=== PATIENT | female | born 1945 | race African-American/Black ===

== ENCOUNTER → 2016-11-18 | Outpatient (CLI) | payer MEDICARE, OTHER ==
[2016-11-18 12:37] LABS: ANION GAP 12 (5-19); BLOOD UREA NITROGEN 19 mg/dL (7-20); CALCIUM 8.7 mg/dL (8.4-10.2); CARBON DIOXIDE 30 mmol/L (22-30); CHLORIDE 101 mmol/L (98-107); GLUCOSE 96 mg/dL (75-110); POTASSIUM 4.1 mmol/L (3.6-5.0); SODIUM 142.6 mmol/L (137-145)
== END ==
LOC: OD 11:13
PROVIDERS: ATTEND Internal Medicine Nephrology
DX: N17.9 Acute kidney failure, unspecified (principal)
CPT/HCPCS: 36415; 80048

== ENCOUNTER → 2017-01-15 | Outpatient (CLI) | payer MEDICARE, OTHER ==
[2017-01-15 10:51] LABS: APPEARANCE,URINE SLIGHTLY-CLOUDY; BILIRUBIN,URINE NEGATIVE (NEGATIVE); GLUCOSE, URINE NEGATIVE (NEGATIVE); KETONES,URINE NEGATIVE (NEGATIVE); LEUKOCYTE ESTERASE,URINE LARGE (NEGATIVE); NITRITE,URINE POSITIVE (NEGATIVE); PROTEIN,URINE NEGATIVE (NEGATIVE); URINE SPECIFIC GRAVITY 1.014; UROBILINOGEN,URINE NEGATIVE mg/dL (<2.0)
[2017-01-15 10:52] LABS: HEMATOCRIT 35.3 % (36.0-47.0); HEMOGLOBIN 10.8 g/dL (12.0-15.5); HGB HCT DIFFERENCE -2.9; MEAN CORPUSCULAR HEMOGLOBIN 22.6 pg (27.0-33.4); MEAN CORPUSCULAR HGB CONC 30.6 g/dL (32.0-36.0); MEAN CORPUSCULAR VOLUME 74 fl (80-97); RED BLOOD COUNT 4.79 10^6/uL (3.72-5.28); RED CELL DISTRIBUTION WIDTH 15.7 % (11.5-14.0)
[2017-01-15 11:02] VITALS: BP 166/78
[2017-01-15 11:15] LABS: ANION GAP 9 (5-19); BLOOD UREA NITROGEN 22 mg/dL (7-20); CALCIUM 8.9 mg/dL (8.4-10.2); CARBON DIOXIDE 29 mmol/L (22-30); CHLORIDE 101 mmol/L (98-107); CREATININE RESULT 1.31 mg/dL (0.52-1.25); GLUCOSE 93 mg/dL (75-110); POTASSIUM 4.4 mmol/L (3.6-5.0)
--- NOTE | 2017-01-15 12:48 | EKG REPORT ---
SEVERITY:- NORMAL ECG - SINUS RHYTHM : Confirmed by: Moises Akers MD 15-Jan-2017 12:47:58
== END ==
LOC: ASU 10:15
PROVIDERS: ATTEND Orthopaedic Surgery
DX: Z01.810 Encounter for preprocedural cardiovascular examination (principal); Z01.811 Encounter for preprocedural respiratory examination; Z01.818 Encounter for other preprocedural examination; Z79.899 Other long term (current) drug therapy; M17.11 Unilateral primary osteoarthritis, right knee
CPT/HCPCS: 36415; 71020; 80048; 81001; 85027; 93005; 93010

== ENCOUNTER → 2017-02-12 | Outpatient (CLI) | payer MEDICARE, OTHER ==
[2017-02-12 13:40] LABS: ABSOLUTE EOSINOPHILS # (AUTO) 0.3 10^3/uL (0.0-0.6); ABSOLUTE LYMPHOCYTES (AUTO) 1.2 10^3/uL (0.5-4.7); ABSOLUTE MONOCYTES (AUTO) 0.6 10^3/uL (0.1-1.4); ABSOLUTE NEUT (AUTO) 3.7 10^3/uL (1.7-8.2); BASOPHILS % (AUTO) 0.5 % (0-2); EOSINOPHILS % (AUTO) 5.9 % (0-6); HEMATOCRIT 37.9 % (36.0-47.0); HEMOGLOBIN 11.6 g/dL (12.0-15.5); HGB HCT DIFFERENCE -3.1; LYMPHOCYTES % (AUTO) 19.9 % (13-45); MEAN CORPUSCULAR HEMOGLOBIN 22.7 pg (27.0-33.4); MEAN CORPUSCULAR HGB CONC 30.7 g/dL (32.0-36.0); MEAN CORPUSCULAR VOLUME 74 fl (80-97); MONOCYTES % (AUTO) 10.4 % (3-13); RED BLOOD COUNT 5.13 10^6/uL (3.72-5.28); RED CELL DISTRIBUTION WIDTH 15.3 % (11.5-14.0); SEGMENTED NEUTROPHILS % (AUTO) 63.3 % (42-78); WHITE BLOOD COUNT 5.8 10^3/uL (4.0-10.5)
[2017-02-12 14:01] LABS: ALBUMIN 4.2 g/dL (3.5-5.0); ANION GAP 16 (5-19); BLOOD UREA NITROGEN 28 mg/dL (7-20); CALCIUM 9.6 mg/dL (8.4-10.2); CARBON DIOXIDE 24 mmol/L (22-30); CHLORIDE 104 mmol/L (98-107); CREATININE RESULT 2.76 mg/dL (0.52-1.25); GLUCOSE 102 mg/dL (75-110); PHOSPHORUS 6.3 mg/dL (2.5-4.5); POTASSIUM 4.3 mmol/L (3.6-5.0); SODIUM 143.6 mmol/L (137-145)
[2017-02-12 15:05] LABS: APPEARANCE,URINE CLOUDY; BILIRUBIN,URINE MODERATE (NEGATIVE); GLUCOSE, URINE NEGATIVE (NEGATIVE); KETONES,URINE NEGATIVE (NEGATIVE); LEUKOCYTE ESTERASE,URINE MODERATE (NEGATIVE); NITRITE,URINE NEGATIVE (NEGATIVE); PROTEIN,URINE 30 mg/dL (NEGATIVE); UROBILINOGEN,URINE NEGATIVE mg/dL (<2.0)
[2017-02-13 11:09] LABS: VITAMIN D 25-HYDROXY 19.2 ng/mL (30.0-100.0)
[2017-02-14 07:38] LABS: CREATININE URINE 367.8 mg/dL (Not Estab.); MICROALBUMIN URINE 85.9 ug/mL (Not Estab.)
== END ==
LOC: OD 13:06
PROVIDERS: ATTEND Internal Medicine Nephrology
DX: N18.2 Chronic kidney disease, stage 2 (mild) (principal); R31.0 Gross hematuria; D64.9 Anemia, unspecified; N17.9 Acute kidney failure, unspecified
CPT/HCPCS: 36415; 80048; 81001; 82040; 82043; 82306; 82570; 83970; 84100; 85025

== ENCOUNTER → 2017-03-02 | Outpatient (CLI) | payer MEDICARE, OTHER ==
[2017-03-02 14:16] LABS: ANION GAP 10 (5-19); BLOOD UREA NITROGEN 16 mg/dL (7-20); CALCIUM 9.3 mg/dL (8.4-10.2); CARBON DIOXIDE 27 mmol/L (22-30); CHLORIDE 107 mmol/L (98-107); CREATININE RESULT 1.06 mg/dL (0.52-1.25); GLUCOSE 88 mg/dL (75-110); PHOSPHORUS 3.7 mg/dL (2.5-4.5); POTASSIUM 4.7 mmol/L (3.6-5.0); SODIUM 144.3 mmol/L (137-145)
== END ==
LOC: OD 12:10
PROVIDERS: ATTEND Internal Medicine Nephrology
DX: N17.9 Acute kidney failure, unspecified (principal); E83.39 Other disorders of phosphorus metabolism
CPT/HCPCS: 36415; 80048; 84100

== ENCOUNTER 2017-03-13 17:46 | Observation (INO) | payer MEDICARE, OTHER ==
--- NOTE | 2017-03-13 19:15 | ER Document Report ---
ED General - General Chief Complaint: Chest Pain Stated Complaint: CHEST PAIN/PHYSICIAN REFERRED Mode of Arrival: Ambulatory Information source: Patient Notes: 71-year-old female history of A. fib presents with complaints of sudden chest pressure sensation around the left breast. Patient denies any fevers or chills nausea vomiting or diarrhea Patient had recent stress test by Dr. Sethi TRAVEL OUTSIDE OF THE [place] IN LAST 30 DAYS: No - HPI Onset: Just prior to arrival - Related Data Allergies/Adverse Reactions: aspirin [Aspirin] Allergy (Unknown, Verified 03/13/17 18:41) Coconut * [Coconut] Allergy (Unknown, Verified 03/13/17 18:41) codeine [Codeine] Allergy (Unknown, Verified 03/13/17 18:41) ketorolac tromethamine [From Toradol] Allergy (Unknown, Verified 03/13/17 18:41) latex [Latex] Allergy (Unknown, Verified 03/13/17 18:41) Penicillins Allergy (Unknown, Verified 03/13/17 18:41) pineapple [Pineapple] Allergy (Unknown, Verified 03/13/17 18:41) BLOOD PRESSURE CUFF Allergy (Mild, Uncoded 03/13/17 18:41) ham Allergy (Unknown, Uncoded 03/13/17 18:41) Past Medical History - Social History Family History: Reviewed & Not Pertinent Patient has suicidal ideation: No Patient has homicidal ideation: No - Past Medical History Cardiac Medical History: Reports: Hx Atrial Fibrillation, Hx Coronary Artery Disease, Hx DVT, Hx Hypertension, Hx Pulmonary Embolism Denies: Hx Heart Attack Pulmonary Medical History: Reports: Hx Asthma, Hx Bronchitis, Hx Pneumonia Denies: Hx COPD, Hx Tuberculosis Neurological Medical History: Reports: Hx Migraine. Denies: Hx Cerebrovascular Accident, Hx Seizures Renal/ Medical History: Denies: Hx Peritoneal Dialysis Musculoskeltal Medical History: Reports Hx Arthritis Past Surgical History: Reports: Hx Appendectomy, Hx Bowel Surgery, Hx Cholecystectomy, Hx Hysterectomy. Denies: Hx Pacemaker - Immunizations Hx Diphtheria, Pertussis, Tetanus Vaccination: Yes Hx Pneumococcal Vaccination: 08/15/12 Physical Exam - Vital signs Vitals: Temp Pulse Resp BP Pulse Ox 98.3 F 65 22 H 144/67 H 96 03/13/17 18:04 03/13/17 18:04 03/13/17 18:04 03/13/17 18:04 03/13/17 18:04 Course - Re-evaluation Re-evalutation: 03/13/17 19:16 Minerva paged for stress test results 03/13/17 19:[address] Perdomo , they do not have access to the stress test - Vital Signs Vital signs: Temp Pulse Resp BP Pulse Ox 98.3 F 65 22 H 144/67 H 96 03/13/17 18:04 03/13/17 18:04 03/13/17 18:04 03/13/17 18:04 03/13/17 18:04
--- NOTE | 2017-03-13 20:28 | ER Document Report ---
ED Medical Screen (RME) - General Chief Complaint: Chest Pain Stated Complaint: CHEST PAIN/PHYSICIAN REFERRED Mode of Arrival: Ambulatory Notes: 71-year-old female history of A. fib presents with complaints of sudden chest pressure sensation around the left breast. Patient denies any fevers or chills nausea vomiting or diarrhea Patient had recent stress test by Dr. Sethi, georgianadant was called unable to access I have greeted and performed a rapid initial assessment of this patient. A comprehensive ED assessment and evaluation of the patient, analysis of test results and completion of the medical decision making process will be conducted by additional ED providers. PHYSICAL EXAMINATION: GENERAL: Well-appearing, well-nourished and in no acute distress. HEAD: Atraumatic, normocephalic. EYES: Pupils equal round extraocular movements intact, conjunctiva are normal. ENT: Nares patent NECK: Normal range of motion LUNGS: No respiratory distress Musculoskeletal: Normal range of motion NEUROLOGICAL: Normal speech, normal gait. PSYCH: Normal mood, normal affect. SKIN: Warm, Dry, normal turgor, no rashes or lesions noted. TRAVEL OUTSIDE OF THE [place] IN LAST 30 DAYS: No - Related Data Allergies/Adverse Reactions: aspirin [Aspirin] Allergy (Unknown, Verified 03/13/17 18:41) Coconut * [Coconut] Allergy (Unknown, Verified 03/13/17 18:41) codeine [Codeine] Allergy (Unknown, Verified 03/13/17 18:41) ketorolac tromethamine [From Toradol] Allergy (Unknown, Verified 03/13/17 18:41) latex [Latex] Allergy (Unknown, Verified 03/13/17 18:41) Penicillins Allergy (Unknown, Verified 03/13/17 18:41) pineapple [Pineapple] Allergy (Unknown, Verified 03/13/17 18:41) BLOOD PRESSURE CUFF Allergy (Mild, Uncoded 03/13/17 18:41) ham Allergy (Unknown, Uncoded 03/13/17 18:41) Past Medical History - Past Medical History Cardiac Medical History: Reports: Hx Atrial Fibrillation, Hx Coronary Artery Disease, Hx DVT, Hx Hypertension, Hx Pulmonary Embolism Denies: Hx Heart Attack Pulmonary Medical History: Reports: Hx Asthma, Hx Bronchitis, Hx Pneumonia Denies: Hx COPD, Hx Tuberculosis Neurological Medical History: Reports: Hx Migraine. Denies: Hx Cerebrovascular Accident, Hx Seizures Renal/ Medical History: Denies: Hx Peritoneal Dialysis Musculoskeltal Medical History: Reports Hx Arthritis Past Surgical History: Reports: Hx Appendectomy, Hx Bowel Surgery, Hx Cholecystectomy, Hx Hysterectomy. Denies: Hx Pacemaker - Immunizations Hx Diphtheria, Pertussis, Tetanus Vaccination: Yes Physical Exam - Vital signs Vitals: Temp Pulse Resp BP Pulse Ox 98.3 F 65 22 H 144/67 H 96 03/13/17 18:04 03/13/17 18:04 03/13/17 18:04 03/13/17 18:04 03/13/17 18:04 Course - Vital Signs Vital signs: Temp Pulse Resp BP Pulse Ox 98.3 F 65 22 H 144/67 H 96 03/13/17 18:04 03/13/17 18:04 03/13/17 18:04 03/13/17 18:04 03/13/17 18:04
[2017-03-13 20:56] LABS: ABSOLUTE EOSINOPHILS # (AUTO) 0.2 10^3/uL (0.0-0.6); ABSOLUTE LYMPHOCYTES (AUTO) 1.3 10^3/uL (0.5-4.7); ABSOLUTE MONOCYTES (AUTO) 0.6 10^3/uL (0.1-1.4); ABSOLUTE NEUT (AUTO) 4.9 10^3/uL (1.7-8.2); BASOPHILS % (AUTO) 0.5 % (0-2); EOSINOPHILS % (AUTO) 3.1 % (0-6); HEMATOCRIT 37.8 % (36.0-47.0); HEMOGLOBIN 11.7 g/dL (12.0-15.5); HGB HCT DIFFERENCE -2.7; LYMPHOCYTES % (AUTO) 18.3 % (13-45); MEAN CORPUSCULAR HEMOGLOBIN 22.4 pg (27.0-33.4); MEAN CORPUSCULAR HGB CONC 30.8 g/dL (32.0-36.0); MEAN CORPUSCULAR VOLUME 73 fl (80-97); MONOCYTES % (AUTO) 8.8 % (3-13); RED BLOOD COUNT 5.22 10^6/uL (3.72-5.28); RED CELL DISTRIBUTION WIDTH 15.1 % (11.5-14.0); SEGMENTED NEUTROPHILS % (AUTO) 69.3 % (42-78); WHITE BLOOD COUNT 7.1 10^3/uL (4.0-10.5)
[2017-03-13 20:57] LABS: PROTHROMBIN TIME 24.3 SEC (11.4-15.4)
[2017-03-13 20:58] LABS: PARTIAL THROMBOPLASTIN TIME 39.1 SEC (23.5-35.8)
[2017-03-13 21:15] LABS: ALANINE AMINOTRANSFERASE 21 U/L (9-52); ALKALINE PHOSPHATASE 77 U/L (38-126); ANION GAP 15 (5-19); ASPARTATE AMINO TRANSFERASE 21 U/L (14-36); BILIRUBIN,DIRECT 0.4 mg/dL (0.0-0.4); BILIRUBIN,TOTAL 0.8 mg/dL (0.2-1.3); BLOOD UREA NITROGEN 20 mg/dL (7-20); CALCIUM 9.5 mg/dL (8.4-10.2); CARBON DIOXIDE 25 mmol/L (22-30); CHLORIDE 102 mmol/L (98-107); CREATINE KINASE 81 U/L (30-135); CREATININE RESULT 1.74 mg/dL (0.52-1.25); GLUCOSE 108 mg/dL (75-110); POTASSIUM 3.9 mmol/L (3.6-5.0); SODIUM 142.3 mmol/L (137-145); TOTAL PROTEIN 7.6 g/dL (6.3-8.2)
--- NOTE | 2017-03-13 21:20 | ER Document Report ---
ED Cardiac - General Chief Complaint: Chest Pain Stated Complaint: CHEST PAIN/PHYSICIAN REFERRED Time seen by provider: 21:18 Mode of Arrival: Ambulatory Information source: Patient TRAVEL OUTSIDE OF THE [place] IN LAST 30 DAYS: No - HPI Patient complains to provider of: Chest pain Was the onset of pain: Sudden Is the pain a: New problem Chest pain location: Substernal, Under breast Quality of pain: Pressure Chest pain radiation location: Left arm Severity now: None Severity at worst: Moderate Chest pain precipitating factors: At Rest Cardiac risk factors: Hypertension, Dyslipidemia Positive cardiac history: No Associated symptoms: Nausea/vomiting, Shortness of breath Exacerbated by: Denies Relieved by: Nothing Similar symptoms previously: No Notes: Patient is a 71-year-old female with past medical history significant for hypertension, high cholesterol, COPD, pulmonary embolus, migraine headaches and CVA, who presents to the emergency room complaining of chest pain that started earlier today while at rest, it is pressure-like in nature, radiates from the midsternum to the left breast and down the left arm, she reports associated shortness of breath with the pain, as well as nausea, she denies a history of similar symptoms in the past, reports that symptoms are resolved at time of my initial evaluation - Related Data Allergies/Adverse Reactions: aspirin [Aspirin] Allergy (Unknown, Verified 03/13/17 18:41) Coconut * [Coconut] Allergy (Unknown, Verified 03/13/17 18:41) codeine [Codeine] Allergy (Unknown, Verified 03/13/17 18:41) ketorolac tromethamine [From Toradol] Allergy (Unknown, Verified 03/13/17 18:41) latex [Latex] Allergy (Unknown, Verified 03/13/17 18:41) Penicillins Allergy (Unknown, Verified 03/13/17 18:41) pineapple [Pineapple] Allergy (Unknown, Verified 03/13/17 18:41) BLOOD PRESSURE CUFF Allergy (Mild, Uncoded 03/13/17 18:41) ham Allergy (Unknown, Uncoded 03/13/17 18:41) Past Medical History - General Information source: Patient - Social History Smoking Status: Never Smoker Frequency of alcohol use: None Drug Abuse: None Family History: Reviewed & Not Pertinent Patient has suicidal ideation: No Patient has homicidal ideation: No - Past Medical History Cardiac Medical History: Reports: Hx Atrial Fibrillation, Hx Coronary Artery Disease, Hx DVT, Hx Hypertension, Hx Pulmonary Embolism Denies: Hx Heart Attack Pulmonary Medical History: Reports: Hx Asthma, Hx Bronchitis, Hx Pneumonia Denies: Hx COPD, Hx Tuberculosis Neurological Medical History: Reports: Hx Migraine. Denies: Hx Cerebrovascular Accident, Hx Seizures Renal/ Medical History: Denies: Hx Peritoneal Dialysis Musculoskeltal Medical History: Reports Hx Arthritis Past Surgical History: Reports: Hx Appendectomy, Hx Bowel Surgery, Hx Cholecystectomy, Hx Hysterectomy. Denies: Hx Pacemaker - Immunizations Hx Diphtheria, Pertussis, Tetanus Vaccination: Yes Hx Pneumococcal Vaccination: 08/15/12 Review of Systems - Review of Systems Constitutional: No symptoms reported EENT: No symptoms reported Cardiovascular: See HPI Respiratory: See HPI Gastrointestinal: Nausea Genitourinary: No symptoms reported Female Genitourinary: No symptoms reported Musculoskeletal: No symptoms reported Skin: No symptoms reported Hematologic/Lymphatic: No symptoms reported Neurological/Psychological: No symptoms reported -: Yes All other systems reviewed and negative Physical Exam - Vital signs Vitals: Temp Pulse Resp BP Pulse Ox 98.3 F 65 22 H 144/67 H 96 03/13/17 18:04 03/13/17 18:04 03/13/17 18:04 03/13/17 18:04 03/13/17 18:04 Interpretation: Normal - General General appearance: Appears well, Alert - HEENT Head: Normocephalic, Atraumatic Eyes: Normal Pupils: PERRL - Respiratory Respiratory status: No respiratory distress Chest status: Nontender Breath sounds: Normal Chest palpation: Normal - Cardiovascular Rhythm: Regular Heart sounds: Normal auscultation Murmur: No - Abdominal Inspection: Obese Distension: No distension Bowel sounds: Normal Tenderness: Nontender Organomegaly: No organomegaly - Back Back: Normal, Nontender - Extremities General upper extremity: Normal inspection, Nontender, Normal color, Normal ROM , Normal temperature General lower extremity: Normal inspection, Nontender, Normal color, Normal ROM , Normal temperature, Normal weight bearing. No: Jimi's sign - Neurological Neuro grossly intact: Yes Cognition: Normal Orientation: AAOx4 Hennessey Coma Scale Eye Opening: Spontaneous [place] Coma Scale Verbal: Oriented Jory Coma Scale Motor: Obeys Commands Hennessey Coma Scale Total: 15 Speech: Normal Motor strength normal: LUE, RUE, LLE, RLE Sensory: Normal - Psychological Associated symptoms: Normal affect, Normal mood - Skin Skin Temperature: Warm Skin Moisture: Dry Skin Color: Normal Course - Re-evaluation Re-evalutation: 03/13/17 21:34 Flight Kitchen Manager requested to page physician covering for Dr. Negro 03/13/17 21:42 Patient resting comfortably, remains chest pain-free, discussed with Dr. Bland who agrees to admit as telemetry observation for Dr. Negro for chest pain - Vital Signs Vital signs: Temp Pulse Resp BP Pulse Ox 98.3 F 65 18 151/99 H 96 03/13/17 18:04 03/13/17 18:04 03/13/17 21:01 03/13/17 21:01 03/13/17 21:01 - Laboratory Result Diagrams: 03/13/17 20:20 03/13/17 20:20 Laboratory results interpreted by me: 03/13/17 03/13/17 03/13/17 20:20 20:20 20:20 Hgb 11.7 L MCV 73 L MCH 22.4 L MCHC 30.8 L RDW 15.1 H Plt Count 134 L PT 24.3 H APTT 39.1 H Creatinine 1.74 H Est GFR ( Amer) 35 L Est GFR (Non-Af Amer) 29 L - Diagnostic Test Radiology reviewed: Image reviewed, Reports reviewed - EKG Interpretation by Me EKG shows normal: Sinus rhythm Rate: Normal Rhythm: NSR, APC's - Transfer of Care Care transferred to following provider: Dr. Bland for Dr. Negro Discharge - Discharge Clinical Impression: Chest pain Qualifiers: Chest pain type: unspecified Qualified Code(s): R07.9 - Chest pain, unspecified Condition: Stable Disposition: ADMITTED OBSERVATION Admitting Provider: Guillermo Unit Admitted: Telemetry Referrals: LANCE NEGRO MD [Primary Care Provider] - Follow up as needed
[2017-03-13 21:25] LABS: CREATINE KINASE MB 1.31 ng/mL (<4.55); TROPONIN I 0.013 ng/mL
[2017-03-14] MEDS ORDERED: ONDANSETRON HCL INJ/PF 4 MG/2 ML SDV IV ONE (00:06)
[2017-03-14] MEDS ORDERED: DIPHENHYDRAMINE HCL 25 MG CAPSULE PO PRN (03:36)
[2017-03-14 05:17] LABS: CREATINE KINASE MB 1.06 ng/mL (<4.55); TROPONIN I 0.014 ng/mL
[2017-03-14] MEDS: MORPHINE SULFATE SR 30 MG TABLET PO SCH ×3 (05:36→21:36)
[2017-03-14] MEDS ORDERED: ONDANSETRON HCL INJ/PF 4 MG/2 ML SDV ONE (08:54)
[2017-03-14] MEDS ORDERED: ONDANSETRON HCL INJ/PF 4 MG/2 ML SDV IV PRN (08:58)
--- NOTE | 2017-03-14 10:06 | EKG REPORT ---
SEVERITY:- OTHERWISE NORMAL ECG - SINUS RHYTHM ATRIAL PREMATURE COMPLEX : Confirmed by: Darien Baca 14-Mar-2017 10:06:09
[2017-03-14 12:31] LABS: TROPONIN I < 0.012 ng/mL
[2017-03-14] MEDS ORDERED: METHOCARBAMOL 750 MG TABLET PO PRN (14:06)
[2017-03-14] MEDS ORDERED: QUETIAPINE FUMARATE 100 MG TABLET PO PRN (14:06)
[2017-03-14] MEDS ORDERED: (PENDING PHARMACY ID) (Citalopram Hydrobromide [Celexa 40 Mg Tablet] 1 TAB) PO SCH (14:15)
[2017-03-14] MEDS ORDERED: MORPHINE SULFATE 60 MG PO SCH (14:15)
[2017-03-14] MEDS ORDERED: GABAPENTIN 300 MG CAPSULE PO ONE (14:45)
[2017-03-14] MEDS ORDERED: HYDRALAZINE HCL 50 MG TABLET PO ONE (14:45)
[2017-03-14] MEDS ORDERED: LANSOPRAZOLE 30 MG TAB.RAP.DR PO ONE (15:00)
[2017-03-14] MEDS ORDERED: ALBUTEROL SULFATE 0.083% NEB 2.5 MG/3 ML AMPUL NEB ONE (15:00)
[2017-03-14] MEDS ORDERED: METOPROLOL SUCCINATE 50 MG TAB.SR.24H PO ONE (15:00)
[2017-03-14] MEDS ORDERED: DILTIAZEM HCL 120 MG CAP.SR.24H PO ONE (15:00)
[2017-03-14] MEDS ORDERED: CITALOPRAM HYDROBROMIDE 20 MG TABLET PO ONE (15:00)
[2017-03-14] MEDS ORDERED: RIVAROXABAN 10 MG TABLET PO ONE (15:00)
[2017-03-14] MEDS ORDERED: LIDOCAINE 5% (700 MG) TRANSDERMAL ADH..PATCH TP ONE (15:30)
[2017-03-14 16:21] LABS: CREATINE KINASE MB 1.19 ng/mL (<4.55)
[2017-03-14 16:24] LABS: TROPONIN I < 0.012 ng/mL
--- NOTE | 2017-03-14 16:55 | PDOC H&P ---
History of Present Illness Admission Date/PCP: 03/14/17 03:04 LANCE NEGRO MD History of Present Illness: GLENDA PENA is a 71 year old female, she called me and indicated that she was having chest pain I advised her to go to the emergency room which she did. She was seen and evaluated in the ER EKG was done that was normal sinus rhythm there was no acute ST T-wave changes the ER physician is requesting that patient be admitted to the hospital for management. When I spoke to she stated that the chest pain is left-sided and it radiated to the left upper extremities , the carotid of the chest pain is not clear she also stated that she recently had a nuclear stress test done in [place] by the breakfast hostess she does not know the results of the stress test she also told me that her physician Dr. Negro was making efforts to get the results of the test but so far there they were not successful. The 3 sets of cardiac enzymes are so far negative for acute UT ,she had episode of vomiting, the vomitus contained recently eating food. Past Medical History Cardiac Medical History: Reports: Atrial Fibrillation, Coronary Artery Disease, DVT, Hypertension, Pulmonary Embolism Pulmonary Medical History: Reports: Asthma, Bronchitis, Pneumonia Neurological Medical History: Reports: Migraine Musculoskeltal Medical History: Reports: Arthritis Past Surgical History Past Surgical History: Reports: Appendectomy, Cholecystectomy, Hysterectomy Social History Smoking Status: Never Smoker Frequency of Alcohol Use: None Hx Recreational Drug Use: No Drugs: None Hx Prescription Drug Abuse: No - Advance Directive Resuscitation Status: Full Code Family History Family History: Reviewed & Not Pertinent Parental Family History Reviewed: Yes Children Family History Reviewed: Yes Sibling(s) Family History Reviewed.: Yes Medication/Allergy Home Medications: Albuterol Sulfate [Albuterol Sulfate 2.5mg/3 mL] 2.5 ml IH Q6 03/14/17 Citalopram Hydrobromide [Celexa 40 mg Tablet] 1 tab PO DAILY 03/14/17 Clonidine 0.3 patch TD MAYEN@1000 03/14/17 Diltiazem HCl [Diltiazem 24Hr Cd] 120 mg PO DAILY 03/14/17 Ergocalciferol (Vitamin D2) [Vitamin D2] 50,000 unit PO SUTH@1000 03/14/17 Fluticasone/Salmeterol [Advair 500-50 Diskus 28 Dose] 1 puff IH Q12 03/14/17 Gabapentin [Neurontin 300 mg Capsule] 300 mg PO Q12 03/14/17 Hydralazine HCl [Apresoline 50 mg Tablet] 50 mg PO Q12 03/14/17 Lidocaine [Lidoderm 5% (700 mg) Transdermal Patch] 1 patch TD DAILY 03/14/17 Methocarbamol [Robaxin 750 mg Tablet] 750 mg PO DAILY PRN 03/14/17 Metoprolol Succinate [Toprol XL 100 mg Tablet] 100 mg PO DAILY 03/14/17 Montelukast Sodium [Singulair 10 mg Tablet] 10 mg PO QHS 03/14/17 Morphine Sulfate [Morphine Sulfate ER] 60 mg PO Q12 03/14/17 Omeprazole 40 mg PO DAILY 03/14/17 Quetiapine Fumarate [Seroquel 100 mg Tablet] 100 mg PO DAILY PRN 03/14/17 Rivaroxaban [Xarelto] 20 mg PO DAILY 03/14/17 Sumatriptan Succinate 6 mg SQ DAILY PRN 03/14/17 Allergies/Adverse Reactions: aspirin [Aspirin] Allergy (Unknown, Verified 03/13/17 18:41) Coconut * [Coconut] Allergy (Unknown, Verified 03/13/17 18:41) codeine [Codeine] Allergy (Unknown, Verified 03/13/17 18:41) ketorolac tromethamine [From Toradol] Allergy (Unknown, Verified 03/13/17 18:41) latex [Latex] Allergy (Unknown, Verified 03/13/17 18:41) Penicillins Allergy (Unknown, Verified 03/13/17 18:41) pineapple [Pineapple] Allergy (Unknown, Verified 03/13/17 18:41) BLOOD PRESSURE CUFF Allergy (Mild, Uncoded 03/13/17 18:41) ham Allergy (Unknown, Uncoded 03/13/17 18:41) Review of Systems Constitutional: PRESENT: fatigue Eyes: ABSENT: visual disturbances Ears: ABSENT: hearing changes Cardiovascular: PRESENT: chest pain Respiratory: ABSENT: cough, hemoptysis Gastrointestinal: PRESENT: nausea, vomiting Genitourinary: ABSENT: dysuria, hematuria Musculoskeletal: ABSENT: joint swelling Integumentary: ABSENT: rash, wounds Neurological: ABSENT: abnormal gait, abnormal speech, confusion, dizziness, focal weakness, syncope Psychiatric: ABSENT: anxiety, depression, homidical ideation, suicidal ideation Endocrine: ABSENT: cold intolerance, heat intolerance, menstrual abnormalities, polydipsia, polyuria Hematologic/Lymphatic: ABSENT: easy bleeding, easy bruising, lymphadenopathy Physical Exam Vital Signs: Temp Pulse Resp BP Pulse Ox 98.3 F 65 16 125/74 100 03/14/17 16:00 03/14/17 16:00 03/14/17 16:00 03/14/17 16:00 03/14/17 16:00 Intake & Output 03/13/17 03/14/17 03/15/17 06:59 06:59 06:59 Intake Total 100 Balance 100 General appearance: PRESENT: no acute distress, well-developed, well-nourished Head exam: PRESENT: atraumatic, normocephalic Eye exam: PRESENT: conjunctiva pink, EOMI, PERRLA Ear exam: PRESENT: normal external ear exam Mouth exam: PRESENT: moist, tongue midline Neck exam: PRESENT: full ROM Respiratory exam: PRESENT: clear to auscultation lashanda Cardiovascular exam: PRESENT: RRR, +S1, +S2 Pulses: PRESENT: normal dorsalis pedis pul, +2 pedal pulses bilateral Vascular exam: PRESENT: normal capillary refill GI/Abdominal exam: PRESENT: normal bowel sounds, soft Rectal exam: PRESENT: deferred Neurological exam: PRESENT: alert, awake, oriented to person, oriented to place , oriented to time, oriented to situation, CN II-XII grossly intact Psychiatric exam: PRESENT: appropriate affect, normal mood Skin exam: PRESENT: dry, intact, warm Results Laboratory Results: 03/14/17 03/14/17 03/14/17 03:35 03:35 11:45 Creatine Kinase 78 64 CK-MB (CK-2) 1.06 Troponin I 0.014 03/14/17 03/14/17 03/14/17 11:45 15:30 15:30 Creatine Kinase 74 CK-MB (CK-2) 1.30 1.19 Troponin I < 0.012 < 0.012 Impressions: Chest X-Ray 03/13/17 19:02 IMPRESSION: NO ACUTE RADIOGRAPHIC FINDING IN THE CHEST. Assessment & Plan - Diagnosis (1) Chest pain Qualifiers: Chest pain type: unspecified Qualified Code(s): R07.9 - Chest pain, unspecified Is this a current diagnosis for this admission?: YesPlan: She has left sided chest pain that radiated to the left upper extremity, so far cardiac enzymes are negative, she has risk factors for vascular disease, she is also on anticoagulant because of history of pulmonary embolism, since she recently had a nuclear stress test I would not reorder another nuclear stress test but we will make efforts to retrieve the results of the stress test that she had done in the last few weeks
[2017-03-14] MEDS: FLUTICASONE/SALMETEROL DISKUS 500-50 MCG/DOSE IH SCH (17:17)
[2017-03-14] MEDS ORDERED: CLONIDINE 0.3 MG/24 HR PATCH.TDWK TD SCH (18:00)
[2017-03-14] MEDS ORDERED: ERGOCALCIFEROL (VITAMIN D2) 50000 UNIT (1.25 MG) CAPSULE PO SCH (18:00)
[2017-03-14] MEDS: ALBUTEROL SULFATE 0.083% NEB 2.5 MG/3 ML AMPUL NEB SCH (19:49)
[2017-03-14] MEDS: MONTELUKAST SODIUM 10 MG TABLET PO SCH (21:36)
[2017-03-14] MEDS: HYDRALAZINE HCL 50 MG TABLET PO SCH (21:36)
[2017-03-14] MEDS: GABAPENTIN 300 MG CAPSULE PO SCH (21:36)
[2017-03-14] MEDS ORDERED: MORPHINE SULFATE SR 30 MG TABLET PO SCH (22:00)
[2017-03-14 23:08] LABS: CREATINE KINASE MB 0.99 ng/mL (<4.55)
[2017-03-14 23:12] LABS: TROPONIN I < 0.012 ng/mL
[2017-03-15] MEDS: ALBUTEROL SULFATE 0.083% NEB 2.5 MG/3 ML AMPUL NEB SCH ×4 (01:47→19:51)
[2017-03-15] MEDS: MORPHINE SULFATE SR 30 MG TABLET PO SCH ×2 (05:15→14:17)
[2017-03-15] MEDS: FLUTICASONE/SALMETEROL DISKUS 500-50 MCG/DOSE IH SCH ×2 (05:15→18:33)
[2017-03-15 09:47] LABS: CREATINE KINASE MB 7.44 ng/mL (<4.55); TROPONIN I 0.02 ng/mL
[2017-03-15] MEDS: CITALOPRAM HYDROBROMIDE 20 MG TABLET PO SCH (09:51)
[2017-03-15] MEDS: METOPROLOL SUCCINATE 50 MG TAB.SR.24H PO SCH (09:51)
[2017-03-15] MEDS: GABAPENTIN 300 MG CAPSULE PO SCH ×2 (09:51→21:46)
[2017-03-15] MEDS: DILTIAZEM HCL 120 MG CAP.SR.24H PO SCH (09:52)
[2017-03-15] MEDS: RIVAROXABAN 10 MG TABLET PO SCH (09:52)
[2017-03-15] MEDS: HYDRALAZINE HCL 50 MG TABLET PO SCH ×2 (09:52→21:46)
[2017-03-15] MEDS: LANSOPRAZOLE 30 MG TAB.RAP.DR PO SCH (09:52)
[2017-03-15] MEDS: LIDOCAINE 5% (700 MG) TRANSDERMAL ADH..PATCH TP SCH (09:53)
--- NOTE | 2017-03-15 12:42 | PDOC PROGRESS REPORT ---
Subjective Progress Note for:: 03/15/17 Subjective:: Patient was admitted for the chest pain and patient initial all cardiac enzymes was negative. Patient's denied any chest point anymore denied any shortness of the breath patients also see a cardiology at the [place] and a recent stress test was done was also negative to Physical Exam Vital Signs: Temp Pulse Resp BP Pulse Ox 99.3 F 62 16 120/72 94 03/15/17 08:00 03/15/17 08:11 03/15/17 08:11 03/15/17 08:00 03/15/17 08:00 Intake & Output 03/14/17 03/15/17 03/16/17 06:59 06:59 06:59 Intake Total 100 1340 Output Total 750 Balance 100 590 General appearance: PRESENT: no acute distress, well-developed, well-nourished Head exam: PRESENT: atraumatic, normocephalic Eye exam: PRESENT: conjunctiva pink, EOMI, PERRLA. ABSENT: scleral icterus Ear exam: PRESENT: normal external ear exam Mouth exam: PRESENT: moist, tongue midline Neck exam: PRESENT: full ROM. ABSENT: carotid bruit, JVD, lymphadenopathy, thyromegaly Respiratory exam: PRESENT: clear to auscultation lashanda Cardiovascular exam: PRESENT: RRR. ABSENT: diastolic murmur, rubs, systolic murmur Pulses: PRESENT: normal dorsalis pedis pul, +2 pedal pulses bilateral Vascular exam: PRESENT: normal capillary refill GI/Abdominal exam: PRESENT: normal bowel sounds, soft. ABSENT: distended, guarding, mass, organolmegaly, rebound, tenderness Rectal exam: PRESENT: deferred Neurological exam: PRESENT: alert, awake, oriented to person, oriented to place , oriented to time, oriented to situation, CN II-XII grossly intact. ABSENT: motor sensory deficit Psychiatric exam: PRESENT: appropriate affect, normal mood. ABSENT: homicidal ideation, suicidal ideation Skin exam: PRESENT: dry, intact, warm. ABSENT: cyanosis, rash Results Laboratory Results: 03/14/17 03/14/17 03/14/17 03:35 03:35 11:45 Creatine Kinase 78 64 CK-MB (CK-2) 1.06 Troponin I 0.014 03/14/17 03/14/17 03/14/17 11:45 15:30 15:30 Creatine Kinase 74 CK-MB (CK-2) 1.30 1.19 Troponin I < 0.012 < 0.012 03/14/17 03/14/17 03/15/17 21:40 21:40 08:50 Creatine Kinase 86 1051 H CK-MB (CK-2) 0.99 Troponin I < 0.012 03/15/17 08:50 Creatine Kinase CK-MB (CK-2) 7.44 H Troponin I 0.020 Impressions: Chest X-Ray 03/13/17 19:02 IMPRESSION: NO ACUTE RADIOGRAPHIC FINDING IN THE CHEST. Assessment & Plan - Diagnosis (1) Chest pain Qualifiers: Chest pain type: unspecified Qualified Code(s): R07.9 - Chest pain, unspecified Is this a current diagnosis for this admission?: YesPlan: Patient all cardiac enzyme is negative most likely a chest wall pain with the mildly elevated CPK level. Will get the stress test report from the coal mill operator office today and ambulate during the patient's and the patient is not complaining any chest pain anymore if the stress test was negative and cardiac enzyme is all stable we will discharge the patient in follow as outpatients (2) Chronic pain syndrome Is this a current diagnosis for this admission?: YesPlan: Patient is currently on a pain management (3) Chronic kidney disease Qualifiers: Chronic kidney disease stage: stage 3 (moderate) Qualified Code(s): N18.3 - Chronic kidney disease, stage 3 (moderate) Is this a current diagnosis for this admission?: YesPlan: Currently stable (4) Migraine headache Qualifiers: Migraine type: unspecified Is this a current diagnosis for this admission?: YesPlan: Patient also see her [place] [facility] (5) Hypertension Qualifiers: Hypertension type: essential hypertension Qualified Code(s): I10 - Essential (primary) hypertension Is this a current diagnosis for this admission?: YesPlan: Continues to current medications (6) Pulmonary embolism Qualifiers: Chronicity: unspecified Is this a current diagnosis for this admission?: YesPlan: Patient is currently see the bone crusher and currently on Coumadin with INR is 2 (7) Chronic back pain Qualifiers: Back pain location: low back pain Is this a current diagnosis for this admission?: YesPlan: Patient's currently see the neurosurgery at [place] (8) Asthma Qualifiers: Asthma complication type: uncomplicated Is this a current diagnosis for this admission?: YesPlan: Currently stable - Time Time Spent with patient: 15-24 minutes Medications reviewed and adjusted accordingly: Yes Anticipated discharge: Home Within: Other - Inpatient Certification Medical Necessity: Need Close Monitoring Due to Risk of Patient Decompensation Post Hospital Care: D/C Email Marketing Assistant Documentation - Plan Summary Plan Summary: We will get the stress test report and continues to monitor the patient's
--- NOTE | 2017-03-15 13:30 | EKG REPORT ---
SEVERITY:- BORDERLINE ECG - SINUS RHYTHM PROBABLE LEFT ATRIAL ABNORMALITY : Confirmed by: Moises Akers MD 15-Mar-2017 13:29:33
[2017-03-15] MEDS ORDERED: ONDANSETRON HCL INJ/PF 4 MG/2 ML SDV IV PRN (15:15)
[2017-03-15 16:00] LABS: CREATINE KINASE MB 12.7 ng/mL (<4.55); TROPONIN I 0.026 ng/mL
[2017-03-15] MEDS: NORMAL SALINE 1000 ML 1,000 ML IV PRN (17:21)
[2017-03-15 19:48] LABS: CREATINE KINASE MB 11.3 ng/mL (<4.55); TROPONIN I 0.029 ng/mL
--- NOTE | 2017-03-15 20:18 | PDOC CONSULTATION ---
Consultation Consult Date: 03/15/17 Attending physician:: LANCE LI Consult reason:: Chest pain History of Present Illness Admission Date/PCP: 03/14/17 03:04 LANCE LI MD Patient complains of: Chest pain History of Present Illness: GLENDA PENA is a 71 year old female, admitted through the emergency department with chest pain. She was seen and evaluated in the ER EKG was done that was normal sinus rhythm there was no acute ST T-wave changes. Patient was subsequently admitted to the hospital for management. Patient claims that the chest pain is left-sided and it radiated to the left upper extremities. The chest pain is sharp and is increased by taking a deep breath and by twisting and turning and certain movements. She also stated that she recently had a nuclear stress test done in [place] by the paramedic supervisor she does not know the results of the stress test she also told me that her physician Dr. Li was making efforts to get the results of the test but so far there they were not successful. The 3 sets of cardiac enzymes are so far negative for acute [place]. Patient however has elevation of total CK and CK-MB. Patient has a history of pulmonary embolism and is on Xarelto. This was related to me by patient's primary care M.D. Patient denied any recent fever or chills or cough. Patient claims to have spasms of pain on the left side of chest.. Past Medical History Cardiac Medical History: Reports: Atrial Fibrillation, Coronary Artery Disease, DVT, Hypertension, Pulmonary Embolism Denies: Myocardial Infarction Pulmonary Medical History: Reports: Asthma, Bronchitis, Pneumonia Denies: Chronic Obstructive Pulmonary Disease (COPD), Tuberculosis Neurological Medical History: Reports: Migraine Denies: Seizures Musculoskeltal Medical History: Reports: Arthritis Psychiatric Medical History: Denies: Depression Hematology: Denies: Anemia Past Surgical History Past Surgical History: Reports: Appendectomy, Cholecystectomy, Hysterectomy Denies: Pacemaker Social History Information Source: Patient Smoking Status: Never Smoker Frequency of Alcohol Use: None Hx Recreational Drug Use: No Drugs: None Hx Prescription Drug Abuse: No - Advance Directive Resuscitation Status: Full Code Surrogate healthcare decision maker:: Patient's is the surrogate decision maker Family History Family History: Reviewed & Not Pertinent - Negative for premature coronary artery disease or sudden cardiac in the family amongst first degree relatives. Parental Family History Reviewed: Yes Children Family History Reviewed: Yes Sibling(s) Family History Reviewed.: Yes Medication/Allergy Home Medications: Albuterol Sulfate [Albuterol Sulfate 2.5mg/3 mL] 2.5 ml IH Q6 03/14/17 Citalopram Hydrobromide [Celexa 40 mg Tablet] 1 tab PO DAILY 03/14/17 Clonidine 0.3 patch TD MAYEN@1000 03/14/17 Diltiazem HCl [Diltiazem 24Hr Cd] 120 mg PO DAILY 03/14/17 Ergocalciferol (Vitamin D2) [Vitamin D2] 50,000 unit PO SUTH@1000 03/14/17 Fluticasone/Salmeterol [Advair 500-50 Diskus 28 Dose] 1 puff IH Q12 03/14/17 Gabapentin [Neurontin 300 mg Capsule] 300 mg PO Q12 03/14/17 Hydralazine HCl [Apresoline 50 mg Tablet] 50 mg PO Q12 03/14/17 Lidocaine [Lidoderm 5% (700 mg) Transdermal Patch] 1 patch TD DAILY 03/14/17 Methocarbamol [Robaxin 750 mg Tablet] 750 mg PO DAILY PRN 03/14/17 Metoprolol Succinate [Toprol XL 100 mg Tablet] 100 mg PO DAILY 03/14/17 Montelukast Sodium [Singulair 10 mg Tablet] 10 mg PO QHS 03/14/17 Morphine Sulfate [Morphine Sulfate ER] 60 mg PO Q12 03/14/17 Omeprazole 40 mg PO DAILY 03/14/17 Quetiapine Fumarate [Seroquel 100 mg Tablet] 100 mg PO DAILY PRN 03/14/17 Rivaroxaban [Xarelto] 20 mg PO DAILY 03/14/17 Sumatriptan Succinate 6 mg SQ DAILY PRN 03/14/17 Allergies/Adverse Reactions: aspirin [Aspirin] Allergy (Unknown, Verified 03/13/17 18:41) Coconut * [Coconut] Allergy (Unknown, Verified 03/13/17 18:41) codeine [Codeine] Allergy (Unknown, Verified 03/13/17 18:41) ketorolac tromethamine [From Toradol] Allergy (Unknown, Verified 03/13/17 18:41) latex [Latex] Allergy (Unknown, Verified 03/13/17 18:41) Penicillins Allergy (Unknown, Verified 03/13/17 18:41) pineapple [Pineapple] Allergy (Unknown, Verified 03/13/17 18:41) BLOOD PRESSURE CUFF Allergy (Mild, Uncoded 03/13/17 18:41) ham Allergy (Unknown, Uncoded 03/13/17 18:41) Review of Systems Review of Systems: Please see history of present illness and past medical history as wall. Constitutional: No fever or chills reported. Head : No recent chronic headaches, recent head injury. Eyes: No recent eye pain, diplopia, redness, discharge, acute visual changes. Ears: No recent chronic ear pain, acute hearing loss, ear discharge. Oral cavity: No recent ulcerations, bleeding, oral cavity discomfort. Neck: No recent acute neck pain reported. Hematologic: No recent easy bruising or bleeding or hematologic malignancy reported. Lymphatic: No recent lymphatic malignancy, chronic lymphadenopathy reported yet Cardiovascular system review: See history of present illness. Respiratory system review: No recent chronic cough, hemoptysis, blood clots in the lungs reported. Mild Shortness of breath on exertion Gastrointestinal system review: Negative for any recent acute or chronic abdominal pain, hematemesis, melena, recent change in bowel habits. Genitourinary system review: No recent acute or chronic hematuria, flank pain, UTI etc. reported. Skin system review: Negative for any recent abnormal bruising, no rash, no pruritus reported. Neurologic: No prior history of strokes, mini strokes, seizure disorder. Psychologic: No history of major psychosis or major depression reported. Musculoskeletal: Minor aches and pains reported. No acute joint swelling reported. Endocrine: No recent polyuria, polydipsia, recent heat or cold intolerance. Physical Exam Vital Signs: Temp Pulse Resp BP Pulse Ox 98.2 F 69 15 121/75 96 03/15/17 12:00 03/15/17 19:00 03/15/17 14:08 03/15/17 12:00 03/15/17 12:00 Intake & Output 03/14/17 03/15/17 03/16/17 06:59 06:59 06:59 Intake Total 100 1340 700 Output Total 750 800 Balance 100 590 -100 Exam: GENERAL: well-nourished and in no acute distress. Alert and oriented x3 HEAD: Atraumatic, normocephalic. EYES: Pupils equal round and reactive to light, extraocular movements intact, sclera anicteric, conjunctiva are normal. ENT: TMs normal, nares patent, oropharynx clear without exudates. Moist mucous membranes. No oral ulcerations or bleeding gums noted NECK: supple without lymphadenopathy. Trachea is central. No cervical or axillary lymphadenopathy noted. Carotids are 2+, JVD WNL LUNGS: Respiration seems nonlabored, no significant accessory muscle action noted. Breath sounds clear to auscultation bilaterally and equal noted. No wheezes rales or rhonchi noted. No significant dullness noted on percussion. CHEST: Palpation of the chest wall shows positive for significant chest wall tenderness. No other significant abnormalities noted. Patient has a Port-A- Cath on the right side. 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 ABDOMEN: Soft, no significant tenderness appreciated, normoactive bowel sounds. No guarding, no rebound. No rigidity noted . No masses appreciated. EXTREMITIES: Pedal pulses are 1-2+, no calf tenderness noted. No clubbing or cyanosis.trace to 1+ pedal edema noted NEUROLOGICAL: Focused neurological exam showed no significant neurologic deficit. Normal speech, no focal weakness appreciated. PSYCH: Normal mood, normal affect. Judgment and insight within normal limits. SKIN: No significant ecchymosis, rash, ulcerations or signs of pruritus noted. MUSCULOSKELETAL EXAM: No significant joint swelling noted. Results Laboratory Results: 03/14/17 03/14/17 03/14/17 03:35 03:35 11:45 Creatine Kinase 78 64 CK-MB (CK-2) 1.06 Troponin I 0.014 03/14/17 03/14/17 03/14/17 11:45 15:30 15:30 Creatine Kinase 74 CK-MB (CK-2) 1.30 1.19 Troponin I < 0.012 < 0.012 03/14/17 03/14/17 03/15/17 21:40 21:40 08:50 Creatine Kinase 86 1051 H CK-MB (CK-2) 0.99 Troponin I < 0.012 03/15/17 03/15/17 03/15/17 08:50 14:25 14:25 Creatine Kinase 2357 H CK-MB (CK-2) 7.44 H 12.70 H Troponin I 0.020 0.026 03/15/17 03/15/17 18:50 18:50 Creatine Kinase 3024 H CK-MB (CK-2) 11.30 H Troponin I 0.029 EKG Comments: Sinus rhythm, no acute ST-T wave changes are noted. Impressions: Chest X-Ray 03/13/17 19:02 IMPRESSION: NO ACUTE RADIOGRAPHIC FINDING IN THE CHEST. Assessment & Plan - Diagnosis (1) Chest pain Qualifiers: Chest pain type: unspecified Qualified Code(s): R07.9 - Chest pain, unspecified Is this a current diagnosis for this admission?: Yes (2) Hypertension Qualifiers: Hypertension type: essential hypertension Qualified Code(s): I10 - Essential (primary) hypertension Is this a current diagnosis for this admission?: Yes (3) Pulmonary embolism Qualifiers: Pulmonary embolism type: other Chronicity: chronic Is this a current diagnosis for this admission?: Yes (4) Paroxysmal atrial fibrillation Is this a current diagnosis for this admission?: Yes (6) Chronic kidney disease Qualifiers: Chronic kidney disease stage: stage 2 (mild) Qualified Code(s): N18.2 - Chronic kidney disease, stage 2 (mild) Is this a current diagnosis for this admission?: Yes - Notes Notes: Chest pain: Chest pain is felt to be musculoskeletal by exam. Patient also has elevated total CK and CK-MB but relatively normal troponin I. Patient also has significant chest wall tenderness. Patient did have a recent nuclear stress test and echocardiogram. These results will be reviewed. Hypertension: Currently well controlled. Chronic kidney disease: Recommend hydration. Further evaluation may be performed as an outpatient. 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 This is the most likely explanation of elevated total CK and CK-MB and normal troponin I. History of pulmonary embolism: Patient on Xarelto. History of paroxysmal atrial fibrillation: Currently patient is in sinus rhythm. Patient will benefit from weight loss and also a sleep study as an outpatient. Case discussed with Dr. Li. Have recommended a CT chest just to make sure there is no other underlying cause of chest pain such as myositis. - Time Time Spent with patient: Chest pain: This is clearly atypical and seems related to myositis, musculoskeletal cause. Discussed with Dr. Li. Recommend a CT chest. Hypertension: Currently well controlled. Pulmonary embolism: Continue Xarelto therapy. Time Spent: 30 to 50 Minutes - CODE STATUS was discussed, patient remains full code. Surrogate decision-maker patient's . Multiple medical problems were addressed.More than 50% of the time spent coordinating care, discussing management plans with involved caregivers. Management plans discussed with involved personnels. Medical decision making was of moderate to high complexity. Medications reviewed and adjusted accordingly: Yes
[2017-03-15] MEDS: MONTELUKAST SODIUM 10 MG TABLET PO SCH (21:46)
[2017-03-15 22:29] LABS: CREATINE KINASE MB 9.31 ng/mL (<4.55); TROPONIN I 0.033 ng/mL
[2017-03-16] MEDS: MORPHINE SULFATE SR 30 MG TABLET PO SCH ×3 (01:39→15:11)
[2017-03-16] MEDS: ALBUTEROL SULFATE 0.083% NEB 2.5 MG/3 ML AMPUL NEB SCH ×3 (02:14→14:13)
[2017-03-16 05:03] LABS: ABSOLUTE EOSINOPHILS # (AUTO) 0.4 10^3/uL (0.0-0.6); ABSOLUTE LYMPHOCYTES (AUTO) 1.4 10^3/uL (0.5-4.7); ABSOLUTE MONOCYTES (AUTO) 0.8 10^3/uL (0.1-1.4); ABSOLUTE NEUT (AUTO) 4.4 10^3/uL (1.7-8.2); BASOPHILS % (AUTO) 0.3 % (0-2); EOSINOPHILS % (AUTO) 5.6 % (0-6); HEMATOCRIT 33.1 % (36.0-47.0); HEMOGLOBIN 10.3 g/dL (12.0-15.5); HGB HCT DIFFERENCE -2.2; LYMPHOCYTES % (AUTO) 19.7 % (13-45); MEAN CORPUSCULAR HEMOGLOBIN 22.7 pg (27.0-33.4); MEAN CORPUSCULAR VOLUME 73 fl (80-97); MONOCYTES % (AUTO) 10.9 % (3-13); RED BLOOD COUNT 4.52 10^6/uL (3.72-5.28); RED CELL DISTRIBUTION WIDTH 14.9 % (11.5-14.0); SEGMENTED NEUTROPHILS % (AUTO) 63.5 % (42-78); WHITE BLOOD COUNT 6.9 10^3/uL (4.0-10.5)
[2017-03-16 05:16] LABS: ANION GAP 9 (5-19); BLOOD UREA NITROGEN 27 mg/dL (7-20); CALCIUM 8.6 mg/dL (8.4-10.2); CARBON DIOXIDE 28 mmol/L (22-30); CHLORIDE 103 mmol/L (98-107); CREATININE RESULT 1.85 mg/dL (0.52-1.25); GLUCOSE 109 mg/dL (75-110); POTASSIUM 4.2 mmol/L (3.6-5.0); SODIUM 139.9 mmol/L (137-145)
[2017-03-16 05:24] LABS: CREATINE KINASE 2338 U/L (30-135)
[2017-03-16 05:28] LABS: CREATINE KINASE MB 5.46 ng/mL (<4.55); TROPONIN I 0.03 ng/mL
[2017-03-16] MEDS: FLUTICASONE/SALMETEROL DISKUS 500-50 MCG/DOSE IH SCH (06:21)
[2017-03-16] MEDS: RIVAROXABAN 10 MG TABLET PO SCH (10:30)
[2017-03-16] MEDS: HYDRALAZINE HCL 50 MG TABLET PO SCH (10:30)
[2017-03-16] MEDS: DILTIAZEM HCL 120 MG CAP.SR.24H PO SCH (10:30)
[2017-03-16] MEDS: NORMAL SALINE 1000 ML 1,000 ML IV PRN (10:32)
[2017-03-16] MEDS: CITALOPRAM HYDROBROMIDE 20 MG TABLET PO SCH (10:33)
[2017-03-16] MEDS: GABAPENTIN 300 MG CAPSULE PO SCH (10:33)
[2017-03-16] MEDS: METOPROLOL SUCCINATE 50 MG TAB.SR.24H PO SCH (10:33)
[2017-03-16] MEDS: LANSOPRAZOLE 30 MG TAB.RAP.DR PO SCH (10:33)
[2017-03-16] MEDS: LIDOCAINE 5% (700 MG) TRANSDERMAL ADH..PATCH TP SCH (10:35)
--- NOTE | 2017-03-16 11:23 | PDOC PROGRESS REPORT ---
Subjective Progress Note for:: 03/16/17 Subjective:: Patient seems to be about the same. Patient still having spasms of severe chest pain radiating to left arm. Nuclear stress test results were available and reviewed with the patient. 2-D echocardiogram results were available and reviewed with the patient. Patient denying any PND, orthopnea. Patient denied any sustained palpitations, dizziness, syncope, near syncope. Patient denying any fever chills. Patient denying any other significant discomfort. Patient is maintaining sinus rhythm. Review of systems: Rest review of systems negative. Medications: Medications have been reviewed. Physical Exam Vital Signs: Temp Pulse Resp BP Pulse Ox 98.0 F 62 18 110/58 L 89 L 03/16/17 07:18 03/16/17 07:18 03/16/17 07:18 03/16/17 07:18 03/16/17 07:18 Intake & Output 03/15/17 03/16/17 03/17/17 06:59 06:59 06:59 Intake Total 1340 2320 Output Total 750 1700 Balance 590 620 Exam: GENERAL: well-nourished and in no acute distress. Alert and oriented x3 HEAD: Atraumatic, normocephalic. EYES: Pupils equal round and reactive to light, extraocular movements intact, sclera anicteric, conjunctiva are normal. ENT: TMs normal, nares patent, oropharynx clear without exudates. Moist mucous membranes. No oral ulcerations or bleeding gums noted NECK: supple without lymphadenopathy. Trachea is central. No cervical or axillary lymphadenopathy noted. Carotids are 2+, JVD WNL LUNGS: Respiration seems nonlabored, no significant accessory muscle action noted. Breath sounds clear to auscultation bilaterally and equal noted. No wheezes rales or rhonchi noted. No significant dullness noted on percussion. CHEST: Palpation of the chest wall shows significant chest wall tenderness. No other significant abnormalities noted. 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 ABDOMEN: Soft, no significant tenderness appreciated, normoactive bowel sounds. No guarding, no rebound. No rigidity noted . No masses appreciated. EXTREMITIES: Pedal pulses are 1-2+, no calf tenderness noted. No clubbing or cyanosis.trace to 1+ pedal edema noted NEUROLOGICAL: Focused neurological exam showed no significant neurologic deficit. Normal speech, no focal weakness appreciated. PSYCH: Normal mood, normal affect. Judgment and insight within normal limits. SKIN: No significant ecchymosis, rash, ulcerations or signs of pruritus noted. MUSCULOSKELETAL EXAM: No significant joint swelling noted. Results Laboratory Results: 03/16/17 04:05 03/16/17 04:05 03/16/17 03/16/17 04:05 04:05 WBC 6.9 RBC 4.52 Hgb 10.3 L Hct 33.1 L MCV 73 L MCH 22.7 L MCHC 31.0 L RDW 14.9 H Plt Count 124 L Seg Neutrophils % 63.5 Lymphocytes % 19.7 Monocytes % 10.9 Eosinophils % 5.6 Basophils % 0.3 Absolute Neutrophils 4.4 Absolute Lymphocytes 1.4 Absolute Monocytes 0.8 Absolute Eosinophils 0.4 Absolute Basophils 0.0 Sodium 139.9 Potassium 4.2 Chloride 103 Carbon Dioxide 28 Anion Gap 9 BUN 27 H Creatinine 1.85 H Est GFR ( Amer) 33 L Est GFR (Non-Af Amer) 27 L Glucose 109 Calcium 8.6 03/14/17 03/14/17 03/14/17 03:35 03:35 11:45 Creatine Kinase 78 64 CK-MB (CK-2) 1.06 Troponin I 0.014 03/14/17 03/14/17 03/14/17 11:45 15:30 15:30 Creatine Kinase 74 CK-MB (CK-2) 1.30 1.19 Troponin I < 0.012 < 0.012 03/14/17 03/14/17 03/15/17 21:40 21:40 08:50 Creatine Kinase 86 1051 H CK-MB (CK-2) 0.99 Troponin I < 0.012 03/15/17 03/15/17 03/15/17 08:50 14:25 14:25 Creatine Kinase 2357 H CK-MB (CK-2) 7.44 H 12.70 H Troponin I 0.020 0.026 03/15/17 03/15/17 03/15/17 18:50 18:50 21:30 Creatine Kinase 3024 H 2996 H CK-MB (CK-2) 11.30 H Troponin I 0.029 03/15/17 03/16/1717 21:30 04:05 04:05 Creatine Kinase 2338 H CK-MB (CK-2) 9.31 H 5.46 H Troponin I 0.033 0.030 Impressions: Chest X-Ray 03/13/17 19:02 IMPRESSION: NO ACUTE RADIOGRAPHIC FINDING IN THE CHEST. Assessment & Plan - Diagnosis (1) Chest pain Qualifiers: Chest pain type: unspecified Qualified Code(s): R07.9 - Chest pain, unspecified Is this a current diagnosis for this admission?: Yes (2) Hypertension Qualifiers: Hypertension type: essential hypertension Qualified Code(s): I10 - Essential (primary) hypertension Is this a current diagnosis for this admission?: Yes (3) Pulmonary embolism Qualifiers: Pulmonary embolism type: other Chronicity: chronic Is this a current diagnosis for this admission?: Yes (4) Paroxysmal atrial fibrillation Is this a current diagnosis for this admission?: Yes (5) Myositis Qualifiers: Myositis type: unspecified type Laterality: left Is this a current diagnosis for this admission?: YesPlan: Left side chest wall myositis suspected. (6) Chronic kidney disease Qualifiers: Chronic kidney disease stage: stage 2 (mild) Qualified Code(s): N18.2 - Chronic kidney disease, stage 2 (mild) Is this a current diagnosis for this admission?: Yes - Notes Notes: Chest pain: Clinically this is musculoskeletal but however patient was noted to have a significant positive stress test with anterolateral wall ischemia and underlying fixed defect. Occasionally, cardiac ischemic pain may manifest as atypical chest pain and also may aggravate pain from other condition. Therefore , it is felt that patient will benefit from cardiac catheterization. This is predominantly to define coronary anatomy and abnormal stress test. These were discussed with the patient. Have recommended transfer to tertiary care under services of Dr. Sethi for heart catheterization. This was discussed with the patient and primary care attending. I signed the transfer forms. Dr. Li going to do the discharge summary. 2-D echocardiogram results were discussed with the patient. Patient has mild valvular abnormalities but overall normal LVEF. Patient will benefit from regular cardiology follow-up. As regards pulmonary embolism and paroxysmal atrial fibrillation: These are chronic condition. Approximately 40 minutes spent with the patient in discussing results of stress test, discussing heart catheterization etc. the patient. Discussed with primary care attending and also nursing staff. Also case discussed with Dr. Pedro Sethi the accepting chief minister. Discussed chronic kidney disease in this patient. Patient will need additional hydration and also need Xarelto to be stopped and then restarted after cardiac catheter. - Time Time with patient: 15-25 minutes - CODE STATUS was discussed, patient remains full code. Surrogate decision-maker unchanged. Multiple medical problems were addressed.More than 50% of the time spent coordinating care, discussing management plans with involved caregivers. Management plans discussed with involved personnels. Medical decision making was of moderate to high complexity , patient's has ongoing severe intermittent chest pain.
[2017-03-16 12:19] VITALS: BP 136/65
[2017-03-16 12:28] LABS: CHOLESTEROL 163.88 mg/dL (0-200); Direct HDL 47 mg/dL (>40); TRIGLYCERIDES 125 mg/dL (<150)
--- NOTE | 2017-03-16 12:37 | PDOC TRANSFER SUMMARY ---
General Admission Date/PCP: 03/14/17 03:04 LANCE NEGRO MD Accepting Facility: [facility] Resuscitation Status: Full Code - Transfer Diagnosis (1) Chronic back pain Is this a current diagnosis for this admission?: Yes (2) Chest pain Is this a current diagnosis for this admission?: YesDiagnosis Summary: Patients to have a positive stress test and a cardiology at [facility] and discussed with the cardiology Dr. Davalos and also discussed with the Dr. Baca here and angry about the patient's to transfer the [facility] for possible cardiac cath (3) Chronic pain syndrome Is this a current diagnosis for this admission?: YesDiagnosis Summary: Continues to current medications patients follow the pain management (4) Chronic kidney disease Is this a current diagnosis for this admission?: YesDiagnosis Summary: Currently stable but patient's creatinine is slightly elevated will check the urine culture (5) Migraine headache Is this a current diagnosis for this admission?: Yes (6) Hypertension Is this a current diagnosis for this admission?: Yes (7) Pulmonary embolism Is this a current diagnosis for this admission?: Yes (8) Asthma Is this a current diagnosis for this admission?: Yes - Transfer Medications Home Medications: Albuterol Sulfate [Albuterol Sulfate 2.5mg/3 mL] 2.5 ml IH Q6 03/14/17 Citalopram Hydrobromide [Celexa 40 mg Tablet] 1 tab PO DAILY 03/14/17 Clonidine 0.3 patch TD MAYEN@1000 03/14/17 Diltiazem HCl [Diltiazem 24Hr Cd] 120 mg PO DAILY 03/14/17 Ergocalciferol (Vitamin D2) [Vitamin D2] 50,000 unit PO SUTH@1000 03/14/17 Fluticasone/Salmeterol [Advair 500-50 Diskus 28 Dose] 1 puff IH Q12 03/14/17 Gabapentin [Neurontin 300 mg Capsule] 300 mg PO Q12 03/14/17 Hydralazine HCl [Apresoline 50 mg Tablet] 50 mg PO Q12 03/14/17 Lidocaine [Lidoderm 5% (700 mg) Transdermal Patch] 1 patch TD DAILY 03/14/17 Methocarbamol [Robaxin 750 mg Tablet] 750 mg PO DAILY PRN 03/14/17 Metoprolol Succinate [Toprol XL 100 mg Tablet] 100 mg PO DAILY 03/14/17 Montelukast Sodium [Singulair 10 mg Tablet] 10 mg PO QHS 03/14/17 Morphine Sulfate [Morphine Sulfate ER] 60 mg PO Q12 03/14/17 Omeprazole 40 mg PO DAILY 03/14/17 Quetiapine Fumarate [Seroquel 100 mg Tablet] 100 mg PO DAILY PRN 03/14/17 Rivaroxaban [Xarelto] 20 mg PO DAILY 03/14/17 Sumatriptan Succinate 6 mg SQ DAILY PRN 03/14/17 Transfer Medications: Current Medications Albuterol (Ventolin 0.083% Neb 2.5 Mg/3 Ml Ampul) 2.5 mg NEB RTQ6 [facility] Stop: 04/13/17 19:59 Last Admin: 03/16/17 08:33 Dose: 2.5 mg Citalopram Hydrobromide (Celexa 20 Mg Tablet) 40 mg PO DAILY [facility] Stop: 04/14/17 09:59 Last Admin: 03/16/17 10:33 Dose: 40 mg Clonidine HCl (Catapres-Tts 3 (0.3 Mg/24 Hr) Transderm Patch) 1 each TD Mayen@ 1800 [facility] Stop: 04/13/17 17:59 Last Admin: 03/14/17 17:16 Dose: 1 each Diltiazem HCl (Cardizem Cd 120 Mg Capsule) 120 mg PO DAILY [facility] Stop: 04/14/17 09:59 Last Admin: 03/16/17 10:30 Dose: 120 mg Diphenhydramine HCl (Benadryl 25 Mg Capsule) 25 mg PO Q6HP PRN PRN Reason: ITCHING Stop: 04/13/17 03:35 Last Admin: 03/14/17 03:45 Dose: 25 mg Ergocalciferol (Drisdol 50,000 Unit (1.25mg) Capsule) 50,000 unit PO SuTh@1800 [facility] Stop: 04/13/17 17:59 Last Admin: 03/14/17 17:16 Dose: 50,000 unit Gabapentin (Neurontin 300 Mg Capsule) 300 mg PO Q12 [facility] Stop: 04/13/17 21:59 Last Admin: 03/16/17 10:33 Dose: 300 mg Hydralazine HCl (Apresoline 50 Mg Tablet) 50 mg PO Q12 [facility] Stop: 04/13/17 21:59 Last Admin: 03/16/17 10:30 Dose: 50 mg Sodium Chloride (Nacl 0.9% 1000 Ml Iv Soln) 1,000 mls @ 70 mls/hr IV CONTINUOUS PRN PRN Reason: THIS MED IS NOT "PRN" Stop: 04/14/17 16:51 Last Admin: 03/16/17 10:32 Dose: 1,000 ml Lansoprazole (Prevacid 30 Mg Odt Tablet) 30 mg PO DAILY [facility] Stop: 04/14/17 09:59 Last Admin: 03/16/17 10:33 Dose: 30 mg Lidocaine (Lidoderm 5% (700 Mg) Transdermal Patch) 1 patch TP DAILY [facility] Stop: 04/14/17 09:59 Last Admin: 03/16/17 10:35 Dose: 1 patch Methocarbamol (Robaxin 750 Mg Tablet) 750 mg PO DAILYP PRN PRN Reason: MUSCLE SPASM Stop: 04/13/17 14:05 Last Admin: 03/14/17 15:10 Dose: 750 mg Metoprolol Succinate (Toprol Xl 50 Mg Tab.Sr) 100 mg PO DAILY [facility] Stop: 04/14/17 09:59 Last Admin: 03/16/17 10:33 Dose: 100 mg Montelukast Sodium (Singulair 10 Mg Tablet) 10 mg PO QHS [facility] Stop: 04/13/17 21:59 Last Admin: 03/15/17 21:46 Dose: 10 mg Morphine Sulfate (Ms-Contin Sr 30 Mg Tablet) 60 mg PO Q8 [facility] Stop: 03/21/17 05:59 Last Admin: 03/16/17 07:49 Dose: Not Given Ondansetron HCl (Zofran Inj/Pf 4 Mg/2 Ml Sdv) 8 mg IV Q4HP PRN Stop: 04/13/17 08:57 Last Admin: 03/16/17 10:32 Dose: 8 mg Quetiapine Fumarate (Seroquel 100 Mg Tablet) 100 mg PO DAILYP PRN PRN Reason: FOR HEADACHE OR PAIN Stop: 04/13/17 14:05 Rivaroxaban (Xarelto 10 Mg Tablet) 20 mg PO DAILY [facility] Stop: 04/14/17 09:59 Last Admin: 03/16/17 10:30 Dose: 20 mg Fluticasone/Salmeterol (Advair 500-50 Diskus 14 Dose/Diskus) 1 inh IH Q12A [facility] Stop: 04/13/17 17:59 Last Admin: 03/16/17 06:21 Dose: 1 inh - Allergies Allergies/Adverse Reactions: aspirin [Aspirin] Allergy (Unknown, Verified 03/13/17 18:41) Coconut * [Coconut] Allergy (Unknown, Verified 03/13/17 18:41) codeine [Codeine] Allergy (Unknown, Verified 03/13/17 18:41) ketorolac tromethamine [From Toradol] Allergy (Unknown, Verified 03/13/17 18:41) latex [Latex] Allergy (Unknown, Verified 03/13/17 18:41) Penicillins Allergy (Unknown, Verified 03/13/17 18:41) pineapple [Pineapple] Allergy (Unknown, Verified 03/13/17 18:41) BLOOD PRESSURE CUFF Allergy (Mild, Uncoded 03/13/17 18:41) ham Allergy (Unknown, Uncoded 03/13/17 18:41) Hospital Course Hospital Course: This is a 71-year-old female with a significant history of the chronic pain issue currently follow the pain management and a history of the pulmonary embolism currently on a Xarelto and also history of the chronic migraine headache and also see her [place] [facility] and a history of the chronic back pain in the hypertensions and hyperlipidemia came to the emergency department with a complaint of chest pain and patient initial cardiac enzyme and EKG was all stable but patient still complaining of some pain on and off and that cardiology was consulted.And the patient's CPK level was slightly elevated and then go to up to the 2000 range. Patient's at this point very hard to tell with the positive stress test and ongoing complain patients probably need a further evaluations for the heart yip and discussed with the patient's cardiology at the [facility] and the local cardiology and agreed to take the patient's to the [facility] for further evaluations Physical Exam Vital Signs: Temp Pulse Resp BP Pulse Ox 98.6 F 71 18 136/65 H 94 03/16/17 11:15 03/16/17 11:15 03/16/17 11:15 03/16/17 11:15 03/16/17 11:15 Intake & Output 03/15/17 03/16/17 03/17/17 06:59 06:59 06:59 Intake Total 1340 2320 240 Output Total 750 1700 700 Balance 590 620 -460 General appearance: PRESENT: no acute distress, well-developed, well-nourished Head exam: PRESENT: atraumatic, normocephalic Eye exam: PRESENT: conjunctiva pink, EOMI, PERRLA. ABSENT: scleral icterus Ear exam: PRESENT: normal external ear exam Mouth exam: PRESENT: moist, tongue midline Neck exam: ABSENT: carotid bruit, JVD, lymphadenopathy, thyromegaly Respiratory exam: PRESENT: clear to auscultation lashanda. ABSENT: rales, rhonchi, wheezes Cardiovascular exam: PRESENT: RRR. ABSENT: diastolic murmur, rubs, systolic murmur Pulses: PRESENT: normal dorsalis pedis pul Vascular exam: PRESENT: normal capillary refill GI/Abdominal exam: PRESENT: normal bowel sounds, soft. ABSENT: distended, guarding, mass, organolmegaly, rebound, tenderness Rectal exam: PRESENT: deferred Extremities exam: PRESENT: full ROM. ABSENT: calf tenderness, clubbing, pedal edema Neurological exam: PRESENT: alert, awake, oriented to person, oriented to place , oriented to time, oriented to situation, CN II-XII grossly intact. ABSENT: motor sensory deficit Psychiatric exam: PRESENT: appropriate affect, normal mood. ABSENT: homicidal ideation, suicidal ideation Skin exam: PRESENT: dry, intact, warm. ABSENT: cyanosis, rash Results Laboratory Results: 03/16/17 04:05 03/16/17 04:05 03/16/17 03/16/17 04:05 04:05 WBC 6.9 RBC 4.52 Hgb 10.3 L Hct 33.1 L MCV 73 L MCH 22.7 L MCHC 31.0 L RDW 14.9 H Plt Count 124 L Seg Neutrophils % 63.5 Lymphocytes % 19.7 Monocytes % 10.9 Eosinophils % 5.6 Basophils % 0.3 Absolute Neutrophils 4.4 Absolute Lymphocytes 1.4 Absolute Monocytes 0.8 Absolute Eosinophils 0.4 Absolute Basophils 0.0 Sodium 139.9 Potassium 4.2 Chloride 103 Carbon Dioxide 28 Anion Gap 9 BUN 27 H Creatinine 1.85 H Est GFR ( Amer) 33 L Est GFR (Non-Af Amer) 27 L Glucose 109 Calcium 8.6 03/14/17 03/14/17 03/14/17 03:35 03:35 11:45 Creatine Kinase 78 64 CK-MB (CK-2) 1.06 Troponin I 0.014 03/14/17 03/14/17 03/14/17 11:45 15:30 15:30 Creatine Kinase 74 CK-MB (CK-2) 1.30 1.19 Troponin I < 0.012 < 0.012 03/14/17 03/14/17 03/15/17 21:40 21:40 08:50 Creatine Kinase 86 1051 H CK-MB (CK-2) 0.99 Troponin I < 0.012 03/15/17 03/15/17 03/15/17 08:50 14:25 14:25 Creatine Kinase 2357 H CK-MB (CK-2) 7.44 H 12.70 H Troponin I 0.020 0.026 03/15/17 03/15/17 03/15/17 18:50 18:50 21:30 Creatine Kinase 3024 H 2996 H CK-MB (CK-2) 11.30 H Troponin I 0.029 03/15/17 03/16/17 03/16/17 21:30 04:05 04:05 Creatine Kinase 2338 H CK-MB (CK-2) 9.31 H 5.46 H Troponin I 0.033 0.030 Impressions: Chest X-Ray 03/13/17 19:02 IMPRESSION: NO ACUTE RADIOGRAPHIC FINDING IN THE CHEST. Plan Time Spent: Greater than 30 Minutes - Status post the patient's of the [facility]
[2017-03-16 12:39] LABS: DIRECT LDL 56 mg/dL (<100)
== END 2017-03-16 16:28 | disposition short-term general hospital (02) ==
LOC: ER 17:46 → UNDOADMOB 22:22 → EH 22:22 → 4N 03-14 02:10 → EH 03-14 02:10 → 4N 03-14 03:04 → EH 03-14 03:04
PROVIDERS: ADMIT Family Medicine; ATTEND Family Medicine
DX: R07.9 Chest pain, unspecified (principal); G89.29 Other chronic pain; M54.5 Low back pain; G89.4 Chronic pain syndrome; I12.9 Hypertensive chronic kidney disease with stage 1 through stage 4 chronic kidney disease, or unspecified chronic kidney disease; N18.2 Chronic kidney disease, stage 2 (mild); G43.909 Migraine, unspecified, not intractable, without status migrainosus; I27.82 Chronic pulmonary embolism; I48.0 Paroxysmal atrial fibrillation; J45.909 Unspecified asthma, uncomplicated; E78.5 Hyperlipidemia, unspecified; R53.83 Other fatigue; R11.2 Nausea with vomiting, unspecified; I25.10 Atherosclerotic heart disease of native coronary artery without angina pectoris; M19.90 Unspecified osteoarthritis, unspecified site; Z86.718 Personal history of other venous thrombosis and embolism; Z90.49 Acquired absence of other specified parts of digestive tract
CPT/HCPCS: 93005 ×2; 36591; 99285; 96374; 36415 ×2; 87086; 82553 ×4; 82550 ×4; 85025 ×2; 85610; 85730; 80048; 80053; 84484 ×4; 80061; 71010; 93010 ×2; 94640 ×4; G0378 ×4; A9270 ×28; J3490 ×3; J2405 ×2; J7030 ×2

== ENCOUNTER → 2017-04-16 | Outpatient (CLI) | payer MEDICARE, OTHER ==
[2017-04-16 11:36] LABS: ABSOLUTE EOSINOPHILS # (AUTO) 0.2 10^3/uL (0.0-0.6); ABSOLUTE MONOCYTES (AUTO) 0.6 10^3/uL (0.1-1.4); ABSOLUTE NEUT (AUTO) 3.4 10^3/uL (1.7-8.2); BASOPHILS % (AUTO) 0.3 % (0-2); EOSINOPHILS % (AUTO) 4.5 % (0-6); HEMATOCRIT 33.5 % (36.0-47.0); HEMOGLOBIN 10.3 g/dL (12.0-15.5); HGB HCT DIFFERENCE -2.6; LYMPHOCYTES % (AUTO) 18.9 % (13-45); MEAN CORPUSCULAR HEMOGLOBIN 22.4 pg (27.0-33.4); MEAN CORPUSCULAR HGB CONC 30.6 g/dL (32.0-36.0); MEAN CORPUSCULAR VOLUME 73 fl (80-97); MONOCYTES % (AUTO) 11.1 % (3-13); RED BLOOD COUNT 4.58 10^6/uL (3.72-5.28); RED CELL DISTRIBUTION WIDTH 15.5 % (11.5-14.0); SEGMENTED NEUTROPHILS % (AUTO) 65.2 % (42-78); WHITE BLOOD COUNT 5.2 10^3/uL (4.0-10.5)
[2017-04-16 11:57] LABS: ALANINE AMINOTRANSFERASE 29 U/L (9-52); ALBUMIN 3.5 g/dL (3.5-5.0); ALKALINE PHOSPHATASE 75 U/L (38-126); ANION GAP 11 (5-19); ASPARTATE AMINO TRANSFERASE 83 U/L (14-36); BILIRUBIN,DIRECT 0.4 mg/dL (0.0-0.4); BILIRUBIN,TOTAL 0.6 mg/dL (0.2-1.3); BLOOD UREA NITROGEN 20 mg/dL (7-20); CALCIUM 9.6 mg/dL (8.4-10.2); CARBON DIOXIDE 27 mmol/L (22-30); CHLORIDE 104 mmol/L (98-107); CREATININE RESULT 1.32 mg/dL (0.52-1.25); GLUCOSE 100 mg/dL (75-110); POTASSIUM 3.7 mmol/L (3.6-5.0); SODIUM 142.4 mmol/L (137-145)
[2017-04-16 12:38] LABS: ANION GAP 11 (5-19); BLOOD UREA NITROGEN 20 mg/dL (7-20); CALCIUM 9.6 mg/dL (8.4-10.2); CARBON DIOXIDE 27 mmol/L (22-30); CHLORIDE 104 mmol/L (98-107); CREATININE RESULT 1.32 mg/dL (0.52-1.25); GLUCOSE 100 mg/dL (75-110); POTASSIUM 3.7 mmol/L (3.6-5.0); SODIUM 142.4 mmol/L (137-145)
[2017-04-16 12:39] LABS: THYROID STIMULATING HORMONE 1.21 uIU/mL (0.47-4.68)
== END ==
LOC: OD 10:24
PROVIDERS: ATTEND Urology
DX: R82.71 Bacteriuria (principal); E07.9 Disorder of thyroid, unspecified; I10 Essential (primary) hypertension; N31.9 Neuromuscular dysfunction of bladder, unspecified
CPT/HCPCS: 36415; 80048; 80053; 84439; 84443; 85025; 87086; 87088; 87186

== ENCOUNTER → 2017-04-29 | Outpatient (CLI) | payer MEDICARE, OTHER ==
[2017-04-29 13:17] LABS: ANION GAP 11 (5-19); BLOOD UREA NITROGEN 28 mg/dL (7-20); CALCIUM 8.7 mg/dL (8.4-10.2); CARBON DIOXIDE 33 mmol/L (22-30); CHLORIDE 98 mmol/L (98-107); CREATININE RESULT 1.54 mg/dL (0.52-1.25); GLUCOSE 97 mg/dL (75-110); PHOSPHORUS 3.8 mg/dL (2.5-4.5); POTASSIUM 3.7 mmol/L (3.6-5.0)
== END ==
LOC: OD 11:38
PROVIDERS: ATTEND Internal Medicine Nephrology
DX: N17.9 Acute kidney failure, unspecified (principal); E55.9 Vitamin D deficiency, unspecified; I12.9 Hypertensive chronic kidney disease with stage 1 through stage 4 chronic kidney disease, or unspecified chronic kidney disease; N18.3 Chronic kidney disease, stage 3 (moderate)
CPT/HCPCS: 36415; 80048; 84100

== ENCOUNTER → 2017-07-01 | Outpatient (CLI) | payer MEDICARE, OTHER ==
--- NOTE | 2017-07-03 13:47 | RADIOLOGY REPORT (SQ) ---
EXAM DESCRIPTION: CT ABD/PELVIS ORAL ONLY COMPLETED DATE/TIME: 07/01/2017 12:58 pm REASON FOR STUDY: ABD PAIN (R10.9) R10.9 UNSPECIFIED ABDOMINAL PAIN COMPARISON: CT abdomen pelvis 06/29/2012, 02/10/2014 TECHNIQUE: CT scan of the abdomen and pelvis performed without intravenous contrast. Patient drank oral contrast Images reviewed with lung, soft tissue, and bone windows. Reconstructed coronal and sagittal MPR imag es reviewed. All images stored on PACS. All CT scanners at this facility use dose modulation, iterative reconstruction, and/or weight based d osing when appropriate to reduce radiation dose to as low as reasonably achievable (ALARA). [facility]: Dose Right [facility]: CareDose [facility]: Dose Right [facility]: Teradose 4D [facility]: Offermobi RADIATION DOSE: 23.2mGy. LIMITATIONS: None. FINDINGS: LOWER CHEST: No significant findings. No nodules or infiltrates. NON-CONTRASTED LIVER, SPLEEN, ADRENALS: Evaluation limited by lack of IV contrast. No identified sign ificant masses. PANCREAS: No masses. No peripancreatic inflammatory changes. GALLBLADDER: Post cholecystectomy RIGHT KIDNEY AND URETER: A 2 cm cyst with possible septations is present in the anterior right mid-po le kidney. Ultrasound is recommended for further characterization of cyst. No significant calcific ations. No hydronephrosis or hydroureter. LEFT KIDNEY AND URETER: No suspicious masses. Assessment limited by lack of IV contrast. No signifi cant calcifications. No hydronephrosis or hydroureter. AORTA AND RETROPERITONEUM: No aneurysm. No retroperitoneal masses or adenopathy. BOWEL AND PERITONEAL CAVITY: No obvious masses or inflammatory changes. No free fluid. Few descendin g and sigmoid colon diverticuli without CT signs acute diverticulitis. Oral contrast throughout the gastrointestinal tract without evidence of bowel obstruction. Lap band prosthesis at the GE junction . APPENDIX: Not visualized. No right lower quadrant inflammatory change. PELVIS, BLADDER, AND ABDOMINAL WALL:No abnormal masses. No free fluid. Bladder normal. Post hysterec radha. Intact periumbilical ventral hernia repair. BONES: Advanced degenerative change throughout the lumbar spine OTHER: No other significant finding. IMPRESSION: No CT findings to explain history of abdominal pain. TECHNICAL DOCUMENTATION: JOB ID: [id number] Quality ID # [id number]: Final reports with documentation of one or more dose reduction techniques (e.g., Au tomated exposure control, adjustment of the mA and/or kV according to patient size, use of iterative reconstruction technique) 2010 [employer]- All Rights Reserved
== END ==
LOC: RAD 12:26
PROVIDERS: ATTEND Family Medicine
DX: R10.9 Unspecified abdominal pain (principal)
CPT/HCPCS: 74176

== ENCOUNTER → 2017-07-29 | Outpatient (CLI) | payer MEDICARE, OTHER ==
[2017-07-29 16:40] LABS: ALBUMIN 3.7 g/dL (3.5-5.0); ANION GAP 11 (5-19); BLOOD UREA NITROGEN 23 mg/dL (7-20); CALCIUM 9.7 mg/dL (8.4-10.2); CARBON DIOXIDE 25 mmol/L (22-30); CHLORIDE 107 mmol/L (98-107); CREATININE RESULT 1.39 mg/dL (0.52-1.25); GLUCOSE 99 mg/dL (75-110); PHOSPHORUS 3.7 mg/dL (2.5-4.5); POTASSIUM 3.9 mmol/L (3.6-5.0)
[2017-07-30 11:44] LABS: ABSOLUTE EOSINOPHILS # (AUTO) 0.3 10^3/uL (0.0-0.6); ABSOLUTE LYMPHOCYTES (AUTO) 1.5 10^3/uL (0.5-4.7); ABSOLUTE MONOCYTES (AUTO) 0.4 10^3/uL (0.1-1.4); ABSOLUTE NEUT (AUTO) 2.2 10^3/uL (1.7-8.2); BASOPHILS % (AUTO) 0.6 % (0-2); EOSINOPHILS % (AUTO) 6.3 % (0-6); HEMATOCRIT 38.3 % (36.0-47.0); HEMOGLOBIN 12.2 g/dL (12.0-15.5); HGB HCT DIFFERENCE -1.7; LYMPHOCYTES % (AUTO) 33.5 % (13-45); MEAN CORPUSCULAR HEMOGLOBIN 22.9 pg (27.0-33.4); MEAN CORPUSCULAR VOLUME 72 fl (80-97); MONOCYTES % (AUTO) 9.6 % (3-13); RED BLOOD COUNT 5.34 10^6/uL (3.72-5.28); RED CELL DISTRIBUTION WIDTH 15.4 % (11.5-14.0); WHITE BLOOD COUNT 4.5 10^3/uL (4.0-10.5)
[2017-07-30 12:52] LABS: APPEARANCE,URINE CLEAR; BILIRUBIN,URINE NEGATIVE (NEGATIVE); GLUCOSE, URINE NEGATIVE (NEGATIVE); KETONES,URINE NEGATIVE (NEGATIVE); LEUKOCYTE ESTERASE,URINE SMALL (NEGATIVE); NITRITE,URINE NEGATIVE (NEGATIVE); PROTEIN,URINE NEGATIVE (NEGATIVE); URINE SPECIFIC GRAVITY 1.016; UROBILINOGEN,URINE NEGATIVE mg/dL (<2.0)
[2017-07-31 15:37] LABS: CREATININE URINE 122.1 mg/dL (Not Estab.); MICROALBUMIN URINE 31.4 ug/mL (Not Estab.)
[2017-08-01 08:23] LABS: VITAMIN D 25-HYDROXY 18.8 ng/mL (30.0-100.0)
== END ==
LOC: OD 14:58
PROVIDERS: ATTEND Internal Medicine Nephrology
DX: N18.3 Chronic kidney disease, stage 3 (moderate) (principal); D64.9 Anemia, unspecified; N25.81 Secondary hyperparathyroidism of renal origin; E55.9 Vitamin D deficiency, unspecified
CPT/HCPCS: 36415; 80048; 81001; 82040; 82043; 82306; 82570; 83970; 84100; 85025

== ENCOUNTER → 2017-12-28 | Outpatient (CLI) | payer MEDICARE, OTHER ==
[2017-12-28 12:55] LABS: ANION GAP 9 (5-19); BLOOD UREA NITROGEN 17 mg/dL (7-20); CARBON DIOXIDE 30 mmol/L (22-30); CHLORIDE 104 mmol/L (98-107); GLUCOSE 84 mg/dL (75-110); SODIUM 142.9 mmol/L (137-145)
== END ==
LOC: OD 11:44
PROVIDERS: ATTEND Internal Medicine Nephrology
DX: N18.3 Chronic kidney disease, stage 3 (moderate) (principal); N25.81 Secondary hyperparathyroidism of renal origin; E55.9 Vitamin D deficiency, unspecified
CPT/HCPCS: 36415; 80048; 82306; 83970

== ENCOUNTER → 2018-03-24 | Outpatient (CLI) | payer MEDICARE, OTHER ==
[2018-03-24 11:14] LABS: ABSOLUTE EOSINOPHILS # (AUTO) 0.4 10^3/uL (0.0-0.6); ABSOLUTE MONOCYTES (AUTO) 0.4 10^3/uL (0.1-1.4); ABSOLUTE NEUT (AUTO) 2.3 10^3/uL (1.7-8.2); BASOPHILS % (AUTO) 0.4 % (0-2); EOSINOPHILS % (AUTO) 9.7 % (0-6); HEMATOCRIT 37.2 % (36.0-47.0); HEMOGLOBIN 11.5 g/dL (12.0-15.5); LYMPHOCYTES % (AUTO) 24.6 % (13-45); MEAN CORPUSCULAR HEMOGLOBIN 22.5 pg (27.0-33.4); MEAN CORPUSCULAR HGB CONC 30.9 g/dL (32.0-36.0); MEAN CORPUSCULAR VOLUME 73 fl (80-97); MONOCYTES % (AUTO) 9.8 % (3-13); PLATELET COUNT 150 10^3/uL (150-450); RED BLOOD COUNT 5.12 10^6/uL (3.72-5.28); RED CELL DISTRIBUTION WIDTH 14.4 % (11.5-14.0); SEGMENTED NEUTROPHILS % (AUTO) 55.5 % (42-78); TOTAL CELLS COUNTED % (AUTO) 100 %; WHITE BLOOD COUNT 4.1 10^3/uL (4.0-10.5)
[2018-03-24 11:43] LABS: APPEARANCE,URINE SLIGHTLY-CLOUDY; BILIRUBIN,URINE NEGATIVE (NEGATIVE); COLOR,URINE YELLOW; GLUCOSE, URINE NEGATIVE (NEGATIVE); KETONES,URINE NEGATIVE (NEGATIVE); LEUKOCYTE ESTERASE,URINE NEGATIVE (NEGATIVE); NITRITE,URINE NEGATIVE (NEGATIVE); PROTEIN,URINE 100 mg/dL (NEGATIVE); URINE SPECIFIC GRAVITY 1.023
[2018-03-24 12:05] LABS: ALBUMIN 3.8 g/dL (3.5-5.0); ANION GAP 12 (5-19); BLOOD UREA NITROGEN 20 mg/dL (7-20); CALCIUM 9.4 mg/dL (8.4-10.2); CARBON DIOXIDE 32 mmol/L (22-30); CHLORIDE 102 mmol/L (98-107); GLUCOSE 99 mg/dL (75-110); PHOSPHORUS 4.4 mg/dL (2.5-4.5); POTASSIUM 4.1 mmol/L (3.6-5.0); SODIUM 145.6 mmol/L (137-145)
[2018-03-24 12:10] LABS: FREE T4 (FREE THYROXINE) 1.19 ng/dL (0.78-2.19)
[2018-03-24 12:24] LABS: THYROID STIMULATING HORMONE 1.7 uIU/mL (0.47-4.68)
[2018-03-25 12:38] LABS: CREATININE URINE 215.4 mg/dL (Not Estab.); MICROALBUMIN URINE 217.9 ug/mL (Not Estab.)
[2018-03-27 11:37] LABS: NORMETANEPHRINE 113 pg/mL (0-145)
[2018-03-27 11:44] LABS: METANEPHRINE 25 pg/mL (0-62)
[2018-03-29 07:05] LABS: ALDOSTERONE 8.5 ng/dL (0.0-30.0)
[2018-03-31 11:13] LABS: RENIN ACTIVITY <0.167 ng/mL/hr (0.167-5.380)
== END ==
LOC: OD 09:57
PROVIDERS: ATTEND Internal Medicine Nephrology
DX: I12.9 Hypertensive chronic kidney disease with stage 1 through stage 4 chronic kidney disease, or unspecified chronic kidney disease (principal); N18.3 Chronic kidney disease, stage 3 (moderate); D64.9 Anemia, unspecified; N25.81 Secondary hyperparathyroidism of renal origin; E55.9 Vitamin D deficiency, unspecified; E66.01 Morbid (severe) obesity due to excess calories
CPT/HCPCS: 36415; 80048; 81001; 82040; 82043; 82088; 82306; 82533; 82570; 83835; 83970; 84100; 84244; 84439; 84443; 85025

== ENCOUNTER → 2018-05-20 | Outpatient (CLI) | payer MEDICARE, OTHER ==
--- NOTE | 2018-05-20 12:28 | WOMENS IMAGING REPORT ---
EXAM DESCRIPTION: BONE DENSITY HIP/SPINE COMPLETED DATE/TIME: 05/20/2018 11:36 am REASON FOR STUDY: SCREENING AND OSTEPORSIS/Z12.31, M81.0 Z12.31 ENCNTR SCREEN MAMMOGRAM FOR MALIGNA NT NEOPLASM OF WENDY M81.0 AGE-RELATED OSTEOPOROSIS W/O CURRENT PATHOLOGICAL FRAC COMPARISON: None. TECHNIQUE: Dual-Energy X-ray Absorptiometry (DEXA) of the AP Spine and Hip. LIMITATIONS: Lumbar spine image nondiagnostic. FINDINGS: LUMBAR SPINE: Nondiagnostic HIP: The bone mineral density (BMD) measured in the left hip correlates with a T-score of -1.2 in the femo ral neck, which is osteopenia as defined by the World Health Organization. IMPRESSION: 1. LUMBAR SPINE: Nondiagnostic image 2. HIP: OSTEOPENIA. COMMENT: The World Health Organization defines low BMD as follows: T-score: Normal: Greater than -1.0 Osteopenia: Between -1.0 and -2.5 Osteoporosis: Less than -2.5 without fractures Established osteoporosis: Less than -2.5 with fractures In general, you may wish to consider: Diagnosis Treatment Follow-up DEXA Normal BMD Prevention 2-3 years Osteopenia Prevention/Therapy 1-2 years Osteoporosis Therapy Yearly TECHNICAL DOCUMENTATION: JOB ID: [id number] [employer]- All Rights Reserved Reading location - IP/workstation name: [email or web address]
--- NOTE | 2018-05-23 09:52 | WOMENS IMAGING REPORT ---
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 LIMITATIONS: None. FINDINGS: No masses, calcifications or architectural distortion. No areas of suspicion. Read with the assistance of CAD. .[facility] - R2 [employer] Version 1.3 .[facility] Imaging - R2 Cenova Version 1.3 .[facility] Imaging - R2 Cenova Version 2.4 .[facility] - R2 Cenova Version 2.4 .[facility] - R2 [employer] Version 9.2 IMPRESSION: NORMAL MAMMOGRAM. BIRADS 1. BREAST DENSITY: b. There are scattered areas of fibroglandular density. BIRAD: 1 NEGATIVE RECOMMENDATION: ROUTINE SCREENING Please continue yearly bilateral screening mammography/tomosynthesis in May 2019 COMMENT: The patient has been notified of the results by letter per MQSA requirements. Additional no tification policies are in place for contacting patient with suspicious or incomplete findings. Quality ID #[id number]: The [employer] recommends an annual screening mammogram for women aged 40 years or over. This facility utilizes a reminder system to ensure that all patients receive reminder letters, and/or direct phone calls for appointments. This includes reminders for routine scr eening mammograms, diagnostic mammograms, or other Breast Imaging Interventions when appropriate. Th is patient will be placed in the appropriate reminder system. The [employer] (ACR) has developed recommendations for screening MRI of the breast s in certain patient populations, to be used in conjunction with mammography. Breast MRI surveillanc e may be appropriate for women with more than 20% lifetime risk of developing breast cancer as deter mined by genetic testing, significant family history of the disease, or history of mantle radiation f or Hodgkins Disease. ACR Practice Guidelines 2008. DBT Technology DBT is a type of tomographic mammography. With conventional mammography, overlapping breast tissue ma y make lesions difficult to detect, even with good compression. DBT uses an x-ray tube that rotates a round the breast, taking images at different angles. These images are then combined to create thin sl ices of the breast that the radiologist can view as a 3D reconstruction. The Hologic unit can perform full-field digital mammograms (2D imaging); or DBT (3D imaging); or both, in a combination mode that quickly performs both the mammogram and the tomosynthesis scan while the breast is still compressed. PQRS 6045F: Fluoroscopic imaging is not utilized for breast tomosynthesis. TECHNICAL DOCUMENTATION: FINDING NUMBER: (1) ASSESSMENT: (1) JOB ID: [id number] [employer]- All Rights Reserved Reading location - IP/workstation name: [email or web address]
== END ==
LOC: WI 10:51
PROVIDERS: ATTEND Physician Assistant
DX: Z12.31 Encounter for screening mammogram for malignant neoplasm of breast (principal); M81.0 Age-related osteoporosis without current pathological fracture
CPT/HCPCS: 77063; 77067; 77080

== ENCOUNTER → 2018-07-14 | Outpatient (CLI) | payer MEDICARE, OTHER ==
[2018-07-14 12:48] LABS: ABSOLUTE EOSINOPHILS # (AUTO) 0.1 10^3/uL (0.0-0.6); ABSOLUTE MONOCYTES (AUTO) 0.4 10^3/uL (0.1-1.4); ABSOLUTE NEUT (AUTO) 3.1 10^3/uL (1.7-8.2); BASOPHILS % (AUTO) 0.3 % (0-2); EOSINOPHILS % (AUTO) 2.1 % (0-6); HEMATOCRIT 37.3 % (36.0-47.0); HEMOGLOBIN 11.7 g/dL (12.0-15.5); LYMPHOCYTES % (AUTO) 21.6 % (13-45); MEAN CORPUSCULAR HEMOGLOBIN 23.1 pg (27.0-33.4); MEAN CORPUSCULAR HGB CONC 31.2 g/dL (32.0-36.0); MEAN CORPUSCULAR VOLUME 74 fl (80-97); MONOCYTES % (AUTO) 8.8 % (3-13); PLATELET COUNT 156 10^3/uL (150-450); RED BLOOD COUNT 5.04 10^6/uL (3.72-5.28); SEGMENTED NEUTROPHILS % (AUTO) 67.2 % (42-78); TOTAL CELLS COUNTED % (AUTO) 100 %; WHITE BLOOD COUNT 4.6 10^3/uL (4.0-10.5)
[2018-07-14 13:30] LABS: ANION GAP 12 (5-19); BLOOD UREA NITROGEN 15 mg/dL (7-20); CALCIUM 9.4 mg/dL (8.4-10.2); CARBON DIOXIDE 26 mmol/L (22-30); CHLORIDE 106 mmol/L (98-107); GLUCOSE 93 mg/dL (75-110); POTASSIUM 4.4 mmol/L (3.6-5.0); SODIUM 143.9 mmol/L (137-145)
[2018-07-15 13:39] LABS: CREATININE URINE 118.3 mg/dL (Not Estab.); MICROALBUMIN URINE 313.9 ug/mL (Not Estab.)
== END ==
LOC: OD 11:17
PROVIDERS: ATTEND Internal Medicine Nephrology
DX: N18.3 Chronic kidney disease, stage 3 (moderate) (principal); D64.9 Anemia, unspecified; N25.81 Secondary hyperparathyroidism of renal origin; E55.9 Vitamin D deficiency, unspecified
CPT/HCPCS: 36415; 80048; 82043; 82306; 82570; 83970; 85025

== ENCOUNTER 2018-11-02 09:07 | Day surgery (SDC) | payer MEDICARE, OTHER ==
[2018-11-02] MEDS: TROPICAMIDE 1% OPH SOLN 3 ML OS PRN ×3 (09:50→10:11)
[2018-11-02] MEDS: CYCLOPENTOLATE 0.2%/PHENYLEPHRINE 1% OPH SOLN 2 ML OS PRN ×3 (09:50→10:11)
[2018-11-02] MEDS: BESIFLOXACIN HCL 0.6% OPH SUSP 5 ML BOTTLE OS PRN ×5 (09:51→10:42)
[2018-11-02] MEDS: TETRACAINE HCL 0.5% OPH SOLN 0.6 ML DROPERETTE OS PRN ×4 (09:51→10:31)
[2018-11-02] MEDS ORDERED: MIDAZOLAM 2 MG/2 ML INJ ONE ×2 (10:02→10:10)
[2018-11-02] MEDS ORDERED: FENTANYL CITRATE INJ/PF 100 MCG/2 ML AMPUL ONE ×2 (10:03→10:36)
[2018-11-02] MEDS: LIDOCAINE 1% INJ-PF (10 MG/ML) 30 ML SDV ONE ×2 (10:20→10:32)
[2018-11-02] MEDS: TOBRAMYCIN SULFATE/DEXAMETH OPH OINTMENT 3.5 GM ONE ×3 (10:27→10:42)
[2018-11-02] MEDS: EPINEPHRINE INJ/PF 1 MG/1 ML AMPULE ONE ×2 (10:29→10:32)
[2018-11-02] MEDS: CHONDR SU A NA/HYALUR INTRAOC KIT (SURGICARE) ONE ×2 (10:29→10:32)
[2018-11-02] MEDS ORDERED: NORMAL SALINE INJ/PF 0.9% 10 ML SDV ONE (11:14)
== END 2018-11-02 11:40 | disposition home or self-care (01) ==
LOC: SC 09:07
PROVIDERS: ATTEND Ophthalmology
DX: H25.12 Age-related nuclear cataract, left eye (principal); M19.90 Unspecified osteoarthritis, unspecified site; J45.909 Unspecified asthma, uncomplicated; I10 Essential (primary) hypertension; I48.91 Unspecified atrial fibrillation; K21.9 Gastro-esophageal reflux disease without esophagitis; K44.9 Diaphragmatic hernia without obstruction or gangrene; E66.9 Obesity, unspecified; Z68.41 Body mass index [BMI] 40.0-44.9, adult; Z79.899 Other long term (current) drug therapy; Z79.01 Long term (current) use of anticoagulants; Z88.0 Allergy status to penicillin; Z88.6 Allergy status to analgesic agent; Z91.040 Latex allergy status; Z88.5 Allergy status to narcotic agent; Z91.041 Radiographic dye allergy status
CPT/HCPCS: 66984; V2630; J2250; J3490 ×5; J0171; J3010; 142

== ENCOUNTER 2018-11-16 07:58 | Day surgery (SDC) | payer MEDICARE, OTHER ==
[~2018-11-16 07:58] MED LIST: KETOROLAC TROMETHAMINE 0.45% 4 DROP/0.4 ML DROPERETTE OD PRN; MIDAZOLAM 2 MG/2 ML INJ ONE
[2018-11-16] MEDS: TROPICAMIDE 1% OPH SOLN 3 ML OD PRN ×3 (08:10→08:30)
[2018-11-16] MEDS: TETRACAINE HCL 0.5% OPH SOLN 0.6 ML DROPERETTE OD PRN ×4 (08:10→08:42)
[2018-11-16] MEDS: BESIFLOXACIN HCL 0.6% OPH SUSP 5 ML BOTTLE OD PRN ×4 (08:10→09:06)
[2018-11-16] MEDS: CYCLOPENTOLATE 0.2%/PHENYLEPHRINE 1% OPH SOLN 2 ML OD PRN ×3 (08:10→08:30)
[2018-11-16] MEDS ORDERED: MIDAZOLAM 2 MG/2 ML INJ ONE ×2 (08:12→08:51)
[2018-11-16] MEDS ORDERED: FENTANYL CITRATE INJ/PF 100 MCG/2 ML AMPUL ONE (08:52)
[2018-11-16] MEDS: LIDOCAINE 1% INJ-PF (10 MG/ML) 30 ML SDV ONE ×2 (08:55)
[2018-11-16] MEDS: CHONDR SU A NA/HYALUR INTRAOC KIT (SURGICARE) ONE ×2 (08:55)
[2018-11-16] MEDS: EPINEPHRINE INJ/PF 1 MG/1 ML AMPULE ONE ×2 (08:55)
[2018-11-16] MEDS: TOBRAMYCIN SULFATE/DEXAMETH OPH OINTMENT 3.5 GM ONE ×2 (09:06)
[2018-11-16] MEDS ORDERED: NORMAL SALINE INJ/PF 0.9% 10 ML SDV ONE (09:21)
== END 2018-11-16 09:55 | disposition home or self-care (01) ==
LOC: SC 07:58
PROVIDERS: ATTEND Ophthalmology
DX: H25.11 Age-related nuclear cataract, right eye (principal); Z98.42 Cataract extraction status, left eye; I10 Essential (primary) hypertension; M19.90 Unspecified osteoarthritis, unspecified site; Z88.0 Allergy status to penicillin; Z88.5 Allergy status to narcotic agent; I48.91 Unspecified atrial fibrillation; K21.9 Gastro-esophageal reflux disease without esophagitis; G47.30 Sleep apnea, unspecified; Z91.040 Latex allergy status; Z91.041 Radiographic dye allergy status; Z79.01 Long term (current) use of anticoagulants
CPT/HCPCS: 66984; V2630; J2250; J3490 ×3; A9270; J0171; J3010; 142

== ENCOUNTER → 2019-01-27 | Outpatient (CLI) | payer MEDICARE, OTHER ==
[2019-01-27 11:42] LABS: ABSOLUTE EOSINOPHILS # (AUTO) 0.1 10^3/uL (0.0-0.6); ABSOLUTE LYMPHOCYTES (AUTO) 0.8 10^3/uL (0.5-4.7); ABSOLUTE MONOCYTES (AUTO) 0.3 10^3/uL (0.1-1.4); ABSOLUTE NEUT (AUTO) 4.1 10^3/uL (1.7-8.2); BASOPHILS % (AUTO) 0.6 % (0-2); EOSINOPHILS % (AUTO) 2.1 % (0-6); HEMATOCRIT 37.8 % (36.0-47.0); HEMOGLOBIN 11.8 g/dL (12.0-15.5); LYMPHOCYTES % (AUTO) 15.2 % (13-45); MEAN CORPUSCULAR HEMOGLOBIN 23.4 pg (27.0-33.4); MEAN CORPUSCULAR HGB CONC 31.3 g/dL (32.0-36.0); MEAN CORPUSCULAR VOLUME 75 fl (80-97); MONOCYTES % (AUTO) 6.4 % (3-13); PLATELET COUNT 159 10^3/uL (150-450); RED BLOOD COUNT 5.05 10^6/uL (3.72-5.28); RED CELL DISTRIBUTION WIDTH 15.5 % (11.5-14.0); SEGMENTED NEUTROPHILS % (AUTO) 75.7 % (42-78); TOTAL CELLS COUNTED % (AUTO) 100 %; WHITE BLOOD COUNT 5.4 10^3/uL (4.0-10.5)
[2019-01-27 12:03] LABS: ANION GAP 8 (5-19); BLOOD UREA NITROGEN 16 mg/dL (7-20); CALCIUM 9.3 mg/dL (8.4-10.2); CARBON DIOXIDE 31 mmol/L (22-30); CHLORIDE 105 mmol/L (98-107); GLUCOSE 94 mg/dL (75-110); POTASSIUM 4.1 mmol/L (3.6-5.0); SODIUM 144.1 mmol/L (137-145)
[2019-01-28 11:38] LABS: CREATININE URINE 116.4 mg/dL (Not Estab.); MICROALBUMIN URINE 123.5 ug/mL (Not Estab.)
== END ==
LOC: OD 11:00
PROVIDERS: ATTEND Internal Medicine Nephrology
DX: N18.2 Chronic kidney disease, stage 2 (mild) (principal); D64.9 Anemia, unspecified; N25.81 Secondary hyperparathyroidism of renal origin; E55.9 Vitamin D deficiency, unspecified
CPT/HCPCS: 36415; 80048; 82043; 82306; 82570; 83970; 85025

== ENCOUNTER → 2019-02-23 | Outpatient (CLI) | payer MEDICARE, OTHER ==
[2019-02-23 16:50] LABS: ANION GAP 6 (5-19); BLOOD UREA NITROGEN 13 mg/dL (7-20); CALCIUM 9.4 mg/dL (8.4-10.2); CARBON DIOXIDE 30 mmol/L (22-30); CHLORIDE 105 mmol/L (98-107); GLUCOSE 84 mg/dL (75-110); POTASSIUM 3.9 mmol/L (3.6-5.0)
== END ==
LOC: OD 15:52
PROVIDERS: ATTEND Internal Medicine Nephrology
DX: I12.9 Hypertensive chronic kidney disease with stage 1 through stage 4 chronic kidney disease, or unspecified chronic kidney disease (principal); N18.2 Chronic kidney disease, stage 2 (mild); D63.1 Anemia in chronic kidney disease
CPT/HCPCS: 36415; 80048

== ENCOUNTER 2019-03-21 15:15 | Inpatient (IN) | payer MEDICARE, OTHER ==
--- NOTE | 2019-03-21 16:29 | ER Document Report ---
Entered by TONIA VO SCRIBE 03/21/19 [id number] Acting as scribe for:VIVIENNE SORTO MD ED General - General Chief Complaint: Shortness Of Breath Stated Complaint: BREATHING DIFFICULTY Time Seen by Provider: 03/21/19 15:50 Mode of Arrival: Ambulatory Information source: Patient Notes: Patient is a 73 year old female with HTN, HLD, COPD, migraines and a history of PE presents to the emergency department complaining of shortness of breath and BLE extremity swelling. Patient states she developed shortness of breath 6 weeks ago that has slowly worsened. She states the patient states her symptoms feel "like fluid". She also complains of a headache. She denies any decreased urination. Patient's PCP is Dr. Li. TRAVEL OUTSIDE OF THE [place] IN LAST 30 DAYS: No - Related Data Allergies/Adverse Reactions: aspirin [Aspirin] Allergy (Severe, Verified 11/09/18 13:54) SOB, RASH Coconut * [Coconut] Allergy (Severe, Verified 11/09/18 13:54) RASH, SOB latex [Latex] Allergy (Severe, Verified 11/09/18 13:54) RASH, SOB Penicillins Allergy (Severe, Verified 11/09/18 13:54) Anaphylaxis pineapple [Pineapple] Allergy (Severe, Verified 11/09/18 13:54) RASH, SOB codeine [Codeine] Adverse Reaction (Severe, Verified 11/09/18 13:54) VOMITING ketorolac tromethamine [From Toradol] Adverse Reaction (Severe, Verified 11/09/18 13:54) VOMITING ham Allergy (Severe, Uncoded 11/09/18 13:54) RASH, VOMITING IVP DYE Allergy (Severe, Uncoded 11/09/18 14:14) KIDNEY FAILURE PAPER TAPE Allergy (Intermediate, Uncoded 11/09/18 13:54) Blisters BLOOD PRESSURE CUFF Allergy (Mild, Uncoded 11/09/18 13:54) REDNESS WITH BLISTERS Past Medical History - General Information source: Patient - Social History Smoking Status: Never Smoker Cigarette use (# per day): No Chew tobacco use (# tins/day): No Smoking Education Provided: No Frequency of alcohol use: None Family History: Reviewed & Not Pertinent - Negative for premature coronary artery disease or sudden cardiac in the family amongst first degree relatives. - Past Medical History Cardiac Medical History: Reports: Hx Atrial Fibrillation, Hx Coronary Artery Disease, Hx DVT, Hx Hypertension, Hx Pulmonary Embolism Pulmonary Medical History: Reports: Hx Asthma, Hx Bronchitis, Hx Pneumonia Neurological Medical History: Reports: Hx Migraine GI Medical History: Reports: Hx Hiatal Hernia Musculoskeletal Medical History: Reports Hx Arthritis Past Surgical History: Reports: Hx Appendectomy, Hx Bowel Surgery, Hx Cholecystectomy, Hx Hysterectomy - Immunizations Hx Diphtheria, Pertussis, Tetanus Vaccination: Yes Hx Pneumococcal Vaccination: 08/15/12 Review of Systems - Review of Systems Constitutional: No symptoms reported EENT: No symptoms reported Cardiovascular: No symptoms reported Respiratory: See HPI, Short of breath Genitourinary: No symptoms reported Female Genitourinary: No symptoms reported Musculoskeletal: See HPI, Leg swelling Skin: No symptoms reported Hematologic/Lymphatic: No symptoms reported Neurological/Psychological: See HPI, Headaches -: Yes All other systems reviewed and negative Physical Exam - Vital signs Vitals: Pulse Resp BP Pulse Ox 90 40 H 223/131 H 91 L 03/21/19 15:37 03/21/19 15:37 03/21/19 15:37 03/21/19 15:37 - Notes Notes: GENERAL: Alert, interacts well. No acute distress. HEAD: Normocephalic, atraumatic. EYES: Has on sunglasses. ENT: Oral mucosa moist, tongue midline. NECK: Full range of motion. Supple. Trachea midline. LUNGS: Rales. Audible wheeze on expiration. HEART: Regular rate and rhythm. No murmurs, gallops, or rubs. ABDOMEN: Soft, obese, non-tender. Non-distended. Bowel sounds present in all 4 quadrants. No guarding, rigidity, or rebound. EXTREMITIES: Moves all 4 extremities spontaneously. 2+ pitting edema to the BLE. NEUROLOGICAL: Alert and oriented x3. Normal speech. PSYCH: Normal affect, normal mood. SKIN: Warm, dry, normal turgor. No rashes or lesions noted. Course - Re-evaluation Re-evalutation: 03/21/19 21:17 The patient's chest x-ray suggests infiltrate, mass or asymmetric pulmonary mariza ma in the right lateral lower lobe. She refused CT scan despite getting IV Ativan for her nerves. - Vital Signs Vital signs: Temp Pulse Resp BP Pulse Ox 90 27 H 194/88 H 98 03/21/19 15:37 03/21/19 19:01 03/21/19 19:01 03/21/19 19:01 - Laboratory Result Diagrams: 03/21/19 18:07 03/21/19 18:07 Laboratory results interpreted by me: 03/21/19 03/21/19 03/21/19 18:07 18:07 18:07 Hgb 10.6 L Hct 33.7 L MCV 75 L MCH 23.3 L MCHC 31.3 L RDW 15.0 H Lymphocytes % 11.1 L Chloride 108 H Est GFR ( Amer) 56 L Est GFR (Non-Af Amer) 47 L NT-Pro-B Natriuret Pep 5040 H Albumin 3.4 L - Diagnostic Test Radiology reviewed: Image reviewed, Reports reviewed - Chest x-ray compared to 2017 shows new small left pleural effusion, and larger right pleural effusion with possible right lower lobe infiltrate. - EKG Interpretation by Me EKG shows normal: Sinus rhythm, [place], Intervals, QRS Complexes. abnormal: ST-T Waves - Lateral T wave abnormalities Rate: Normal - 85 Rhythm: NSR, APC's When compared to previous EKG there are: Changes noted - Consults Dr. Li Time consulted: 21:21 Consulted provider: will see as inpatient - Dr. Li requests admit the patient to the [facility] and have the nursing staff give her her regular medications. I am not sure what those medications are and reviewing computer records I cannot find anything besides Spironolactone and minoxidil that might your blood pressure medicine. I will asked the nursing staff to contact him for more specific orders. Discharge - Discharge Clinical Impression: Bilateral pleural effusion, Asymmetric pulmonary edema, Poorly-controlled hypertension Dyspnea Qualifiers: Dyspnea type: unspecified Qualified Code(s): R06.00 - Dyspnea, unspecified Migraine headache Qualifiers: Migraine type: chronic without aura Status migrainosus presence: with status migrainosus Intractability: not intractable Qualified Code(s): G43.701 - Chronic migraine without aura, not intractable, with status migrainosus Condition: Stable Disposition: ADMITTED INPATIENT Admitting Provider: Guillermo Unit Admitted: [facility] Scribe Attestation: 03/21/19 21:26 I personally performed the services described in the documentation, reviewed and edited the documentation which was dictated to the scribe in my presence, and it accurately records my words and actions. I personally performed the services described in the documentation, reviewed and edited the documentation which was dictated to the scribe in my presence, and it accurately records my words and actions.
--- NOTE | 2019-03-21 17:40 | RADIOLOGY REPORT (SQ) ---
EXAM DESCRIPTION: CHEST SINGLE VIEW; CHEST 2 VIEWS COMPLETED DATE/TIME: 03/21/2019 5:22 pm REASON FOR STUDY: Dyspnea, peripheral edema; TY,abnormal density seen in the R lat port CXR COMPARISON: None. EXAM PARAMETERS: AP portable view of the chest at 1639 hours. PA and lateral views of the chest at 1720 hours. FINDINGS: LUNGS AND PLEURA: Small left pleural effusion and moderate right pleural effusion MEDIASTINUM AND HILAR STRUCTURES: Stable. HEART AND VASCULAR STRUCTURES: Stable cardiomegaly. BONES: No acute findings. HARDWARE: None in the chest. OTHER: Stable position of right-sided port. IMPRESSION: Pneumonia or asymmetric pulmonary edema. Clinical correlation is needed. TECHNICAL DOCUMENTATION: JOB ID: [id number] [employer]- All Rights Reserved Reading location - IP/workstation name: [email or web address]
--- NOTE | 2019-03-21 17:40 | RADIOLOGY REPORT (SQ) ---
EXAM DESCRIPTION: CHEST SINGLE VIEW; CHEST 2 VIEWS COMPLETED DATE/TIME: 03/21/2019 5:22 pm REASON FOR STUDY: Dyspnea, peripheral edema; TY,abnormal density seen in the R lat port CXR COMPARISON: None. EXAM PARAMETERS: AP portable view of the chest at 1639 hours. PA and lateral views of the chest at 1720 hours. FINDINGS: LUNGS AND PLEURA: Small left pleural effusion and moderate right pleural effusion MEDIASTINUM AND HILAR STRUCTURES: Stable. HEART AND VASCULAR STRUCTURES: Stable cardiomegaly. BONES: No acute findings. HARDWARE: None in the chest. OTHER: Stable position of right-sided port. IMPRESSION: Pneumonia or asymmetric pulmonary edema. Clinical correlation is needed. TECHNICAL DOCUMENTATION: JOB ID: [id number] [employer]- All Rights Reserved Reading location - IP/workstation name: [email or web address]
[2019-03-21 18:26] LABS: ABSOLUTE BASOPHILS # (AUTO) 0.1 10^3/uL (0.0-0.2); ABSOLUTE EOSINOPHILS # (AUTO) 0.1 10^3/uL (0.0-0.6); ABSOLUTE LYMPHOCYTES (AUTO) 0.7 10^3/uL (0.5-4.7); ABSOLUTE MONOCYTES (AUTO) 0.5 10^3/uL (0.1-1.4); ABSOLUTE NEUT (AUTO) 4.8 10^3/uL (1.7-8.2); EOSINOPHILS % (AUTO) 2.3 % (0-6); HEMATOCRIT 33.7 % (36.0-47.0); HEMOGLOBIN 10.6 g/dL (12.0-15.5); LYMPHOCYTES % (AUTO) 11.1 % (13-45); MEAN CORPUSCULAR HEMOGLOBIN 23.3 pg (27.0-33.4); MEAN CORPUSCULAR HGB CONC 31.3 g/dL (32.0-36.0); MEAN CORPUSCULAR VOLUME 75 fl (80-97); MONOCYTES % (AUTO) 8.4 % (3-13); PLATELET COUNT 201 10^3/uL (150-450); RED BLOOD COUNT 4.53 10^6/uL (3.72-5.28); SEGMENTED NEUTROPHILS % (AUTO) 77.2 % (42-78); TOTAL CELLS COUNTED % (AUTO) 100 %; WHITE BLOOD COUNT 6.2 10^3/uL (4.0-10.5)
[2019-03-21 18:49] LABS: ALANINE AMINOTRANSFERASE 27 U/L (9-52); ALBUMIN 3.4 g/dL (3.5-5.0); ALKALINE PHOSPHATASE 89 U/L (38-126); ANION GAP 10 (5-19); ASPARTATE AMINO TRANSFERASE 26 U/L (14-36); BILIRUBIN,DIRECT 0.3 mg/dL (0.0-0.4); BILIRUBIN,TOTAL 0.7 mg/dL (0.2-1.3); BLOOD UREA NITROGEN 18 mg/dL (7-20); CARBON DIOXIDE 27 mmol/L (22-30); CHLORIDE 108 mmol/L (98-107); CREATINE KINASE 94 U/L (30-135); GLUCOSE 96 mg/dL (75-110); POTASSIUM 3.8 mmol/L (3.6-5.0); SODIUM 144.5 mmol/L (137-145); TOTAL PROTEIN 6.9 g/dL (6.3-8.2)
[2019-03-21] MEDS ORDERED: HYDRALAZINE HCL INJ/PF 20 MG/1 ML SDV IV ONE (18:51)
[2019-03-21 19:00] LABS: CREATINE KINASE MB 1.35 ng/mL (<4.55); TROPONIN I 0.029 ng/mL
[2019-03-21] MEDS ORDERED: LORAZEPAM INJ 2 MG/1 ML VIAL IV ONE (19:22)
[2019-03-21] MEDS ORDERED: ONDANSETRON HCL INJ/PF 4 MG/2 ML SDV IV PRN (21:27)
[2019-03-21] MEDS ORDERED: HYDRALAZINE HCL INJ/PF 20 MG/1 ML SDV IV PRN (21:36)
--- NOTE | 2019-03-21 22:29 | EKG REPORT ---
SEVERITY:- OTHERWISE NORMAL ECG - SINUS RHYTHM ATRIAL PREMATURE COMPLEX : Confirmed by: Shasha Garces MD 21-Mar-2019 22:29:04
[2019-03-21] MEDS ORDERED: METHYLPREDNISOLONE INJ 40 MG/1 ML SDV IV ONE (22:30)
[2019-03-21] MEDS ORDERED: FUROSEMIDE INJ/PF 20 MG/2 ML SDV IV ONE (22:30)
[2019-03-21] MEDS: OXYCODONE-ACETAMINOPHEN 5-325 MG TABLET PO PRN (23:19)
[2019-03-21] MEDS: LEVALBUTEROL HCL NEB 1.25 MG/3 ML AMPUL NEB SCH (23:20)
[2019-03-21] MEDS: METOPROLOL SUCCINATE 50 MG TAB.SR.24H PO SCH (23:20)
[2019-03-21] MEDS: LEVOFLOXACIN 500 MG/D5W RTU 500 MG/100 ML RTUPB IV SCH (23:29)
[2019-03-22 01:13] LABS: CREATINE KINASE MB 1.7 ng/mL (<4.55)
[2019-03-22 01:18] LABS: TROPONIN I 0.036 ng/mL
[2019-03-22 01:32] LABS: APPEARANCE,URINE CLOUDY; BILIRUBIN,URINE NEGATIVE (NEGATIVE); COLOR,URINE YELLOW; GLUCOSE, URINE NEGATIVE (NEGATIVE); KETONES,URINE NEGATIVE (NEGATIVE); LEUKOCYTE ESTERASE,URINE SMALL (NEGATIVE); NITRITE,URINE NEGATIVE (NEGATIVE); PROTEIN,URINE 100 mg/dL (NEGATIVE); URINE SPECIFIC GRAVITY 1.024; UROBILINOGEN,URINE NEGATIVE mg/dL (<2.0)
[2019-03-22] MEDS: ACETAMINOPHEN 325 MG TABLET PO PRN (02:44)
[2019-03-22] MEDS: LEVALBUTEROL HCL NEB 1.25 MG/3 ML AMPUL NEB SCH ×5 (05:05→20:21)
[2019-03-22] MEDS: FUROSEMIDE INJ/PF 20 MG/2 ML SDV IV SCH ×3 (05:49→21:29)
[2019-03-22] MEDS: PANTOPRAZOLE SODIUM 40 MG TABLET.DR PO SCH ×2 (05:49→18:02)
[2019-03-22] MEDS: OXYCODONE-ACETAMINOPHEN 5-325 MG TABLET PO PRN ×3 (05:51→20:14)
[2019-03-22] MEDS ORDERED: METHYLPREDNISOLONE INJ 40 MG/1 ML SDV IV SCH (06:00)
[2019-03-22 06:06] LABS: HEMATOCRIT 34.3 % (36.0-47.0); HEMOGLOBIN 10.7 g/dL (12.0-15.5); MEAN CORPUSCULAR HEMOGLOBIN 23.2 pg (27.0-33.4); MEAN CORPUSCULAR HGB CONC 31.3 g/dL (32.0-36.0); MEAN CORPUSCULAR VOLUME 74 fl (80-97); RED BLOOD COUNT 4.63 10^6/uL (3.72-5.28); RED CELL DISTRIBUTION WIDTH 14.8 % (11.5-14.0); WHITE BLOOD COUNT 5.2 10^3/uL (4.0-10.5)
[2019-03-22 06:17] LABS: ALANINE AMINOTRANSFERASE 18 U/L (9-52); ALBUMIN 3.6 g/dL (3.5-5.0); ALKALINE PHOSPHATASE 89 U/L (38-126); ANION GAP 9 (5-19); ASPARTATE AMINO TRANSFERASE 25 U/L (14-36); BILIRUBIN,DIRECT 0.3 mg/dL (0.0-0.4); BILIRUBIN,TOTAL 0.8 mg/dL (0.2-1.3); BLOOD UREA NITROGEN 17 mg/dL (7-20); CARBON DIOXIDE 29 mmol/L (22-30); CHLORIDE 105 mmol/L (98-107); CREATINE KINASE 103 U/L (30-135); GLUCOSE 136 mg/dL (75-110); POTASSIUM 4.2 mmol/L (3.6-5.0); SODIUM 143.3 mmol/L (137-145); TOTAL PROTEIN 7.6 g/dL (6.3-8.2)
[2019-03-22 06:26] LABS: ABSOLUTE LYMPHOCYTES# (MANUAL) 0.2 10^3/uL (0.5-4.7); BASOPHILS % (MANUAL) 0 % (0-2); EOSINOPHILS % (MANUAL) 0 % (0-6); LYMPHOCYTES % (MANUAL) 4 % (13-45); MONOCYTES % (MANUAL) 0 % (3-13); SEGMENTED NEUTROPHILS % (MAN) 96 % (42-78); TOTAL CELLS COUNTED 100
[2019-03-22 06:28] LABS: PLATELET CLUMPS PRESENT; PLATELET COMMENT ADEQUATE; PLATELET COUNT 216 10^3/uL (150-450); TARGET CELLS 2+
[2019-03-22 06:43] LABS: CREATINE KINASE MB 2.31 ng/mL (<4.55); TROPONIN I 0.038 ng/mL
--- NOTE | 2019-03-22 08:31 | PDOC CONSULTATION ---
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 Recently over the last few weeks she has been having recurrent nosebleeds, and patient notes that the blood leaks down and she ends up coughing up clots. She saw us yesterday, but she appeared very short of breath, over the last 6 weeks her let us know that she is having very difficult time with her breathing, to the point of not being able to move at all and requiring total care from her . This is a big change from 6 to 8 weeks ago. Therefore I called Dr. Negro and ultimately she was admitted for work-up. Since being in she had a chest x-ray which indicated right lung opacity that may be pneumonia related but also some bilateral pleural effusions, so it did support both possibly a pneumonia as well as CHF exacerbation. BNP was also elevated. Patient has been placed on high- dose Lasix as well as antibiotics for the pneumonia. Dr. Negro was considering CT noncontrast of the chest. We support this decision. Past Medical History Cardiac Medical History: Reports: Atrial Fibrillation, Coronary Artery Disease, DVT, Hypertension, Pulmonary Embolism Denies: Myocardial Infarction Pulmonary Medical History: Reports: Asthma, Bronchitis, Pneumonia Denies: Chronic Obstructive Pulmonary Disease (COPD), Tuberculosis Neurological Medical History: Reports: Migraine Denies: Seizures GI Medical History: Reports: Hiatal Hernia Denies: Hepatitis Musculoskeltal Medical History: Reports: Arthritis Psychiatric Medical History: Denies: Depression Hematology: Reports: Anemia - IRON PROBLEMS Denies: Sickle Cell Disease Past Surgical History Past Surgical History: Reports: Appendectomy, Cholecystectomy, Hysterectomy Denies: Amputation, Mastectomy, Pacemaker Social History Information Source: Patient Smoking Status: Never Smoker Frequency of Alcohol Use: None Hx Recreational Drug Use: No Drugs: None Hx Prescription Drug Abuse: No - Advance Directive Resuscitation Status: Full Code Family History Family History: Reviewed & Not Pertinent - Negative for premature coronary artery disease or sudden cardiac in the family amongst first degree relatives. Parental Family History Reviewed: Yes Children Family History Reviewed: Yes Sibling(s) Family History Reviewed.: Yes Medication/Allergy Home Medications: Albuterol Sulfate [Albuterol Sulfate 2.5mg/3 mL] 1 vial NEB RTQ6HP PRN 03/14/17 Fluticasone/Salmeterol [Advair 500-50 Diskus 28 Dose] 1 puff IH Q12 03/14/17 Lidocaine [Lidoderm 5% (700 mg) Transdermal Patch] 1 patch TD DAILY 03/14/17 Montelukast Sodium [Singulair 10 mg Tablet] 10 mg PO QHS 03/14/17 Omeprazole 40 mg PO DAILY 03/14/17 Albuterol Sulfate [Proair Hfa Inhalation Aerosol 8.5 gm Mdi] 2 puff IH Q4HP PRN 03/22/19 Atorvastatin Calcium [Lipitor 20 mg Tablet] 20 mg PO QHS 03/22/19 Calcitriol [Rocaltrol 0.25 mcg Capsule] 0.5 mcg PO DAILY 03/22/19 Difluprednate [Durezol] 1 drop QID 03/22/19 Dihydroergotamine 1mg/Ml Amp 1 ml IM .HEADACHE PRN 03/22/19 Fluticasone Propionate [Flonase Nasal [place] 50 Mcg/[place] 16 gm] 1 spray NASL Q12 03/22/19 Furosemide [Lasix 20 mg Tablet] 20 mg PO BID 03/22/19 Minoxidil [Loniten 2.5 mg Tablet] 2.5 mg PO Q12 03/22/19 Morphine Sulfate/Naltrexone [[place]eda ER 50-2 mg Capsule] 1 cap PO Q12 03/22/19 Ondansetron [Zofran Odt 4 mg Tablet] 4 mg PO Q8HP PRN 03/22/19 Oxycodone HCl/Acetaminophen [Percocet 5-325 mg Tablet] 1 tab PO Q6HP PRN 03/22/19 Quetiapine Fumarate [Seroquel] 50 mg PO Q8HP PRN MDD 6 TABS 03/22/19 Silver Sulfadiazine [Ssd] 1 applic TOP 03/22/19 Spironolactone [Aldactone 25 mg Tablet] 25 mg PO DAILY 03/22/19 Zolpidem Tartrate [Ambien 5 mg Tablet] 10 mg PO QHS 05/08/19 Allergies/Adverse Reactions: aspirin [Aspirin] Allergy (Severe, Verified 11/09/18 13:54) SOB, RASH Coconut * [Coconut] Allergy (Severe, Verified 11/09/18 13:54) RASH, SOB latex [Latex] Allergy (Severe, Verified 11/09/18 13:54) RASH, SOB Penicillins Allergy (Severe, Verified 11/09/18 13:54) Anaphylaxis pineapple [Pineapple] Allergy (Severe, Verified 11/09/18 13:54) RASH, SOB codeine [Codeine] Adverse Reaction (Severe, Verified 11/09/18 13:54) VOMITING ketorolac tromethamine [From Toradol] Adverse Reaction (Severe, Verified 11/09/18 13:54) VOMITING ham Allergy (Severe, Uncoded 11/09/18 13:54) RASH, VOMITING IVP DYE Allergy (Severe, Uncoded 11/09/18 14:14) KIDNEY FAILURE PAPER TAPE Allergy (Intermediate, Uncoded 11/09/18 13:54) Blisters BLOOD PRESSURE CUFF Allergy (Mild, Uncoded 11/09/18 13:54) REDNESS WITH BLISTERS Review of Systems Constitutional: ABSENT: chills, fever(s), headache(s), weight gain, weight loss Eyes: ABSENT: visual disturbances Ears: ABSENT: hearing changes Cardiovascular: ABSENT: chest pain, dyspnea on exertion, edema, orthropnea, palpitations Respiratory: ABSENT: cough, hemoptysis Gastrointestinal: ABSENT: abdominal pain, constipation, diarrhea, hematemesis, hematochezia, nausea, vomiting Genitourinary: ABSENT: dysuria, hematuria Musculoskeletal: ABSENT: joint swelling Integumentary: ABSENT: rash, wounds Neurological: ABSENT: abnormal gait, abnormal speech, confusion, dizziness, f ocal weakness, syncope Psychiatric: ABSENT: anxiety, depression, homidical ideation, suicidal ideation Endocrine: ABSENT: cold intolerance, heat intolerance, polydipsia, polyuria Hematologic/Lymphatic: ABSENT: easy bleeding, easy bruising Physical Exam Vital Signs: Temp Pulse Resp BP Pulse Ox 98.3 F 80 24 H 175/90 H 97 03/22/19 03:09 03/22/19 03:09 03/22/19 03:09 03/22/19 03:09 03/22/19 03:09 Intake & Output 03/21/19 03/22/19 03/23/19 06:59 06:59 06:59 Intake Total 100 Output Total 200 Balance -100 Weight 131.6 kg General appearance: PRESENT: no acute distress, well-developed, well-nourished Head exam: PRESENT: atraumatic, normocephalic Eye exam: PRESENT: conjunctiva pink, EOMI, PERRLA. ABSENT: scleral icterus Ear exam: PRESENT: normal external ear exam Mouth exam: PRESENT: moist, tongue midline Neck exam: ABSENT: carotid bruit, JVD, lymphadenopathy, thyromegaly Respiratory exam: PRESENT: clear to auscultation lashanda. ABSENT: rales, rhonchi, wheezes Cardiovascular exam: PRESENT: RRR. ABSENT: diastolic murmur, rubs, systolic murmur Pulses: PRESENT: normal dorsalis pedis pul Vascular exam: PRESENT: normal capillary refill GI/Abdominal exam: PRESENT: normal bowel sounds, soft. ABSENT: distended, guarding, mass, organolmegaly, rebound, tenderness Rectal exam: PRESENT: deferred Extremities exam: PRESENT: full ROM. ABSENT: calf tenderness, clubbing, pedal edema Neurological exam: PRESENT: alert, awake, oriented to person, oriented to place, oriented to time, oriented to situation, CN II-XII grossly intact. ABSENT: motor sensory deficit Psychiatric exam: PRESENT: appropriate affect, normal mood. ABSENT: homicidal ideation, suicidal ideation Skin exam: PRESENT: dry, intact, warm. ABSENT: cyanosis, rash Results Laboratory Results: 03/22/19 05:40 03/22/19 05:40 03/21/19 03/21/19 03/21/19 18:07 18:07 20:59 WBC 6.2 RBC 4.53 Hgb 10.6 L Hct 33.7 L MCV 75 L MCH 23.3 L MCHC 31.3 L RDW 15.0 H Plt Count 201 Seg Neutrophils % 77.2 Lymphocytes % 11.1 L Monocytes % 8.4 Eosinophils % 2.3 Basophils % 1.0 Absolute Neutrophils 4.8 Absolute Lymphocytes 0.7 Absolute Monocytes 0.5 Absolute Eosinophils 0.1 Absolute Basophils 0.1 Sodium 144.5 Potassium 3.8 Chloride 108 H Carbon Dioxide 27 Anion Gap 10 BUN 18 Creatinine 1.15 Est GFR ( Amer) 56 L Est GFR (Non-Af Amer) 47 L Glucose 96 Calcium 9.0 Magnesium Total Bilirubin 0.7 AST 26 ALT 27 Alkaline Phosphatase 89 Total Protein 6.9 Albumin 3.4 L Urine Color YELLOW Urine Appearance CLOUDY Urine pH 7.0 Ur Specific [place] 1.024 Urine Protein 100 H Urine Glucose (UA) NEGATIVE Urine Ketones NEGATIVE Urine Blood SMALL H Urine Nitrite NEGATIVE Ur Leukocyte Esterase SMALL H Urine WBC (Auto) 20 Urine RBC (Auto) 5 03/22/19 03/22/19 05:40 05:40 WBC 5.2 RBC 4.63 Hgb 10.7 L Hct 34.3 L MCV 74 L MCH 23.2 L MCHC 31.3 L RDW 14.8 H Plt Count 216 Seg Neutrophils % Not Reportable Lymphocytes % Not Reportable Monocytes % Not Reportable Eosinophils % Not Reportable Basophils % Not Reportable Absolute Neutrophils Not Reportable Absolute Lymphocytes Not Reportable Absolute Monocytes Not Reportable Absolute Eosinophils Not Reportable Absolute Basophils Not Reportable Sodium 143.3 Potassium 4.2 Chloride 105 Carbon Dioxide 29 Anion Gap 9 BUN 17 Creatinine 1.18 Est GFR ( Amer) 55 L Est GFR (Non-Af Amer) 45 L Glucose 136 H Calcium 9.0 Magnesium 1.8 Total Bilirubin 0.8 AST 25 ALT 18 Alkaline Phosphatase 89 Total Protein 7.6 Albumin 3.6 Urine Color Urine Appearance Urine pH Ur Specific [place] Urine Protein Urine Glucose (UA) Urine Ketones Urine Blood Urine Nitrite Ur Leukocyte Esterase Urine WBC (Auto) Urine RBC (Auto) 03/21/19 03/21/19 03/21/19 18:07 18:07 23:20 Creatine Kinase 94 96 CK-MB (CK-2) 1.35 Troponin I 0.029 NT-Pro-B Natriuret Pep 5040 H 03/21/19 03/22/19 03/22/19 23:20 05:40 05:40 Creatine Kinase 103 CK-MB (CK-2) 1.70 2.31 Troponin I 0.036 0.038 NT-Pro-B Natriuret Pep 4430 H Impressions: Chest X-Ray 03/21/19 16:53 IMPRESSION: Pneumonia or asymmetric pulmonary edema. Clinical correlation is needed. Assessment & Plan - Diagnosis (1) Bilateral pleural effusion Is this a current diagnosis for this admission?: Yes Plan: Likely secondary to heart failure, agree with aggressive Lasix therapy through Dr. Negro. (2) Pulmonary embolism Qualifiers: Chronicity: chronic Acute cor pulmonale presence: without acute cor pulmonale Is this a current diagnosis for this admission?: Yes Plan: History of chronic PE, plan for lifelong anticoagulation. But I would like to hold endocoagulation for a few days to make sure that the nosebleed has fully resolved and she is not bringing up any more clots. Thereafter I would initiate her on Xarelto 10 mg daily down from the 20 mg daily dose. (3) Dyspnea Qualifiers: Dyspnea type: dyspnea on exertion Qualified Code(s): R06.09 - Other forms of dyspnea Is this a current diagnosis for this admission?: Yes Plan: She does have dyspnea probably related to a combination of both pneumonia as well as CHF exacerbation, but agree with CT of the chest without contrast I reassured patient that she will be able to tolerate this even though she is claustrophobic, we will give her a small dose of Ativan prior to this test as well - Time Time Spent: Greater than 70 Minutes - Inpatient Certification Based on my medical assessment, after consideration of the patient's comorbidities, presenting symptoms, or acuity I expect that the services needed warrant INPATIENT care.: Yes I certify that my determination is in accordance with my understanding of Medicare's requirements for reasonable and necessary INPATIENT services [42 CFR 412.3e].: Yes Medical Necessity: Need For Continuous Telemetry Monitoring, Risk of Complication if Not Cared For in Hospital
[2019-03-22] MEDS ORDERED: DIHYDROERGOTAMINE 1 MG/ML IM PRN (08:40)
[2019-03-22] MEDS ORDERED: OXYCODONE-ACETAMINOPHEN 5-325 MG TABLET PO PRN (08:40)
[2019-03-22] MEDS ORDERED: (PENDING PHARMACY ID) (Quetiapine Fumarate [Seroquel] 50 MG) PO PRN (08:40)
[2019-03-22] MEDS ORDERED: ONDANSETRON 4 MG TAB.RAPDIS PO PRN (08:40)
--- NOTE | 2019-03-22 09:14 | PDOC H&P ---
History of Present Illness Admission Date/PCP: 03/21/19 21:29 MICHEL COHEN MD Patient complains of: Difficulty in breathing History of Present Illness: GLENDA PENA is a 73 year old female This is a 73-year-old female with a history of chronic thrombolic embolism and his Xarelto also history of the diastolic congestive heart failure history of the paroxysmal atrial fibrillation's history of the chronic back pain and a chronic migraine headache and also history of the COPD sleep apnea and the multiple medical problems and currently went to the see franco [facility] office and patient was complaining more difficulty in breathing and complaining some nose bleed with some clot coming from that and sent to the emergency department In the emergency department initial work-up with a chest x-ray showed a right- sided pneumonia versus edema Patient's currently see the pulmonary Dr. Hernandez outpatient The patient's unable to get the CT of the chest yesterday because unable to lay down flat Patient also see a pain management and also see the neurosurgery for ongoing back problems Patient also see a cardiology Patient also see [facility] Patient is on chronic pain medications and chronic psych medications for the anxiety and depression and currently see a psych and a pain management When I saw the patient in the emergency department patient was given nebulizer treatment and feeling better Patient denied any chest pain Patient still feels tight in the chest Patient NT BNP is elevated Patient have a chronic kidney disease and currently see but patient creatinine is all stable At this point decided to admit in the hospital for the COPD asthma acute exacerbations and acute congestive heart failure Past Medical History Cardiac Medical History: Reports: Atrial Fibrillation, Congestive Heart Failure, Coronary Artery Disease, DVT, Hypertension, Pulmonary Embolism Denies: Myocardial Infarction Pulmonary Medical History: Reports: Asthma, Bronchitis, Pneumonia Denies: Chronic Obstructive Pulmonary Disease (COPD), Tuberculosis Neurological Medical History: Reports: Migraine Denies: Seizures Renal/ Medical History: Reports: Chronic Kidney Disease GI Medical History: Reports: Hiatal Hernia Denies: Hepatitis Musculoskeltal Medical History: Reports: Arthritis Psychiatric Medical History: Reports: Depression, General Anxiety Disorder Hematology: Reports: Anemia - IRON PROBLEMS Denies: Sickle Cell Disease Past Surgical History Past Surgical History: Reports: Appendectomy, Cholecystectomy, Hysterectomy Denies: Amputation, Mastectomy, Pacemaker Social History Information Source: Patient Smoking Status: Never Smoker Frequency of Alcohol Use: None Hx Recreational Drug Use: No Drugs: None Hx Prescription Drug Abuse: No - Advance Directive Resuscitation Status: Full Code Family History Family History: Reviewed & Not Pertinent - Negative for premature coronary artery disease or sudden cardiac in the family amongst first degree relatives. Parental Family History Reviewed: Yes Children Family History Reviewed: Yes Sibling(s) Family History Reviewed.: Yes Medication/Allergy Home Medications: Albuterol Sulfate [Albuterol Sulfate 2.5mg/3 mL] 1 vial NEB RTQ6HP PRN 03/14/17 Fluticasone/Salmeterol [Advair 500-50 Diskus 28 Dose] 1 puff IH Q12 03/14/17 Lidocaine [Lidoderm 5% (700 mg) Transdermal Patch] 1 patch TD DAILY 03/14/17 Montelukast Sodium [Singulair 10 mg Tablet] 10 mg PO QHS 03/14/17 Omeprazole 40 mg PO DAILY 03/14/17 Albuterol Sulfate [Proair Hfa Inhalation Aerosol 8.5 gm Mdi] 2 puff IH Q4HP PRN 03/22/19 Atorvastatin Calcium [Lipitor 20 mg Tablet] 20 mg PO QHS 03/22/19 Calcitriol [Rocaltrol 0.25 mcg Capsule] 0.5 mcg PO DAILY 03/22/19 Difluprednate [Durezol] 1 drop QID 03/22/19 Dihydroergotamine 1mg/Ml Amp 1 ml IM .HEADACHE PRN 03/22/19 Fluticasone Propionate [Flonase Nasal [place] 50 Mcg/[place] 16 gm] 1 spray NASL Q12 03/22/19 Furosemide [Lasix 20 mg Tablet] 20 mg PO BID 03/22/19 Minoxidil [Loniten 2.5 mg Tablet] 2.5 mg PO Q12 03/22/19 Morphine Sulfate/Naltrexone [Embeda ER 50-2 mg Capsule] 1 cap PO Q12 03/22/19 Ondansetron [Zofran Odt 4 mg Tablet] 4 mg PO Q8HP PRN 03/22/19 Oxycodone HCl/Acetaminophen [Percocet 5-325 mg Tablet] 1 tab PO Q6HP PRN 03/22/19 Quetiapine Fumarate [Seroquel] 50 mg PO Q8HP PRN MDD 6 TABS 03/22/19 Silver Sulfadiazine [Ssd] 1 applic TOP 03/22/19 Spironolactone [Aldactone 25 mg Tablet] 25 mg PO DAILY 03/22/19 Zolpidem Tartrate [Ambien 5 mg Tablet] 10 mg PO QHS 03/22/19 Allergies/Adverse Reactions: aspirin [Aspirin] Allergy (Severe, Verified 11/09/18 13:54) SOB, RASH Coconut * [Coconut] Allergy (Severe, Verified 11/09/18 13:54) RASH, SOB latex [Latex] Allergy (Severe, Verified 11/09/18 13:54) RASH, SOB Penicillins Allergy (Severe, Verified 11/09/18 13:54) Anaphylaxis pineapple [Pineapple] Allergy (Severe, Verified 11/09/18 13:54) RASH, SOB codeine [Codeine] Adverse Reaction (Severe, Verified 11/09/18 13:54) VOMITING ketorolac tromethamine [From Toradol] Adverse Reaction (Severe, Verified 11/09/18 13:54) VOMITING ham Allergy (Severe, Uncoded 11/09/18 13:54) RASH, VOMITING IVP DYE Allergy (Severe, Uncoded 11/09/18 14:14) KIDNEY FAILURE PAPER TAPE Allergy (Intermediate, Uncoded 11/09/18 13:54) Blisters BLOOD PRESSURE CUFF Allergy (Mild, Uncoded 11/09/18 13:54) REDNESS WITH BLISTERS Review of Systems Constitutional: PRESENT: weakness. ABSENT: chills, fever(s), headache(s), weight gain, weight loss Eyes: ABSENT: visual disturbances Ears: ABSENT: hearing changes Cardiovascular: PRESENT: dyspnea on exertion. ABSENT: chest pain, edema, orthropnea, palpitations Respiratory: PRESENT: cough, dyspnea, hemoptysis Gastrointestinal: ABSENT: abdominal pain, constipation, diarrhea, hematemesis, hematochezia, nausea, vomiting Genitourinary: ABSENT: dysuria, hematuria Musculoskeletal: ABSENT: joint swelling Integumentary: ABSENT: rash, wounds Neurological: ABSENT: abnormal gait, abnormal speech, confusion, dizziness, focal weakness, syncope Psychiatric: ABSENT: anxiety, depression, homidical ideation, suicidal ideation Endocrine: ABSENT: cold intolerance, heat intolerance, menstrual abnormalities, polydipsia, polyuria Hematologic/Lymphatic: ABSENT: easy bleeding, easy bruising, lymphadenopathy Physical Exam Vital Signs: Temp Pulse Resp BP Pulse Ox 98.3 F 82 16 175/90 H 92 05/08/19 03:09 03/22/19 08:23 03/22/19 08:23 03/22/19 03:09 03/22/19 08:23 Intake & Output 03/21/19 03/22/19 03/23/19 06:59 06:59 06:59 Intake Total 100 Output Total 200 Balance -100 Weight 131.6 kg General appearance: PRESENT: no acute distress, well-developed, well-nourished Head exam: PRESENT: atraumatic, normocephalic Eye exam: PRESENT: conjunctiva pink, EOMI, PERRLA. ABSENT: scleral icterus Ear exam: PRESENT: normal external ear exam Mouth exam: PRESENT: moist, tongue midline Neck exam: PRESENT: full ROM. ABSENT: carotid bruit, JVD, lymphadenopathy, thyromegaly Respiratory exam: PRESENT: decreased breath sounds Cardiovascular exam: PRESENT: RRR. ABSENT: diastolic murmur, rubs, systolic murmur Vascular exam: PRESENT: normal capillary refill GI/Abdominal exam: PRESENT: normal bowel sounds, soft. ABSENT: distended, guarding, mass, organolmegaly, rebound, tenderness Rectal exam: PRESENT: deferred Extremities exam: PRESENT: pedal edema Musculoskeletal exam: PRESENT: ambulatory Neurological exam: PRESENT: alert, awake, oriented to person, oriented to place, oriented to time, oriented to situation, CN II-XII grossly intact. ABSENT: motor sensory deficit Psychiatric exam: PRESENT: appropriate affect, normal mood. ABSENT: homicidal ideation, suicidal ideation Skin exam: PRESENT: dry, intact, warm. ABSENT: cyanosis, rash Results Laboratory Results: 03/22/19 05:40 03/22/19 05:40 03/21/19 03/21/19 03/21/19 18:07 18:07 20:59 WBC 6.2 RBC 4.53 Hgb 10.6 L Hct 33.7 L MCV 75 L MCH 23.3 L MCHC 31.3 L RDW 15.0 H Plt Count 201 Seg Neutrophils % 77.2 Lymphocytes % 11.1 L Monocytes % 8.4 Eosinophils % 2.3 Basophils % 1.0 Absolute Neutrophils 4.8 Absolute Lymphocytes 0.7 Absolute Monocytes 0.5 Absolute Eosinophils 0.1 Absolute Basophils 0.1 Sodium 144.5 Potassium 3.8 Chloride 108 H Carbon Dioxide 27 Anion Gap 10 BUN 18 Creatinine 1.15 Est GFR ( Amer) 56 L Est GFR (Non-Af Amer) 47 L Glucose 96 Calcium 9.0 Magnesium Total Bilirubin 0.7 AST 26 ALT 27 Alkaline Phosphatase 89 Total Protein 6.9 Albumin 3.4 L Urine Color YELLOW Urine Appearance CLOUDY Urine pH 7.0 Ur Specific [place] 1.024 Urine Protein 100 H Urine Glucose (UA) NEGATIVE Urine Ketones NEGATIVE Urine Blood SMALL H Urine Nitrite NEGATIVE Ur Leukocyte Esterase SMALL H Urine WBC (Auto) 20 Urine RBC (Auto) 5 03/22/19 03/22/19 05:40 05:40 WBC 5.2 RBC 4.63 Hgb 10.7 L Hct 34.3 L MCV 74 L MCH 23.2 L MCHC 31.3 L RDW 14.8 H Plt Count 216 Seg Neutrophils % Not Reportable Lymphocytes % Not Reportable Monocytes % Not Reportable Eosinophils % Not Reportable Basophils % Not Reportable Absolute Neutrophils Not Reportable Absolute Lymphocytes Not Reportable Absolute Monocytes Not Reportable Absolute Eosinophils Not Reportable Absolute Basophils Not Reportable Sodium 143.3 Potassium 4.2 Chloride 105 Carbon Dioxide 29 Anion Gap 9 BUN 17 Creatinine 1.18 Est GFR ( Amer) 55 L Est GFR (Non-Af Amer) 45 L Glucose 136 H Calcium 9.0 Magnesium 1.8 Total Bilirubin 0.8 AST 25 ALT 18 Alkaline Phosphatase 89 Total Protein 7.6 Albumin 3.6 Urine Color Urine Appearance Urine pH Ur Specific [place] Urine Protein Urine Glucose (UA) Urine Ketones Urine Blood Urine Nitrite Ur Leukocyte Esterase Urine WBC (Auto) Urine RBC (Auto) 03/21/19 03/21/19 03/21/19 18:07 18:07 23:20 Creatine Kinase 94 96 CK-MB (CK-2) 1.35 Troponin I 0.029 NT-Pro-B Natriuret Pep 5040 H 03/21/19 03/22/19 03/22/19 23:20 05:40 05:40 Creatine Kinase 103 CK-MB (CK-2) 1.70 2.31 Troponin I 0.036 0.038 NT-Pro-B Natriuret Pep 4430 H Impressions: Chest X-Ray 03/21/19 16:53 IMPRESSION: Pneumonia or asymmetric pulmonary edema. Clinical correlation is needed. Assessment & Plan - Diagnosis (1) Congestive heart failure Qualifiers: Heart failure type: diastolic Is this a current diagnosis for this admission?: Yes Plan: With patient's last echocardiogram per patient's cardiology with a EF of 60%'s We will consult the cardiology Continues to IV Lasix Patient's poorly controlled hypertension's may also contribute this diastolic heart failure (2) Bilateral pleural effusion Is this a current diagnosis for this admission?: Yes Plan: We will continue to IV Lasix and cover with IV antibiotic (3) Dyspnea Qualifiers: Dyspnea type: dyspnea on exertion Qualified Code(s): R06.09 - Other forms of dyspnea Is this a current diagnosis for this admission?: Yes Plan: Multifactorial including the CHF asthma pleural effusions and pneumonia (4) Migraine headache Qualifiers: Migraine type: chronic without aura Status migrainosus presence: with sta tus migrainosus Intractability: not intractable Qualified Code(s): G43.701 - Chronic migraine without aura, not intractable, with status migrainosus Is this a current diagnosis for this admission?: Yes (5) Poorly-controlled hypertension Is this a current diagnosis for this admission?: Yes Plan: Just the blood pressure medications (6) Asthma Qualifiers: Asthma severity: moderate Asthma complication type: uncomplicated Is this a current diagnosis for this admission?: Yes Plan: Start the patient on IV Solu-Medrol and nebulizer treatments (7) Chronic back pain Qualifiers: Back pain location: low back pain Is this a current diagnosis for this admission?: Yes (8) Chronic kidney disease Qualifiers: Chronic kidney disease stage: stage 2 (mild) Qualified Code(s): N18.2 - Chronic kidney disease, stage 2 (mild) Is this a current diagnosis for this admission?: Yes (9) Chronic pain syndrome Is this a current diagnosis for this admission?: Yes (10) Paroxysmal atrial fibrillation Is this a current diagnosis for this admission?: Yes Plan: Currently on Xarelto and a beta-julio c (11) Pulmonary embolism Qualifiers: Chronicity: chronic Acute cor pulmonale presence: without acute cor pulmonale Is this a current diagnosis for this admission?: Yes Plan: Due to the recent clot and a nosebleed according to the hematology she reduce the dose to 10 mg (12) Sleep apnea Qualifiers: Sleep apnea type: unspecified type Qualified Code(s): G47.30 - Sleep apnea, unspecified Is this a current diagnosis for this admission?: Yes (13) Pneumonia Qualifiers: Laterality: right Lung location: unspecified part of lung Is this a current diagnosis for this admission?: Yes Plan: Continues to IV Levaquin - Time Time Spent: 50 to 70 Minutes Medications reviewed and adjusted accordingly: Yes Anticipated discharge: Home Within: Other - Inpatient Certification I certify that my determination is in accordance with my understanding of Medicare's requirements for reasonable and necessary INPATIENT services [42 CFR 412.3e].: Yes Medical Necessity: Failure to Improve With Outpatient Therapy, Significant Comorbidiites Make Outpatient Treatment Too Risky, Need for IV Antibiotics - Plan Summary Plan Summary: We will start the patient on IV antibiotic IV Lasix Will order the CT of the chest to further evaluate
[2019-03-22] MEDS ORDERED: (PENDING PHARMACY ID) (Morphine Sulfate/Naltrexone [Embeda Er 50-2 Mg Capsule] 1 CAP) PO SCH ×2 (10:00)
[2019-03-22] MEDS ORDERED: SPIRONOLACTONE 25 MG TABLET PO SCH (10:00)
[2019-03-22] MEDS ORDERED: SALMETEROL IH SCH (10:00)
[2019-03-22] MEDS ORDERED: FLUTICASONE IH SCH (10:00)
[2019-03-22] MEDS: METOPROLOL SUCCINATE 50 MG TAB.SR.24H PO SCH ×2 (10:18→21:29)
[2019-03-22] MEDS: LIDOCAINE 5% (700 MG) TRANSDERMAL ADH..PATCH EXT SCH (10:18)
[2019-03-22] MEDS: FLUTICASONE NASAL SPRAY 50 MCG/SPRY 120 SPRAY/16 GM NASL SCH ×2 (10:18→21:24)
[2019-03-22] MEDS: CITALOPRAM HYDROBROMIDE 20 MG TABLET PO SCH (10:19)
[2019-03-22] MEDS: DOCUSATE SODIUM 100 MG CAPSULE PO SCH ×2 (10:19→18:02)
[2019-03-22] MEDS: CALCITRIOL 0.25 MCG CAPSULE PO SCH (10:19)
[2019-03-22] MEDS: MINOXIDIL 2.5 MG TABLET PO SCH ×2 (10:20→21:28)
[2019-03-22] MEDS ORDERED: LORAZEPAM INJ 2 MG/1 ML VIAL IV ONE (10:30)
[2019-03-22] MEDS: FLUTICASONE/VILANTEROL 200-25 MCG/DOSE IH SCH (10:31)
--- NOTE | 2019-03-22 11:22 | RADIOLOGY REPORT (SQ) ---
EXAM DESCRIPTION: CT CHEST WITHOUT COMPLETED DATE/TIME: 03/22/2019 11:01 am REASON FOR STUDY: pnemonia COMPARISON: 12/31/2014, 03/21/2019 TECHNIQUE: CT scan performed of the chest without intravenous contrast. Images reviewed with lung, soft tissue and bone windows. Reconstructed coronal and sagittal MPR images reviewed. All images st ored on PACS. All CT scanners at this facility use dose modulation, iterative reconstruction, and/or weight based d osing when appropriate to reduce radiation dose to as low as reasonably achievable (ALARA). [facility]: Dose Right [facility]: CareDose [facility]: Dose Right [facility]: Teradose 4D [facility]: [employer] RADIATION DOSE: CT Rad equipment meets quality standard of care and radiation dose reduction techniq ues were employed. CTDIvol: 19.4 mGy. DLP: 716 mGy-cm. mGy. LIMITATIONS: No technical limitations. FINDINGS: LUNGS AND PLEURA: Mild bilateral pleural effusions, right greater than left. Associated b ilateral lower lobe consolidation, likely atelectasis. Minimal additional and ground-glass opacities within the right upper and lower lobes. No pneumothorax. HILAR AND MEDIASTINAL STRUCTURES: No identified masses or abnormal nodes. No obvious aneurysm. HEART AND VASCULAR STRUCTURES: Cardiomegaly. Coronary atherosclerosis. No significant pericardial e ffusion. UPPER ABDOMEN: Partially visualized gastric band. Prior cholecystectomy. THYROID AND OTHER SOFT TISSUES: Stable partially evaluated hypodense right thyroid nodule measuring a pproximately 1.0 cm. BONES: No acute bony abnormality. No suspicious osseous lesions. HARDWARE: Right-sided chest port with catheter tip at SVC. OTHER: No other significant findings. IMPRESSION: 1. Mild bilateral pleural effusions, right greater than left. Associated consolidation and minimal ground-glass opacities, likely atelectasis although infection is not entirely excluded. 2. Grossly stable 1.0 cm right thyroid lobe nodule. Consider ultrasound evaluation if it would alte r patient management. TECHNICAL DOCUMENTATION: JOB ID: [id number] Quality ID # [id number]: Final reports with documentation of one or more dose reduction techniques (e.g., Au tomated exposure control, adjustment of the mA and/or kV according to patient size, use of iterative reconstruction technique) 2010 [employer]- All Rights Reserved Reading location - IP/workstation name: [facility]
[2019-03-22] MEDS: METHYLPREDNISOLONE INJ 40 MG/1 ML SDV IV SCH ×2 (13:15→21:29)
[2019-03-22] MEDS: DIHYDROERGOTAMINE MESYLATE IM PRN (13:28)
[2019-03-22] MEDS: SILVER SULFADIAZINE 1% CREAM 50 GM TOP SCH ×3 (13:28→21:34)
[2019-03-22 14:10] LABS: CREATINE KINASE MB 2.34 ng/mL (<4.55); TROPONIN I 0.024 ng/mL
[2019-03-22] MEDS: ZOLPIDEM TARTRATE 5 MG TABLET PO SCH (21:28)
[2019-03-22] MEDS: ATORVASTATIN CALCIUM 20 MG TABLET PO SCH (21:28)
[2019-03-22] MEDS: MONTELUKAST SODIUM 10 MG TABLET PO SCH (21:29)
[2019-03-22] MEDS: LEVOFLOXACIN 500 MG/D5W RTU 500 MG/100 ML RTUPB IV SCH (21:29)
--- NOTE | 2019-03-22 22:30 | PDOC CONSULTATION ---
Consultation-Blank Consultation: CARDIOLOGY CONSULTATION by Dr. Shasha Garces on 03/22/2019. Patient seen at 3:30 PM on 03/22/2019. REASON FOR CONSULTATION: Shortness of breath and leg edema. Assessment congestive heart failure. CONSULT REQUESTING PHYSICIAN: Dr. Sharmila Li HISTORY of PRESENT ILLNESS: Patient is a 73-year-old Afro-[place] female with history of multiple medical problems such as history of pulmonary embolism, hypertension, chronic kidney disease. History of sleep apnea, chronic back pain, morbid obesity, migraines who states that she went to her occ therapist office and complained of shortness of breath and was sent to the emergency room. She also has was having nosebleeds on Xarelto. This is now stopped. The patient denies any chest pain or discomfort. The patient complains of cough with sputum production which is yellowish-green in color. There is no fever chills or rigors. There is no chest pain anginal or pleuritic. She has chronic orthopnea. She also has chronic leg edema, which she states recently is increased. She has a history of diastolic heart failure, and also systolic heart failure secondary to volume overload due to chronic kidney disease. There is no history of diabetes mellitus. She has a history of asthma and COPD. She also has a history of sleep apnea and uses BiPAP. It is not known whether the patient has pulmonary hypertension or not. She states she had a cardiac catheterization a year or so ago in [place], and was told that there was no blockages. She has a past history of atrial fibrillation paroxysmal, with no recurrence of atrial fibrillation fibrillation. The patient also has no recurrence of pulmonary embolism on Xarelto. There is no TIA CVA symptoms. There is no history of diabetes mellitus or thyroid disease. Also the patient states stents since the past few weeks she has been having increasing leg edema and also increasing orthopnea requiring more pillows, and also has episodes of PND and increased shortness of breath at rest shortness of breath. She also has a history of asthma and has had intermittent wheezing. She has no history of TIA or CVA. She has a history of anxiety and also has a history of depression. She is also morbidly obese. This is in spite of her bariatric surgery done many years ago. PAST MEDICAL HISTORY: Cardiac Medical History: Reports: Atrial Fibrillation, Congestive Heart Failure, Coronary Artery Disease, DVT, Hypertension, Pulmonary Embolism Denies: Myocardial Infarction Pulmonary Medical History: Reports: Asthma, Bronchitis, Pneumonia Denies: Chronic Obstructive Pulmonary Disease (COPD), Tuberculosis Neurological Medical History: Reports: Migraine Denies: Seizures. There is no history of TIA or CVA. Renal/ Medical History: Reports: Chronic Kidney Disease GI Medical History: Reports: Hiatal Hernia Denies: Hepatitis. There is no history of GI bleed Musculoskeltal Medical History: Reports: Arthritis Psychiatric Medical History: Reports: Depression, General Anxiety Disorder Hematology: Reports: Anemia - IRON PROBLEMS Denies: Sickle Cell Disease Past Surgical History Past Surgical History: Reports: Appendectomy, Cholecystectomy, Hysterectomy Denies: Amputation, Mastectomy, Pacemaker Social History Information Source: Patient Smoking Status: Never Smoker Frequency of Alcohol Use: None Hx Recreational Drug Use: No Drugs: None Hx Prescription Drug Abuse: No - Advance Directive Resuscitation Status: Full Code. The the patient's , and daughter are her surrogate healthcare decision makers. Family History Family History: Reviewed & Not Pertinent - Negative for premature coronary artery disease or sudden cardiac in the family amongst first degree relatives. Parental Family History Reviewed: Yes Children Family History Reviewed: Yes Sibling(s) Family History Reviewed.: Yes Medication/Allergy Home Medications: Albuterol Sulfate [Albuterol Sulfate 2.5mg/3 mL] 1 vial NEB [id number] PRN 03/14/17 Fluticasone/Salmeterol [Advair 500-50 Diskus 28 Dose] 1 puff IH Q12 03/14/17 Lidocaine [Lidoderm 5% (700 mg) Transdermal Patch] 1 patch TD DAILY 03/14/17 Montelukast Sodium [Singulair 10 mg Tablet] 10 mg PO QHS 03/14/17 Omeprazole 40 mg PO DAILY 03/14/17 Albuterol Sulfate [Proair Hfa Inhalation Aerosol 8.5 gm Mdi] 2 puff IH Q4HP PRN 03/22/19 Atorvastatin Calcium [Lipitor 20 mg Tablet] 20 mg PO QHS 03/22/19 Calcitriol [Rocaltrol 0.25 mcg Capsule] 0.5 mcg PO DAILY 03/22/19 Difluprednate [Durezol] 1 drop QID 03/22/19 Dihydroergotamine 1mg/Ml Amp 1 ml IM .HEADACHE PRN 03/22/19 Fluticasone Propionate [Flonase Nasal Hiram 50 Mcg/Hiram 16 gm] 1 spray NASL Q12 03/22/19 Furosemide [Lasix 20 mg Tablet] 20 mg PO BID 03/22/19 Minoxidil [Loniten 2.5 mg Tablet] 2.5 mg PO Q12 03/22/19 Morphine Sulfate/Naltrexone [Embeda ER 50-2 mg Capsule] 1 cap PO Q12 03/22/19 Ondansetron [Zofran Odt 4 mg Tablet] 4 mg PO Q8HP PRN 03/22/19 Oxycodone HCl/Acetaminophen [Percocet 5-325 mg Tablet] 1 tab PO Q6HP PRN 03/22/19 Quetiapine Fumarate [Seroquel] 50 mg PO Q8HP PRN MDD 6 TABS 03/22/19 Silver Sulfadiazine [Ssd] 1 applic TOP 03/22/19 Spironolactone [Aldactone 25 mg Tablet] 25 mg PO DAILY 03/22/19 Zolpidem Tartrate [Ambien 5 mg Tablet] 10 mg PO QHS 03/22/19 Allergies/Adverse Reactions: aspirin [Aspirin] Allergy (Severe, Verified 11/09/18 13:54) SOB, RASH Coconut * [Coconut] Allergy (Severe, Verified 11/09/18 13:54) RASH, SOB latex [Latex] Allergy (Severe, Verified 11/09/18 13:54) RASH, SOB Penicillins Allergy (Severe, Verified 11/09/18 13:54) Anaphylaxis pineapple [Pineapple] Allergy (Severe, Verified 11/09/18 13:54) RASH, SOB codeine [Codeine] Adverse Reaction (Severe, Verified 11/09/18 13:54) VOMITING ketorolac tromethamine [From Toradol] Adverse Reaction (Severe, Verified 11/09/18 13:54) VOMITING ham Allergy (Severe, Uncoded 11/09/18 13:54) RASH, VOMITING IVP DYE Allergy (Severe, Uncoded 11/09/18 14:14) KIDNEY FAILURE PAPER TAPE Allergy (Intermediate, Uncoded 11/09/18 13:54) Blisters BLOOD PRESSURE CUFF Allergy (Mild, Uncoded 11/09/18 13:54) REDNESS WITH BLISTERS Review of Systems Constitutional: PRESENT: weakness. ABSENT: chills, fever(s), headache(s), weight gain, weight loss Eyes: ABSENT: visual disturbances Ears: ABSENT: hearing changes Cardiovascular: PRESENT: dyspnea on exertion. ABSENT: chest pain, edema, orthropnea, palpitations Respiratory: PRESENT: cough, dyspnea, hemoptysis Gastrointestinal: ABSENT: abdominal pain, constipation, diarrhea, hematemesis, hematochezia, nausea, vomiting Genitourinary: ABSENT: dysuria, hematuria Musculoskeletal: ABSENT: joint swelling Integumentary: ABSENT: rash, wounds Neurological: ABSENT: abnormal gait, abnormal speech, confusion, dizziness, focal weakness, syncope Psychiatric: ABSENT: anxiety, depression, homidical ideation, suicidal ideation Endocrine: ABSENT: cold intolerance, heat intolerance, menstrual abnormalities, polydipsia, polyuria Hematologic/Lymphatic: ABSENT: easy bleeding, easy bruising, lymphadenopathy PHYSICAL EXAMINATION: The patient is morbidly obese. She appears to be mildly short of breath, but in no major distress. She is well-groomed. Selected Entries 03/22/19 03/22/19 15:57 16:47 Temperature 97.6 F Temperature Oral Source Pulse Rate 79 77 Respiratory 18 16 Rate Blood Pressure 144/70 H Blood Pressure 94 Mean BP Location Right Arm BP Position Supine O2 Sat by Pulse 95 98 Oximetry Oxygen Delivery Nasal Cannula Method ( includes room air) Oxygen Flow 3.00 Rate HEAD: Is atraumatic normocephalic. EYES: Pupils equal round regular reactive to light accommodation. Extraocular movements are normal. There is no conjunctival pallor there is no scleral icterus. ENT is negative. Neck is supple there is no JVD. Carotids are equal there is no bruit. There is no lymphadenopathy. There is no accessory muscle respiration use. Trachea central. LUNGS: Shows a few dry crackles in the left lower lobe. The rest of the lungs are clear without any rhonchi wheezing. HEART: S1-S2 is heard S1 is of normal intensity. There is no S3 gallop. There is no S4 gallop. There is systolic murmur left sternal border and the apex there is no rub. ABDOMEN: Is obese. Nontender. There is no hepatospleno megaly. Bowel sounds well heard. There is no tender areas masses. EXTREMITIES femorals are deep. Femorals are diminished. There is no femoral bruits. Leg pulses are diminished. There is mild pedal edema with chronic venous stasis dermatitis changes. There is no DVT or cellulitis. There is no calf tenderness. There is no cyanosis or clubbing. DRAIN TILER: The patient is conscious awake alert oriented x3 with no focal deficit. PSYCHIATRIC the patient judgment insight are intact her affect is normal. Labs- Entire Visit 03/21/19 03/21/19 03/21/19 18:07 18:07 18:07 WBC 6.2 RBC 4.53 Hgb 10.6 L Hct 33.7 L MCV 75 L MCH 23.3 L MCHC 31.3 L RDW 15.0 H Plt Count 201 Total Counted Seg Neutrophils % 77.2 Seg Neuts % (Manual) Lymphocytes % 11.1 L Lymphocytes % (Manual) Monocytes % 8.4 Monocytes % (Manual) Eosinophils % 2.3 Eosinophils % (Manual) Basophils % 1.0 Basophils % (Manual) Absolute Neutrophils 4.8 Abs Neuts (Manual) Absolute Lymphocytes 0.7 Abs Lymphs (Manual) Absolute Monocytes 0.5 Abs Monocytes (Manual) Absolute Eosinophils 0.1 Absolute Eos (Manual) Absolute Basophils 0.1 Abs Basophils (Manual) Clumped Platelets Platelet Comment Hypochromasia Anisocytosis Microcytosis Target Cells Stomatocytes Sodium 144.5 Potassium 3.8 Chloride 108 H Carbon Dioxide 27 Anion Gap 10 BUN 18 Creatinine 1.15 Est GFR ( Amer) 56 L Est GFR (Non-Af Amer) 47 L Glucose 96 POC Glucose Calcium 9.0 Magnesium Total Bilirubin 0.7 Direct Bilirubin 0.3 Neonat Total Bilirubin Not Reportable Neonat Direct Bilirubin Not Reportable Neonat Indirect Bili Not Reportable AST 26 ALT 27 Alkaline Phosphatase 89 Creatine Kinase 94 CK-MB (CK-2) 1.35 Troponin I 0.029 NT-Pro-B Natriuret Pep 5040 H Total Protein 6.9 Albumin 3.4 L Urine Color Urine Appearance Urine pH Ur Specific Jasper Urine Protein Urine Glucose (UA) Urine Ketones Urine Blood Urine Nitrite Urine Bilirubin Urine Urobilinogen Ur Leukocyte Esterase Urine WBC (Auto) Urine RBC (Auto) U Hyaline Cast (Auto) Urine Bacteria (Auto) Squamous Epi Cells Auto Urine Mucus (Auto) Urine Ascorbic Acid 03/21/19 03/21/19 03/21/19 20:59 23:20 23:20 WBC RBC Hgb Hct MCV MCH MCHC RDW Plt Count Total Counted Seg Neutrophils % Seg Neuts % (Manual) Lymphocytes % Lymphocytes % (Manual) Monocytes % Monocytes % (Manual) Eosinophils % Eosinophils % (Manual) Basophils % Basophils % (Manual) Absolute Neutrophils Abs Neuts (Manual) Absolute Lymphocytes Abs Lymphs (Manual) Absolute Monocytes Abs Monocytes (Manual) Absolute Eosinophils Absolute Eos (Manual) Absolute Basophils Abs Basophils (Manual) Clumped Platelets Platelet Comment Hypochromasia Anisocytosis Microcytosis Target Cells Stomatocytes Sodium Potassium Chloride Carbon Dioxide Anion Gap BUN Creatinine Est GFR ( Amer) Est GFR (Non-Af Amer) Glucose POC Glucose Calcium Magnesium Total Bilirubin Direct Bilirubin Neonat Total Bilirubin Neonat Direct Bilirubin Neonat Indirect Bili AST ALT Alkaline Phosphatase Creatine Kinase 96 CK-MB (CK-2) 1.70 Troponin I 0.036 NT-Pro-B Natriuret Pep Total Protein Albumin Urine Color YELLOW Urine Appearance CLOUDY Urine pH 7.0 Ur Specific Jasper 1.024 Urine Protein 100 H Urine Glucose (UA) NEGATIVE Urine Ketones NEGATIVE Urine Blood SMALL H Urine Nitrite NEGATIVE Urine Bilirubin NEGATIVE Urine Urobilinogen NEGATIVE Ur Leukocyte Esterase SMALL H Urine WBC (Auto) 20 Urine RBC (Auto) 5 U Hyaline Cast (Auto) 2 Urine Bacteria (Auto) TRACE Squamous Epi Cells Auto 8 Urine Mucus (Auto) FEW Urine Ascorbic Acid NEGATIVE 03/22/19 03/22/19 03/22/19 05:40 05:40 05:40 WBC 5.2 RBC 4.63 Hgb 10.7 L Hct 34.3 L MCV 74 L MCH 23.2 L MCHC 31.3 L RDW 14.8 H Plt Count 216 Total Counted 100 Seg Neutrophils % Not Reportable Seg Neuts % (Manual) 96 H Lymphocytes % Not Reportable Lymphocytes % (Manual) 4 L Monocytes % Not Reportable Monocytes % (Manual) 0 L Eosinophils % Not Reportable Eosinophils % (Manual) 0 Basophils % Not Reportable Basophils % (Manual) 0 Absolute Neutrophils Not Reportable Abs Neuts (Manual) 5.0 Absolute Lymphocytes Not Reportable Abs Lymphs (Manual) 0.2 L Absolute Monocytes Not Reportable Abs Monocytes (Manual) 0.0 L Absolute Eosinophils Not Reportable Absolute Eos (Manual) 0.0 Absolute Basophils Not Reportable Abs Basophils (Manual) 0.0 Clumped Platelets PRESENT Platelet Comment ADEQUATE Hypochromasia Anisocytosis Microcytosis Target Cells 2+ Stomatocytes Sodium 143.3 Potassium 4.2 Chloride 105 Carbon Dioxide 29 Anion Gap 9 BUN 17 Creatinine 1.18 Est GFR ( Amer) 55 L Est GFR (Non-Af Amer) 45 L Glucose 136 H POC Glucose Calcium 9.0 Magnesium 1.8 Total Bilirubin 0.8 Direct Bilirubin 0.3 Neonat Total Bilirubin Not Reportable Neonat Direct Bilirubin Not Reportable Neonat Indirect Bili Not Reportable AST 25 ALT 18 Alkaline Phosphatase 89 Creatine Kinase 103 CK-MB (CK-2) 2.31 Troponin I 0.038 NT-Pro-B Natriuret Pep 4430 H Total Protein 7.6 Albumin 3.6 Urine Color Urine Appearance Urine pH Ur Specific Jasper Urine Protein Urine Glucose (UA) Urine Ketones Urine Blood Urine Nitrite Urine Bilirubin Urine Urobilinogen Ur Leukocyte Esterase Urine WBC (Auto) Urine RBC (Auto) U Hyaline Cast (Auto) Urine Bacteria (Auto) Squamous Epi Cells Auto Urine Mucus (Auto) Urine Ascorbic Acid Chest X-Ray 03/21/19 16:33 IMPRESSION: Pneumonia or asymmetric pulmonary edema. Clinical correlation is needed. Chest X-Ray 03/21/19 16:53 IMPRESSION: Pneumonia or asymmetric pulmonary edema. Clinical correlation is needed. My interpretation that the patient has right upper lobe pneumonia Chest CT 03/22/19 00:00 IMPRESSION: 1. Mild bilateral pleural effusions, right greater than left. Associated consolidation and minimal ground-glass opacities, likely atelectasis although infection is not entirely excluded. 2. Grossly stable 1.0 cm right thyroid lobe nodule. Consider ultrasound evaluation if it would alter patient management. EKG: Shows sinus rhythm with APC. Within normal limits otherwise. 1. Shortness of breath and orthopnea. Most likely this is a combination of left ventricular diastolic heart failure, volume overload failure due to acute on chronic kidney disease, and pulmonary hypertension causing right heart failure. Continue metoprolol. Will watch her to see if the wheezing is caused by metoprolol, or exacerbated by it 2. Acute on chronic diastolic heart failure. 3. Right heart failure: Most likely secondary to pulmonary hypertension. We will see the patient had a recent echo, otherwise we will get an echocardiogram this admission. 4. Left lower lobe pneumonia: Improving continue antibiotics. 5. Acute on chronic kidney disease. : Nephrology on the case 6.. Hypertension: Blood pressure not well controlled. Continue metoprolol. Consider starting hydralazine.. 7. History of paroxysmal atrial fibrillation: No recurrence 8. History of pulmonary embolism: No recurrence patient on Xarelto. Her ventilation/perfusion scan does not show evidence of any chronic pulmonary embolism. 9. Obstructive sleep apnea: Continue BiPAP. 10. History of asthma/COPD: 11. Morbid obesity: Later was patient discharged in stable with her morbidities back to baseline then would recommend that the patient have a weight reducing program including exercise. Note that the patient did have lap band surgery for weight loss in the past. With the patient's permission we will try to get into her medical records environment to see if she had a cardiac catheterization, which she states she had in the past. Was also check if the patient had an echocardiogram. Medications reviewed. Management plan discussed with attending physician Dr. Li, and the coat joiner lockstitch on the case. Medical decision making is of high complexity. 60 minutes spent on this patient with more than 50% of time spent in direct patient care. Will follow
[2019-03-23] MEDS: LEVALBUTEROL HCL NEB 1.25 MG/3 ML AMPUL NEB SCH ×6 (00:25→20:46)
[2019-03-23] MEDS: OXYCODONE-ACETAMINOPHEN 5-325 MG TABLET PO PRN ×2 (02:54→10:03)
[2019-03-23] MEDS: DIHYDROERGOTAMINE MESYLATE IM PRN (04:16)
[2019-03-23 04:37] LABS: HEMATOCRIT 34.5 % (36.0-47.0); HEMOGLOBIN 10.8 g/dL (12.0-15.5); MEAN CORPUSCULAR HEMOGLOBIN 23.4 pg (27.0-33.4); MEAN CORPUSCULAR HGB CONC 31.4 g/dL (32.0-36.0); MEAN CORPUSCULAR VOLUME 75 fl (80-97); PLATELET COUNT 243 10^3/uL (150-450); RED BLOOD COUNT 4.62 10^6/uL (3.72-5.28); WHITE BLOOD COUNT 9.4 10^3/uL (4.0-10.5)
[2019-03-23 04:46] LABS: ANION GAP 14 (5-19); BLOOD UREA NITROGEN 35 mg/dL (7-20); CALCIUM 9.5 mg/dL (8.4-10.2); CARBON DIOXIDE 26 mmol/L (22-30); CHLORIDE 104 mmol/L (98-107); GLUCOSE 162 mg/dL (75-110); POTASSIUM 4.4 mmol/L (3.6-5.0); SODIUM 143.5 mmol/L (137-145)
[2019-03-23 05:04] LABS: ABSOLUTE LYMPHOCYTES# (MANUAL) 0.6 10^3/uL (0.5-4.7); ABSOLUTE MONOCYTES # (MANUAL) 0.2 10^3/uL (0.1-1.4); ABSOLUTE NEUTROPHILS# (MANUAL) 8.6 10^3/uL (1.7-8.2); BASOPHILS % (MANUAL) 0 % (0-2); EOSINOPHILS % (MANUAL) 0 % (0-6); LYMPHOCYTES % (MANUAL) 6 % (13-45); MONOCYTES % (MANUAL) 2 % (3-13); SEGMENTED NEUTROPHILS % (MAN) 92 % (42-78); TOTAL CELLS COUNTED 100
[2019-03-23 05:05] LABS: HYPOCHROMASIA 2+
[2019-03-23 05:06] LABS: PLATELET COMMENT ADEQUATE; STOMATOCYTES SLIGHT; TARGET CELLS 1+
[2019-03-23] MEDS: PANTOPRAZOLE SODIUM 40 MG TABLET.DR PO SCH ×2 (05:32→18:32)
[2019-03-23] MEDS: FUROSEMIDE INJ/PF 20 MG/2 ML SDV IV SCH (05:33)
[2019-03-23] MEDS: METHYLPREDNISOLONE INJ 40 MG/1 ML SDV IV SCH ×3 (05:33→21:28)
--- NOTE | 2019-03-23 08:15 | PDOC PROGRESS REPORT ---
Subjective Progress Note for:: 03/23/19 Subjective:: Patient still having shortness of breath but still feels a little bit better Reason For Visit: SOB Physical Exam Vital Signs: Temp Pulse Resp BP Pulse Ox 98.1 F 74 20 163/79 H 94 03/23/19 08:00 03/23/19 08:00 03/23/19 08:00 03/23/19 08:00 03/23/19 08:00 Intake & Output 03/22/19 03/23/19 03/24/19 06:59 06:59 06:59 Intake Total 100 400 Output Total 200 400 Balance -100 0 Weight 131.6 kg 131.8 kg General appearance: PRESENT: no acute distress, well-developed, well-nourished Head exam: PRESENT: atraumatic, normocephalic Eye exam: PRESENT: conjunctiva pink, EOMI, PERRLA. ABSENT: scleral icterus Ear exam: PRESENT: normal external ear exam Mouth exam: PRESENT: moist, tongue midline Neck exam: ABSENT: carotid bruit, JVD, lymphadenopathy, thyromegaly Respiratory exam: PRESENT: clear to auscultation lashanda. ABSENT: rales, rhonchi, wheezes Cardiovascular exam: PRESENT: RRR. ABSENT: diastolic murmur, rubs, systolic murmur Pulses: PRESENT: normal dorsalis pedis pul Vascular exam: PRESENT: normal capillary refill GI/Abdominal exam: PRESENT: normal bowel sounds, soft. ABSENT: distended, guarding, mass, organolmegaly, rebound, tenderness Rectal exam: PRESENT: deferred Extremities exam: PRESENT: full ROM. ABSENT: calf tenderness, clubbing, pedal edema Neurological exam: PRESENT: alert, awake, oriented to person, oriented to place, oriented to time, oriented to situation, CN II-XII grossly intact. ABSENT: motor sensory deficit Psychiatric exam: PRESENT: appropriate affect, normal mood. ABSENT: homicidal ideation, suicidal ideation Skin exam: PRESENT: dry, intact, warm. ABSENT: cyanosis, rash Results Laboratory Results: 03/23/19 04:10 03/23/19 04:10 03/23/19 03/23/19 04:10 04:10 WBC 9.4 RBC 4.62 Hgb 10.8 L Hct 34.5 L MCV 75 L MCH 23.4 L MCHC 31.4 L RDW 15.0 H Plt Count 243 Seg Neutrophils % Not Reportable Lymphocytes % Not Reportable Monocytes % Not Reportable Eosinophils % Not Reportable Basophils % Not Reportable Absolute Neutrophils Not Reportable Absolute Lymphocytes Not Reportable Absolute Monocytes Not Reportable Absolute Eosinophils Not Reportable Absolute Basophils Not Reportable Sodium 143.5 Potassium 4.4 Chloride 104 Carbon Dioxide 26 Anion Gap 14 BUN 35 H Creatinine 2.21 H Est GFR ( Amer) 26 L Est GFR (Non-Af Amer) 22 L Glucose 162 H Calcium 9.5 Magnesium 1.9 03/21/19 03/21/19 03/21/19 18:07 18:07 23:20 Creatine Kinase 94 96 CK-MB (CK-2) 1.35 Troponin I 0.029 NT-Pro-B Natriuret Pep 5040 H 03/21/19 03/22/19 03/22/19 23:20 05:40 05:40 Creatine Kinase 103 CK-MB (CK-2) 1.70 2.31 Troponin I 0.036 0.038 NT-Pro-B Natriuret Pep 4430 H 03/22/19 03/22/19 13:08 13:08 Creatine Kinase 125 CK-MB (CK-2) 2.34 Troponin I 0.024 NT-Pro-B Natriuret Pep Impressions: Chest X-Ray 03/21/19 16:53 IMPRESSION: Pneumonia or asymmetric pulmonary edema. Clinical correlation is needed. Chest CT 03/22/19 00:00 IMPRESSION: 1. Mild bilateral pleural effusions, right greater than left. Associated consolidation and minimal ground-glass opacities, likely atelectasis although infection is not entirely excluded. 2. Grossly stable 1.0 cm right thyroid lobe nodule. Consider ultrasound evaluation if it would alter patient management. Assessment & Plan - Diagnosis (1) Bilateral pleural effusion Is this a current diagnosis for this admission?: Yes Plan: CT completed, reviewed imaging with radiology who feels that the right pleural effusion is too small to tap. Probably not the cause of her shortness of breath but probably a result of diastolic heart failure plus chronic kidney disease (2) Pulmonary embolism Qualifiers: Chronicity: chronic Acute cor pulmonale presence: without acute cor pulmonale Is this a current diagnosis for this admission?: Yes Plan: No further bleeding at all, restart Xarelto 10 mg daily (3) Dyspnea Qualifiers: Dyspnea type: dyspnea on exertion Qualified Code(s): R06.09 - Other forms of dyspnea Is this a current diagnosis for this admission?: Yes Plan: Believe it is a combination of fluid overload from diastolic heart failure along with chronic kidney disease. Creatinine has increased with Lasix a Dr. Li will stop that.
--- NOTE | 2019-03-23 09:30 | PDOC PROGRESS REPORT ---
Subjective Progress Note for:: 03/23/19 Subjective:: Patient is currently doing same Patient's BUN and creatinine is worsening Patient CT of the chest said that questionable airspace disease Patient's denied any fever Still has some expiratory wheezing Denied any chest pain Reason For Visit: SOB Physical Exam Vital Signs: Temp Pulse Resp BP Pulse Ox 98.1 F 74 14 163/79 H 95 03/23/19 08:00 03/23/19 08:20 03/23/19 08:20 03/23/19 08:00 03/23/19 08:20 Intake & Output 03/22/19 03/23/19 03/24/19 06:59 06:59 06:59 Intake Total 100 400 Output Total 200 400 Balance -100 0 Weight 131.6 kg 131.8 kg General appearance: PRESENT: no acute distress, well-developed, well-nourished Head exam: PRESENT: atraumatic, normocephalic Eye exam: PRESENT: conjunctiva pink, EOMI, PERRLA. ABSENT: scleral icterus Ear exam: PRESENT: normal external ear exam Mouth exam: PRESENT: moist, tongue midline Neck exam: PRESENT: full ROM. ABSENT: carotid bruit, JVD, lymphadenopathy, thyromegaly Respiratory exam: PRESENT: decreased breath sounds, wheezes Cardiovascular exam: PRESENT: RRR. ABSENT: diastolic murmur, rubs, systolic murmur Vascular exam: PRESENT: normal capillary refill GI/Abdominal exam: PRESENT: normal bowel sounds, soft. ABSENT: distended, guarding, mass, organolmegaly, rebound, tenderness Rectal exam: PRESENT: deferred Extremities exam: PRESENT: pedal edema Neurological exam: PRESENT: alert, awake, oriented to person, oriented to place, oriented to time, oriented to situation, CN II-XII grossly intact. ABSENT: motor sensory deficit Psychiatric exam: PRESENT: appropriate affect, normal mood. ABSENT: homicidal ideation, suicidal ideation Skin exam: PRESENT: dry, intact, warm. ABSENT: cyanosis, rash Results Laboratory Results: 03/23/19 04:10 03/23/19 04:10 03/23/19 03/23/19 04:10 04:10 WBC 9.4 RBC 4.62 Hgb 10.8 L Hct 34.5 L MCV 75 L MCH 23.4 L MCHC 31.4 L RDW 15.0 H Plt Count 243 Seg Neutrophils % Not Reportable Lymphocytes % Not Reportable Monocytes % Not Reportable Eosinophils % Not Reportable Basophils % Not Reportable Absolute Neutrophils Not Reportable Absolute Lymphocytes Not Reportable Absolute Monocytes Not Reportable Absolute Eosinophils Not Reportable Absolute Basophils Not Reportable Sodium 143.5 Potassium 4.4 Chloride 104 Carbon Dioxide 26 Anion Gap 14 BUN 35 H Creatinine 2.21 H Est GFR ( Amer) 26 L Est GFR (Non-Af Amer) 22 L Glucose 162 H Calcium 9.5 Magnesium 1.9 03/21/19 03/21/19 03/21/19 18:07 18:07 23:20 Creatine Kinase 94 96 CK-MB (CK-2) 1.35 Troponin I 0.029 NT-Pro-B Natriuret Pep 5040 H 03/21/19 03/22/19 03/22/19 23:20 05:40 05:40 Creatine Kinase 103 CK-MB (CK-2) 1.70 2.31 Troponin I 0.036 0.038 NT-Pro-B Natriuret Pep 4430 H 03/22/19 03/22/19 13:08 13:08 Creatine Kinase 125 CK-MB (CK-2) 2.34 Troponin I 0.024 NT-Pro-B Natriuret Pep Impressions: Chest X-Ray 03/21/19 16:53 IMPRESSION: Pneumonia or asymmetric pulmonary edema. Clinical correlation is needed. Chest CT 03/22/19 00:00 IMPRESSION: 1. Mild bilateral pleural effusions, right greater than left. Associated consolidation and minimal ground-glass opacities, likely atelectasis although infection is not entirely excluded. 2. Grossly stable 1.0 cm right thyroid lobe nodule. Consider ultrasound evaluation if it would alter patient management. Assessment & Plan - Diagnosis (1) Congestive heart failure Qualifiers: Heart failure type: diastolic Is this a current diagnosis for this admission?: Yes Plan: We hold the Spironolactone and reduce the Lasix (2) Bilateral pleural effusion Is this a current diagnosis for this admission?: Yes Plan: We will repeat the chest x-ray (3) Dyspnea Qualifiers: Dyspnea type: dyspnea on exertion Qualified Code(s): R06.09 - Other forms of dyspnea Is this a current diagnosis for this admission?: Yes Plan: Is is a multifactorial due to the congestive heart failure and asthma and pneumonia (4) Migraine headache Qualifiers: Migraine type: chronic without aura Status migrainosus presence: with status migrainosus Intractability: not intractable Qualified Code(s): G43.701 - Chronic migraine without aura, not intractable, with status migrainosus Is this a current diagnosis for this admission?: Yes (5) Poorly-controlled hypertension Is this a current diagnosis for this admission?: Yes Plan: We will reduce the beta-julio c due to the asthma and also add the hydralazine 25 mg p.o. every 8 as per discussed with the cardiology (6) Asthma Qualifiers: Asthma severity: moderate Asthma complication type: uncomplicated Is this a current diagnosis for this admission?: Yes Plan: Start the patient on IV Solu-Medrol and nebulizer treatments (7) Chronic back pain Qualifiers: Back pain location: low back pain Is this a current diagnosis for this admission?: Yes (8) Chronic kidney disease Qualifiers: Chronic kidney disease stage: stage 2 (mild) Qualified Code(s): N18.2 - Chronic kidney disease, stage 2 (mild) Is this a current diagnosis for this admission?: Yes Plan: ~Patient's nephrology for while worsening the kidney functions (9) Chronic pain syndrome Is this a current diagnosis for this admission?: Yes (10) Paroxysmal atrial fibrillation Is this a current diagnosis for this admission?: Yes Plan: Currently on Xarelto and a beta-julio c (11) Pulmonary embolism Qualifiers: Chronicity: chronic Acute cor pulmonale presence: without acute cor pulmonale Is this a current diagnosis for this admission?: Yes Plan: Due to the recent clot and a nosebleed according to the hematology she reduce the dose to 10 mg (12) Sleep apnea Qualifiers: Sleep apnea type: unspecified type Qualified Code(s): G47.30 - Sleep apnea, unspecified Is this a current diagnosis for this admission?: Yes (13) Pneumonia Qualifiers: Laterality: right Lung location: unspecified part of lung Is this a current diagnosis for this admission?: Yes Plan: Continues to IV Levaquin - Time Time Spent with patient: 25-34 minutes Medications reviewed and adjusted accordingly: Yes Anticipated discharge: Home Within: Other - Plan Summary Plan Summary: See MD orders
[2019-03-23] MEDS ORDERED: LORAZEPAM 1 MG TABLET PO ONE (09:33)
[2019-03-23] MEDS ORDERED: LORAZEPAM 1 MG TABLET ONE (09:55)
[2019-03-23] MEDS: CALCITRIOL 0.25 MCG CAPSULE PO SCH (09:56)
[2019-03-23] MEDS: CITALOPRAM HYDROBROMIDE 20 MG TABLET PO SCH (09:56)
[2019-03-23] MEDS: DOCUSATE SODIUM 100 MG CAPSULE PO SCH ×2 (09:56→18:32)
[2019-03-23] MEDS: FUROSEMIDE 20 MG TABLET PO SCH (09:56)
[2019-03-23] MEDS: FLUTICASONE NASAL SPRAY 50 MCG/SPRY 120 SPRAY/16 GM NASL SCH ×2 (09:57→21:30)
[2019-03-23] MEDS: FLUTICASONE/VILANTEROL 200-25 MCG/DOSE IH SCH (09:57)
[2019-03-23] MEDS: LIDOCAINE 5% (700 MG) TRANSDERMAL ADH..PATCH EXT SCH (09:59)
[2019-03-23] MEDS: SILVER SULFADIAZINE 1% CREAM 50 GM TOP SCH ×4 (09:59→21:31)
[2019-03-23] MEDS: MINOXIDIL 2.5 MG TABLET PO SCH ×2 (09:59→21:30)
--- NOTE | 2019-03-23 12:41 | RADIOLOGY REPORT (SQ) ---
EXAM DESCRIPTION: CHEST 2 VIEWS COMPLETED DATE/TIME: 03/23/2019 11:39 am REASON FOR STUDY: ASSESS SOB, CHRONIC PE COMPARISON: 03/21/2019 EXAM PARAMETERS: NUMBER OF VIEWS: two views TECHNIQUE: Digital Frontal and Lateral radiographic views of the chest acquired. RADIATION DOSE: NA LIMITATIONS: none FINDINGS: LUNGS AND PLEURA: Minimal pleural effusion. Significant improvement on the right. Left h emidiaphragm is indistinct. Cannot exclude mild retrocardiac opacification on the left. MEDIASTINUM AND HILAR STRUCTURES: No masses or contour abnormalities. HEART AND VASCULAR STRUCTURES: Cardiomegaly. No javon pulmonary edema. BONES: No acute findings. HARDWARE: Injection port on the right. OTHER: No other significant finding. IMPRESSION: Cardiomegaly. No pulmonary edema. Cannot exclude a limited airspace disease in left lo wer lobe. Minimal pleural effusions with significant improvement on the right. TECHNICAL DOCUMENTATION: JOB ID: [id number] [employer]- All Rights Reserved Reading location - IP/workstation name: [email or web address]
--- NOTE | 2019-03-23 12:44 | RADIOLOGY REPORT (SQ) ---
EXAM DESCRIPTION: U/S RETROPERITON LTD COMPLETED DATE/TIME: 03/23/2019 12:15 pm REASON FOR STUDY: OUMAR/History of urinary retention. COMPARISON: 02/09/2014 TECHNIQUE: Dynamic and static grayscale images acquired of the kidneys and bladder and recorded on P ACS. Additional selected color Doppler and spectral images recorded. LIMITATIONS: None. FINDINGS: RIGHT KIDNEY: Normal size, 9.3 cm. Normal echogenicity. No solid masses. Simple cyst in the mid kidney. No hydronephrosis. No calcifications. LEFT KIDNEY: Poorly seen. 6.5 cm. No masses. No hydronephrosis. BLADDER: Poorly distended. No obvious bladder mass. OTHER FINDINGS: No other significant finding. IMPRESSION: The left kidney and bladder are poorly evaluated. Findings as described. TECHNICAL DOCUMENTATION: JOB ID: [id number] [employer]- All Rights Reserved Reading location - IP/workstation name: [email or web address]
--- NOTE | 2019-03-23 12:49 | RADIOLOGY REPORT (SQ) ---
EXAM DESCRIPTION: NM LUNG VENT/PERF SCAN COMPLETED DATE/TIME: 03/23/2019 11:35 am REASON FOR STUDY: Assess SOB : ? Chronic PE COMPARISON: CT chest 03/22/2019 Two-view chest 03/21/2019, 03/23/2019 RADIONUCLIDE AND DOSE: 5.4 millicuries TC-99m MAA Intravenous 32.1 millicuries TC-99m DTPA Inhaled aerosol TECHNIQUE: AP view of the lungs acquired post ventilation of DTPA aerosol. 3 views of the lungs acq uired following injection of MAA. LIMITATIONS: Patient would not comply with standard radiographic positioning FINDINGS: VENTILATION: Grossly normal ventilation scan PERFUSION: Grossly normal perfusion scan. No defects worrisome for pulmonary emboli. OTHER: No other significant finding. IMPRESSION: Limited negative study TECHNICAL DOCUMENTATION: JOB ID: [id number] [employer]- All Rights Reserved Reading location - IP/workstation name: [email or web address]
[2019-03-23] MEDS: METOPROLOL SUCCINATE 50 MG TAB.SR.24H PO SCH ×2 (13:31→21:27)
[2019-03-23] MEDS: HYDRALAZINE HCL 25 MG TABLET PO SCH ×2 (13:31→21:27)
[2019-03-23] MEDS: RIVAROXABAN 10 MG TABLET PO SCH (13:31)
[2019-03-23] MEDS: QUETIAPINE FUMARATE 25 MG TABLET PO PRN (13:40)
--- NOTE | 2019-03-23 16:19 | PDOC CONSULTATION ---
Consultation Consult Date: 03/23/19 Consult reason:: OUMAR History of Present Illness Admission Date/PCP: 03/21/19 21:29 MICHEL COHEN MD History of Present Illness: GLENDA PENA is a 73 year old female with a history of chronic thrombolic embolism, currently on Xarelto, diastolic congestive heart failure, paroxysmal atrial fibrillation, COPD, sleep apnea, CKD 2/[address] Cohen and urinary retention. Was being seen at Dr Chou's office. She was complaining of increased difficulty in breathing and persistant nose bleeds when she is using her oxygen at home. From his office she was sent to the ER. In the emergency department a chest x-ray was done. No CT of the chest could be done because of her SOB. Initial work-up with a chest x-ray showed a right-sided pneumonia versus chao. Labs that were drawn were stable. Creatinine was stable and at baseline. She given a nebulizer treatment, started on empiric antibiotics, and IV furosemide. Patients creatinine today jumped from 1.1 to 2.2. She claims that her urine output is doing well. I&O have not been strictly kept. She denies chest pain, n/v/d/c, fever or chills. Her SOB has improved since being admitted. When talking with Dr. Cohen this morning she stated that the patient has frequent AKIs due to urinary retention. Past Medical History Cardiac Medical History: Reports: Atrial Fibrillation, Coronary Artery Disease, DVT, Pulmonary Embolism Denies: Myocardial Infarction Pulmonary Medical History: Reports: Asthma, Bronchitis, Pneumonia Denies: Chronic Obstructive Pulmonary Disease (COPD), Tuberculosis Neurological Medical History: Reports: Migraine Denies: Seizures GI Medical History: Reports: Hiatal Hernia Denies: Hepatitis Musculoskeltal Medical History: Reports: Arthritis Psychiatric Medical History: Reports: Depression, General Anxiety Disorder Past Surgical History Past Surgical History: Reports: Appendectomy, Cholecystectomy, Hysterectomy Denies: Mastectomy, Pacemaker Social History Smoking Status: Never Smoker Frequency of Alcohol Use: None Hx Recreational Drug Use: No Drugs: None Hx Prescription Drug Abuse: No - Advance Directive Resuscitation Status: Full Code Family History Parental Family History Reviewed: Yes Children Family History Reviewed: Unknown Sibling(s) Family History Reviewed.: Unknown Medication/Allergy Home Medications: Albuterol Sulfate [Albuterol Sulfate 2.5mg/3 mL] 1 vial NEB RTQ6HP PRN 03/14/17 Fluticasone/Salmeterol [Advair 500-50 Diskus 28 Dose] 1 puff IH Q12 03/14/17 Lidocaine [Lidoderm 5% (700 mg) Transdermal Patch] 1 patch TD DAILY MDD BACK 03/14/17 Montelukast Sodium [Singulair 10 mg Tablet] 10 mg PO QHS 03/14/17 Omeprazole 40 mg PO DAILY 03/14/17 Albuterol Sulfate [Proair Hfa Inhalation Aerosol 8.5 gm Mdi] 2 puff IH Q4HP PRN 03/22/19 Atorvastatin Calcium [Lipitor 20 mg Tablet] 20 mg PO QHS 03/22/19 Calcitriol [Rocaltrol 0.25 mcg Capsule] 0.5 mcg PO DAILY 03/22/19 Dihydroergotamine 1mg/Ml Amp 1 ml IM .HEADACHE PRN 03/22/19 Fluticasone Propionate [Flonase Nasal Mcbrides 50 Mcg/Mcbrides 16 gm] 1 spray NAREB Q12 03/22/19 Furosemide [Lasix 20 mg Tablet] 20 mg PO BID 03/22/19 Minoxidil [Loniten 2.5 mg Tablet] 2.5 mg PO Q12 03/22/19 Morphine Sulfate/Naltrexone [Embeda ER 50-2 mg Capsule] 1 cap PO Q12 03/22/19 Ondansetron [Zofran Odt 4 mg Tablet] 4 mg PO Q8HP PRN 03/22/19 Oxycodone HCl/Acetaminophen [Percocet 5-325 mg Tablet] 1 tab PO Q6HP PRN 03/22/19 Quetiapine Fumarate [Seroquel] 50 mg PO Q8HP PRN MDD 6 TABS 03/22/19 Silver Sulfadiazine [Ssd] 1 applic TOP QID MDD CREASES 03/22/19 Spironolactone [Aldactone 25 mg Tablet] 25 mg PO DAILY 03/22/19 Zolpidem Tartrate [Ambien 5 mg Tablet] 10 mg PO QHS 03/22/19 Allergies/Adverse Reactions: aspirin [Aspirin] Allergy (Severe, Verified 11/09/18 13:54) SOB, RASH Coconut * [Coconut] Allergy (Severe, Verified 11/09/18 13:54) RASH, SOB latex [Latex] Allergy (Severe, Verified 11/09/18 13:54) RASH, SOB Penicillins Allergy (Severe, Verified 11/09/18 13:54) Anaphylaxis pineapple [Pineapple] Allergy (Severe, Verified 11/09/18 13:54) RASH, SOB codeine [Codeine] Adverse Reaction (Severe, Verified 11/09/18 13:54) VOMITING ketorolac tromethamine [From Toradol] Adverse Reaction (Severe, Verified 11/09/18 13:54) VOMITING ham Allergy (Severe, Uncoded 11/09/18 13:54) RASH, VOMITING IVP DYE Allergy (Severe, Uncoded 11/09/18 14:14) KIDNEY FAILURE PAPER TAPE Allergy (Intermediate, Uncoded 11/09/18 13:54) Blisters BLOOD PRESSURE CUFF Allergy (Mild, Uncoded 11/09/18 13:54) REDNESS WITH BLISTERS Review of Systems Constitutional: ABSENT: anorexia, chills, fatigue, fever(s), weakness, weight gain, weight loss Eyes: ABSENT: visual disturbances Nose, Mouth, and Throat: ABSENT: headache(s) Cardiovascular: PRESENT: dyspnea on exertion, edema, orthropnea. ABSENT: chest pain, palpitations Respiratory: PRESENT: dyspnea. ABSENT: cough, sputum Gastrointestinal: ABSENT: constipation, diarrhea, nausea, vomiting Genitourinary: ABSENT: difficulty urinating, dysuria, nocturia Musculoskeletal: ABSENT: muscle weakness Neurological: ABSENT: confusion, dizziness, numbness, weakness Physical Exam Vital Signs: Temp Pulse Resp BP Pulse Ox 98.0 F 85 22 H 149/77 H 100 03/23/19 13:30 03/23/19 13:30 03/23/19 13:30 03/23/19 13:30 03/23/19 13:30 Intake & Output 03/22/19 03/23/19 03/24/19 06:59 06:59 06:59 Intake Total 100 400 Output Total 200 400 Balance -100 0 Weight 131.6 kg 131.8 kg General appearance: PRESENT: no acute distress, morbidly obese, well-developed, well-nourished Mouth exam: PRESENT: moist, neck supple. ABSENT: dry mucosa Neck exam: ABSENT: JVD, tracheal deviation Respiratory exam: PRESENT: crackles, rales. ABSENT: accessory muscle use, clear to auscultation lashanda, wheezes Cardiovascular exam: PRESENT: RRR, +S1, +S2 GI/Abdominal exam: PRESENT: soft. ABSENT: tenderness Extremities exam: PRESENT: +1 edema. ABSENT: pedal edema, tenderness, +2 edema Musculoskeletal exam: PRESENT: normal inspection. ABSENT: tenderness Neurological exam: PRESENT: alert, awake, oriented to person, oriented to place, oriented to time, oriented to situation Skin exam: PRESENT: dry, intact, warm Results Laboratory Results: 03/23/19 04:10 03/23/19 04:10 03/23/19 03/23/19 04:10 04:10 WBC 9.4 RBC 4.62 Hgb 10.8 L Hct 34.5 L MCV 75 L MCH 23.4 L MCHC 31.4 L RDW 15.0 H Plt Count 243 Seg Neutrophils % Not Reportable Lymphocytes % Not Reportable Monocytes % Not Reportable Eosinophils % Not Reportable Basophils % Not Reportable Absolute Neutrophils Not Reportable Absolute Lymphocytes Not Reportable Absolute Monocytes Not Reportable Absolute Eosinophils Not Reportable Absolute Basophils Not Reportable Sodium 143.5 Potassium 4.4 Chloride 104 Carbon Dioxide 26 Anion Gap 14 BUN 35 H Creatinine 2.21 H Est GFR ( Amer) 26 L Est GFR (Non-Af Amer) 22 L Glucose 162 H Calcium 9.5 Magnesium 1.9 03/21/19 20:59 Clean Catch Midstream Urine Culture - Final Mixed Skin. Possible Pathogen 03/21/19 03/21/19 03/21/19 18:07 18:07 23:20 Creatine Kinase 94 96 CK-MB (CK-2) 1.35 Troponin I 0.029 NT-Pro-B Natriuret Pep 5040 H 03/21/19 03/22/19 03/22/19 23:20 05:40 05:40 Creatine Kinase 103 CK-MB (CK-2) 1.70 2.31 Troponin I 0.036 0.038 NT-Pro-B Natriuret Pep 4430 H 03/22/19 03/22/19 13:08 13:08 Creatine Kinase 125 CK-MB (CK-2) 2.34 Troponin I 0.024 NT-Pro-B Natriuret Pep Impressions: Chest CT 03/22/19 00:00 IMPRESSION: 1. Mild bilateral pleural effusions, right greater than left. Associated consolidation and minimal ground-glass opacities, likely atelectasis although infection is not entirely excluded. 2. Grossly stable 1.0 cm right thyroid lobe nodule. Consider ultrasound evaluation if it would alter patient management. Chest X-Ray 03/23/19 00:00 IMPRESSION: Cardiomegaly. No pulmonary edema. Cannot exclude a limited airspace disease in left lower lobe. Minimal pleural effusions with significant improvement on the right. Renal Ultrasound 03/23/19 00:00 IMPRESSION: The left kidney and bladder are poorly evaluated. Findings as hung cribed. Lung Scan-VQ NM 03/23/19 06:00 IMPRESSION: Limited negative study Assessment & Plan - Diagnosis (1) OUMAR (acute kidney injury) Plan: nonoliguric, looks to be due to urinary retention, other insults include possible overdiuresis. Agree with decreasing furosemide dose. Will look to get a renal ultrasound and place a garza catheter. Reassess tomorrow. (2) Bilateral pleural effusion Is this a current diagnosis for this admission?: Yes Plan: per primary (3) Congestive heart failure Qualifiers: Heart failure type: diastolic Is this a current diagnosis for this admission?: Yes Plan: improving (4) Dyspnea Qualifiers: Dyspnea type: dyspnea on exertion Qualified Code(s): R06.09 - Other forms of dyspnea Is this a current diagnosis for this admission?: Yes Plan: improving (5) Pneumonia Qualifiers: Laterality: right Lung location: unspecified part of lung Is this a current diagnosis for this admission?: Yes Plan: on levofloxacin (6) Poorly-controlled hypertension Is this a current diagnosis for this admission?: Yes Plan: improving with the removal of fluid (7) Sleep apnea Qualifiers: Sleep apnea type: unspecified type Qualified Code(s): G47.30 - Sleep apnea, unspecified Is this a current diagnosis for this admission?: Yes Plan: on cpap (8) Asthma Qualifiers: Asthma severity: moderate Asthma complication type: uncomplicated Is this a current diagnosis for this admission?: Yes Plan: per primary (9) Chronic kidney disease Qualifiers: Chronic kidney disease stage: stage 2 (mild) Qualified Code(s): N18.2 - Chronic kidney disease, stage 2 (mild) Is this a current diagnosis for this admission?: Yes Plan: baseline is around 1 to 1.1
[2019-03-23] MEDS: ZOLPIDEM TARTRATE 5 MG TABLET PO SCH (21:27)
[2019-03-23] MEDS: MONTELUKAST SODIUM 10 MG TABLET PO SCH (21:27)
[2019-03-23] MEDS: ATORVASTATIN CALCIUM 20 MG TABLET PO SCH (21:27)
[2019-03-23] MEDS: LEVOFLOXACIN 500 MG/D5W RTU 500 MG/100 ML RTUPB IV SCH (21:28)
[2019-03-23] MEDS: PHARMACY COMMUNICATION ORDER MC SCH (21:28)
--- NOTE | 2019-03-23 22:24 | Progress Note ---
Provider Note Provider Note: CARDIOLOGY PROGRESS NOTE by Dr. Shasha Garces on 03/23/2019. SUBJECTIVE: The patient continues to be short of breath. She does have orthopnea. Orthopnea is chronic. She has no chest pain or discomfort. There is mild pedal edema. Her renal function is worsening. Her blood pressure is now better controlled on minoxidil and hydralazine. The patient does complain of wheezing intermittently. This may be due to the effect of metoprolol. Hence we will discontinue the patient's metoprolol start the patient Cardizem CD after discussions with attending physician and drum stenciler on the case. There is no recurrence of atrial fibrillation. There is no ventricular arrhythmia seen on the monitor. PHYSICAL EXAMINATION: The patient morbidly obese. In spite of shortness of breath she is in no acute distress. She is well-groomed. Selected Entries 03/23/19 15:25 Temperature 98.2 F Temperature Oral Source Pulse Rate 76 Respiratory 19 Rate Blood Pressure 130/62 H Blood Pressure 84 Mean BP Location Right Arm BP Position Supine O2 Sat by Pulse 100 Oximetry Oxygen Flow 2.00 Rate Oxygen Delivery Nasal Cannula Method HEAD: Is atraumatic normocephalic. EYES: Pupils equal round regular reactive to light accommodation. Extraocular movements are normal. There is no conjunctival pallor there is no scleral icterus. ENT is negative. Neck is supple there is no JVD. Carotids are equal there is no bruit. There is no lymphadenopathy. There is no accessory muscle respiration use. Trachea central. LUNGS: Shows a few dry crackles in the left lower lobe. The rest of the lungs are clear without any rhonchi wheezing. HEART: S1-S2 is heard S1 is of normal intensity. There is no S3 gallop. There is no S4 gallop. There is systolic murmur left sternal border and the apex there is no rub. ABDOMEN: Is obese. Nontender. There is no hepatospleno megaly. Bowel sounds well heard. There is no tender areas masses. EXTREMITIES femorals are deep. Femorals are diminished. There is no femoral bruits. Leg pulses are diminished. There is mild pedal edema with chronic venous stasis dermatitis changes. There is no DVT or cellulitis. There is no calf tenderness. There is no cyanosis or clubbing. HOT DIE PICKER: The patient is conscious awake alert oriented x3 with no focal deficit. PSYCHIATRIC the patient judgment insight are intact her affect is normal. Labs- All tests 24 hr Chest X-Ray 03/21/19 16:33 IMPRESSION: Pneumonia or asymmetric pulmonary edema. Clinical correlation is needed. Chest X-Ray 03/21/19 16:53 IMPRESSION: Pneumonia or asymmetric pulmonary edema. Clinical correlation is needed. Chest CT 03/22/19 00:00 IMPRESSION: 1. Mild bilateral pleural effusions, right greater than left. Associated consolidation and minimal ground-glass opacities, likely atelectasis although infection is not entirely excluded. 2. Grossly stable 1.0 cm right thyroid lobe nodule. Consider ultrasound evaluation if it would alter patient management. Chest X-Ray 03/23/19 00:00 IMPRESSION: Cardiomegaly. No pulmonary edema. Cannot exclude a limited airspace disease in left lower lobe. Minimal pleural effusions with significant improvement on the right. Renal Ultrasound 03/23/19 00:00 IMPRESSION: The left kidney and bladder are poorly evaluated. Findings as described. Lung Scan-VQ NM 03/23/19 06:00 IMPRESSION: Limited negative study 03/22/19 03/23/19 05:40 04:10 WBC 5.2 Hgb 10.7 L Hct 34.3 L MCV 74 L MCH 23.2 L MCHC 31.3 L RDW 14.8 H Plt Count 216 Sodium 143.5 Potassium 4.4 Chloride 104 Carbon Dioxide 26 Anion Gap 14 BUN 35 H Creatinine 2.21 H Est GFR ( Amer) 26 L Glucose 162 H Calcium 9.5 Magnesium 1.9 Impression/RECOMMENDATION: 1. Shortness of breath and orthopnea. Most likely this is a combination of left ventricular diastolic heart failure, volume overload failure due to acute on chronic kidney disease, and pulmonary hypertension causing right heart failure. Also the patient does complain of intermittent wheezing with metoprolol. Hence will discontinue the patient R metoprolol and start the patient on Cardizem. 2. Acute on chronic diastolic heart failure. 3. Right heart failure: Most likely secondary to pulmonary hypertension. 4. Left lower lobe pneumonia: Improving continue antibiotics. 5. Acute on chronic kidney disease. At present the patient's renal disease is stage IV: Nephrology on the case 6.. Hypertension: Blood pressure not well controlled. Patient started on minoxidil. Earlier she was started on hydralazine. Continue this. We will stop the patient's metoprolol and start the patient Cardizem. 7. History of paroxysmal atrial fibrillation: No recurrence 8. History of pulmonary embolism: No recurrence patient on Xarelto. Her ventilation/perfusion scan does not show evidence of any chronic pulmonary embolism. 9. Obstructive sleep apnea: Continue BiPAP. 10. History of asthma/COPD: 11. Morbid obesity: Later was patient discharged in stable with her morbidities back to baseline then would recommend that the patient have a weight reducing program including exercise. Note that the patient did have lap band surgery for weight loss in the past. 12. Normal coronaries by cardiac catheterization by Dr. Sethi and [facility] in 2017. We will try to see if her records show any recent echocardiogram for assessment of LV ejection fraction and degree of pulmonary hypertension if at all present. medications reviewed. Medications adjusted. Discussed management plan with attending physician on the case. Medical decision making is of high complexity. 40 minutes spent on this patient with more than 50% of time spent in direct patient care. The patient is given me permission to get into her medical records electronically and [facility]. Hence this was done, I do not find any evidence of an echocardiogram. We will try to contact Dr. Sethi.
[2019-03-24] MEDS: LEVALBUTEROL HCL NEB 1.25 MG/3 ML AMPUL NEB SCH ×6 (00:10→20:34)
[2019-03-24 04:28] LABS: HEMATOCRIT 33.8 % (36.0-47.0); HEMOGLOBIN 10.4 g/dL (12.0-15.5); MEAN CORPUSCULAR HEMOGLOBIN 23.4 pg (27.0-33.4); MEAN CORPUSCULAR HGB CONC 30.9 g/dL (32.0-36.0); MEAN CORPUSCULAR VOLUME 76 fl (80-97); PLATELET COUNT 230 10^3/uL (150-450); RED BLOOD COUNT 4.46 10^6/uL (3.72-5.28); RED CELL DISTRIBUTION WIDTH 15.5 % (11.5-14.0); WHITE BLOOD COUNT 9.9 10^3/uL (4.0-10.5)
[2019-03-24 04:39] LABS: ANION GAP 11 (5-19); BLOOD UREA NITROGEN 53 mg/dL (7-20); CARBON DIOXIDE 27 mmol/L (22-30); CHLORIDE 105 mmol/L (98-107); GLUCOSE 169 mg/dL (75-110); POTASSIUM 4.5 mmol/L (3.6-5.0); SODIUM 143.2 mmol/L (137-145)
[2019-03-24 04:52] LABS: ABSOLUTE LYMPHOCYTES# (MANUAL) 0.1 10^3/uL (0.5-4.7); ABSOLUTE MONOCYTES # (MANUAL) 0.4 10^3/uL (0.1-1.4); ABSOLUTE NEUTROPHILS# (MANUAL) 9.4 10^3/uL (1.7-8.2); BASOPHILS % (MANUAL) 0 % (0-2); EOSINOPHILS % (MANUAL) 0 % (0-6); LYMPHOCYTES % (MANUAL) 1 % (13-45); MONOCYTES % (MANUAL) 4 % (3-13); SEGMENTED NEUTROPHILS % (MAN) 95 % (42-78); TOTAL CELLS COUNTED 100
[2019-03-24 04:53] LABS: PLATELET COMMENT ADEQUATE
[2019-03-24] MEDS: OXYCODONE-ACETAMINOPHEN 5-325 MG TABLET PO PRN ×3 (04:53→23:56)
[2019-03-24 04:54] LABS: ANISOCYTOSIS SLIGHT; HYPOCHROMASIA 1+; TARGET CELLS 1+
[2019-03-24] MEDS: HYDRALAZINE HCL 25 MG TABLET PO SCH ×3 (05:00→21:28)
[2019-03-24] MEDS: METHYLPREDNISOLONE INJ 40 MG/1 ML SDV IV SCH ×3 (05:00→21:27)
[2019-03-24] MEDS: PANTOPRAZOLE SODIUM 40 MG TABLET.DR PO SCH ×2 (05:00→19:01)
[2019-03-24] MEDS: QUETIAPINE FUMARATE 25 MG TABLET PO PRN (06:58)
--- NOTE | 2019-03-24 07:37 | CONSULTATION REPORT E ---
Consultation Report NAME: GLENDA PENA : 1945 AGE: 73Y DATE: 03/22/2019 330 A TO: RUFUS PALMA M.D. FROM: LANCE NEGRO M.D. Requesting Physician The patient is a 73-year-old female who came in with severe shortness of breath and increased coughing with purulent sputum production. She had worsening in condition and thus the patient was sent to the emergency room. She saw her oncologist prior to this admission, and was noted to have severe dyspnea with nose bleeding. Hence, the patient was referred to the emergency room. Chest x-ray was showing increased pulmonary infiltrate bilaterally, more on the right than the left side. We were consulted because of increased dyspnea. PAST MEDICAL HISTORY: Atrial fibrillation, congestive heart failure, coronary artery disease, deep venous thrombosis, hypertension, pulmonary embolism, asthma, bronchitis, pneumonia, history of migraine. Chronic kidney disease. Hiatal hernia, arthritis, history of depression and generalized anxiety. SURGICAL HISTORY: Appendectomy, cholecystectomy, hysterectomy. SOCIAL HISTORY: The patient has never smoked. Denies illicit drug use or alcohol abuse. FAMILY HISTORY: Negative for premature coronary artery disease or sudden cardiac . MEDICATIONS AT HOME: 1. Albuterol nebulizer treatment. 2. Advair. 3. Lidocaine. 4. Singulair. 5. Omeprazole. 6. ProAir. 7. Lipitor. 9. Durezol. 10. Flonase nasal spray. 11. Lasix. 13. Minoxidil. 14. Zofran. 15. Oxycodone. 16. Tylenol. 17. Seroquel. 18. Spironolactone. 19. Zolpidem 10 mg. ALLERGIES: ASPIRIN, LATEX, PENICILLIN, PINEAPPLE, CODEINE, KETOROLAC, IODINE. REVIEW OF SYSTEMS: CONSTITUTIONAL: Complains of weakness. Denies any fever, chills, or weight loss or weight gain. EYES: No eye pain. EARS: No ear drainage. LUNGS: Complains about increased shortness of breath and increased coughing with purulent sputum. CARDIAC: No chest pain, palpitations. GENIOURINARY: No dysuria or hematuria. No stones. ABDOMEN: Flabby. Positive bowel sounds, nondistended, nontender. EXTREMITIES: Cellulitis. NEUROLOGIC: The patient is awake, alert, coherent, oriented x3. PHYSICAL EXAMINATION: VITAL SIGNS: Temperature 97.6, heart rate 77, blood pressure 154/70, respirations 16, saturation 98% on 2 liters nasal cannula. EYES: No conjunctival pallor. EARS/NOSE/THROAT: No ear drainage, no nasal discharge. LUNGS: No wheezing, no coarse crackles or rhonci. CARDIOVASCULAR: S1, S2 distinct. normal rate. ABDOMEN: Flabby. Positive bowel sounds. Soft, nondistended, nontender. EXTREMITIES: No joint swelling or cellulitis. LABORATORY: CBC done today shows a white count of 5.2, hemoglobin 10.7, hematocrit 34.3, platelet count 216. The chemistries done today showed sodium 143, potassium 4.2, chloride 105, CO2 of 29, BUN 17, creatinine 1.1. Total bilirubin 1.8, direct bilirubin 0.8. SGOT 35, SGPT 18, NT-BNP 4413. ASSESSMENT: 1. ASTHMA EXACERBATION CURRENTLY IMPROVED. 2. PLEURAL EFFUSION BILATERALLY, MORE ON THE RIGHT THAN THE LEFT SIDE, MOST LIKELY CARDIAC IN ETIOLOGY. - MILD. 3. CONTINUE BREO INHALER 200 MCG ONE PUFF ONCE DAILY. DICTATING PHYSICIAN: RUFUS PALMA MD,PAULETTE,MPH [id number] PHY#: [id number] ID: [id number] JOB#: [id number] ACCT: [id number] cc:RUFUS PALMA M.D. > MTDD
[2019-03-24] MEDS: CALCITRIOL 0.25 MCG CAPSULE PO SCH (10:03)
[2019-03-24] MEDS: FLUTICASONE/VILANTEROL 200-25 MCG/DOSE IH SCH (10:03)
[2019-03-24] MEDS: FLUTICASONE NASAL SPRAY 50 MCG/SPRY 120 SPRAY/16 GM NASL SCH ×2 (10:03→21:30)
[2019-03-24] MEDS: RIVAROXABAN 10 MG TABLET PO SCH (10:03)
[2019-03-24] MEDS: DOCUSATE SODIUM 100 MG CAPSULE PO SCH ×2 (10:03→19:01)
[2019-03-24] MEDS: FUROSEMIDE 20 MG TABLET PO SCH (10:03)
[2019-03-24] MEDS: CITALOPRAM HYDROBROMIDE 20 MG TABLET PO SCH (10:03)
[2019-03-24] MEDS: METOPROLOL SUCCINATE 50 MG TAB.SR.24H PO SCH (10:04)
[2019-03-24] MEDS: SILVER SULFADIAZINE 1% CREAM 50 GM TOP SCH ×4 (10:04→23:57)
[2019-03-24] MEDS: MINOXIDIL 2.5 MG TABLET PO SCH ×2 (10:04→21:30)
[2019-03-24] MEDS: LIDOCAINE 5% (700 MG) TRANSDERMAL ADH..PATCH EXT SCH (10:04)
--- NOTE | 2019-03-24 10:33 | PDOC PROGRESS REPORT ---
Subjective Progress Note for:: 03/24/19 Subjective:: Patient is feeling better Denied any chest pain Denied any shortness of the breath Patient's wheezing is all improving Patient's blood pressure is also improving Patient's kidney function is still remain same Patient's VQ scan was negative Chest x-ray is also improving Reason For Visit: SOB Physical Exam Vital Signs: Temp Pulse Resp BP Pulse Ox 97.5 F 75 22 H 137/68 H 99 03/24/19 08:08 03/24/19 08:08 03/24/19 08:08 03/24/19 08:08 03/24/19 08:08 Intake & Output 03/23/19 03/24/19 03/25/19 06:59 06:59 06:59 Intake Total 400 1615 Output Total 400 575 Balance 0 1040 Weight 131.8 kg 132.9 kg General appearance: PRESENT: no acute distress, well-developed, well-nourished Head exam: PRESENT: atraumatic, normocephalic Eye exam: PRESENT: conjunctiva pink, EOMI, PERRLA. ABSENT: scleral icterus Ear exam: PRESENT: normal external ear exam Mouth exam: PRESENT: moist, tongue midline Neck exam: PRESENT: full ROM. ABSENT: carotid bruit, JVD, lymphadenopathy, thyromegaly Respiratory exam: PRESENT: clear to auscultation lashanda Cardiovascular exam: PRESENT: RRR. ABSENT: diastolic murmur, rubs, systolic murmur Vascular exam: PRESENT: normal capillary refill GI/Abdominal exam: PRESENT: normal bowel sounds, soft. ABSENT: distended, guarding, mass, organolmegaly, rebound, tenderness Rectal exam: PRESENT: deferred Neurological exam: PRESENT: alert, awake, oriented to person, oriented to place, oriented to time, oriented to situation, CN II-XII grossly intact. ABSENT: motor sensory deficit Psychiatric exam: PRESENT: appropriate affect, normal mood. ABSENT: homicidal ideation, suicidal ideation Skin exam: PRESENT: dry, intact, warm. ABSENT: cyanosis, rash Results Laboratory Results: 03/24/19 04:00 03/24/19 04:00 03/24/19 03/24/19 04:00 04:00 WBC 9.9 RBC 4.46 Hgb 10.4 L Hct 33.8 L MCV 76 L MCH 23.4 L MCHC 30.9 L RDW 15.5 H Plt Count 230 Seg Neutrophils % Not Reportable Lymphocytes % Not Reportable Monocytes % Not Reportable Eosinophils % Not Reportable Basophils % Not Reportable Absolute Neutrophils Not Reportable Absolute Lymphocytes Not Reportable Absolute Monocytes Not Reportable Absolute Eosinophils Not Reportable Absolute Basophils Not Reportable Sodium 143.2 Potassium 4.5 Chloride 105 Carbon Dioxide 27 Anion Gap 11 BUN 53 H Creatinine 2.52 H Est GFR ( Amer) 23 L Est GFR (Non-Af Amer) 19 L Glucose 169 H Calcium 9.0 Magnesium 2.1 03/21/19 20:59 Clean Catch Midstream Urine Culture - Final Mixed Skin. Possible Pathogen 03/21/19 03/21/19 03/21/19 18:07 18:07 23:20 Creatine Kinase 94 96 CK-MB (CK-2) 1.35 Troponin I 0.029 NT-Pro-B Natriuret Pep 5040 H 03/21/19 03/22/19 03/22/19 23:20 05:40 05:40 Creatine Kinase 103 CK-MB (CK-2) 1.70 2.31 Troponin I 0.036 0.038 NT-Pro-B Natriuret Pep 4430 H 03/22/19 03/22/19 13:08 13:08 Creatine Kinase 125 CK-MB (CK-2) 2.34 Troponin I 0.024 NT-Pro-B Natriuret Pep Impressions: Chest CT 03/22/19 00:00 IMPRESSION: 1. Mild bilateral pleural effusions, right greater than left. Associated consolidation and minimal ground-glass opacities, likely atelectasis although infection is not entirely excluded. 2. Grossly stable 1.0 cm right thyroid lobe nodule. Consider ultrasound evaluation if it would alter patient management. Chest X-Ray 03/23/19 00:00 IMPRESSION: Cardiomegaly. No pulmonary edema. Cannot exclude a limited airspace disease in left lower lobe. Minimal pleural effusions with significant improvement on the right. Renal Ultrasound 03/23/19 00:00 IMPRESSION: The left kidney and bladder are poorly evaluated. Findings as described. Lung Scan-VQ ID 03/23/19 06:00 IMPRESSION: Limited negative study Assessment & Plan - Diagnosis (1) Congestive heart failure Qualifiers: Heart failure type: diastolic Is this a current diagnosis for this admission?: Yes Plan: Lasix 20 mg p.o. daily (2) Bilateral pleural effusion Is this a current diagnosis for this admission?: Yes Plan: Currently all improving (3) Dyspnea Qualifiers: Dyspnea type: dyspnea on exertion Qualified Code(s): R06.09 - Other forms of dyspnea Is this a current diagnosis for this admission?: Yes Plan: Is is a multifactorial due to the congestive heart failure and asthma and pneumonia (4) Migraine headache Qualifiers: Migraine type: chronic without aura Status migrainosus presence: with status migrainosus Intractability: not intractable Qualified Code(s): G43.701 - Chronic migraine without aura, not intractable, with status m igrainosus Is this a current diagnosis for this admission?: Yes (5) Poorly-controlled hypertension Is this a current diagnosis for this admission?: Yes Plan: Davida all improving (6) Asthma Qualifiers: Asthma severity: moderate Asthma complication type: uncomplicated Is this a current diagnosis for this admission?: Yes Plan: Start the patient on IV Solu-Medrol and nebulizer treatments (7) Chronic back pain Qualifiers: Back pain location: low back pain Is this a current diagnosis for this admission?: Yes (8) Chronic kidney disease Qualifiers: Chronic kidney disease stage: stage 2 (mild) Qualified Code(s): N18.2 - Chronic kidney disease, stage 2 (mild) Is this a current diagnosis for this admission?: Yes Plan: Follow with the nephrology (9) Chronic pain syndrome Is this a current diagnosis for this admission?: Yes (10) Paroxysmal atrial fibrillation Is this a current diagnosis for this admission?: Yes Plan: Currently on Xarelto and a beta-julio c (11) Pulmonary embolism Qualifiers: Chronicity: chronic Acute cor pulmonale presence: without acute cor pulmonale Is this a current diagnosis for this admission?: Yes Plan: Due to the recent clot and a nosebleed according to the hematology she reduce the dose to 10 mg (12) Sleep apnea Qualifiers: Sleep apnea type: unspecified type Qualified Code(s): G47.30 - Sleep apnea, unspecified Is this a current diagnosis for this admission?: Yes (13) Pneumonia Qualifiers: Laterality: right Lung location: unspecified part of lung Is this a current diagnosis for this admission?: Yes Plan: Continues to IV Levaquin - Time Time Spent with patient: 15-24 minutes Medications reviewed and adjusted accordingly: Yes Anticipated discharge: Home, Other Within: Other - Plan Summary Plan Summary: Continues to current medications
[2019-03-24] MEDS: DIHYDROERGOTAMINE MESYLATE IM PRN ×2 (11:26→16:54)
[2019-03-24] MEDS: ONDANSETRON HCL INJ/PF 4 MG/2 ML SDV IV PRN ×2 (11:42→16:54)
--- NOTE | 2019-03-24 14:46 | PDOC PROGRESS REPORT ---
Subjective Progress Note for:: 03/24/19 Subjective:: Patient was seen today sitting up in her chair. At the time she was stating that her SOB had improved. She denied chest pain, n/v/d/c. Lopez catheter was placed yesterday. Reason For Visit: SOB Physical Exam Vital Signs: Temp Pulse Resp BP Pulse Ox 97.5 F 78 18 137/68 H 97 03/24/19 08:08 03/24/19 11:47 03/24/19 11:47 03/24/19 08:08 03/24/19 11:47 Intake & Output 03/23/19 03/24/19 03/25/19 06:59 06:59 06:59 Intake Total 400 1615 Output Total 400 575 Balance 0 1040 Weight 131.8 kg 132.9 kg General appearance: PRESENT: no acute distress, morbidly obese, well-developed, well-nourished, other - -on oxygen Mouth exam: PRESENT: dry mucosa, neck supple Neck exam: ABSENT: JVD, tracheal deviation Respiratory exam: PRESENT: crackles - -course through out. ABSENT: accessory muscle use, clear to auscultation lashanda, rales, rhonchi, wheezes Cardiovascular exam: PRESENT: RRR, +S1, +S2 GI/Abdominal exam: PRESENT: soft. ABSENT: tenderness Extremities exam: ABSENT: pedal edema, tenderness, +1 edema, +2 edema Musculoskeletal exam: PRESENT: normal inspection. ABSENT: tenderness Neurological exam: PRESENT: alert, awake, oriented to person, oriented to place, oriented to time, oriented to situation Psychiatric exam: PRESENT: appropriate affect, normal mood Skin exam: PRESENT: dry, intact, warm Results Laboratory Results: 03/24/19 04:00 03/24/19 04:00 03/24/19 03/24/19 04:00 04:00 WBC 9.9 RBC 4.46 Hgb 10.4 L Hct 33.8 L MCV 76 L MCH 23.4 L MCHC 30.9 L RDW 15.5 H Plt Count 230 Seg Neutrophils % Not Reportable Lymphocytes % Not Reportable Monocytes % Not Reportable Eosinophils % Not Reportable Basophils % Not Reportable Absolute Neutrophils Not Reportable Absolute Lymphocytes Not Reportable Absolute Monocytes Not Reportable Absolute Eosinophils Not Reportable Absolute Basophils Not Reportable Sodium 143.2 Potassium 4.5 Chloride 105 Carbon Dioxide 27 Anion Gap 11 BUN 53 H Creatinine 2.52 H Est GFR ( Amer) 23 L Est GFR (Non-Af Amer) 19 L Glucose 169 H Calcium 9.0 Magnesium 2.1 03/21/19 20:59 Clean Catch Midstream Urine Culture - Final Mixed Skin. Possible Pathogen 03/21/19 03/21/19 03/21/19 18:07 18:07 23:20 Creatine Kinase 94 96 CK-MB (CK-2) 1.35 Troponin I 0.029 NT-Pro-B Natriuret Pep 5040 H 03/21/19 03/22/19 03/22/19 23:20 05:40 05:40 Creatine Kinase 103 CK-MB (CK-2) 1.70 2.31 Troponin I 0.036 0.038 NT-Pro-B Natriuret Pep 4430 H 03/22/19 03/22/19 13:08 13:08 Creatine Kinase 125 CK-MB (CK-2) 2.34 Troponin I 0.024 NT-Pro-B Natriuret Pep Impressions: Chest CT 03/22/19 00:00 IMPRESSION: 1. Mild bilateral pleural effusions, right greater than left. Associated consolidation and minimal ground-glass opacities, likely atelectasis although infection is not entirely excluded. 2. Grossly stable 1.0 cm right thyroid lobe nodule. Consider ultrasound evaluation if it would alter patient management. Chest X-Ray 03/23/19 00:00 IMPRESSION: Cardiomegaly. No pulmonary edema. Cannot exclude a limited airspace disease in left lower lobe. Minimal pleural effusions with significant improvement on the right. Renal Ultrasound 03/23/19 00:00 IMPRESSION: The left kidney and bladder are poorly evaluated. Findings as described. Lung Scan-VQ MO 03/23/19 06:00 IMPRESSION: Limited negative study Assessment & Plan - Diagnosis (1) OUMAR (acute kidney injury) Plan: at this point she looks to me overdiuresed. Will look to hold diuretics over the weekend and restart on wednesday pending labs. Will let her orally rehydrate to prevent her going back into fluid overload. (2) Bilateral pleural effusion Is this a current diagnosis for this admission?: Yes Plan: improved, holding diuretics for now (3) Congestive heart failure Qualifiers: Heart failure type: diastolic Is this a current diagnosis for this admission?: Yes Plan: holding diuretics, looks to be overdiuresed (4) Dyspnea Qualifiers: Dyspnea type: dyspnea on exertion Qualified Code(s): R06.09 - Other forms of dyspnea Is this a current diagnosis for this admission?: Yes (5) Pneumonia Qualifiers: Laterality: right Lung location: unspecified part of lung Is this a current diagnosis for this admission?: Yes Plan: on levofloxacin (6) Poorly-controlled hypertension Is this a current diagnosis for this admission?: Yes Plan: improved and currently controlled (7) Sleep apnea Qualifiers: Sleep apnea type: unspecified type Qualified Code(s): G47.30 - Sleep apnea, unspecified Is this a current diagnosis for this admission?: Yes (8) Asthma Qualifiers: Asthma severity: moderate Asthma complication type: uncomplicated Is this a current diagnosis for this admission?: Yes (9) Chronic kidney disease Qualifiers: Chronic kidney disease stage: stage 2 (mild) Qualified Code(s): N18.2 - Chronic kidney disease, stage 2 (mild) Is this a current diagnosis for this admission?: Yes Plan: baseline is 1.1, hold diuretics for now.
[2019-03-24] MEDS: ATORVASTATIN CALCIUM 20 MG TABLET PO SCH (21:28)
[2019-03-24] MEDS: DILTIAZEM HCL 120 MG CAP.SR.24H PO SCH (21:28)
[2019-03-24] MEDS: MONTELUKAST SODIUM 10 MG TABLET PO SCH (21:28)
[2019-03-24] MEDS: LEVOFLOXACIN 500 MG/D5W RTU 500 MG/100 ML RTUPB IV SCH (21:29)
[2019-03-24] MEDS: PHARMACY COMMUNICATION ORDER MC SCH (21:32)
--- NOTE | 2019-03-24 23:05 | Progress Note ---
Provider Note Provider Note: CARDIOLOGY PROGRESS NOTE by Dr. Shasha Garces on 03/24/2019. Subjective: The patient states that shortness of breath is improved. She still has some cough and scanty yellowish sputum production present. She has chronic orthopnea. Her leg edema is much improved but still she has mild pedal edema with venous stasis dermatitis changes in the legs. She has no PND there is no chest pain or discomfort. At present there is no wheezing. She does seem to get wheezing when she takes metoprolol. She denies any TIA CVA symptoms. There is no symptoms of recurrence of her pulmonary embolism. There is no recurrence of atrial fibrillation. There is no ventricular arrhythmia seen on the monitor. SUBJECTIVE: The patient is morbidly obese. At present in no acute distress. She is well-groomed. Selected Entries 03/24/19 12:43 Temperature 97.5 F Temperature Oral Source Pulse Rate 81 Respiratory 20 Rate Blood Pressure 144/63 H Blood Pressure 90 Mean BP Location Right Arm BP Position Sitting O2 Sat by Pulse 100 Oximetry Oxygen Flow 2.00 Rate Oxygen Delivery Nasal Cannula Method HEAD: Is atraumatic normocephalic. EYES: Pupils equal round regular reactive to light accommodation. Extraocular movements are normal. There is no conjunctival pallor there is no scleral icterus. ENT is negative. Neck is supple there is no JVD. Carotids are equal there is no bruit. There is no lymphadenopathy. There is no accessory muscle respiration use. Trachea centra l. LUNGS: Shows a few dry crackles in the left lower lobe. The rest of the lungs are clear without any rhonchi wheezing. HEART: S1-S2 is heard S1 is of normal intensity. There is no S3 gallop. There is no S4 gallop. There is systolic murmur left sternal border and the apex there is no rub. ABDOMEN: Is obese. Nontender. There is no hepatospleno megaly. Bowel sounds well heard. There is no tender areas masses. EXTREMITIES femorals are deep. Femorals are diminished. There is no femoral bruits. Leg pulses are diminished. There is mild pedal edema with chronic venous stasis dermatitis changes. There is no DVT or cellulitis. There is no calf tenderness. There is no cyanosis or clubbing. PUBLICATIONS DESIGNER: The patient is conscious awake alert oriented x3 with no focal deficit. PSYCHIATRIC the patient judgment insight are intact her affect is normal. 03/24/19 03/24/19 04:00 04:00 WBC 9.9 RBC 4.46 Hgb 10.4 L Hct 33.8 L MCV 76 L MCH 23.4 L MCHC 30.9 L RDW 15.5 H Plt Count 230 Total Counted 100 Seg Neuts % (Manual) 95 H Sodium 143.2 Potassium 4.5 Chloride 105 Carbon Dioxide 27 Anion Gap 11 BUN 53 H Creatinine 2.52 H Est GFR ( Amer) 23 L Glucose 169 H Calcium 9.0 Magnesium 2.1 Is 21-hour intake is 1615 mL output is 575 mL. Impression/RECOMMENDATION: 1. Shortness of breath and orthopnea. Most likely this is a combination of left ventricular diastolic heart failure, volume overload failure due to acute on chronic kidney disease, and pulmonary hypertension causing right heart failure. Also the patient does complain of intermittent wheezing with metoprolol. Hence will discontinue the patient R metoprolol and start the patient on Cardizem. 2. Acute on chronic diastolic heart failure. 3. Right heart failure: Most likely secondary to pulmonary hypertension. 4. Left lower lobe pneumonia: Improving continue antibiotics. 5. Acute on chronic kidney disease. At present the patient's renal disease is stage IV: Nephrology on the case 6.. Hypertension: Blood pressure not well controlled. Patient started on minoxidil. Earlier she was started on hydralazine. Continue this. We will stop the patient's metoprolol and start the patient Cardizem. 7. History of paroxysmal atrial fibrillation: No recurrence 8. History of pulmonary embolism: No recurrence patient on Xarelto. 9. Obstructive sleep apnea: Continue BiPAP. 10. History of asthma/COPD: 11. Morbid obesity: Later was patient discharged in stable with her morbidities back to baseline then would recommend that the patient have a weight reducing program including exercise. Note that the patient did have lap band surgery for weight loss in the past. 12. Normal coronaries by cardiac catheterization by Dr. Sethi at [facility] in 2017. Although the patient has stated that she had an echocardiogram recently I cannot find any evidence of this. Hence would recommend that the patient have a stat echo this weekend to assess LV systolic function and right heart pressures i.e. pulmonary hypertension . Medical decision making is of high complexity. The patient medications rev iewed. Management plan discussed with attending physician Dr. Li and with the lamp decorator on the case. 40 minutes spent on this patient with more than 50% of time spent in direct patient care. Dr. Marsh will cover over the weekend.
[2019-03-25] MEDS: LEVALBUTEROL HCL NEB 1.25 MG/3 ML AMPUL NEB SCH ×7 (00:14→23:54)
[2019-03-25] MEDS: ZOLPIDEM TARTRATE 5 MG TABLET PO SCH ×2 (01:37→21:24)
[2019-03-25] MEDS: METHYLPREDNISOLONE INJ 40 MG/1 ML SDV IV SCH ×3 (05:13→21:26)
[2019-03-25] MEDS: PANTOPRAZOLE SODIUM 40 MG TABLET.DR PO SCH ×2 (05:13→18:20)
[2019-03-25] MEDS: HYDRALAZINE HCL 25 MG TABLET PO SCH ×3 (05:13→21:24)
[2019-03-25 05:50] LABS: ANION GAP 12 (5-19); BLOOD UREA NITROGEN 63 mg/dL (7-20); CALCIUM 9.2 mg/dL (8.4-10.2); CARBON DIOXIDE 27 mmol/L (22-30); CHLORIDE 106 mmol/L (98-107); GLUCOSE 159 mg/dL (75-110); POTASSIUM 4.4 mmol/L (3.6-5.0); SODIUM 144.5 mmol/L (137-145)
[2019-03-25] MEDS: QUETIAPINE FUMARATE 25 MG TABLET PO PRN (05:58)
--- NOTE | 2019-03-25 08:31 | PDOC PROGRESS REPORT ---
Subjective Progress Note for:: 03/25/19 Subjective:: Patient states that she is feeling about the same. She is still short of breath. She had requested a regular diet, but this did not arrive. She is asking for some juice. Reason For Visit: SOB Physical Exam Vital Signs: Temp Pulse Resp BP Pulse Ox 97.7 F 77 16 106/51 L 98 03/25/19 07:15 03/25/19 07:15 03/25/19 07:15 03/25/19 07:15 03/25/19 07:15 Intake & Output 03/24/19 03/25/19 03/26/19 06:59 06:59 06:59 Intake Total 1615 1814 100 Output Total 575 450 Balance 1040 1364 100 Weight 132.9 kg 135.9 kg General appearance: PRESENT: no acute distress, obese Head exam: PRESENT: normocephalic Respiratory exam: PRESENT: unlabored Neurological exam: PRESENT: alert, awake Psychiatric exam: PRESENT: appropriate affect Skin exam: PRESENT: normal color Results Laboratory Results: 03/24/19 04:00 03/25/19 05:18 03/25/19 05:18 Sodium 144.5 Potassium 4.4 Chloride 106 Carbon Dioxide 27 Anion Gap 12 BUN 63 H Creatinine 2.67 H Est GFR ( Amer) 21 L Est GFR (Non-Af Amer) 18 L Glucose 159 H Calcium 9.2 03/21/19 03/21/19 03/21/19 18:07 18:07 23:20 Creatine Kinase 94 96 CK-MB (CK-2) 1.35 Troponin I 0.029 NT-Pro-B Natriuret Pep 5040 H 03/21/19 03/22/19 03/22/19 23:20 05:40 05:40 Creatine Kinase 103 CK-MB (CK-2) 1.70 2.31 Troponin I 0.036 0.038 NT-Pro-B Natriuret Pep 4430 H 03/22/19 03/22/19 13:08 13:08 Creatine Kinase 125 CK-MB (CK-2) 2.34 Troponin I 0.024 NT-Pro-B Natriuret Pep Impressions: Chest CT 03/22/19 00:00 IMPRESSION: 1. Mild bilateral pleural effusions, right greater than left. Associated consolidation and minimal ground-glass opacities, likely atelectasis although infection is not entirely excluded. 2. Grossly stable 1.0 cm right thyroid lobe nodule. Consider ultrasound evaluation if it would alter patient management. Chest X-Ray 03/23/19 00:00 IMPRESSION: Cardiomegaly. No pulmonary edema. Cannot exclude a limited airspace disease in left lower lobe. Minimal pleural effusions with significant improvement on the right. Renal Ultrasound 03/23/19 00:00 IMPRESSION: The left kidney and bladder are poorly evaluated. Findings as described. Lung Scan-VQ NM 03/23/19 06:00 IMPRESSION: Limited negative study Assessment & Plan - Diagnosis (1) Anemia Qualifiers: Other causes of anemia: chronic disease, other Is this a current diagnosis for this admission?: Yes Plan: This is chronic and stable. No indication for transfusion at this time. (2) Chronic kidney disease Qualifiers: Chronic kidney disease stage: stage 2 (mild) Qualified Code(s): N18.2 - Chronic kidney disease, stage 2 (mild) Is this a current diagnosis for this admission?: Yes Plan: Cr appears stable as well. - Plan Summary Plan Summary: Dr. Chou will return on Wednesday, please call if needed.
[2019-03-25] MEDS: CALCITRIOL 0.25 MCG CAPSULE PO SCH (09:13)
[2019-03-25] MEDS: DOCUSATE SODIUM 100 MG CAPSULE PO SCH ×2 (09:14→18:20)
[2019-03-25] MEDS: MINOXIDIL 2.5 MG TABLET PO SCH ×2 (09:14→21:24)
[2019-03-25] MEDS: RIVAROXABAN 10 MG TABLET PO SCH (09:14)
[2019-03-25] MEDS: OXYCODONE-ACETAMINOPHEN 5-325 MG TABLET PO PRN (09:14)
[2019-03-25] MEDS: DILTIAZEM HCL 120 MG CAP.SR.24H PO SCH ×2 (09:14→21:24)
[2019-03-25] MEDS: LIDOCAINE 5% (700 MG) TRANSDERMAL ADH..PATCH EXT SCH (09:16)
[2019-03-25] MEDS: FLUTICASONE NASAL SPRAY 50 MCG/SPRY 120 SPRAY/16 GM NASL SCH ×2 (09:16→21:25)
[2019-03-25] MEDS: CITALOPRAM HYDROBROMIDE 20 MG TABLET PO SCH (09:16)
[2019-03-25] MEDS: SILVER SULFADIAZINE 1% CREAM 50 GM TOP SCH ×4 (09:17→21:26)
[2019-03-25] MEDS: FLUTICASONE/VILANTEROL 200-25 MCG/DOSE IH SCH (09:17)
--- NOTE | 2019-03-25 15:26 | PDOC PROGRESS REPORT ---
Subjective Progress Note for:: 03/25/19 Subjective:: Patient denied any chest pain or difficulty with breathing. No fever or chills. She emphatically denied any history of diabetes mellitus and requested that her food restriction be removed. No nausea or vomiting. Reason For Visit: SOB Physical Exam Vital Signs: Temp Pulse Resp BP Pulse Ox 97.5 F 78 16 101/43 L 99 03/25/19 11:22 03/25/19 13:05 03/25/19 13:05 03/25/19 11:22 03/25/19 13:05 Intake & Output 03/24/19 03/25/19 03/26/19 06:59 06:59 06:59 Intake Total 1615 1814 337 Output Total 575 450 400 Balance 1040 1364 -63 Weight 132.9 kg 135.9 kg Results Laboratory Results: 03/24/19 04:00 03/25/19 05:18 03/25/19 05:18 Sodium 144.5 Potassium 4.4 Chloride 106 Carbon Dioxide 27 Anion Gap 12 BUN 63 H Creatinine 2.67 H Est GFR ( Amer) 21 L Est GFR (Non-Af Amer) 18 L Glucose 159 H Calcium 9.2 03/21/19 03/21/19 03/21/19 18:07 18:07 23:20 Creatine Kinase 94 96 CK-MB (CK-2) 1.35 Troponin I 0.029 NT-Pro-B Natriuret Pep 5040 H 03/21/19 03/22/19 03/22/19 23:20 05:40 05:40 Creatine Kinase 103 CK-MB (CK-2) 1.70 2.31 Troponin I 0.036 0.038 NT-Pro-B Natriuret Pep 4430 H 03/22/19 03/22/19 13:08 13:08 Creatine Kinase 125 CK-MB (CK-2) 2.34 Troponin I 0.024 NT-Pro-B Natriuret Pep Impressions: Chest CT 03/22/19 00:00 IMPRESSION: 1. Mild bilateral pleural effusions, right greater than left. Associated consolidation and minimal ground-glass opacities, likely atelectasis although infection is not entirely excluded. 2. Grossly stable 1.0 cm right thyroid lobe nodule. Consider ultrasound evaluation if it would alter patient management. Chest X-Ray 03/23/19 00:00 IMPRESSION: Cardiomegaly. No pulmonary edema. Cannot exclude a limited airspace disease in left lower lobe. Minimal pleural effusions with significant improvement on the right. Renal Ultrasound 03/23/19 00:00 IMPRESSION: The left kidney and bladder are poorly evaluated. Findings as described. Lung Scan-VQ NM 03/23/19 06:00 IMPRESSION: Limited negative study Assessment & Plan - Diagnosis (1) Congestive heart failure Qualifiers: Heart failure type: diastolic Is this a current diagnosis for this admission?: Yes Plan: Continue current medication management. D/ Diabetic mellitus dietary restriction. Maintainon low salt diet. (2) Paroxysmal atrial fibrillation Is this a current diagnosis for this admission?: Yes Plan: Continue current medication management. (3) Poorly-controlled hypertension Is this a current diagnosis for this admission?: Yes Plan: Continue current medication management. (4) OUMAR (acute kidney injury) Is this a current diagnosis for this admission?: Yes Plan: Continue current medication management. (5) Chronic kidney disease Qualifiers: Chronic kidney disease stage: stage 2 (mild) Qualified Code(s): N18.2 - Chronic kidney disease, stage 2 (mild) Is this a current diagnosis for this admission?: Yes Plan: Continue current medication management. - Time Time Spent with patient: 25-34 minutes Medications reviewed and adjusted accordingly: Yes Anticipated discharge: Home with Homehealth, SNF Within: Other - Inpatient Certification Based on my medical assessment, after consideration of the patient's comorbidities, presenting symptoms, or acuity I expect that the services needed warrant INPATIENT care.: Yes I certify that my determination is in accordance with my understanding of Medicare's requirements for reasonable and necessary INPATIENT services [42 CFR 412.3e].: Yes Medical Necessity: Significant Comorbidiites Make Outpatient Treatment Too Risky, Need Close Monitoring Due to Risk of Patient Decompensation, Need For Continuous Telemetry Monitoring, Risk of Complication if Not Cared For in Hospital, Risk of Diagnosis Which Will Require Inpatient Eval/Care/Monitoring Post Hospital Care: D/C Electrical Integrator Documentation - Plan Summary Plan Summary: Continue current medication management.
[2019-03-25] MEDS: DIHYDROERGOTAMINE MESYLATE IM PRN (18:21)
[2019-03-25] MEDS: MONTELUKAST SODIUM 10 MG TABLET PO SCH (21:24)
[2019-03-25] MEDS: ATORVASTATIN CALCIUM 20 MG TABLET PO SCH (21:24)
[2019-03-25] MEDS: LEVOFLOXACIN 500 MG/D5W RTU 500 MG/100 ML RTUPB IV SCH (21:25)
[2019-03-25] MEDS: PHARMACY COMMUNICATION ORDER MC SCH (21:26)
[2019-03-26] MEDS: LEVALBUTEROL HCL NEB 1.25 MG/3 ML AMPUL NEB SCH ×5 (04:34→20:20)
[2019-03-26] MEDS: HYDRALAZINE HCL 25 MG TABLET PO SCH ×3 (05:14→21:26)
[2019-03-26] MEDS: PANTOPRAZOLE SODIUM 40 MG TABLET.DR PO SCH ×2 (05:14→16:47)
[2019-03-26] MEDS: METHYLPREDNISOLONE INJ 40 MG/1 ML SDV IV SCH ×3 (05:14→21:27)
[2019-03-26] MEDS: RIVAROXABAN 10 MG TABLET PO SCH (09:34)
[2019-03-26] MEDS: OXYCODONE-ACETAMINOPHEN 5-325 MG TABLET PO PRN ×2 (09:34→19:38)
[2019-03-26] MEDS: DILTIAZEM HCL 120 MG CAP.SR.24H PO SCH ×2 (09:34→21:26)
[2019-03-26] MEDS: CALCITRIOL 0.25 MCG CAPSULE PO SCH (09:34)
[2019-03-26] MEDS: CITALOPRAM HYDROBROMIDE 20 MG TABLET PO SCH (09:34)
[2019-03-26] MEDS: FLUTICASONE NASAL SPRAY 50 MCG/SPRY 120 SPRAY/16 GM NASL SCH ×2 (09:35→21:27)
[2019-03-26] MEDS: MINOXIDIL 2.5 MG TABLET PO SCH ×2 (09:35→21:27)
[2019-03-26] MEDS: FLUTICASONE/VILANTEROL 200-25 MCG/DOSE IH SCH (09:35)
[2019-03-26] MEDS: LIDOCAINE 5% (700 MG) TRANSDERMAL ADH..PATCH EXT SCH (09:35)
[2019-03-26] MEDS: DOCUSATE SODIUM 100 MG CAPSULE PO SCH ×2 (09:35→17:43)
[2019-03-26] MEDS: SILVER SULFADIAZINE 1% CREAM 50 GM TOP SCH ×4 (09:36→21:28)
[2019-03-26] MEDS: ONDANSETRON HCL INJ/PF 4 MG/2 ML SDV IV PRN ×2 (12:12→16:47)
--- NOTE | 2019-03-26 19:15 | PDOC PROGRESS REPORT ---
Subjective Progress Note for:: 03/26/19 Subjective:: Patient reported worsening acid reflux issue. No significant abdominal pain, nausea or vomiting. Reason For Visit: SOB Physical Exam Vital Signs: Temp Pulse Resp BP Pulse Ox 97.8 F 93 18 113/41 L 100 03/26/19 15:11 03/26/19 17:03 03/26/19 17:03 03/26/19 15:11 03/26/19 17:03 Intake & Output 03/25/19 03/26/19 03/27/19 06:59 06:59 06:59 Intake Total 1814 1887 1397 Output Total 450 825 750 Balance 1364 1062 647 Weight 135.9 kg 134.5 kg General appearance: PRESENT: no acute distress, morbidly obese Head exam: PRESENT: atraumatic, normocephalic Eye exam: PRESENT: conjunctiva pink. ABSENT: scleral icterus Ear exam: PRESENT: normal external ear exam Mouth exam: PRESENT: moist Respiratory exam: PRESENT: clear to auscultation lashanda Cardiovascular exam: PRESENT: RRR. ABSENT: diastolic murmur, rubs, systolic murmur Vascular exam: ABSENT: pallor GI/Abdominal exam: PRESENT: normal bowel sounds, soft. ABSENT: distended, guarding, mass, organolmegaly, rebound, tenderness Extremities exam: ABSENT: pedal edema Musculoskeletal exam: ABSENT: tenderness Neurological exam: PRESENT: alert, awake, oriented to person, oriented to place, oriented to time, oriented to situation, CN II-XII grossly intact. ABSENT: motor sensory deficit Psychiatric exam: PRESENT: appropriate affect, normal mood. ABSENT: homicidal ideation, suicidal ideation Skin exam: PRESENT: dry, warm Results Laboratory Results: 03/24/19 04:00 03/25/19 05:18 03/21/19 03/21/19 03/21/19 18:07 18:07 23:20 Creatine Kinase 94 96 CK-MB (CK-2) 1.35 Troponin I 0.029 NT-Pro-B Natriuret Pep 5040 H 03/21/19 03/22/19 03/22/19 23:20 05:40 05:40 Creatine Kinase 103 CK-MB (CK-2) 1.70 2.31 Troponin I 0.036 0.038 NT-Pro-B Natriuret Pep 4430 H 03/22/19 03/22/19 13:08 13:08 Creatine Kinase 125 CK-MB (CK-2) 2.34 Troponin I 0.024 NT-Pro-B Natriuret Pep Impressions: Chest CT 03/22/19 00:00 IMPRESSION: 1. Mild bilateral pleural effusions, right greater than left. Associated consolidation and minimal ground-glass opacities, likely atelectasis although infection is not entirely excluded. 2. Grossly stable 1.0 cm right thyroid lobe nodule. Consider ultrasound evaluation if it would alter patient management. Chest X-Ray 03/23/19 00:00 IMPRESSION: Cardiomegaly. No pulmonary edema. Cannot exclude a limited airspace disease in left lower lobe. Minimal pleural effusions with significant improvement on the right. Renal Ultrasound 03/23/19 00:00 IMPRESSION: The left kidney and bladder are poorly evaluated. Findings as described. Lung Scan-VQ NM 03/23/19 06:00 IMPRESSION: Limited negative study Assessment & Plan - Diagnosis (1) Congestive heart failure Qualifiers: Heart failure type: diastolic Is this a current diagnosis for this admission?: Yes (2) Paroxysmal atrial fibrillation Is this a current diagnosis for this admission?: Yes (3) Poorly-controlled hypertension Is this a current diagnosis for this admission?: Yes (4) OUMAR (acute kidney injury) Is this a current diagnosis for this admission?: Yes (5) Chronic kidney disease Qualifiers: Chronic kidney disease stage: stage 2 (mild) Qualified Code(s): N18.2 - Chronic kidney disease, stage 2 (mild) Is this a current diagnosis for this admission?: Yes - Time Time Spent with patient: 25-34 minutes Medications reviewed and adjusted accordingly: Yes Anticipated discharge: Home with Homehealth, SNF Within: Other - Inpatient Certification Based on my medical assessment, after consideration of the patient's comorbidities, presenting symptoms, or acuity I expect that the services needed warrant INPATIENT care.: Yes I certify that my determination is in accordance with my understanding of Medicare's requirements for reasonable and necessary INPATIENT services [42 CFR 412.3e].: Yes Medical Necessity: Significant Comorbidiites Make Outpatient Treatment Too Risky, Need Close Monitoring Due to Risk of Patient Decompensation, Need For Continuous Telemetry Monitoring, Risk of Complication if Not Cared For in Hospital, Risk of Diagnosis Which Will Require Inpatient Eval/Care/Monitoring Post Hospital Care: D/C Art Tracer Documentation, D/C or Transfer Summary - Plan Summary Plan Summary: Continue current medication management with bid PPI and encourage dietary restriction compliance.
[2019-03-26] MEDS: MONTELUKAST SODIUM 10 MG TABLET PO SCH (21:26)
[2019-03-26] MEDS: ATORVASTATIN CALCIUM 20 MG TABLET PO SCH (21:27)
[2019-03-26] MEDS: ZOLPIDEM TARTRATE 5 MG TABLET PO SCH (21:27)
[2019-03-26] MEDS: LEVOFLOXACIN 500 MG/D5W RTU 500 MG/100 ML RTUPB IV SCH (21:27)
[2019-03-26] MEDS: PHARMACY COMMUNICATION ORDER MC SCH (21:28)
[2019-03-27] MEDS: LEVALBUTEROL HCL NEB 1.25 MG/3 ML AMPUL NEB SCH ×6 (00:16→21:03)
[2019-03-27] MEDS: OXYCODONE-ACETAMINOPHEN 5-325 MG TABLET PO PRN ×3 (03:58→17:21)
[2019-03-27] MEDS: DIHYDROERGOTAMINE MESYLATE IM PRN (04:03)
[2019-03-27] MEDS: HYDRALAZINE HCL 25 MG TABLET PO SCH ×2 (06:11→15:57)
[2019-03-27] MEDS: PANTOPRAZOLE SODIUM 40 MG TABLET.DR PO SCH ×2 (06:12→17:19)
[2019-03-27] MEDS: METHYLPREDNISOLONE INJ 40 MG/1 ML SDV IV SCH ×3 (06:12→21:21)
[2019-03-27 08:22] LABS: ANION GAP 10 (5-19); BLOOD UREA NITROGEN 75 mg/dL (7-20); CALCIUM 8.9 mg/dL (8.4-10.2); CARBON DIOXIDE 26 mmol/L (22-30); CHLORIDE 105 mmol/L (98-107); GLUCOSE 123 mg/dL (75-110); POTASSIUM 5.1 mmol/L (3.6-5.0); SODIUM 141.4 mmol/L (137-145)
--- NOTE | 2019-03-27 09:22 | PDOC PROGRESS REPORT ---
Subjective Progress Note for:: 03/27/19 Subjective:: Patient is feeling better but still feels some short of breath Patient is denied any chest pain Denied any abdominal pain no nausea no vomiting Reason For Visit: SOB Physical Exam Vital Signs: Temp Pulse Resp BP Pulse Ox 98.5 F 88 18 146/55 H 100 03/27/19 08:16 03/27/19 08:16 03/27/19 08:16 03/27/19 08:16 03/27/19 08:16 Intake & Output 03/26/19 03/27/19 03/28/19 06:59 06:59 06:59 Intake Total 1887 2075 Output Total 825 950 Balance 1062 1125 Weight 134.5 kg 137.7 kg General appearance: PRESENT: no acute distress, well-developed, well-nourished Head exam: PRESENT: atraumatic, normocephalic Eye exam: PRESENT: conjunctiva pink, EOMI, PERRLA. ABSENT: scleral icterus Ear exam: PRESENT: normal external ear exam Mouth exam: PRESENT: moist, tongue midline Neck exam: PRESENT: full ROM. ABSENT: carotid bruit, JVD, lymphadenopathy, thyromegaly Respiratory exam: PRESENT: clear to auscultation lashanda Cardiovascular exam: PRESENT: RRR. ABSENT: diastolic murmur, rubs, systolic murmur Vascular exam: PRESENT: normal capillary refill GI/Abdominal exam: PRESENT: normal bowel sounds, soft. ABSENT: distended, guarding, mass, organolmegaly, rebound, tenderness Rectal exam: PRESENT: deferred Extremities exam: PRESENT: pedal edema Neurological exam: PRESENT: alert, awake, oriented to person, oriented to place, oriented to time, oriented to situation, CN II-XII grossly intact. ABSENT: motor sensory deficit Psychiatric exam: PRESENT: appropriate affect, normal mood. ABSENT: homicidal ideation, suicidal ideation Skin exam: PRESENT: dry, intact, warm. ABSENT: cyanosis, rash Results Laboratory Results: 03/24/19 04:00 03/27/19 07:45 03/27/19 07:45 Sodium 141.4 Potassium 5.1 H Chloride 105 Carbon Dioxide 26 Anion Gap 10 BUN 75 H Creatinine 2.51 H Est GFR ( Amer) 23 L Est GFR (Non-Af Amer) 19 L Glucose 123 H Calcium 8.9 03/21/19 23:40 Blood Blood Culture - Final NO GROWTH IN 5 DAYS 03/21/19 23:20 Blood Blood Culture - Final NO GROWTH IN 5 DAYS 03/21/19 03/21/19 03/21/19 18:07 18:07 23:20 Creatine Kinase 94 96 CK-MB (CK-2) 1.35 Troponin I 0.029 NT-Pro-B Natriuret Pep 5040 H 03/21/19 03/22/19 03/22/19 23:20 05:40 05:40 Creatine Kinase 103 CK-MB (CK-2) 1.70 2.31 Troponin I 0.036 0.038 NT-Pro-B Natriuret Pep 4430 H 03/22/19 03/22/19 13:08 13:08 Creatine Kinase 125 CK-MB (CK-2) 2.34 Troponin I 0.024 NT-Pro-B Natriuret Pep Impressions: Chest CT 03/22/19 00:00 IMPRESSION: 1. Mild bilateral pleural effusions, right greater than left. Associated consolidation and minimal ground-glass opacities, likely atelectasis although infection is not entirely excluded. 2. Grossly stable 1.0 cm right thyroid lobe nodule. Consider ultrasound evaluation if it would alter patient management. Chest X-Ray 03/23/19 00:00 IMPRESSION: Cardiomegaly. No pulmonary edema. Cannot exclude a limited airspace disease in left lower lobe. Minimal pleural effusions with significant improvement on the right. Renal Ultrasound 03/23/19 00:00 IMPRESSION: The left kidney and bladder are poorly evaluated. Findings as described. Lung Scan-VQ MT 03/23/19 06:00 IMPRESSION: Limited negative study Assessment & Plan - Diagnosis (1) Congestive heart failure Qualifiers: Heart failure type: diastolic Is this a current diagnosis for this admission?: Yes Plan: Lasix 20 mg p.o. daily (2) Bilateral pleural effusion Is this a current diagnosis for this admission?: Yes Plan: Currently all improving (3) Dyspnea Qualifiers: Dyspnea type: dyspnea on exertion Qualified Code(s): R06.09 - Other forms of dyspnea Is this a current diagnosis for this admission?: Yes Plan: Is is a multifactorial due to the congestive heart failure and asthma and pneu monia (4) Migraine headache Qualifiers: Migraine type: chronic without aura Status migrainosus presence: with status migrainosus Intractability: not intractable Qualified Code(s): G43.701 - Chronic migraine without aura, not intractable, with status migrainosus Is this a current diagnosis for this admission?: Yes (5) Poorly-controlled hypertension Is this a current diagnosis for this admission?: Yes Plan: [place] all improving (6) Asthma Qualifiers: Asthma severity: moderate Asthma complication type: uncomplicated Is this a current diagnosis for this admission?: Yes Plan: Start the patient on IV Solu-Medrol and nebulizer treatments (7) Chronic back pain Qualifiers: Back pain location: low back pain Is this a current diagnosis for this admission?: Yes (8) Chronic kidney disease Qualifiers: Chronic kidney disease stage: stage 2 (mild) Qualified Code(s): N18.2 - Chronic kidney disease, stage 2 (mild) Is this a current diagnosis for this admission?: Yes Plan: Follow with the nephrology (9) Chronic pain syndrome Is this a current diagnosis for this admission?: Yes (10) Paroxysmal atrial fibrillation Is this a current diagnosis for this admission?: Yes Plan: Currently on Xarelto and a beta-julio c (11) Pulmonary embolism Qualifiers: Chronicity: chronic Acute cor pulmonale presence: without acute cor pulmonale Is this a current diagnosis for this admission?: Yes Plan: Due to the recent clot and a nosebleed according to the hematology she reduce the dose to 10 mg (12) Sleep apnea Qualifiers: Sleep apnea type: unspecified type Qualified Code(s): G47.30 - Sleep apnea, unspecified Is this a current diagnosis for this admission?: Yes (13) Pneumonia Qualifiers: Laterality: right Lung location: unspecified part of lung Is this a current diagnosis for this admission?: Yes Plan: Continues to IV Levaquin - Time Time Spent with patient: 15-24 minutes Medications reviewed and adjusted accordingly: Yes Anticipated discharge: Other Within: Other - Plan Summary Plan Summary: stable
[2019-03-27] MEDS: DOCUSATE SODIUM 100 MG CAPSULE PO SCH ×2 (09:57→17:19)
[2019-03-27] MEDS: CALCITRIOL 0.25 MCG CAPSULE PO SCH (09:58)
[2019-03-27] MEDS: CITALOPRAM HYDROBROMIDE 20 MG TABLET PO SCH (09:58)
[2019-03-27] MEDS: RIVAROXABAN 10 MG TABLET PO SCH (09:58)
[2019-03-27] MEDS: DILTIAZEM HCL 120 MG CAP.SR.24H PO SCH ×2 (09:58→21:20)
[2019-03-27] MEDS: FLUTICASONE NASAL SPRAY 50 MCG/SPRY 120 SPRAY/16 GM NASL SCH ×2 (09:59→21:22)
[2019-03-27] MEDS: FLUTICASONE/VILANTEROL 200-25 MCG/DOSE IH SCH (09:59)
[2019-03-27] MEDS: MINOXIDIL 2.5 MG TABLET PO SCH ×2 (09:59→21:21)
[2019-03-27] MEDS: LIDOCAINE 5% (700 MG) TRANSDERMAL ADH..PATCH EXT SCH (09:59)
[2019-03-27] MEDS: SILVER SULFADIAZINE 1% CREAM 50 GM TOP SCH ×4 (09:59→21:23)
--- NOTE | 2019-03-27 10:59 | RADIOLOGY REPORT (SQ) ---
EXAM DESCRIPTION: CHEST 2 VIEWS COMPLETED DATE/TIME: 03/27/2019 10:35 am REASON FOR STUDY: Pneumonia COMPARISON: 03/23/2019 EXAM PARAMETERS: NUMBER OF VIEWS: two views TECHNIQUE: Digital Frontal and Lateral radiographic views of the chest acquired. RADIATION DOSE: NA LIMITATIONS: none FINDINGS: LUNGS AND PLEURA: Pulmonary vascular congestion. No javon pulmonary edema. There is ill- defined opacification behind the heart on the left. Portions of the left hemidiaphragm are indistinc t. MEDIASTINUM AND HILAR STRUCTURES: No masses or contour abnormalities. HEART AND VASCULAR STRUCTURES: Cardiomegaly. BONES: No acute findings. HARDWARE: There is an injection port on the right. OTHER: No other significant finding. IMPRESSION: Cardiomegaly without javon pulmonary edema. Cannot exclude limited left lower lobe pneu monia. TECHNICAL DOCUMENTATION: JOB ID: [id number] [email or web address]- All Rights Reserved Reading location - IP/workstation name: [email or web address]
[2019-03-27] MEDS: DILTIAZEM HCL/D5W 125 MG/125 ML RTUINJ IV PRN (13:36)
--- NOTE | 2019-03-27 14:21 | PDOC PROGRESS REPORT ---
Subjective Progress Note for:: 03/27/19 Subjective:: Patient is a slowly feeling a little bit better. She says she is still short of breath and unable to lay down flat on bed. However she also relates that she uses 8 pillows usually on ordinary day when she sleeps at home. Her urine output seems to be slowly improving for the last 48 hours. It ranges anywhere between 800 to 900 mL daily. She had the Lopez catheter inserted yesterday. Patient does have history of urinary retention and was doing intermittent ca theterization 4 times a day at home. She has received intermittent Lasix on March 21, and 20 mg IV at that time. Reason For Visit: SOB Physical Exam Vital Signs: Temp Pulse Resp BP Pulse Ox 98.5 F 86 18 128/48 H 98 03/27/19 12:09 03/27/19 12:17 03/27/19 12:17 03/27/19 12:09 03/27/19 12:17 Intake & Output 03/26/19 03/27/19 03/28/19 06:59 06:59 06:59 Intake Total 1887 2075 Output Total 825 950 Balance 1062 1125 Weight 134.5 kg 137.7 kg Exam: General appearance: PRESENT: no acute distress, cooperative, well-developed, wel l-nourished, on oxygen via nasal cannula Head exam: PRESENT: atraumatic, normocephalic Eye exam: PRESENT: conjunctiva pink, PERRLA. ABSENT: scleral icterus Neck exam: ABSENT: JVD Respiratory exam: PRESENT: Diminished breath sounds. ABSENT: crackles, rales, rhonchi, unlabored, wheezes Cardiovascular exam: PRESENT: Regular rate rhythm -+S1, +S2. ABSENT: diastolic murmur, systolic murmur GI/Abdominal exam: PRESENT: normal bowel sounds, soft. ABSENT: guarding, mass, tenderness Extremities exam: Grade 1 bilateral lower extremity pitting edema Neurology exam: Alert, awake, oriented to person, place and time. Skin exam: PRESENT: dry, warm, Cardiovascular exam: PRESENT: RRR, +S1, +S2 GI/Abdominal exam: PRESENT: soft. ABSENT: tenderness Results Laboratory Results: 03/24/19 04:00 03/27/19 07:45 03/27/19 07:45 Sodium 141.4 Potassium 5.1 H Chloride 105 Carbon Dioxide 26 Anion Gap 10 BUN 75 H Creatinine 2.51 H Est GFR ( Amer) 23 L Est GFR (Non-Af Amer) 19 L Glucose 123 H Calcium 8.9 03/21/19 23:40 Blood Blood Culture - Final NO GROWTH IN 5 DAYS 03/21/19 23:20 Blood Blood Culture - Final NO GROWTH IN 5 DAYS 03/21/19 03/21/19 03/21/19 18:07 18:07 23:20 Creatine Kinase 94 96 CK-MB (CK-2) 1.35 Troponin I 0.029 NT-Pro-B Natriuret Pep 5040 H 03/21/19 03/22/19 03/22/19 23:20 05:40 05:40 Creatine Kinase 103 CK-MB (CK-2) 1.70 2.31 Troponin I 0.036 0.038 NT-Pro-B Natriuret Pep 4430 H 03/22/19 03/22/19 13:08 13:08 Creatine Kinase 125 CK-MB (CK-2) 2.34 Troponin I 0.024 NT-Pro-B Natriuret Pep Impressions: Chest CT 03/22/19 00:00 IMPRESSION: 1. Mild bilateral pleural effusions, right greater than left. Associated consolidation and minimal ground-glass opacities, likely atelectasis although infection is not entirely excluded. 2. Grossly stable 1.0 cm right thyroid lobe nodule. Consider ultrasound evaluation if it would alter patient management. Renal Ultrasound 03/23/19 00:00 IMPRESSION: The left kidney and bladder are poorly evaluated. Findings as described. Lung Scan-VQ NM 03/23/19 06:00 IMPRESSION: Limited negative study Chest X-Ray 03/27/19 00:00 IMPRESSION: Cardiomegaly without javon pulmonary edema. Cannot exclude limited left lower lobe pneumonia. Assessment & Plan - Diagnosis (1) Acute renal failure superimposed on stage 2 chronic kidney disease Is this a current diagnosis for this admission?: Yes Plan: This could be secondary to congestive heart failure and diuresis. Urine output is slowly improving as well as the kidney function. Continue the same current management at this point. Monitor kidney function and electrolytes as well as the urine output via the Lopez catheter. Patient does not require any renal replacement therapy at this time. (2) History of urinary retention Is this a current diagnosis for this admission?: Yes Plan: Continue with Lopez catheter. A Lopez catheter needs to be removed she still needs to continue intermittent catheterization throughout the day. (3) Hyperkalemia Is this a current diagnosis for this admission?: Yes Plan: Borderline and mild. Advised low potassium renal diet. (4) Bilateral pleural effusion Is this a current diagnosis for this admission?: Yes Plan: Radiographically improved. (5) Congestive heart failure Qualifiers: Heart failure type: diastolic Is this a current diagnosis for this admission?: Yes Plan: Seems to be slowly improved. (6) Pneumonia Qualifiers: Laterality: right Lung location: unspecified part of lung Is this a current diagnosis for this admission?: Yes Plan: On IV Levaquin. (7) Anemia in chronic kidney disease (CKD) Is this a current diagnosis for this admission?: Yes Plan: Currently stable. (8) Asthma Qualifiers: Asthma severity: moderate Asthma complication type: uncomplicated Is this a current diagnosis for this admission?: Yes Plan: Continue Breo per pulmonary recommendation. (9) Hypertension Qualifiers: Hypertension type: essential hypertension Qualified Code(s): I10 - Essential (primary) hypertension Is this a current diagnosis for this admission?: Yes Plan: Fairly controlled on current blood pressure regimen. - Time Time with patient: 15-25 minutes
--- NOTE | 2019-03-27 20:12 | Progress Note ---
Provider Note Provider Note: CARDIOLOGY PROGRESS NOTE by Dr. Shasha Lovett on 03/27/2019. SUBJECTIVE: The patient states her shortness of breath is improved but has not fully resolved. She is still has some shortness of breath with walking around in the room. She denies any wheezing. There is no cough or sputum production. She denies any PND or chest pain or discomfort. She does have orthopnea which is chronic but has improved a bit but still present. There is no bleeding on Xarelto. There is no TIA CVA symptoms. No recurrence of atrial fibrillation on the monitor. There is no ventricular arrhythmia seen on the monitor. Her urine output has improved slightly. Her leg edema still present but much improved. PHYSICAL EXAMINATION: The patient is morbidly obese. In no acute distress. She is well-groomed. Selected Entries 03/27/19 08:16 Temperature 98.5 F Temperature Oral Source Pulse Rate 88 Respiratory 18 Rate Blood Pressure 146/55 H Blood Pressure 85 Mean BP Location Right Arm BP Position Supine O2 Sat by Pulse 100 Oximetry Oxygen Flow 2.00 Rate Oxygen Delivery Nasal Cannula Method HEAD: Is atraumatic normocephalic. EYES: Pupils equal round regular reactive to light accommodation. Extraocular movements are normal. There is no conjunctival pallor there is no scleral icterus. ENT is negative. Neck is supple there is no JVD. Carotids are equal there is no bruit. There is no lymphadenopathy. There is no accessory muscle respiration use. Trachea central. LUNGS: Shows a few dry crackles in the left lower lobe. The rest of the lungs are clear without any rhonchi wheezing. HEART: S1-S2 is heard S1 is of normal intensity. There is no S3 gallop. There is no S4 gallop. There is systolic murmur left sternal border and the apex there is no rub. ABDOMEN: Is obese. Nontender. There is no hepatospleno megaly. Bowel sounds well heard. There is no tender areas masses. EXTREMITIES femorals are deep. Femorals are diminished. There is no femoral bruits. Leg pulses are diminished. There is trace to mild pedal edema with chronic venous stasis dermatitis changes. There is no DVT or cellulitis. There is no calf tenderness. There is no cyanosis or clubbing. SOLE TIER: The patient is conscious awake alert oriented x3 with no focal deficit. PSYCHIATRIC the patient judgment insight are intact her affect is normal. Labs- All tests 24 hr 03/27/19 07:45 Sodium 141.4 Potassium 5.1 H Chloride 105 Carbon Dioxide 26 Anion Gap 10 BUN 75 H Creatinine 2.51 H Est GFR ( Amer) 23 L Est GFR (Non-Af Amer) 19 L Glucose 123 H Calcium 8.9 Chest X-Ray 03/21/19 16:33 IMPRESSION: Pneumonia or asymmetric pulmonary edema. Clinical correlation is needed. Chest X-Ray 03/21/19 16:53 IMPRESSION: Pneumonia or asymmetric pulmonary edema. Clinical correlation is needed. Chest CT 03/22/19 00:00 IMPRESSION: 1. Mild bilateral pleural effusions, right greater than left. Associated consolidation and minimal ground-glass opacities, likely atelectasis although infection is not entirely excluded. 2. Grossly stable 1.0 cm right thyroid lobe nodule. Consider ultrasound evaluation if it would alter patient management. Chest X-Ray 03/23/19 00:00 IMPRESSION: Cardiomegaly. No pulmonary edema. Cannot exclude a limited airspace disease in left lower lobe. Minimal pleural effusions with significant improvement on the right. Renal Ultrasound 03/23/19 00:00 IMPRESSION: The left kidney and bladder are poorly evaluated. Findings as described. Lung Scan-VQ NM 03/23/19 06:00 IMPRESSION: Limited negative study Chest X-Ray 03/27/19 00:00 IMPRESSION: Cardiomegaly without javon pulmonary edema. Cannot exclude limited left lower lobe pneumonia. IMPRESSION/RECOMMENDATION: 1. Shortness of breath and orthopnea most likely combination of left ventricular diastolic heart failure, volume overload due to acute on chronic kidney disease and possibly pulmonary hypertension causing right heart failure also the patient has a element of left lower lobe pneumonia. Note the patient's wheezing is improved with the discontinuation of metoprolol. Echo ordered for today, await completion of echo so I can read it. 2. Acute on chronic diastolic heart failure. 3. Left lower lobe pneumonia. Continue antibiotics. 4. Acute on chronic kidney disease. Renal output has improved, but the patient still stage IV kidney disease. 5. Hypertension: Blood pressure is fairly well controlled, but still not optimal. Will not increase the patient's Cardizem, since the patient is on Xarelto. Will increase the patient's hydralazine to 25 mg p.o. every 6 hours. 6. History of paroxysmal atrial fibrillation: No recurrence. 7. Right heart failure: Most likely secondary pulmonary hypertension. Await echo to see if the patient does really have pulmonary hypertension and right heart failure. 8. History of pulmonary embolism: No recurrence. Continue Xarelto. 9. Obstructive sleep apnea: Continue BiPAP. 10. History of asthma/COPD. 11. Morbid obesity: This needs to be addressed later on. Note the patient already had a bariatric surgery done in the past. Medications reviewed medications adjusted and increased rate management plan discussed with attending physician Dr. Li. Medical decision making is of moderate complexity. 40 minutes spent on this patient with more than 50% of time spent on direct patient care. Discussed the case with the zipper setter chainstitch also. Will follow.
[2019-03-27] MEDS: MONTELUKAST SODIUM 10 MG TABLET PO SCH (21:20)
[2019-03-27] MEDS: ATORVASTATIN CALCIUM 20 MG TABLET PO SCH (21:21)
[2019-03-27] MEDS: ZOLPIDEM TARTRATE 5 MG TABLET PO SCH (21:21)
[2019-03-27] MEDS: LEVOFLOXACIN 500 MG/D5W RTU 500 MG/100 ML RTUPB IV SCH (21:22)
[2019-03-27] MEDS: PHARMACY COMMUNICATION ORDER MC SCH (21:22)
[2019-03-27] MEDS: QUETIAPINE FUMARATE 25 MG TABLET PO PRN (22:44)
[2019-03-27] MEDS: ONDANSETRON HCL INJ/PF 4 MG/2 ML SDV IV PRN (22:44)
[2019-03-28] MEDS: HYDRALAZINE HCL 25 MG TABLET PO SCH ×4 (00:19→17:09)
[2019-03-28] MEDS: OXYCODONE-ACETAMINOPHEN 5-325 MG TABLET PO PRN ×3 (00:19→19:44)
[2019-03-28] MEDS: LEVALBUTEROL HCL NEB 1.25 MG/3 ML AMPUL NEB SCH ×6 (00:23→20:40)
[2019-03-28] MEDS: METHYLPREDNISOLONE INJ 40 MG/1 ML SDV IV SCH (06:01)
[2019-03-28] MEDS: PANTOPRAZOLE SODIUM 40 MG TABLET.DR PO SCH ×2 (06:01→17:05)
[2019-03-28 06:35] LABS: HEMOGLOBIN 9.6 g/dL (12.0-15.5); MEAN CORPUSCULAR HEMOGLOBIN 23.4 pg (27.0-33.4); MEAN CORPUSCULAR HGB CONC 31.2 g/dL (32.0-36.0); MEAN CORPUSCULAR VOLUME 75 fl (80-97); RED BLOOD COUNT 4.12 10^6/uL (3.72-5.28); WHITE BLOOD COUNT 9.7 10^3/uL (4.0-10.5)
[2019-03-28 06:39] LABS: ANION GAP 7 (5-19); BLOOD UREA NITROGEN 75 mg/dL (7-20); CALCIUM 9.4 mg/dL (8.4-10.2); CARBON DIOXIDE 29 mmol/L (22-30); CHLORIDE 106 mmol/L (98-107); GLUCOSE 160 mg/dL (75-110); POTASSIUM 5.5 mmol/L (3.6-5.0); SODIUM 141.6 mmol/L (137-145)
[2019-03-28 07:00] LABS: ABSOLUTE LYMPHOCYTES# (MANUAL) 0.6 10^3/uL (0.5-4.7); ABSOLUTE MONOCYTES # (MANUAL) 0.3 10^3/uL (0.1-1.4); ABSOLUTE NEUTROPHILS# (MANUAL) 8.8 10^3/uL (1.7-8.2); BASOPHILS % (MANUAL) 0 % (0-2); EOSINOPHILS % (MANUAL) 0 % (0-6); LYMPHOCYTES % (MANUAL) 6 % (13-45); MONOCYTES % (MANUAL) 3 % (3-13); SEGMENTED NEUTROPHILS % (MAN) 91 % (42-78); TOTAL CELLS COUNTED 100
[2019-03-28 07:01] LABS: ANISOCYTOSIS SLIGHT; HYPOCHROMASIA 3+; PLATELET COMMENT ADEQUATE; TARGET CELLS 2+
[2019-03-28 07:03] LABS: PLATELET CLUMPS PRESENT; PLATELET COUNT 205 10^3/uL (150-450)
--- NOTE | 2019-03-28 08:41 | PDOC PROGRESS REPORT ---
Subjective Progress Note for:: 03/28/19 Subjective:: She is still complaining short of breath at night Patient's denied any chest pain As per discussed with the pulmonary and suggest most likely from CHF Continues to asthma treatments Patient's renal function is still the Patient's potassium is elevated Reason For Visit: SOB Physical Exam Vital Signs: Temp Pulse Resp BP Pulse Ox 98.2 F 100 21 H 165/61 H 98 03/28/19 07:34 03/28/19 07:34 03/28/19 07:34 03/28/19 07:34 03/28/19 07:34 Intake & Output 03/27/19 03/28/19 03/29/19 06:59 06:59 06:59 Intake Total 2075 1890 Output Total 950 900 Balance 1125 990 Weight 137.7 kg 142 kg General appearance: PRESENT: no acute distress, well-developed, well-nourished Head exam: PRESENT: atraumatic, normocephalic Eye exam: PRESENT: conjunctiva pink, EOMI, PERRLA. ABSENT: scleral icterus Ear exam: PRESENT: normal external ear exam Mouth exam: PRESENT: moist, tongue midline Neck exam: PRESENT: full ROM. ABSENT: carotid bruit, JVD, lymphadenopathy, thyromegaly Respiratory exam: PRESENT: clear to auscultation lashanda Cardiovascular exam: PRESENT: RRR. ABSENT: diastolic murmur, rubs, systolic murmur Vascular exam: PRESENT: normal capillary refill GI/Abdominal exam: PRESENT: normal bowel sounds, soft. ABSENT: distended, guarding, mass, organolmegaly, rebound, tenderness Rectal exam: PRESENT: deferred Extremities exam: PRESENT: pedal edema Musculoskeletal exam: PRESENT: ambulatory Neurological exam: PRESENT: alert, awake, oriented to person, oriented to place, oriented to time, oriented to situation, CN II-XII grossly intact. ABSENT: motor sensory deficit Psychiatric exam: PRESENT: appropriate affect, normal mood. ABSENT: homicidal ideation, suicidal ideation Skin exam: PRESENT: dry, intact, warm. ABSENT: cyanosis, rash Results Laboratory Results: 03/28/19 06:05 03/28/19 06:05 03/28/19 03/28/19 06:05 06:05 WBC 9.7 RBC 4.12 Hgb 9.6 L Hct 31.0 L MCV 75 L MCH 23.4 L MCHC 31.2 L RDW 16.0 H Plt Count 205 Seg Neutrophils % Not Reportable Lymphocytes % Not Reportable Monocytes % Not Reportable Eosinophils % Not Reportable Basophils % Not Reportable Absolute Neutrophils Not Reportable Absolute Lymphocytes Not Reportable Absolute Monocytes Not Reportable Absolute Eosinophils Not Reportable Absolute Basophils Not Reportable Sodium 141.6 Potassium 5.5 H Chloride 106 Carbon Dioxide 29 Anion Gap 7 BUN 75 H Creatinine 2.59 H Est GFR ( Amer) 22 L Est GFR (Non-Af Amer) 18 L Glucose 160 H Calcium 9.4 03/21/19 03/21/19 03/21/19 18:07 18:07 23:20 Creatine Kinase 94 96 CK-MB (CK-2) 1.35 Troponin I 0.029 NT-Pro-B Natriuret Pep 5040 H 03/21/19 03/22/19 03/22/19 23:20 05:40 05:40 Creatine Kinase 103 CK-MB (CK-2) 1.70 2.31 Troponin I 0.036 0.038 NT-Pro-B Natriuret Pep 4430 H 03/22/19 03/22/19 13:08 13:08 Creatine Kinase 125 CK-MB (CK-2) 2.34 Troponin I 0.024 NT-Pro-B Natriuret Pep Impressions: Chest CT 03/22/19 00:00 IMPRESSION: 1. Mild bilateral pleural effusions, right greater than left. Associated consolidation and minimal ground-glass opacities, likely atelectasis although infection is not entirely excluded. 2. Grossly stable 1.0 cm right thyroid lobe nodule. Consider ultrasound evaluation if it would alter patient management. Renal Ultrasound 03/23/19 00:00 IMPRESSION: The left kidney and bladder are poorly evaluated. Findings as described. Lung Scan-VQ NM 03/23/19 06:00 IMPRESSION: Limited negative study Chest X-Ray 03/27/19 00:00 IMPRESSION: Cardiomegaly without javon pulmonary edema. Cannot exclude limited left lower lobe pneumonia. Assessment & Plan - Diagnosis (1) Congestive heart failure Qualifiers: Heart failure type: diastolic Is this a current diagnosis for this admission?: Yes Plan: We will discuss with the cardiology to restart the Lasix (2) Bilateral pleural effusion Is this a current diagnosis for this admission?: Yes Plan: Currently all improving (3) Dyspnea Qualifiers: Dyspnea type: dyspnea on exertion Qualified Code(s): R06.09 - Other forms of dyspnea Is this a current diagnosis for this admission?: Yes Plan: The multifactorial (4) Migraine headache Qualifiers: Migraine type: chronic without aura Status migrainosus presence: with status migrainosus Intractability: not intractable Qualified Code(s): G43 .701 - Chronic migraine without aura, not intractable, with status migrainosus Is this a current diagnosis for this admission?: Yes (5) Poorly-controlled hypertension Is this a current diagnosis for this admission?: Yes (6) Asthma Qualifiers: Asthma severity: moderate Asthma complication type: uncomplicated Is this a current diagnosis for this admission?: Yes Plan: Start the patient on IV Solu-Medrol and nebulizer treatments (7) Chronic back pain Qualifiers: Back pain location: low back pain Is this a current diagnosis for this admission?: Yes (8) Chronic kidney disease Qualifiers: Chronic kidney disease stage: stage 2 (mild) Qualified Code(s): N18.2 - Chronic kidney disease, stage 2 (mild) Is this a current diagnosis for this admission?: Yes Plan: Follow with the nephrology (9) Chronic pain syndrome Is this a current diagnosis for this admission?: Yes (10) Paroxysmal atrial fibrillation Is this a current diagnosis for this admission?: Yes (11) Pulmonary embolism Qualifiers: Chronicity: chronic Acute cor pulmonale presence: without acute cor pulmonale Is this a current diagnosis for this admission?: Yes Plan: Due to the recent clot and a nosebleed according to the hematology she reduce the dose to 10 mg (12) Sleep apnea Qualifiers: Sleep apnea type: unspecified type Qualified Code(s): G47.30 - Sleep apnea, unspecified Is this a current diagnosis for this admission?: Yes (13) Pneumonia Qualifiers: Laterality: right Lung location: unspecified part of lung Is this a current diagnosis for this admission?: Yes Plan: Continues to IV Levaquin - Time Time Spent with patient: 15-24 minutes Medications reviewed and adjusted accordingly: Yes Anticipated discharge: Other Within: Other - Plan Summary Plan Summary: Will give a low potassium diet Give a Kayexalate Follow with the nephrology and cardiology
[2019-03-28] MEDS: DOCUSATE SODIUM 100 MG CAPSULE PO SCH ×2 (09:18→17:09)
[2019-03-28] MEDS: CITALOPRAM HYDROBROMIDE 20 MG TABLET PO SCH (09:19)
[2019-03-28] MEDS: DILTIAZEM HCL 120 MG CAP.SR.24H PO SCH (09:19)
[2019-03-28] MEDS: FLUTICASONE/VILANTEROL 200-25 MCG/DOSE IH SCH (09:19)
[2019-03-28] MEDS: RIVAROXABAN 10 MG TABLET PO SCH (09:19)
[2019-03-28] MEDS: CALCITRIOL 0.25 MCG CAPSULE PO SCH (09:20)
[2019-03-28] MEDS: MINOXIDIL 2.5 MG TABLET PO SCH ×2 (09:21→21:07)
[2019-03-28] MEDS: LIDOCAINE 5% (700 MG) TRANSDERMAL ADH..PATCH EXT SCH (09:21)
[2019-03-28] MEDS: FLUTICASONE NASAL SPRAY 50 MCG/SPRY 120 SPRAY/16 GM NASL SCH ×2 (09:21→21:07)
[2019-03-28] MEDS: SILVER SULFADIAZINE 1% CREAM 50 GM TOP SCH ×4 (09:22→21:08)
[2019-03-28] MEDS ORDERED: PATIROMER 8.4 GM SUSP PACKET PO SCH (10:00)
--- NOTE | 2019-03-28 10:12 | XCELERA REPORT ---
[address] [address] Transthoracic Echocardiogram Report Name: GLENDA PENA Age: 73 yrs Gender: Female : 1945 Patient Status: Inpatient Patient Location: [address] [place] [address] Study Date: 03/27/2019 05:36 PM Height: 66 in Weight: 303 lb BSA: 2.4 m2 Procedure: A two-dimensional transthoracic echocardiogram with color flow and Doppler was performed. The study was technically difficult with many images being suboptimal in quality. Reason For Study: chf History: CHF. Ordering Physician: LANCE NEGRO Performed By: Shari Flower Interpretation Summary The left ventricle is normal in size. There is mild concentric left ventricular hypertrophy. No True apical 2 chamber views obtained.Hence cannot comment on the apical anterior , the basal anterior, the basal inferior and apical inferior barfield.The mid anterior , the mid inferior and the rest of the LV barfield contract normally. .Normal LVEF is normal and is greater than 65% in the limited views. Doppler measurements suggest normal left ventricular diastolic function There is no thrombus. Probably no ASD,VSD, or PFO seen. The right ventricle is not well visualized secondary to technical limitations Suspect RV enlargement. The right atrium is mildly dilated. The left atrium is mildly dilated. There is no evidence of mitral valve prolapse. There is no vegetation seen on the mitral valve. There is no mitral valve stenosis. There is a mild amount of mitral regurgitation There is no aortic valvular vegetation. There is mild aortic stenosis There is a peak gradient of 23 mm of Hg. There is no LVOT obstruction. There is a mild amount of aortic regurgitation There is no tricuspid stenosis. There is servere pulmonary hypertension by echo Mid perhaps moderate TR.RVSP is 67 to 72 mm of Hg , with RA mean of 5 to 10. The pulmonic valve is not well visualized. There is no pulmonic valvular stenosis. There is no pulmonic valvular regurgitation. The aortic root is normal size. The inferior vena cava appeared normal and decreased > 50% with respiration (RAP 5-10 mmHg) There is no pericardial effusion. MMode/2D Measurements & Calculations RVDd: 3.0 cm LVIDd: 5.1 cm FS: 39.5 % Ao root diam: 2.8 cm IVSd: 1.3 cm LVIDs: 3.1 cm EDV(Teich): Ao root area: LVPWd: 0.95 cm 122.4 ml 6.3 cm2 ESV(Teich): 37.0 mlLA dimension: 4.2 cm EF(Teich): 69.7 % LVOT diam: 2.0 cm LVLd ap4: 7.3 cm SV(MOD-sp4): LVOT area: EDV(MOD-sp4): 47.0 ml 63.0 ml 3.2 cm2 LVLs ap4: 5.3 cm ESV(MOD-sp4): 16.0 ml EF(MOD-sp4): 74.6 % Doppler Measurements & Calculations MV E max saeid: MV P1/2t max saeid: Ao V2 max: AI max saeid: 110.4 cm/sec 132.0 cm/sec 240.6 cm/sec 422.7 cm/sec MV A max saeid: MV P1/2t: 44.0 msec Ao max PG: AI max P.0 cm/sec MVA(P1/2t): 5.0 cm2 23.2 mmHg 71.6 mmHg MV E/A: 1.7 MV dec slope: LIONEL(V,D): 2.3 cm2 AI dec slope: 879.5 cm/sec2 389.8 cm/sec2 MV dec time: 0.19 sec AI P1/2t: 317.6 msec LV V1 max PG: PA V2 max: TR max saeid: AV P1/2t-pr_phl: 12.2 mmHg 152.8 cm/sec 392.6 cm/sec 330.3 msec LV V1 max: PA max P.8 mmHg TR max P.8 cm/sec 61.7 mmHg MV P1/2t-pr_phl: 44.0 msec Left Ventricle The left ventricle is normal in size. There is mild concentric left ventricular hypertrophy. No True apical 2 chamber views obtained.Hence cannot comment on the apical anterior , the basal anterior, the basal inferior and apical inferior barfield.The mid anterior , the mid inferior and the rest of the LV barfield contract normally. .Normal LVEF is normal and is greater than 65% in the limited views. Doppler measurements suggest normal left ventricular diastolic function. There is no thrombus. Probably no ASD,VSD, or PFO seen. Right Ventricle The right ventricle is not well visualized secondary to technical limitations. Suspect RV enlargement. Atria The right atrium is mildly dilated. The left atrium is mildly dilated. Mitral Valve There is no evidence of mitral valve prolapse. There is no vegetation seen on the mitral valve. There is no mitral valve stenosis. There is a mild amount of mitral regurgitation. Aortic Valve There is no aortic valvular vegetation. There is mild aortic stenosis. There is a peak gradient of 23 mm of Hg. There is no LVOT obstruction. There is a mild amount of aortic regurgitation. Tricuspid Valve There is no tricuspid stenosis. Mid perhaps moderate TR.RVSP is 67 to 72 mm of Hg , with RA mean of 5 to 10. There is servere pulmonary hypertension by echo. Pulmonic Valve The pulmonic valve is not well visualized. There is no pulmonic valvular stenosis. There is no pulmonic valvular regurgitation. Great Vessels The aortic root is normal size. The inferior vena cava appeared normal and decreased > 50% with respiration (RAP 5-10 mmHg). Effusions There is no pericardial effusion. : LANCE NEGRO > Shasha Garces
--- NOTE | 2019-03-28 10:14 | Progress Note ---
Provider Note Provider Note: CARDIOLOGY PROGRESS NOTE by Dr. Shasha Garces on 03/28/2019. Subjective: The patient was seen earlier this morning although when she was moving around in the bed her heart rate went up to 100 her heart rate remained 62 bpm. She has chronic orthopnea. Her shortness of breath is better but still there. She has no orthopnea. Leg edema is stable without any increase. Her urine output remains the same with no major improvement in the urine output although compared to the earlier days it is better. She denies any chest pain or discomfort. The patient's echo findings were discussed with the patient. There were no ventricular arrhythmias seen. At that time there was no atrial fibrillation patient remains in sinus rhythm. There is no TIA CVA symptoms there is no bleeding on the Xarelto. Subsequently around noon the patient went into atrial fibrillation with rapid ventricular response heart rate went up to 165 bpm, with a blood pressure of about 120/76. When her heart rate was rapid the patient had chest pain. This chest pain resolved with the patient heart rate was controlled. Hence this is most likely secondary to atrial fibrillation causing supply demand mismatch. She was given a bolus of Cardizem and a heart rate did come down to the 120s and subsequently the patient was started on a Cardizem drip. She also required a bolus of Lopressor and at present later when I saw her in the evening her heart rate came down to 80s to the 90s. The patient states her symptoms of increased shortness of breath when she had atrial fibrillation with rapid ventricular response has now resolved and she is back to baseline although still she does some shortness of breath. She did not have decreased O2 saturations. On examination there is no evidence of left heart failure. We will see if the patient does not convert to sinus rhythm on the present regimen, then will consider electrical cardioversion with anesthesia giving deep sedation, and managing her airway tomorrow. This has been discussed with the patient the risks benefits and alternative therapeutic options have been discussed with the patient. Note that the patient chronically is on Xarelto. And should be able to to be cardioverted without a RENATO. PHYSICAL EXAMINATION: The patient is morbidly obese. In no acute distress at present when I saw her when she is in atrial fibrillation with controlled ventricular response. 03/28/19 03/28/19 07:34 09:17 Temperature 98.2 F Temperature Oral Source Pulse Rate 100 62 Respiratory 21 H 16 Rate Respiratory Normal Depth Respiratory Normal Pattern Blood Pressure 165/61 H Blood Pressure 95 Mean BP Location Left Arm BP Position Supine O2 Sat by Pulse 98 99 Oximetry Oxygen Flow 3.00 2 Rate Oxygen Delivery Nasal Cannula Method Selected Entries 03/28/19 03/28/19 03/28/19 13:55 14:00 14:15 Temperature Temperature Source Pulse Rate 128 H 131 H 134 HMax HR 165 Respiratory Rate Blood Pressure 135/78 H Blood Pressure Mean BP Location BP Position O2 Sat by Pulse Oximetry Oxygen Flow Rate Oxygen Delivery Method 03/28/19 03/28/19 15:00 15:12 Temperature 98.4 F Temperature Oral Source Pulse Rate 96 88 Respiratory 22 H Rate Blood Pressure 119/79 140/57 H Blood Pressure 84 Mean BP Location Left Arm BP Position Supine O2 Sat by Pulse 100 Oximetry Oxygen Flow 5.00 Rate Oxygen Delivery Nasal Cannula Method HEAD: Is atraumatic normocephalic. EYES: Pupils equal round regular reactive to light accommodation. Extraocular movements are normal. There is no conjunctival pallor there is no scleral icterus. ENT is negative. Neck is supple there is no JVD. Carotids are equal there is no bruit. There is no lymphadenopathy. There is no accessory muscle respiration use. Trachea central. LUNGS: Shows a few dry crackles in the left lower lobe. The rest of the lungs are clear without any rhonchi wheezing. HEART: S1-S2 is heard S1 is of variable intensity. There is no S3 gallop. There is no S4 gallop. There is systolic murmur left sternal border and the apex there is no rub. ABDOMEN: Is obese. Nontender. There is no hepatospleno megaly. Bowel sounds well heard. There is no tender areas masses. EXTREMITIES femorals are deep. Femorals are diminished. There is no femoral bruits. Leg pulses are diminished. There is trace to mild pedal edema with chronic venous stasis dermatitis changes. There is no DVT or cellulitis. There is no calf tenderness. There is no cyanosis or clubbing. LEASING PROFESSIONAL: The patient is conscious awake alert oriented x3 with no focal deficit. PSYCHIATRIC the patient judgment insight are intact her affect is normal. Labs- All tests 24 hr 03/28/19 03/28/19 03/28/19 06:05 06:05 13:02 WBC 9.7 12.1 H RBC 4.12 4.53 Hgb 9.6 L 10.6 L Hct 31.0 L 34.2 L MCV 75 L 76 L MCH 23.4 L 23.3 L MCHC 31.2 L 30.9 L RDW 16.0 H 16.2 H Plt Count 205 237 Total Counted 100 Seg Neutrophils % Not Reportable Seg Neuts % (Manual) 91 H Lymphocytes % Not Reportable Lymphocytes % (Manual) 6 L Monocytes % Not Reportable Monocytes % (Manual) 3 Eosinophils % Not Reportable Eosinophils % (Manual) 0 Basophils % Not Reportable Basophils % (Manual) 0 Absolute Neutrophils Not Reportable Abs Neuts (Manual) 8.8 H Absolute Lymphocytes Not Reportable Abs Lymphs (Manual) 0.6 Absolute Monocytes Not Reportable Abs Monocytes (Manual) 0.3 Absolute Eosinophils Not Reportable Absolute Eos (Manual) 0.0 Absolute Basophils Not Reportable Abs Basophils (Manual) 0.0 Clumped Platelets PRESENT Platelet Comment ADEQUATE Hypochromasia 3+ Anisocytosis SLIGHT Microcytosis 1+ Target Cells 2+ Sodium 141.6 Potassium 5.5 H Chloride 106 Carbon Dioxide 29 Anion Gap 7 BUN 75 H Creatinine 2.59 H Est GFR ( Amer) 22 L Est GFR (Non-Af Amer) 18 L Glucose 160 H POC Glucose Calcium 9.4 Total Bilirubin Direct Bilirubin Neonat Total Bilirubin Neonat Direct Bilirubin Neonat Indirect Bili AST ALT Alkaline Phosphatase Creatine Kinase CK-MB (CK-2) Troponin I Total Protein Albumin 03/28/19 03/28/19 03/28/19 13:02 13:02 13:02 WBC RBC Hgb Hct MCV MCH MCHC RDW Plt Count Total Counted Seg Neutrophils % Seg Neuts % (Manual) Lymphocytes % Lymphocytes % (Manual) Monocytes % Monocytes % (Manual) Eosinophils % Eosinophils % (Manual) Basophils % Basophils % (Manual) Absolute Neutrophils Abs Neuts (Manual) Absolute Lymphocytes Abs Lymphs (Manual) Absolute Monocytes Abs Monocytes (Manual) Absolute Eosinophils Absolute Eos (Manual) Absolute Basophils Abs Basophils (Manual) Clumped Platelets Platelet Comment Hypochromasia Anisocytosis Microcytosis Target Cells Sodium 142.5 Potassium 5.2 H Chloride 107 Carbon Dioxide 24 Anion Gap 12 BUN 82 H Creatinine 2.44 H Est GFR ( Amer) 24 L Est GFR (Non-Af Amer) 20 L Glucose 188 H POC Glucose Calcium 9.6 Total Bilirubin 0.4 Direct Bilirubin 0.3 Neonat Total Bilirubin Not Reportable Neonat Direct Bilirubin Not Reportable Neonat Indirect Bili Not Reportable AST 15 ALT 21 Alkaline Phosphatase 63 Creatine Kinase 46 CK-MB (CK-2) 2.37 Troponin I 0.062 Total Protein 6.6 Albumin 3.4 L 03/28/19 03/28/19 03/28/19 13:04 19:30 19:30 WBC RBC Hgb Hct MCV MCH MCHC RDW Plt Count Total Counted Seg Neutrophils % Seg Neuts % (Manual) Lymphocytes % Lymphocytes % (Manual) Monocytes % Monocytes % (Manual) Eosinophils % Eosinophils % (Manual) Basophils % Basophils % (Manual) Absolute Neutrophils Abs Neuts (Manual) Absolute Lymphocytes Abs Lymphs (Manual) Absolute Monocytes Abs Monocytes (Manual) Absolute Eosinophils Absolute Eos (Manual) Absolute Basophils Abs Basophils (Manual) Clumped Platelets Platelet Comment Hypochromasia Anisocytosis Microcytosis Target Cells Sodium Potassium Chloride Carbon Dioxide Anion Gap BUN Creatinine Est GFR ( Amer) Est GFR (Non-Af Amer) Glucose POC Glucose 206 H Calcium Total Bilirubin Direct Bilirubin Neonat Total Bilirubin Neonat Direct Bilirubin Neonat Indirect Bili AST ALT Alkaline Phosphatase Creatine Kinase 45 CK-MB (CK-2) 2.21 Troponin I 0.078 Total Protein Albumin Chest X-Ray 03/21/19 16:33 IMPRESSION: Pneumonia or asymmetric pulmonary edema. Clinical correlation is needed. Chest X-Ray 03/21/19 16:53 IMPRESSION: Pneumonia or asymmetric pulmonary edema. Clinical correlation is needed. Chest CT 03/22/19 00:00 IMPRESSION: 1. Mild bilateral pleural effusions, right greater than left. Associated consolidation and minimal ground-glass opacities, likely atelectasis although infection is not entirely excluded. 2. Grossly stable 1.0 cm right thyroid lobe nodule. Consider ultrasound evaluation if it would alter patient management. Chest X-Ray 03/23/19 00:00 IMPRESSION: Cardiomegaly. No pulmonary edema. Cannot exclude a limited airspace disease in left lower lobe. Minimal pleural effusions with significant improvement on the right. Renal Ultrasound 03/23/19 00:00 IMPRESSION: The left kidney and bladder are poorly evaluated. Findings as described. Lung Scan-VQ NM 03/23/19 06:00 IMPRESSION: Limited negative study Chest X-Ray 03/27/19 00:00 IMPRESSION: Cardiomegaly without javon pulmonary edema. Cannot exclude limited left lower lobe pneumonia. Chest X-Ray 03/28/19 00:00 IMPRESSION: No acute findings. ECHO REPORT: There is mild concentric left ventricular hypertrophy. No True apical 2 chamber views obtained.Hence cannot comment on the apical anterior , the basal anterior, the basal inferior and apical inferior barfield.The mid anterior , the mid inferior and the rest of the LV barfield contract normally. .Normal LVEF is normal and is greater than 65% in the limited views. Doppler measurements suggest normal left ventricular diastolic function There is no thrombus. Probably no ASD,VSD, or PFO seen. The right ventricle is not well visualized secondary to technical limitations Suspect RV enlargement. The right atrium is mildly dilated. The left atrium is mildly dilated. There is no evidence of mitral valve prolapse. There is no vegetation seen on the mitral valve. There is no mitral valve stenosis. There is a mild amount of mitral regurgitation There is no aortic valvular vegetation. There is mild aortic stenosis There is a peak gradient of 23 mm of Hg. There is no LVOT obstruction. There is a mild amount of aortic regurgitation There is no tricuspid stenosis. There is servere pulmonary hypertension by echo Mid perhaps moderate TR.RVSP is 67 to 72 mm of Hg , with RA mean of 5 to 10. The pulmonic valve is not well visualized. There is no pulmonic valvular stenosis. There is no pulmonic valvular regurgitation. The aortic root is normal size. The inferior vena cava appeared normal and decreased > 50% with respiration (RAP 5-10 mmHg) There is no pericardial effusion. IMPRESSION/RECOMMENDATION: NEW PROBLEMS: 1. Atrial fibrillation with rapid ventricular response. At present patient in atrial fibrillation with controlled ventricular response. Continue Cardizem drip at 15 mg/h. Will hold the patient's p.o. Cardizem. Continue Xarelto. Will discuss with the logistic specialist to see if the Xarelto dose needs to be furt her decreased, although the patient is already on a low-dose of 10 mg/day of Xarelto. This is due to the fact that Cardizem can increase the levels of Xarelto, and may lead to bleeding complications especially with the patient being in renal failure. Also discussed the possibility of elective cardioversion to sinus rhythm if the patient continues to be in atrial fibrillation tomorrow. This is due to the fact the patient in view of her diastolic heart failure, severe pulmonary hypertension, and her renal failure may benefit from the atrial contraction contribution to the cardiac output. Thi s also has been discussed in detail with the patient as to the reason as to why I am recommending cardioversion electrically. 2. Chest pain: Most likely secondary to patient's atrial fibrillation with rapid ventricular response. Note patient in 2017 had a cardiac catheterization which showed normal coronaries. The patient since then has not had any anginal symptoms. Hence I doubt progression of coronary artery disease. At present the patient is chest pain-free with a heart rate being controlled, albeit the patient still being in atrial fibrillation. I am not sure if getting a troponin I level will help, since this elevation may be secondary to atrial fibrillation with rapid rapid ventricular response. Hence will check an EKG to see if there is any abnormalities on the EKG. Later would recommend that the patient have a IV Lexiscan Cardiolite stress test. OLD PROBLEMS: 3. Shortness of breath and orthopnea most likely combination of left ventricular diastolic heart failure, volume overload due to acute on chronic kidney disease and possibly pulmonary hypertension causing right heart failure also the patient has a element of left lower lobe pneumonia. Note the patient's wheezing is improved with the discontinuation of metoprolol. 4. Acute on chronic diastolic heart failure. 5. Left lower lobe pneumonia. Continue antibiotics. Today's x-ray shows no evidence of pneumonia, hence this is resolved. 6. Acute on chronic kidney disease. Renal output has improved, but the patient still stage IV kidney disease. 7. Hypertension: Blood pressure is well controlled, but still not optimal. Will not increase the patient's Cardizem, since the patient is on Xarelto. Will increase the patient's hydralazine to 25 mg p.o. every 6 hours. 8. History of paroxysmal atrial fibrillation: Patient with now with recurrence of atrial fibrillation with rapid ventricular response.. 9. Right heart failure: secondary pulmonary hypertension. Await echo to see if the patient does really have pulmonary hypertension and right heart failure. Echocardiogram shows severe pulmonary hypertension. 10. History of pulmonary embolism: No recurrence. Continue Xarelto. 11. Obstructive sleep apnea: Continue BiPAP. 10. History of asthma/COPD. 12. Morbid obesity: This needs to be addressed later on. Note the patient already had a bariatric surgery done in the past. 13. Severe pulmonary hypertension: Most likely secondary to combination of asthma/COPD, diastolic heart failure, and uncontrolled hypertension in the past, and obstructive sleep apnea. Later we will refer the patient as an outpatient to the pulmonary hypertension clinic and [facility]. Later we will try sildenafil. 14. Mild aortic stenosis and mild aortic regurgitation. Hemodynamically not significant. Medications reviewed. Medications added and adjusted. Medical decision making is of high complexity. Note patient was seen earlier this morning and a total of 35 minutes spent on this patient with more than 50% of time spent in direct patient care. This included discussions of the findings of echocardiogram with the patient. Subsequently when the patient went into atrial fibrillation with rapid ventricular response the patient was seen for another 35minutes with more than 50% of the time spent in direct patient care again rediscussed the findings of echo with the patient. Also discussed the benefits risks and complications of cardioversion electrically, if done. This is if the patient does not go back into sinus rhythm. Management plan was discussed with attending physician Dr. Li, and the in flight refueling craftsman on the case. Will follow
[2019-03-28] MEDS ORDERED: NITROGLYCERIN 0.4 MG/TAB 25 TAB/BOTTLE ONE (12:57)
[2019-03-28] MEDS ORDERED: DILTIAZEM HCL INJ 25 MG/5 ML VIAL ONE (13:00)
[2019-03-28] MEDS ORDERED: DILTIAZEM HCL/D5W 125 MG/125 ML RTUINJ IV ONE (13:01)
--- NOTE | 2019-03-28 13:48 | RADIOLOGY REPORT (SQ) ---
EXAM DESCRIPTION: CHEST SINGLE VIEW COMPLETED DATE/TIME: 03/28/2019 1:21 pm REASON FOR STUDY: chest pain COMPARISON: CT chest 03/22/2019 Chest films 03/21/2019, 03/23/2019, 03/27/2019 EXAM PARAMETERS: NUMBER OF VIEWS: One view. TECHNIQUE: Single frontal radiographic view of the chest acquired. RADIATION DOSE: NA LIMITATIONS: AP portable chest film, obese patient FINDINGS: LUNGS AND PLEURA: No opacities, masses or pneumothorax. No pleural effusion. MEDIASTINUM AND HILAR STRUCTURES: No masses. Contour normal. HEART AND VASCULAR STRUCTURES: Stable cardiomegaly BONES: No acute findings. HARDWARE: Unchanged right-sided central venous catheter OTHER: Lap band seen on CT is not visualized by today's films due to limited portable technique IMPRESSION: No acute findings. TECHNICAL DOCUMENTATION: JOB ID: [id number] [employer]- All Rights Reserved Reading location - IP/workstation name: [email or web address]
[2019-03-28 13:49] LABS: HEMATOCRIT 34.2 % (36.0-47.0); HEMOGLOBIN 10.6 g/dL (12.0-15.5); MEAN CORPUSCULAR HEMOGLOBIN 23.3 pg (27.0-33.4); MEAN CORPUSCULAR HGB CONC 30.9 g/dL (32.0-36.0); MEAN CORPUSCULAR VOLUME 76 fl (80-97); PLATELET COUNT 237 10^3/uL (150-450); RED BLOOD COUNT 4.53 10^6/uL (3.72-5.28); RED CELL DISTRIBUTION WIDTH 16.2 % (11.5-14.0); WHITE BLOOD COUNT 12.1 10^3/uL (4.0-10.5)
[2019-03-28 13:57] LABS: ALANINE AMINOTRANSFERASE 21 U/L (9-52); ALBUMIN 3.4 g/dL (3.5-5.0); ALKALINE PHOSPHATASE 63 U/L (38-126); ANION GAP 12 (5-19); ASPARTATE AMINO TRANSFERASE 15 U/L (14-36); BILIRUBIN,DIRECT 0.3 mg/dL (0.0-0.4); BILIRUBIN,TOTAL 0.4 mg/dL (0.2-1.3); BLOOD UREA NITROGEN 82 mg/dL (7-20); CALCIUM 9.6 mg/dL (8.4-10.2); CARBON DIOXIDE 24 mmol/L (22-30); CHLORIDE 107 mmol/L (98-107); GLUCOSE 188 mg/dL (75-110); POTASSIUM 5.2 mmol/L (3.6-5.0); SODIUM 142.5 mmol/L (137-145); TOTAL PROTEIN 6.6 g/dL (6.3-8.2)
[2019-03-28 14:09] LABS: CREATINE KINASE MB 2.37 ng/mL (<4.55); TROPONIN I 0.062 ng/mL
[2019-03-28] MEDS: DILTIAZEM HCL/D5W 125 MG/125 ML RTUINJ IV PRN ×2 (14:50→19:41)
[2019-03-28] MEDS ORDERED: METOPROLOL TARTRATE PF/INJ 5 MG/5 ML SDV IV ONE (15:00)
[2019-03-28] MEDS ORDERED: FUROSEMIDE INJ/PF 40 MG/4 ML SDV IV ONE (15:30)
--- NOTE | 2019-03-28 16:14 | EKG REPORT ---
SEVERITY:- ABNORMAL ECG - ATRIAL FIBRILLATION, V-RATE 93-181 WITH RVR. PAIRED VENTRICULAR PREMATURE COMPLEXES PROBABLE POSTERIOR INFARCT : Confirmed by: Moises Akers MD 28-Mar-2019 16:12:56
[2019-03-28] MEDS: PATIROMER 8.4 GM SUSP PACKET PO SCH (17:05)
--- NOTE | 2019-03-28 17:20 | PDOC PROGRESS REPORT ---
Subjective Progress Note for:: 03/28/19 Subjective:: Patient had an episode of atrial fibrillation with rapid ventricular response at around noon time. She required Cardizem boluses and currently now with Cardizem drip. Felt Cementer, Dr. Garces was consulted. When I saw her this afternoon her heart rate is well controlled on Cardizem drip. She denies any chest pains currently but she did have chest pain earlier during the event as noted. She tells me that she is still short of breath is not better nor worse. An echocardiogram was done which showed normal left ventricular systolic and diastolic function with LVEF of 65%. There was a note of severe pulmonary hypertension though. Her chest x-ray seems unremarkable without a note of any pulmonary congestion. She continues to make urine output but it does not seem to be enough. She has been making at least about 900 mL of urine for the last 2 to 3 days. Overall for the last few days since admission her intake and output balance is +5 L. Reason For Visit: SOB Physical Exam Vital Signs: Temp Pulse Resp BP Pulse Ox 98.4 F 88 18 140/57 H 100 03/28/19 15:12 03/28/19 16:51 03/28/19 16:51 03/28/19 15:12 03/28/19 16:51 Intake & Output 03/27/19 03/28/19 03/29/19 06:59 06:59 06:59 Intake Total 2075 1890 826 Output Total 950 900 450 Balance 1125 990 376 Weight 137.7 kg 142 kg Exam: General appearance: PRESENT: no acute distress, cooperative, well-developed, well-nourished Head exam: PRESENT: atraumatic, normocephalic Eye exam: PRESENT: conjunctiva pink, PERRLA. ABSENT: scleral icterus Neck exam: ABSENT: JVD Respiratory exam: PRESENT: Normal breath sounds. ABSENT: crackles, rales, rhonchi, unlabored, wheezes Cardiovascular exam: PRESENT: Regular rate rhythm -+S1, +S2. ABSENT: diastolic murmur, systolic murmur GI/Abdominal exam: PRESENT: normal bowel sounds, soft. ABSENT: guarding, mass, tenderness Extremities exam: Mild grade 1 bilateral lower extremity pitting edema Neurological exam: PRESENT: alert, awake, oriented to person, place and time. Skin exam: PRESENT: dry, warm, Cardiovascular exam: PRESENT: RRR, +S1, +S2 GI/Abdominal exam: PRESENT: soft. ABSENT: tenderness Results Laboratory Results: 03/28/19 13:02 03/28/19 13:02 03/28/19 03/28/19 03/28/19 06:05 06:05 13:02 WBC 9.7 12.1 H RBC 4.12 4.53 Hgb 9.6 L 10.6 L Hct 31.0 L 34.2 L MCV 75 L 76 L MCH 23.4 L 23.3 L MCHC 31.2 L 30.9 L RDW 16.0 H 16.2 H Plt Count 205 237 Seg Neutrophils % Not Reportable Lymphocytes % Not Reportable Monocytes % Not Reportable Eosinophils % Not Reportable Basophils % Not Reportable Absolute Neutrophils Not Reportable Absolute Lymphocytes Not Reportable Absolute Monocytes Not Reportable Absolute Eosinophils Not Reportable Absolute Basophils Not Reportable Sodium 141.6 Potassium 5.5 H Chloride 106 Carbon Dioxide 29 Anion Gap 7 BUN 75 H Creatinine 2.59 H Est GFR ( Amer) 22 L Est GFR (Non-Af Amer) 18 L Glucose 160 H Calcium 9.4 Total Bilirubin AST ALT Alkaline Phosphatase Total Protein Albumin 03/28/19 13:02 WBC RBC Hgb Hct MCV MCH MCHC RDW Plt Count Seg Neutrophils % Lymphocytes % Monocytes % Eosinophils % Basophils % Absolute Neutrophils Absolute Lymphocytes Absolute Monocytes Absolute Eosinophils Absolute Basophils Sodium 142.5 Potassium 5.2 H Chloride 107 Carbon Dioxide 24 Anion Gap 12 BUN 82 H Creatinine 2.44 H Est GFR ( Amer) 24 L Est GFR (Non-Af Amer) 20 L Glucose 188 H Calcium 9.6 Total Bilirubin 0.4 AST 15 ALT 21 Alkaline Phosphatase 63 Total Protein 6.6 Albumin 3.4 L 03/21/19 03/21/19 03/21/19 18:07 18:07 23:20 Creatine Kinase 94 96 CK-MB (CK-2) 1.35 Troponin I 0.029 NT-Pro-B Natriuret Pep 5040 H 03/21/19 03/22/19 03/22/19 23:20 05:40 05:40 Creatine Kinase 103 CK-MB (CK-2) 1.70 2.31 Troponin I 0.036 0.038 NT-Pro-B Natriuret Pep 4430 H 03/22/19 03/22/19 03/28/19 13:08 13:08 13:02 Creatine Kinase 125 46 CK-MB (CK-2) 2.34 Troponin I 0.024 NT-Pro-B Natriuret Pep 03/28/19 13:02 Creatine Kinase CK-MB (CK-2) 2.37 Troponin I 0.062 NT-Pro-B Natriuret Pep Impressions: Chest CT 03/22/19 00:00 IMPRESSION: 1. Mild bilateral pleural effusions, right greater than left. Associated consolidation and minimal ground-glass opacities, likely atelectasis although infection is not entirely excluded. 2. Grossly stable 1.0 cm right thyroid lobe nodule. Consider ultrasound evaluation if it would alter patient management. Renal Ultrasound 03/23/19 00:00 IMPRESSION: The left kidney and bladder are poorly evaluated. Findings as described. Lung Scan-VQ NM 03/23/19 06:00 IMPRESSION: Limited negative study Chest X-Ray 03/28/19 00:00 IMPRESSION: No acute findings. Assessment & Plan - Diagnosis (1) Acute renal failure superimposed on stage 2 chronic kidney disease Is this a current diagnosis for this admission?: Yes Plan: This could be secondary to congestive heart failure and diuresis. Urine output is slowly improving as well as the kidney function. Continue the same current management at this point. Monitor kidney function and electrolytes as well as the urine output via the Lopez catheter. Patient does not require any renal replacement therapy at this time. Kidney function seems improved with decreasing creatinine daily but her BUN is rising. Agree with a dose of Lasix [address] Garces. (2) History of urinary retention Is this a current diagnosis for this admission?: Yes Plan: Continue with Lopez catheter. A Lopez catheter needs to be removed she still needs to continue intermittent catheterization throughout the day. (3) Hyperkalemia Is this a current diagnosis for this admission?: Yes Plan: Borderline and mild. Advised low potassium renal diet. (4) Bilateral pleural effusion Is this a current diagnosis for this admission?: Yes Plan: Radiographically improved. (5) Congestive heart failure Qualifiers: Heart failure type: diastolic Is this a current diagnosis for this admission?: Yes Plan: Seems to be slowly improved. Echo revealed normal LVEF of 65% and normal left ventricular diastolic dysfunction as well. However she has severe pulmonary hypertension. (6) Pneumonia Qualifiers: Laterality: right Lung location: unspecified part of lung Is this a current diagnosis for this admission?: Yes Plan: On IV Levaquin. (7) Pulmonary hypertension Is this a current diagnosis for this admission?: Yes Plan: Per echo, it is severe. (8) Anemia in chronic kidney disease (CKD) Is this a current diagnosis for this admission?: Yes Plan: Currently stable. (9) Asthma Qualifiers: Asthma severity: moderate Asthma complication type: uncomplicated Is this a current diagnosis for this admission?: Yes Plan: Continue Breo per pulmonary recommendation. (10) Hypertension Qualifiers: Hypertension type: essential hypertension Qualified Code(s): I10 - Essential (primary) hypertension Is this a current diagnosis for this admission?: Yes Plan: Fairly controlled on current blood pressure regimen. - Time Time with patient: 15-25 minutes
[2019-03-28 20:19] LABS: CREATINE KINASE MB 2.21 ng/mL (<4.55)
[2019-03-28 20:37] LABS: TROPONIN I 0.078 ng/mL
[2019-03-28] MEDS: ATORVASTATIN CALCIUM 20 MG TABLET PO SCH (21:07)
[2019-03-28] MEDS: ZOLPIDEM TARTRATE 5 MG TABLET PO SCH (21:07)
[2019-03-28] MEDS: MONTELUKAST SODIUM 10 MG TABLET PO SCH (21:07)
[2019-03-28] MEDS: PHARMACY COMMUNICATION ORDER MC SCH (21:08)
[2019-03-29] MEDS: LEVALBUTEROL HCL NEB 1.25 MG/3 ML AMPUL NEB SCH ×6 (00:22→20:37)
[2019-03-29] MEDS: HYDRALAZINE HCL 25 MG TABLET PO SCH ×4 (01:21→18:02)
[2019-03-29 03:07] LABS: HEMATOCRIT 30.9 % (36.0-47.0); HEMOGLOBIN 9.4 g/dL (12.0-15.5); MEAN CORPUSCULAR HGB CONC 30.5 g/dL (32.0-36.0); MEAN CORPUSCULAR VOLUME 75 fl (80-97); PLATELET COUNT 208 10^3/uL (150-450); RED CELL DISTRIBUTION WIDTH 15.8 % (11.5-14.0); WHITE BLOOD COUNT 11.8 10^3/uL (4.0-10.5)
[2019-03-29 03:31] LABS: ANION GAP 7 (5-19); BLOOD UREA NITROGEN 84 mg/dL (7-20); CALCIUM 9.3 mg/dL (8.4-10.2); CARBON DIOXIDE 30 mmol/L (22-30); CHLORIDE 106 mmol/L (98-107); GLUCOSE 120 mg/dL (75-110); POTASSIUM 4.8 mmol/L (3.6-5.0)
[2019-03-29 03:39] LABS: CREATINE KINASE MB 1.98 ng/mL (<4.55)
[2019-03-29 03:41] LABS: ABSOLUTE LYMPHOCYTES# (MANUAL) 0.5 10^3/uL (0.5-4.7); ABSOLUTE MONOCYTES # (MANUAL) 1.1 10^3/uL (0.1-1.4); ABSOLUTE NEUTROPHILS# (MANUAL) 10.3 10^3/uL (1.7-8.2); BASOPHILS % (MANUAL) 0 % (0-2); EOSINOPHILS % (MANUAL) 0 % (0-6); LYMPHOCYTES % (MANUAL) 4 % (13-45); MONOCYTES % (MANUAL) 9 % (3-13); SEGMENTED NEUTROPHILS % (MAN) 87 % (42-78); TOTAL CELLS COUNTED 100
[2019-03-29 03:44] LABS: ANISOCYTOSIS SLIGHT; HYPOCHROMASIA 3+; PLATELET COMMENT ADEQUATE; TARGET CELLS 2+
[2019-03-29 04:00] LABS: TROPONIN I 0.077 ng/mL
[2019-03-29] MEDS: ACETAMINOPHEN 325 MG TABLET PO PRN (04:43)
[2019-03-29] MEDS: PANTOPRAZOLE SODIUM 40 MG TABLET.DR PO SCH ×2 (05:18→18:02)
--- NOTE | 2019-03-29 08:27 | PDOC PROGRESS REPORT ---
Subjective Progress Note for:: 03/29/19 Subjective:: Patient had an episode of the chest pain yesterday with the heart rate goes to up to 160 with a A. fib with a rapid ventricular response and patient was put on a Cardizem drip by the solution architect Patient all cardiac enzyme is negative Patient is currently denied any chest pain Patient is currently weaned off from Cardizem drips hopefully start on a p.o. Cardizem Patient still having some short of breath Patient still requiring 4 L nasal cannula Patient is also on Xarelto 10 mg Reason For Visit: SOB Physical Exam Vital Signs: Temp Pulse Resp BP Pulse Ox 97.7 F 74 21 H 137/63 H 100 03/29/19 07:56 03/29/19 07:56 03/29/19 07:56 03/29/19 07:56 03/29/19 07:56 Intake & Output 03/28/19 03/29/19 03/30/19 06:59 06:59 06:59 Intake Total 1890 1847 Output Total 900 2450 Balance 990 -603 Weight 142 kg 142.8 kg General appearance: PRESENT: no acute distress, well-developed, well-nourished Head exam: PRESENT: atraumatic, normocephalic Eye exam: PRESENT: conjunctiva pink, EOMI, PERRLA. ABSENT: scleral icterus Ear exam: PRESENT: normal external ear exam Mouth exam: PRESENT: moist, tongue midline Neck exam: PRESENT: full ROM. ABSENT: carotid bruit, JVD, lymphadenopathy, thyromegaly Respiratory exam: PRESENT: clear to auscultation lashanda Cardiovascular exam: PRESENT: RRR. ABSENT: diastolic murmur, rubs, systolic murmur Pulses: PRESENT: normal dorsalis pedis pul, +2 pedal pulses bilateral Vascular exam: PRESENT: normal capillary refill GI/Abdominal exam: PRESENT: normal bowel sounds, soft. ABSENT: distended, guarding, mass, organolmegaly, rebound, tenderness Rectal exam: PRESENT: deferred Musculoskeletal exam: PRESENT: ambulatory - Dementia okay to take Neurological exam: PRESENT: alert, awake, oriented to person, oriented to place, oriented to time, oriented to situation, CN II-XII grossly intact. ABSENT: motor sensory deficit Psychiatric exam: PRESENT: appropriate affect, normal mood. ABSENT: homicidal ideation, suicidal ideation Skin exam: PRESENT: dry, intact, warm. ABSENT: cyanosis, rash Results Laboratory Results: 03/29/19 02:45 03/29/19 02:45 03/28/19 03/28/19 03/29/19 13:02 13:02 02:45 WBC 12.1 H 11.8 H RBC 4.53 4.10 Hgb 10.6 L 9.4 L Hct 34.2 L 30.9 L MCV 76 L 75 L MCH 23.3 L 23.0 L MCHC 30.9 L 30.5 L RDW 16.2 H 15.8 H Plt Count 237 208 Seg Neutrophils % Not Reportable Lymphocytes % Not Reportable Monocytes % Not Reportable Eosinophils % Not Reportable Basophils % Not Reportable Absolute Neutrophils Not Reportable Absolute Lymphocytes Not Reportable Absolute Monocytes Not Reportable Absolute Eosinophils Not Reportable Absolute Basophils Not Reportable Sodium 142.5 Potassium 5.2 H Chloride 107 Carbon Dioxide 24 Anion Gap 12 BUN 82 H Creatinine 2.44 H Est GFR ( Amer) 24 L Est GFR (Non-Af Amer) 20 L Glucose 188 H Calcium 9.6 Total Bilirubin 0.4 AST 15 ALT 21 Alkaline Phosphatase 63 Total Protein 6.6 Albumin 3.4 L 03/29/19 02:45 WBC RBC Hgb Hct MCV MCH MCHC RDW Plt Count Seg Neutrophils % Lymphocytes % Monocytes % Eosinophils % Basophils % Absolute Neutrophils Absolute Lymphocytes Absolute Monocytes Absolute Eosinophils Absolute Basophils Sodium 143.0 Potassium 4.8 Chloride 106 Carbon Dioxide 30 Anion Gap 7 BUN 84 H Creatinine 2.48 H Est GFR ( Amer) 23 L Est GFR (Non-Af Amer) 19 L Glucose 120 H Calcium 9.3 Total Bilirubin AST ALT Alkaline Phosphatase Total Protein Albumin 03/21/19 03/21/19 03/21/19 18:07 18:07 23:20 Creatine Kinase 94 96 CK-MB (CK-2) 1.35 Troponin I 0.029 NT-Pro-B Natriuret Pep 5040 H 03/21/19 03/22/19 03/22/19 23:20 05:40 05:40 Creatine Kinase 103 CK-MB (CK-2) 1.70 2.31 Troponin I 0.036 0.038 NT-Pro-B Natriuret Pep 4430 H 03/22/19 03/22/19 03/28/19 13:08 13:08 13:02 Creatine Kinase 125 46 CK-MB (CK-2) 2.34 Troponin I 0.024 NT-Pro-B Natriuret Pep 03/28/19 03/28/19 03/28/19 13:02 19:30 19:30 Creatine Kinase 45 CK-MB (CK-2) 2.37 2.21 Troponin I 0.062 0.078 NT-Pro-B Natriuret Pep 03/29/19 03/29/19 02:45 02:45 Creatine Kinase 41 CK-MB (CK-2) 1.98 Troponin I 0.077 NT-Pro-B Natriuret Pep Impressions: Chest CT 03/22/19 00:00 IMPRESSION: 1. Mild bilateral pleural effusions, right greater than left. Associated consolidation and minimal ground-glass opacities, likely atelectasis although infection is not entirely excluded. 2. Grossly stable 1.0 cm right thyroid lobe nodule. Consider ultrasound e valuation if it would alter patient management. Renal Ultrasound 03/23/19 00:00 IMPRESSION: The left kidney and bladder are poorly evaluated. Findings as described. Lung Scan-VQ NM 03/23/19 06:00 IMPRESSION: Limited negative study Chest X-Ray 03/28/19 00:00 IMPRESSION: No acute findings. Assessment & Plan - Diagnosis (1) Congestive heart failure Qualifiers: Heart failure type: diastolic Is this a current diagnosis for this admission?: Yes Plan: We will discuss with the cardiology Consider start the Lasix every day (2) Bilateral pleural effusion Is this a current diagnosis for this admission?: Yes Plan: Repeat chest x-ray (3) Dyspnea Qualifiers: Dyspnea type: dyspnea on exertion Qualified Code(s): R06.09 - Other forms of dyspnea Is this a current diagnosis for this admission?: Yes Plan: The multifactorial (4) Migraine headache Qualifiers: Migraine type: chronic without aura Status migrainosus presence: with status migrainosus Intractability: not intractable Qualified Code(s): G43.701 - Chronic migraine without aura, not intractable, with status migrainosus Is this a current diagnosis for this admission?: Yes (5) Poorly-controlled hypertension Is this a current diagnosis for this admission?: Yes (6) Asthma Qualifiers: Asthma severity: moderate Asthma complication type: uncomplicated Is this a current diagnosis for this admission?: Yes (7) Chronic back pain Qualifiers: Back pain location: low back pain Is this a current diagnosis for this admission?: Yes (8) Chronic kidney disease Qualifiers: Chronic kidney disease stage: stage 2 (mild) Qualified Code(s): N18.2 - Chronic kidney disease, stage 2 (mild) Is this a current diagnosis for this admission?: Yes (9) Chronic pain syndrome Is this a current diagnosis for this admission?: Yes (10) Paroxysmal atrial fibrillation Is this a current diagnosis for this admission?: Yes (11) Pulmonary embolism Qualifiers: Chronicity: chronic Acute cor pulmonale presence: without acute cor pulmonale Is this a current diagnosis for this admission?: Yes (12) Sleep apnea Qualifiers: Sleep apnea type: unspecified type Qualified Code(s): G47.30 - Sleep apnea, unspecified Is this a current diagnosis for this admission?: Yes (13) Pneumonia Qualifiers: Laterality: right Lung location: unspecified part of lung Is this a current diagnosis for this admission?: Yes - Time Time Spent with patient: 15-24 minutes Medications reviewed and adjusted accordingly: Yes Anticipated discharge: Home Within: Other - Plan Summary Plan Summary: continue the current medications
[2019-03-29] MEDS: CITALOPRAM HYDROBROMIDE 20 MG TABLET PO SCH (09:25)
[2019-03-29] MEDS: CALCITRIOL 0.25 MCG CAPSULE PO SCH (09:25)
[2019-03-29] MEDS: DOCUSATE SODIUM 100 MG CAPSULE PO SCH ×2 (09:25→18:01)
[2019-03-29] MEDS: SILVER SULFADIAZINE 1% CREAM 50 GM TOP SCH ×4 (09:26→21:45)
[2019-03-29] MEDS: RIVAROXABAN 10 MG TABLET PO SCH (09:26)
[2019-03-29] MEDS: MINOXIDIL 2.5 MG TABLET PO SCH ×2 (09:26→21:44)
[2019-03-29] MEDS: FLUTICASONE NASAL SPRAY 50 MCG/SPRY 120 SPRAY/16 GM NASL SCH ×2 (09:37→21:44)
[2019-03-29] MEDS: LIDOCAINE 5% (700 MG) TRANSDERMAL ADH..PATCH EXT SCH (09:37)
[2019-03-29] MEDS: FLUTICASONE/VILANTEROL 200-25 MCG/DOSE IH SCH (09:37)
--- NOTE | 2019-03-29 10:41 | RADIOLOGY REPORT (SQ) ---
EXAM DESCRIPTION: CHEST 2 VIEWS COMPLETED DATE/TIME: 03/29/2019 10:19 am REASON FOR STUDY: chf COMPARISON: 03/28/2019 EXAM PARAMETERS: NUMBER OF VIEWS: two views TECHNIQUE: Digital Frontal and Lateral radiographic views of the chest acquired. RADIATION DOSE: NA LIMITATIONS: none FINDINGS: LUNGS AND PLEURA: No opacities, masses or pneumothorax. No pleural effusion. MEDIASTINUM AND HILAR STRUCTURES: No masses or contour abnormalities. HEART AND VASCULAR STRUCTURES: Enlarged cardiac silhouette, stable. No overt edema. BONES: No acute findings. HARDWARE: Right sided chest port with catheter tip at cavoatrial junction. OTHER: No other significant finding. IMPRESSION: Stable large cardiac silhouette with central vascular congestion and without overt edema . Mild left retrocardiac opacity possibly atelectasis, or infection. TECHNICAL DOCUMENTATION: JOB ID: [id number] [employer]- All Rights Reserved Reading location - IP/workstation name: [email or web address]
[2019-03-29] MEDS: OXYCODONE-ACETAMINOPHEN 5-325 MG TABLET PO PRN (14:24)
--- NOTE | 2019-03-29 14:31 | EKG REPORT ---
SEVERITY:- BORDERLINE ECG - SINUS RHYTHM SHORT WA INTERVAL, ACCELERATED AV CONDUCTION BORDERLINE T WAVE ABNORMALITIES : Confirmed by: Moises Akers MD 29-Mar-2019 14:30:55
[2019-03-29] MEDS: DILTIAZEM HCL 180 MG CAPSULE.CR PO SCH ×2 (15:13→21:44)
[2019-03-29] MEDS: PATIROMER 8.4 GM SUSP PACKET PO SCH (18:04)
[2019-03-29] MEDS: QUETIAPINE FUMARATE 25 MG TABLET PO PRN (18:31)
--- NOTE | 2019-03-29 18:48 | PDOC PROGRESS REPORT ---
Subjective Progress Note for:: 03/29/19 Subjective:: Patient is having a migraine headache today. Otherwise she has been off the Cardizem drip and is now on oral Cardizem. With one-time dose of Lasix 40 mg IV yesterday 2450 mL of urine output. Today so far she had 1000 mL of urine output which is far more better than the first few days of her admission. Reason For Visit: SOB Physical Exam Vital Signs: Temp Pulse Resp BP Pulse Ox 97.8 F 79 18 158/56 H 95 03/29/19 15:18 03/29/19 16:24 03/29/19 16:24 03/29/19 15:18 03/29/19 16:24 Intake & Output 03/28/19 03/29/19 03/30/19 06:59 06:59 06:59 Intake Total 1890 1847 716 Output Total 900 2450 1000 Balance 990 -603 -284 Weight 142 kg 142.8 kg Exam: General appearance: PRESENT: no acute distress, cooperative, well-developed, well-nourished Head exam: PRESENT: atraumatic, normocephalic Eye exam: PRESENT: conjunctiva pink, PERRLA. ABSENT: scleral icterus Neck exam: ABSENT: JVD Respiratory exam: PRESENT: Normal breath sounds. ABSENT: crackles, rales, rhonchi, unlabored, wheezes Cardiovascular exam: PRESENT: Regular rate rhythm -+S1, +S2. ABSENT: diastolic murmur, systolic murmur GI/Abdominal exam: PRESENT: normal bowel sounds, soft. ABSENT: guarding, mass, tenderness Extremities exam: Unchanged grade 1 bilateral lower extremity pitting edema Neurological exam: PRESENT: alert, awake, oriented to person, place and time. Skin exam: PRESENT: dry, warm, Cardiovascular exam: PRESENT: RRR, +S1, +S2 GI/Abdominal exam: PRESENT: soft. ABSENT: tenderness Results Laboratory Results: 03/29/19 02:45 03/29/19 02:45 03/29/19 03/29/19 02:45 02:45 WBC 11.8 H RBC 4.10 Hgb 9.4 L Hct 30.9 L MCV 75 L MCH 23.0 L MCHC 30.5 L RDW 15.8 H Plt Count 208 Seg Neutrophils % Not Reportable Lymphocytes % Not Reportable Monocytes % Not Reportable Eosinophils % Not Reportable Basophils % Not Reportable Absolute Neutrophils Not Reportable Absolute Lymphocytes Not Reportable Absolute Monocytes Not Reportable Absolute Eosinophils Not Reportable Absolute Basophils Not Reportable Sodium 143.0 Potassium 4.8 Chloride 106 Carbon Dioxide 30 Anion Gap 7 BUN 84 H Creatinine 2.48 H Est GFR ( Amer) 23 L Est GFR (Non-Af Amer) 19 L Glucose 120 H Calcium 9.3 03/21/19 03/21/19 03/21/19 18:07 18:07 23:20 Creatine Kinase 94 96 CK-MB (CK-2) 1.35 Troponin I 0.029 NT-Pro-B Natriuret Pep 5040 H 03/21/19 03/22/19 03/22/19 23:20 05:40 05:40 Creatine Kinase 103 CK-MB (CK-2) 1.70 2.31 Troponin I 0.036 0.038 NT-Pro-B Natriuret Pep 4430 H 03/22/19 03/22/19 03/28/19 13:08 13:08 13:02 Creatine Kinase 125 46 CK-MB (CK-2) 2.34 Troponin I 0.024 NT-Pro-B Natriuret Pep 03/28/19 03/28/19 03/28/19 13:02 19:30 19:30 Creatine Kinase 45 CK-MB (CK-2) 2.37 2.21 Troponin I 0.062 0.078 NT-Pro-B Natriuret Pep 03/29/19 03/29/19 02:45 02:45 Creatine Kinase 41 CK-MB (CK-2) 1.98 Troponin I 0.077 NT-Pro-B Natriuret Pep Impressions: Chest CT 03/22/19 00:00 IMPRESSION: 1. Mild bilateral pleural effusions, right greater than left. Associated consolidation and minimal ground-glass opacities, likely atelectasis although infection is not entirely excluded. 2. Grossly stable 1.0 cm right thyroid lobe nodule. Consider ultrasound evaluation if it would alter patient management. Renal Ultrasound 03/23/19 00:00 IMPRESSION: The left kidney and bladder are poorly evaluated. Findings as described. Lung Scan-VQ NM 03/23/19 06:00 IMPRESSION: Limited negative study Chest X-Ray 03/29/19 00:00 IMPRESSION: Stable large cardiac silhouette with central vascular congestion and without overt edema. Mild left retrocardiac opacity possibly atelectasis, or infection. Assessment & Plan - Diagnosis (1) Acute renal failure superimposed on stage 2 chronic kidney disease Is this a current diagnosis for this admission?: Yes Plan: This could be secondary to congestive heart failure. Urine output is slowly improving as well as the kidney function. Continue the same current management at this point. Monitor kidney function and electrolytes as well as the urine output via the Lopez catheter. Patient does not require any renal replacement therapy at this time. Kidney function seems improved with decreasing creatinine daily but her BUN is rising. Start oral Lasix 40 mg p.o. daily for maintenance. (2) History of urinary retention Is this a current diagnosis for this admission?: Yes Plan: Continue with Lopez catheter. A Lopez catheter needs to be removed she still needs to continue intermittent catheterization throughout the day. (3) Hyperkalemia Is this a current diagnosis for this admission?: Yes Plan: Borderline and mild. Advised low potassium renal diet. On [place]. (4) Bilateral pleural effusion Is this a current diagnosis for this admission?: Yes Plan: Radiographically improved. (5) Congestive heart failure Qualifiers: Heart failure type: diastolic Is this a current diagnosis for this admission?: Yes Plan: Seems to be slowly improved. Echo revealed normal LVEF of 65% and normal left ventricular diastolic dysfunction as well. However she has severe pulmonary hypertension. (6) Pneumonia Qualifiers: Laterality: right Lung location: unspecified part of lung Is this a current diagnosis for this admission?: Yes Plan: On IV Levaquin. (7) Pulmonary hypertension Is this a current diagnosis for this admission?: Yes Plan: Per echo, it is severe. (8) Anemia in chronic kidney disease (CKD) Is this a current diagnosis for this admission?: Yes Plan: Currently stable. (9) Asthma Qualifiers: Asthma severity: moderate Asthma complication type: uncomplicated Is this a current diagnosis for this admission?: Yes Plan: Continue Breo per pulmonary recommendation. (10) Hypertension Qualifiers: Hypertension type: essential hypertension Qualified Code(s): I10 - Essential (primary) hypertension Is this a current diagnosis for this admission?: Yes Plan: Fairly controlled on current blood pressure regimen. (11) Migraine headache Qualifiers: Migraine type: chronic without aura Status migrainosus presence: with status migrainosus Intractability: not intractable Qualified Code(s): G43.701 - Chronic migraine without aura, not intractable, with status migra inosus Is this a current diagnosis for this admission?: Yes - Time Time with patient: 15-25 minutes
[2019-03-29] MEDS ORDERED: MORPHINE SULFATE 10 MG/ML INJ IV ONE (19:00)
[2019-03-29] MEDS: FUROSEMIDE 40 MG TABLET PO SCH (20:26)
--- NOTE | 2019-03-29 21:26 | Progress Note ---
Provider Note Provider Note: CARDIOLOGY PROGRESS NOTE by Dr. Shasha Garces on 03/29/2019. SUBJECTIVE: The patient converted to sinus rhythm. There is no TIA CVA symptoms. She at present is off the Cardizem drip. She denies any chest pain or discomfort. There is no PND. Her leg edema is trace to mild and remains the same. Her urine output is slightly improved. She does have complaints of shortness of breath which is similar to yesterday, all may be even slightly improved. She does have chronic orthopnea. There is no ventricular arrhythmia seen on the monitor except for a short run of accelerated idioventricular rhythm versus sinus rhythm with bundle branch block pattern. The patient was asymptomatic. There is no bleeding on Xarelto. PHYSICAL EXAMINATION: The patient is morbidly obese. On present in no acute distress. She does look a slightly anxious. She is well-groomed Selected Entries 03/29/19 11:04 Temperature 97.7 F Temperature Oral Source Pulse Rate 76 Respiratory 20 Rate Blood Pressure 150/50 H Blood Pressure 83 Mean BP Location Left Arm BP Position Sitting O2 Sat by Pulse 95 Oximetry Oxygen Flow 5.00 Rate Oxygen Delivery Nasal Cannula Method HEAD: Is atraumatic normocephalic. EYES: Pupils equal round regular reactive to light accommodation. Extraocular movements are normal. There is no conjunctival pallor there is no scleral icterus. ENT is negative. Neck is supple there is no JVD. Carotids are equal there is no bruit. There is no lymphadenopathy. There is no accessory muscle respiration use. Trachea central. LUNGS: Shows a few dry crackles in the left lower lobe. The rest of the lungs are clear without any rhonchi wheezing. HEART: S1-S2 is heard S1 is of variable intensity. There is no S3 gallop. There is no S4 gallop. There is systolic murmur left sternal border and the apex there is no rub. ABDOMEN: Is obese. Nontender. There is no hepatospleno megaly. Bowel sounds well heard. There is no tender areas masses. EXTREMITIES femorals are deep. Femorals are diminished. There is no femoral bruits. Leg pulses are diminished. There is trace to mild pedal edema with chronic venous stasis dermatitis changes. There is no DVT or cellulitis. There is no calf tenderness. There is no cyanosis or clubbing. FINANCE EXECUTIVE: The patient is conscious awake alert oriented x3 with no focal deficit. PSYCHIATRIC the patient judgment insight are intact her affect is normal. Labs- All tests 24 hr 03/29/19 03/29/19 03/29/19 02:45 02:45 02:45 WBC 11.8 H RBC 4.10 Hgb 9.4 L Hct 30.9 L MCV 75 L MCH 23.0 L MCHC 30.5 L RDW 15.8 H Plt Count 208 Total Counted 100 Seg Neutrophils % Not Reportable Seg Neuts % (Manual) 87 H Lymphocytes % Not Reportable Lymphocytes % (Manual) 4 L Monocytes % Not Reportable Monocytes % (Manual) 9 Eosinophils % Not Reportable Eosinophils % (Manual) 0 Basophils % Not Reportable Basophils % (Manual) 0 Absolute Neutrophils Not Reportable Abs Neuts (Manual) 10.3 H Absolute Lymphocytes Not Reportable Abs Lymphs (Manual) 0.5 Absolute Monocytes Not Reportable Abs Monocytes (Manual) 1.1 Absolute Eosinophils Not Reportable Absolute Eos (Manual) 0.0 Absolute Basophils Not Reportable Abs Basophils (Manual) 0.0 Platelet Comment ADEQUATE Hypochromasia 3+ Anisocytosis SLIGHT Microcytosis 1+ Target Cells 2+ Sodium Potassium Chloride Carbon Dioxide Anion Gap BUN Creatinine Est GFR ( Amer) Est GFR (Non-Af Amer) Glucose Calcium Creatine Kinase 41 CK-MB (CK-2) 1.98 Troponin I 0.077 03/29/19 02:45 WBC RBC Hgb Hct MCV MCH MCHC RDW Plt Count Total Counted Seg Neutrophils % Seg Neuts % (Manual) Lymphocytes % Lymphocytes % (Manual) Monocytes % Monocytes % (Manual) Eosinophils % Eosinophils % (Manual) Basophils % Basophils % (Manual) Absolute Neutrophils Abs Neuts (Manual) Absolute Lymphocytes Abs Lymphs (Manual) Absolute Monocytes Abs Monocytes (Manual) Absolute Eosinophils Absolute Eos (Manual) Absolute Basophils Abs Basophils (Manual) Platelet Comment Hypochromasia Anisocytosis Microcytosis Target Cells Sodium 143.0 Potassium 4.8 Chloride 106 Carbon Dioxide 30 Anion Gap 7 BUN 84 H Creatinine 2.48 H Est GFR ( Amer) 23 L Est GFR (Non-Af Amer) 19 L Glucose 120 H Calcium 9.3 Creatine Kinase CK-MB (CK-2) Troponin I Chest X-Ray 03/21/19 16:33 IMPRESSION: Pneumonia or asymmetric pulmonary edema. Clinical correlation is needed. Chest X-Ray 03/21/19 16:53 IMPRESSION: Pneumonia or asymmetric pulmonary edema. Clinical correlation is needed. Chest CT 03/22/19 00:00 IMPRESSION: 1. Mild bilateral pleural effusions, right greater than left. Associated consolidation and minimal ground-glass opacities, likely atelectasis although infection is not entirely excluded. 2. Grossly stable 1.0 cm right thyroid lobe nodule. Consider ultrasound evaluation if it would alter patient management. Chest X-Ray 03/23/19 00:00 IMPRESSION: Cardiomegaly. No pulmonary edema. Cannot exclude a limited airspace disease in left lower lobe. Minimal pleural effusions with significant improvement on the right. Renal Ultrasound 03/23/19 00:00 IMPRESSION: The left kidney and bladder are poorly evaluated. Findings as d escribed. Lung Scan-VQ NM 03/23/19 06:00 IMPRESSION: Limited negative study Chest X-Ray 03/27/19 00:00 IMPRESSION: Cardiomegaly without javon pulmonary edema. Cannot exclude limited left lower lobe pneumonia. Chest X-Ray 03/28/19 00:00 IMPRESSION: No acute findings. Chest X-Ray 03/29/19 00:00 IMPRESSION: Stable large cardiac silhouette with central vascular congestion and without overt edema. Mild left retrocardiac opacity possibly atelectasis, or infection. IMPRESSION/RECOMMENDATION: 1. Paroxysmal atrial fibrillation. At present patient in sinus rhythm. We will discontinue the patient's Cardizem. Will start the patient on Cardizem CD 180 mg p.o. every 12 hours. We will stop the patient's Xarelto and switch to Eliquis 2.5 mg p.o. twice daily in view of the patient's renal function, and also the fact that Cardizem can raise the levels. This has been discussed with the patient. She is slightly increased risk. I have made these changes from Xarelto to Eliquis after discussion with her director meetings Dr. Chou. 2. Chest pain: Resolved. This is secondary to atrial fibrillation with rapid ventricular response. This is not due to coronary artery disease. 3. Shortness of breath and orthopnea most likely combination of left ventricular diastolic heart failure, volume overload due to acute on chronic kidney disease and possibly pulmonary hypertension causing right heart failure also the patient has a element of left lower lobe pneumonia. Note the patient's wheezing is improved with the discontinuation of metoprolol. 4. Acute on chronic diastolic heart failure. 5. Left lower lobe pneumonia. Continue antibiotics. Today's x-ray shows no evidence of pneumonia, hence this is resolved. 6. Acute on chronic kidney disease. Renal output has improved, but the patient still stage IV kidney disease. 7. Hypertension: Blood pressure is well controlled, but still not optimal. Will not increase the patient's Cardizem, since the patient is on Xarelto. Will increase the patient's hydralazine to 25 mg p.o. every 6 hours. 8. History of paroxysmal atrial fibrillation: Patient with now with recurrence of atrial fibrillation with rapid ventricular response.. 9. Right heart failure: secondary pulmonary hypertension. Await echo to see if the patient does really have pulmonary hypertension and right heart failure. Echocardiogram shows severe pulmonary hypertension. 10. History of pulmonary embolism: No recurrence. Continue Xarelto. 11. Obstructive sleep apnea: Continue BiPAP. 10. History of asthma/COPD. 12. Morbid obesity: This needs to be addressed later on. Note the patient already had a bariatric surgery done in the past. 13. Severe pulmonary hypertension: Most likely secondary to combination of asthma/COPD, diastolic heart failure, and uncontrolled hypertension in the past, and obstructive sleep apnea. Later we will refer the patient as an outpatient to the pulmonary hypertension clinic and [facility]. Later we will try sildenafil. 14. Mild aortic stenosis and mild aortic regurgitation. Hemodynamically not significant. Medications reviewed. Medications adjusted, medications changed. Management plan discussed with Dr. Li, the attending physician, and the gis database administrator on the case. Medical decision making is of high complexity, due to multiple comorbidities, and need to address and balance treatment for several disease states, and careful review of the medications to make sure there are no major untoward side effects.. 50 minutes spent on this patient more than 50% of time spent in direct patient care. Discussed with patient that there is no need for cardioversion since the patient did convert to sinus rhythm. Will follow.
[2019-03-29] MEDS: MONTELUKAST SODIUM 10 MG TABLET PO SCH (21:45)
[2019-03-29] MEDS: PHARMACY COMMUNICATION ORDER MC SCH (21:45)
[2019-03-29] MEDS: ATORVASTATIN CALCIUM 20 MG TABLET PO SCH (21:45)
[2019-03-30] MEDS: LEVALBUTEROL HCL NEB 1.25 MG/3 ML AMPUL NEB SCH ×6 (00:38→20:41)
[2019-03-30] MEDS: HYDRALAZINE HCL 25 MG TABLET PO SCH ×4 (02:46→17:29)
[2019-03-30] MEDS: OXYCODONE-ACETAMINOPHEN 5-325 MG TABLET PO PRN ×2 (05:05→15:02)
[2019-03-30] MEDS: PANTOPRAZOLE SODIUM 40 MG TABLET.DR PO SCH ×2 (05:06→17:29)
[2019-03-30 05:32] LABS: ABSOLUTE EOSINOPHILS # (AUTO) 0.4 10^3/uL (0.0-0.6); ABSOLUTE LYMPHOCYTES (AUTO) 1.2 10^3/uL (0.5-4.7); ABSOLUTE NEUT (AUTO) 7.6 10^3/uL (1.7-8.2); BASOPHILS % (AUTO) 0.2 % (0-2); EOSINOPHILS % (AUTO) 3.6 % (0-6); HEMATOCRIT 31.9 % (36.0-47.0); HEMOGLOBIN 9.9 g/dL (12.0-15.5); LYMPHOCYTES % (AUTO) 11.9 % (13-45); MEAN CORPUSCULAR HEMOGLOBIN 23.6 pg (27.0-33.4); MEAN CORPUSCULAR VOLUME 76 fl (80-97); MONOCYTES % (AUTO) 9.8 % (3-13); PLATELET COUNT 187 10^3/uL (150-450); RED CELL DISTRIBUTION WIDTH 15.8 % (11.5-14.0); SEGMENTED NEUTROPHILS % (AUTO) 74.5 % (42-78); TOTAL CELLS COUNTED % (AUTO) 100 %; WHITE BLOOD COUNT 10.2 10^3/uL (4.0-10.5)
[2019-03-30 06:30] LABS: ANION GAP 7 (5-19); BLOOD UREA NITROGEN 76 mg/dL (7-20); CALCIUM 9.1 mg/dL (8.4-10.2); CARBON DIOXIDE 30 mmol/L (22-30); CHLORIDE 105 mmol/L (98-107); GLUCOSE 122 mg/dL (75-110); SODIUM 142.2 mmol/L (137-145)
--- NOTE | 2019-03-30 08:34 | PDOC PROGRESS REPORT ---
Subjective Progress Note for:: 03/30/19 Subjective:: Spoke with Dr. Kwan yesterday, because she was in rapid A. fib she was started on Cardizem and will need to be on Cardizem as a new medication. Therefore he felt that Yuliet would have an interaction so he suggested initiation of Eliquis. I agreed with that. I discussed this with her extensively this morning. She understands. Reason For Visit: SOB Physical Exam Vital Signs: Temp Pulse Resp BP Pulse Ox 97.7 F 99 18 118/56 L 99 03/30/19 00:10 03/30/19 06:53 03/30/19 04:38 03/30/19 00:10 03/30/19 04:38 Intake & Output 03/29/19 03/30/19 03/31/19 06:59 06:59 06:59 Intake Total 1847 1716 Output Total 2450 0635 Balance -603 -2052 Weight 142.8 kg 142 kg General appearance: PRESENT: no acute distress, well-developed, well-nourished Head exam: PRESENT: atraumatic, normocephalic Eye exam: PRESENT: conjunctiva pink, EOMI, PERRLA. ABSENT: scleral icterus Ear exam: PRESENT: normal external ear exam Mouth exam: PRESENT: moist, tongue midline Neck exam: ABSENT: carotid bruit, JVD, lymphadenopathy, thyromegaly Respiratory exam: PRESENT: clear to auscultation lashanda. ABSENT: rales, rhonchi, wheezes Cardiovascular exam: PRESENT: RRR. ABSENT: diastolic murmur, rubs, systolic murmur Pulses: PRESENT: normal dorsalis pedis pul Vascular exam: PRESENT: normal capillary refill GI/Abdominal exam: PRESENT: normal bowel sounds, soft. ABSENT: distended, guarding, mass, organolmegaly, rebound, tenderness Rectal exam: PRESENT: deferred Extremities exam: PRESENT: full ROM. ABSENT: calf tenderness, clubbing, pedal edema Neurological exam: PRESENT: alert, awake, oriented to person, oriented to place, oriented to time, oriented to situation, CN II-XII grossly intact. ABSENT: m otor sensory deficit Psychiatric exam: PRESENT: appropriate affect, normal mood. ABSENT: homicidal ideation, suicidal ideation Skin exam: PRESENT: dry, intact, warm. ABSENT: cyanosis, rash Results Laboratory Results: 03/30/19 05:00 03/30/19 06:02 03/30/19 03/30/19 03/30/19 05:00 05:00 06:02 WBC 10.2 RBC 4.20 Hgb 9.9 L Hct 31.9 L MCV 76 L MCH 23.6 L MCHC 31.0 L RDW 15.8 H Plt Count 187 Seg Neutrophils % 74.5 Lymphocytes % 11.9 L Monocytes % 9.8 Eosinophils % 3.6 Basophils % 0.2 Absolute Neutrophils 7.6 Absolute Lymphocytes 1.2 Absolute Monocytes 1.0 Absolute Eosinophils 0.4 Absolute Basophils 0.0 Sodium Cancelled 142.2 Potassium Cancelled 4.0 Chloride Cancelled 105 Carbon Dioxide Cancelled 30 Anion Gap Cancelled 7 BUN Cancelled 76 H Creatinine Cancelled 1.89 H Est GFR ( Amer) Cancelled 32 L Est GFR (Non-Af Amer) Cancelled 26 L Glucose Cancelled 122 H Calcium Cancelled 9.1 03/21/19 03/21/19 03/21/19 18:07 18:07 23:20 Creatine Kinase 94 96 CK-MB (CK-2) 1.35 Troponin I 0.029 NT-Pro-B Natriuret Pep 5040 H 03/21/19 03/22/19 03/22/19 23:20 05:40 05:40 Creatine Kinase 103 CK-MB (CK-2) 1.70 2.31 Troponin I 0.036 0.038 NT-Pro-B Natriuret Pep 4430 H 03/22/19 03/22/19 03/28/19 13:08 13:08 13:02 Creatine Kinase 125 46 CK-MB (CK-2) 2.34 Troponin I 0.024 NT-Pro-B Natriuret Pep 03/28/19 03/28/19 03/28/19 13:02 19:30 19:30 Creatine Kinase 45 CK-MB (CK-2) 2.37 2.21 Troponin I 0.062 0.078 NT-Pro-B Natriuret Pep 03/29/19 03/29/19 02:45 02:45 Creatine Kinase 41 CK-MB (CK-2) 1.98 Troponin I 0.077 NT-Pro-B Natriuret Pep Impressions: Chest CT 03/22/19 00:00 IMPRESSION: 1. Mild bilateral pleural effusions, right greater than left. Associated consolidation and minimal ground-glass opacities, likely atelectasis although infection is not entirely excluded. 2. Grossly stable 1.0 cm right thyroid lobe nodule. Consider ultrasound evaluation if it would alter patient management. Renal Ultrasound 03/23/19 00:00 IMPRESSION: The left kidney and bladder are poorly evaluated. Findings as described. Lung Scan-VQ NM 03/23/19 06:00 IMPRESSION: Limited negative study Chest X-Ray 03/29/19 00:00 IMPRESSION: Stable large cardiac silhouette with central vascular congestion and without overt edema. Mild left retrocardiac opacity possibly atelectasis, or infection. Assessment & Plan - Diagnosis (1) Bilateral pleural effusion Is this a current diagnosis for this admission?: Yes Plan: Stable (2) Pulmonary embolism Qualifiers: Chronicity: chronic Acute cor pulmonale presence: without acute cor pulmonale Is this a current diagnosis for this admission?: Yes Plan: Switch to Eliquis 2.5 mg twice daily. Continue on discharge. (3) Dyspnea Qualifiers: Dyspnea type: dyspnea on exertion Qualified Code(s): R06.09 - Other forms of dyspnea Is this a current diagnosis for this admission?: Yes - Time Time Spent with patient: 35 or more minutes
--- NOTE | 2019-03-30 09:01 | PDOC PROGRESS REPORT ---
Subjective Progress Note for:: 03/30/19 Subjective:: Patient is feeling much better this morning Patient had a migraine attack yesterday Patient unable to take her regular pain medications discussed with the patient's to try to take the medicines what is she has at home's because hospital does not carry the patient's home medications advised we have the equivalent started on the morphine's Patient's Xarelto was discontinued and I put her on Eliquis due to the kidney functions Patient's denied any chest pain denied any shortness of the breath Patient's chest x-ray is all stable Patient is usually required 2 L oxygen at home currently back to the baseline Reason For Visit: SOB Physical Exam Vital Signs: Temp Pulse Resp BP Pulse Ox 97.3 F 84 20 152/59 H 100 03/30/19 07:38 03/30/19 07:38 03/30/19 07:38 03/30/19 07:38 03/30/19 07:38 Intake & Output 03/29/19 03/30/19 03/31/19 06:59 06:59 06:59 Intake Total 1847 1716 Output Total 2450 7895 Balance -603 -2059 Weight 142.8 kg 142 kg General appearance: PRESENT: no acute distress, well-developed, well-nourished Head exam: PRESENT: atraumatic, normocephalic Eye exam: PRESENT: conjunctiva pink, EOMI, PERRLA. ABSENT: scleral icterus Ear exam: PRESENT: normal external ear exam Mouth exam: PRESENT: moist, tongue midline Neck exam: PRESENT: full ROM. ABSENT: carotid bruit, JVD, lymphadenopathy, thyromegaly Respiratory exam: PRESENT: clear to auscultation lashanda Cardiovascular exam: PRESENT: RRR. ABSENT: diastolic murmur, rubs, systolic murmur Vascular exam: PRESENT: normal capillary refill GI/Abdominal exam: PRESENT: normal bowel sounds, soft. ABSENT: distended, guard ing, mass, organolmegaly, rebound, tenderness Rectal exam: PRESENT: deferred Neurological exam: PRESENT: alert, awake, oriented to person, oriented to place, oriented to time, oriented to situation, CN II-XII grossly intact. ABSENT: motor sensory deficit Psychiatric exam: PRESENT: appropriate affect, normal mood. ABSENT: homicidal ideation, suicidal ideation Skin exam: PRESENT: dry, intact, warm. ABSENT: cyanosis, rash Results Laboratory Results: 03/30/19 05:00 03/30/19 06:02 03/30/19 03/30/19 03/30/19 05:00 05:00 06:02 WBC 10.2 RBC 4.20 Hgb 9.9 L Hct 31.9 L MCV 76 L MCH 23.6 L MCHC 31.0 L RDW 15.8 H Plt Count 187 Seg Neutrophils % 74.5 Lymphocytes % 11.9 L Monocytes % 9.8 Eosinophils % 3.6 Basophils % 0.2 Absolute Neutrophils 7.6 Absolute Lymphocytes 1.2 Absolute Monocytes 1.0 Absolute Eosinophils 0.4 Absolute Basophils 0.0 Sodium Cancelled 142.2 Potassium Cancelled 4.0 Chloride Cancelled 105 Carbon Dioxide Cancelled 30 Anion Gap Cancelled 7 BUN Cancelled 76 H Creatinine Cancelled 1.89 H Est GFR ( Amer) Cancelled 32 L Est GFR (Non-Af Amer) Cancelled 26 L Glucose Cancelled 122 H Calcium Cancelled 9.1 03/21/19 03/21/19 03/21/19 18:07 18:07 23:20 Creatine Kinase 94 96 CK-MB (CK-2) 1.35 Troponin I 0.029 NT-Pro-B Natriuret Pep 5040 H 03/21/19 03/22/19 03/22/19 23:20 05:40 05:40 Creatine Kinase 103 CK-MB (CK-2) 1.70 2.31 Troponin I 0.036 0.038 NT-Pro-B Natriuret Pep 4430 H 03/22/19 03/22/19 03/28/19 13:08 13:08 13:02 Creatine Kinase 125 46 CK-MB (CK-2) 2.34 Troponin I 0.024 NT-Pro-B Natriuret Pep 03/28/19 03/28/19 03/28/19 13:02 19:30 19:30 Creatine Kinase 45 CK-MB (CK-2) 2.37 2.21 Troponin I 0.062 0.078 NT-Pro-B Natriuret Pep 03/29/19 03/29/19 02:45 02:45 Creatine Kinase 41 CK-MB (CK-2) 1.98 Troponin I 0.077 NT-Pro-B Natriuret Pep Impressions: Chest CT 03/22/19 00:00 IMPRESSION: 1. Mild bilateral pleural effusions, right greater than left. Associated consolidation and minimal ground-glass opacities, likely atelectasis although infection is not entirely excluded. 2. Grossly stable 1.0 cm right thyroid lobe nodule. Consider ultrasound evaluation if it would alter patient management. Renal Ultrasound 03/23/19 00:00 IMPRESSION: The left kidney and bladder are poorly evaluated. Findings as described. Lung Scan-VQ NM 03/23/19 06:00 IMPRESSION: Limited negative study Chest X-Ray 03/29/19 00:00 IMPRESSION: Stable large cardiac silhouette with central vascular congestion and without overt edema. Mild left retrocardiac opacity possibly atelectasis, or infection. Assessment & Plan - Diagnosis (1) Congestive heart failure Qualifiers: Heart failure type: diastolic Is this a current diagnosis for this admission?: Yes Plan: We will discuss with the cardiology Consider start the Lasix every day (2) Bilateral pleural effusion Is this a current diagnosis for this admission?: Yes Plan: Repeat chest x-ray (3) Dyspnea Qualifiers: Dyspnea type: dyspnea on exertion Qualified Code(s): R06.09 - Other forms of dyspnea Is this a current diagnosis for this admission?: Yes Plan: The multifactorial (4) Migraine headache Qualifiers: Migraine type: chronic without aura Status migrainosus presence: with status migrainosus Intractability: not intractable Qualified Code(s): G43.701 - Chronic migraine without aura, not intractable, with status migrainosus Is this a current diagnosis for this admission?: Yes (5) Poorly-controlled hypertension Is this a current diagnosis for this admission?: Yes Plan: Davida all improving (6) Asthma Qualifiers: Asthma severity: moderate Asthma complication type: uncomplicated Is this a current diagnosis for this admission?: Yes Plan: Start the patient on IV Solu-Medrol and nebulizer treatments (7) Chronic back pain Qualifiers: Back pain location: low back pain Is this a current diagnosis for this admission?: Yes (8) Chronic kidney disease Qualifiers: Chronic kidney disease stage: stage 2 (mild) Qualified Code(s): N18.2 - Chronic kidney disease, stage 2 (mild) Is this a current diagnosis for this admission?: Yes Plan: Follow with the nephrology (9) Chronic pain syndrome Is this a current diagnosis for this admission?: Yes (10) Paroxysmal atrial fibrillation Is this a current diagnosis for this admission?: Yes Plan: Currently on Xarelto and a beta-julio c (11) Pulmonary embolism Qualifiers: Chronicity: chronic Acute cor pulmonale presence: without acute cor pulmonale Is this a current diagnosis for this admission?: Yes (12) Sleep apnea Qualifiers: Sleep apnea type: unspecified type Qualified Code(s): G47.30 - Sleep apnea, unspecified Is this a current diagnosis for this admission?: Yes (13) Pneumonia Qualifiers: Laterality: right Lung location: unspecified part of lung Is this a current diagnosis for this admission?: Yes - Time Time Spent with patient: 15-24 minutes Medications reviewed and adjusted accordingly: Yes Anticipated discharge: Home Within: within 24 hours
[2019-03-30] MEDS: FUROSEMIDE 40 MG TABLET PO SCH (09:37)
[2019-03-30] MEDS: APIXABAN 2.5 MG TABLET PO SCH ×2 (09:38→17:29)
[2019-03-30] MEDS: MINOXIDIL 2.5 MG TABLET PO SCH ×2 (09:38→21:32)
[2019-03-30] MEDS: DOCUSATE SODIUM 100 MG CAPSULE PO SCH ×2 (09:38→17:29)
[2019-03-30] MEDS: CITALOPRAM HYDROBROMIDE 20 MG TABLET PO SCH (09:38)
[2019-03-30] MEDS: FLUTICASONE/VILANTEROL 200-25 MCG/DOSE IH SCH (09:38)
[2019-03-30] MEDS: CALCITRIOL 0.25 MCG CAPSULE PO SCH (09:38)
[2019-03-30] MEDS: FLUTICASONE NASAL SPRAY 50 MCG/SPRY 120 SPRAY/16 GM NASL SCH ×2 (09:38→21:32)
[2019-03-30] MEDS: LIDOCAINE 5% (700 MG) TRANSDERMAL ADH..PATCH EXT SCH (09:38)
[2019-03-30] MEDS: DILTIAZEM HCL 180 MG CAPSULE.CR PO SCH ×2 (09:38→21:31)
[2019-03-30] MEDS: SILVER SULFADIAZINE 1% CREAM 50 GM TOP SCH ×5 (09:39→21:34)
[2019-03-30] MEDS: MORPHINE SULFATE SR 15 MG TABLET PO SCH ×2 (12:28→21:31)
[2019-03-30] MEDS ORDERED: ACETAMINOPHEN 325 MG TABLET PO PRN (14:53)
[2019-03-30] MEDS: PATIROMER 8.4 GM SUSP PACKET PO SCH (17:26)
[2019-03-30] MEDS: QUETIAPINE FUMARATE 25 MG TABLET PO PRN (17:36)
--- NOTE | 2019-03-30 18:54 | PDOC PROGRESS REPORT ---
Subjective Progress Note for:: 03/30/19 Subjective:: Patient's migraine headache seems to be a little bit better today but is not completely resolved. She continues to have excellent urine output for the last 48 hours. Her kidney function is also improving. Reason For Visit: SOB Physical Exam Vital Signs: Temp Pulse Resp BP Pulse Ox 98.4 F 83 18 134/64 H 97 03/30/19 15:35 03/30/19 15:57 03/30/19 15:57 03/30/19 15:35 03/30/19 15:57 Intake & Output 03/29/19 03/30/19 03/31/19 06:59 06:59 06:59 Intake Total 1847 1716 1477 Output Total 2450 0675 1175 Balance -603 -6447 302 Weight 142.8 kg 142 kg Exam: General appearance: PRESENT: no acute distress, cooperative, well-developed, well-nourished Head exam: PRESENT: atraumatic, normocephalic Eye exam: PRESENT: conjunctiva pink, PERRLA. ABSENT: scleral icterus Neck exam: ABSENT: JVD Respiratory exam: PRESENT: Diminished breath sounds. ABSENT: crackles, rales, rhonchi, unlabored, wheezes Cardiovascular exam: PRESENT: Regular rate rhythm -+S1, +S2. ABSENT: diastolic murmur, systolic murmur GI/Abdominal exam: PRESENT: normal bowel sounds, soft. ABSENT: guarding, mass, tenderness Extremities exam: Bilateral trace lower extremity pitting edema Neurological exam: PRESENT: alert, awake, oriented to person, place and time. Skin exam: PRESENT: dry, warm, Cardiovascular exam: PRESENT: RRR, +S1, +S2 GI/Abdominal exam: PRESENT: soft. ABSENT: tenderness Results Laboratory Results: 03/30/19 05:00 03/30/19 06:02 03/30/19 03/30/19 03/30/19 05:00 05:00 06:02 WBC 10.2 RBC 4.20 Hgb 9.9 L Hct 31.9 L MCV 76 L MCH 23.6 L MCHC 31.0 L RDW 15.8 H Plt Count 187 Seg Neutrophils % 74.5 Lymphocytes % 11.9 L Monocytes % 9.8 Eosinophils % 3.6 Basophils % 0.2 Absolute Neutrophils 7.6 Absolute Lymphocytes 1.2 Absolute Monocytes 1.0 Absolute Eosinophils 0.4 Absolute Basophils 0.0 Sodium Cancelled 142.2 Potassium Cancelled 4.0 Chloride Cancelled 105 Carbon Dioxide Cancelled 30 Anion Gap Cancelled 7 BUN Cancelled 76 H Creatinine Cancelled 1.89 H Est GFR ( Amer) Cancelled 32 L Est GFR (Non-Af Amer) Cancelled 26 L Glucose Cancelled 122 H Calcium Cancelled 9.1 03/21/19 03/21/19 03/21/19 18:07 18:07 23:20 Creatine Kinase 94 96 CK-MB (CK-2) 1.35 Troponin I 0.029 NT-Pro-B Natriuret Pep 5040 H 03/21/19 03/22/19 03/22/19 23:20 05:40 05:40 Creatine Kinase 103 CK-MB (CK-2) 1.70 2.31 Troponin I 0.036 0.038 NT-Pro-B Natriuret Pep 4430 H 03/22/19 03/22/19 03/28/19 13:08 13:08 13:02 Creatine Kinase 125 46 CK-MB (CK-2) 2.34 Troponin I 0.024 NT-Pro-B Natriuret Pep 03/28/19 03/28/19 03/28/19 13:02 19:30 19:30 Creatine Kinase 45 CK-MB (CK-2) 2.37 2.21 Troponin I 0.062 0.078 NT-Pro-B Natriuret Pep 03/29/19 03/29/19 02:45 02:45 Creatine Kinase 41 CK-MB (CK-2) 1.98 Troponin I 0.077 NT-Pro-B Natriuret Pep Impressions: Chest CT 03/22/19 00:00 IMPRESSION: 1. Mild bilateral pleural effusions, right greater than left. Associated consolidation and minimal ground-glass opacities, likely atelectasis although infection is not entirely excluded. 2. Grossly stable 1.0 cm right thyroid lobe nodule. Consider ultrasound evaluation if it would alter patient management. Renal Ultrasound 03/23/19 00:00 IMPRESSION: The left kidney and bladder are poorly evaluated. Findings as described. Lung Scan-VQ NM 03/23/19 06:00 IMPRESSION: Limited negative study Chest X-Ray 03/29/19 00:00 IMPRESSION: Stable large cardiac silhouette with central vascular congestion and without overt edema. Mild left retrocardiac opacity possibly atelectasis, or infection. Assessment & Plan - Diagnosis (1) Acute renal failure superimposed on stage 2 chronic kidney disease Is this a current diagnosis for this admission?: Yes Plan: This could be secondary to congestive heart failure. Urine output is much improved as well as the kidney function. Continue the same current management at this point. Monitor kidney function and electrolytes as well as the urine output via the Lopez catheter. Patient does not require any renal replacement therapy at this time. Continue oral Lasix 40 mg p.o. daily for maintenance. (2) History of urinary retention Is this a current diagnosis for this admission?: Yes Plan: Continue with Lopez catheter. A Lopez catheter needs to be removed she still needs to continue intermittent catheterization throughout the day. (3) Hyperkalemia Is this a current diagnosis for this admission?: Yes Plan: Resolved. Advised low potassium renal diet. On V[place]. (4) Bilateral pleural effusion Is this a current diagnosis for this admission?: Yes Plan: Radiographically improved. (5) Congestive heart failure Qualifiers: Heart failure type: diastolic Is this a current diagnosis for this admission?: Yes Plan: Seems to be slowly improved. Echo revealed normal LVEF of 65% and normal left ventricular diastolic dysfunction as well. However she has severe pulmonary hypertension. (6) Pneumonia Qualifiers: Laterality: right Lung location: unspecified part of lung Is this a current diagnosis for this admission?: Yes Plan: On IV Levaquin. (7) Pulmonary hypertension Is this a current diagnosis for this admission?: Yes Plan: Per echo, it is severe. (8) Anemia in chronic kidney disease (CKD) Is this a current diagnosis for this admission?: Yes Plan: Currently stable. (9) Asthma Qualifiers: Asthma severity: moderate Asthma complication type: uncomplicated Is this a current diagnosis for this admission?: Yes Plan: Continue Breo per pulmonary recommendation. (10) Hypertension Qualifiers: Hypertension type: essential hypertension Qualified Code(s): I10 - Essential (primary) hypertension Is this a current diagnosis for this admission?: Yes Plan: Fairly controlled on current blood pressure regimen. (11) Migraine headache Qualifiers: Migraine type: chronic without aura Status migrainosus presence: with status migrainosus Intractability: not intractable Qualified Code(s): G43.701 - Chronic migraine without aura, not intractable, with status migrainosus Is this a current diagnosis for this admission?: Yes - Time Time with patient: 15-25 minutes
[2019-03-30] MEDS: ATORVASTATIN CALCIUM 20 MG TABLET PO SCH (21:31)
[2019-03-30] MEDS: MONTELUKAST SODIUM 10 MG TABLET PO SCH (21:31)
[2019-03-30] MEDS: PHARMACY COMMUNICATION ORDER MC SCH (21:34)
--- NOTE | 2019-03-31 00:20 | Progress Note ---
Provider Note Provider Note: CARDIOLOGY PROGRESS NOTE BY Dr.Lakshmi Garces on 03/30/2019.
[2019-03-31] MEDS: LEVALBUTEROL HCL NEB 1.25 MG/3 ML AMPUL NEB SCH ×6 (00:59→20:28)
[2019-03-31] MEDS: OXYCODONE-ACETAMINOPHEN 5-325 MG TABLET PO PRN ×4 (01:43→22:28)
[2019-03-31] MEDS: HYDRALAZINE HCL 25 MG TABLET PO SCH ×5 (01:44→23:48)
[2019-03-31] MEDS: PANTOPRAZOLE SODIUM 40 MG TABLET.DR PO SCH ×2 (05:08→17:55)
[2019-03-31] MEDS: PATIROMER 8.4 GM SUSP PACKET PO SCH (07:18)
[2019-03-31] MEDS: MINOXIDIL 2.5 MG TABLET PO SCH ×2 (10:13→21:06)
[2019-03-31] MEDS: CALCITRIOL 0.25 MCG CAPSULE PO SCH (10:13)
[2019-03-31] MEDS: DOCUSATE SODIUM 100 MG CAPSULE PO SCH ×2 (10:13→17:55)
[2019-03-31] MEDS: MORPHINE SULFATE SR 15 MG TABLET PO SCH ×2 (10:13→21:05)
[2019-03-31] MEDS: FLUTICASONE NASAL SPRAY 50 MCG/SPRY 120 SPRAY/16 GM NASL SCH ×2 (10:13→21:06)
[2019-03-31] MEDS: LIDOCAINE 5% (700 MG) TRANSDERMAL ADH..PATCH EXT SCH (10:13)
[2019-03-31] MEDS: SILDENAFIL CITRATE 20 MG TABLET PO SCH ×2 (10:13→17:55)
[2019-03-31] MEDS: CITALOPRAM HYDROBROMIDE 20 MG TABLET PO SCH (10:13)
[2019-03-31] MEDS: DILTIAZEM HCL 180 MG CAPSULE.CR PO SCH ×2 (10:14→21:05)
[2019-03-31] MEDS: FLUTICASONE/VILANTEROL 200-25 MCG/DOSE IH SCH (10:14)
[2019-03-31] MEDS: FUROSEMIDE 40 MG TABLET PO SCH (10:14)
[2019-03-31] MEDS: SILVER SULFADIAZINE 1% CREAM 50 GM TOP SCH ×4 (10:15→21:06)
[2019-03-31] MEDS: APIXABAN 2.5 MG TABLET PO SCH ×2 (10:15→17:55)
--- NOTE | 2019-03-31 12:24 | PDOC PROGRESS REPORT ---
Subjective Progress Note for:: 03/31/19 Subjective:: Patient is currently doing well Patient is denied any chest pain to than any shortness of the breath Patient's otherwise remained stable Patient does not have anybody at home now unable able to go home today Reason For Visit: SOB Physical Exam Vital Signs: Temp Pulse Resp BP Pulse Ox 97.7 F 86 18 122/49 L 97 03/31/19 07:09 03/31/19 11:48 03/31/19 11:48 03/31/19 07:09 03/31/19 11:48 Intake & Output 03/30/19 03/31/19 04/01/19 06:59 06:59 06:59 Intake Total 1716 1477 Output Total 3774 1775 Balance -2058 - Weight 142 kg 143.3 kg General appearance: PRESENT: no acute distress, well-developed, well-nourished Head exam: PRESENT: atraumatic, normocephalic Eye exam: PRESENT: conjunctiva pink, EOMI, PERRLA. ABSENT: scleral icterus Ear exam: PRESENT: normal external ear exam Mouth exam: PRESENT: moist, tongue midline Neck exam: PRESENT: full ROM. ABSENT: carotid bruit, JVD, lymphadenopathy, thyromegaly Respiratory exam: PRESENT: clear to auscultation lashanda Cardiovascular exam: PRESENT: irregular rhythm. ABSENT: diastolic murmur, rubs, systolic murmur Vascular exam: PRESENT: normal capillary refill GI/Abdominal exam: PRESENT: normal bowel sounds, soft. ABSENT: distended, guarding, mass, organolmegaly, rebound, tenderness Rectal exam: PRESENT: deferred Neurological exam: PRESENT: alert, awake, oriented to person, oriented to place, oriented to time, oriented to situation, CN II-XII grossly intact. ABSENT: motor sensory deficit Psychiatric exam: PRESENT: appropriate affect, normal mood. ABSENT: homicidal ideation, suicidal ideation Skin exam: PRESENT: dry, intact, warm. ABSENT: cyanosis, rash Results Laboratory Results: 03/30/19 05:00 03/30/19 06:02 03/21/19 03/21/19 03/21/19 18:07 18:07 23:20 Creatine Kinase 94 96 CK-MB (CK-2) 1.35 Troponin I 0.029 NT-Pro-B Natriuret Pep 5040 H 03/21/19 03/22/19 03/22/19 23:20 05:40 05:40 Creatine Kinase 103 CK-MB (CK-2) 1.70 2.31 Troponin I 0.036 0.038 NT-Pro-B Natriuret Pep 4430 H 03/22/19 03/22/19 03/28/19 13:08 13:08 13:02 Creatine Kinase 125 46 CK-MB (CK-2) 2.34 Troponin I 0.024 NT-Pro-B Natriuret Pep 03/28/19 03/28/19 03/28/19 13:02 19:30 19:30 Creatine Kinase 45 CK-MB (CK-2) 2.37 2.21 Troponin I 0.062 0.078 NT-Pro-B Natriuret Pep 03/29/19 03/29/19 02:45 02:45 Creatine Kinase 41 CK-MB (CK-2) 1.98 Troponin I 0.077 NT-Pro-B Natriuret Pep Impressions: Chest CT 03/22/19 00:00 IMPRESSION: 1. Mild bilateral pleural effusions, right greater than left. Associated consolidation and minimal ground-glass opacities, likely atelectasis although infection is not entirely excluded. 2. Grossly stable 1.0 cm right thyroid lobe nodule. Consider ultrasound evaluation if it would alter patient management. Renal Ultrasound 03/23/19 00:00 IMPRESSION: The left kidney and bladder are poorly evaluated. Findings as described. Lung Scan-VQ NM 03/23/19 06:00 IMPRESSION: Limited negative study Chest X-Ray 03/29/19 00:00 IMPRESSION: Stable large cardiac silhouette with central vascular congestion and without overt edema. Mild left retrocardiac opacity possibly atelectasis, or infection. Assessment & Plan - Diagnosis (1) Congestive heart failure Qualifiers: Heart failure type: diastolic Is this a current diagnosis for this admission?: Yes Plan: We will discuss with the cardiology Consider start the Lasix every day (2) Bilateral pleural effusion Is this a current diagnosis for this admission?: Yes Plan: Repeat chest x-ray (3) Dyspnea Qualifiers: Dyspnea type: dyspnea on exertion Qualified Code(s): R06.09 - Other forms of dyspnea Is this a current diagnosis for this admission?: Yes Plan: The multifactorial (4) Migraine headache Qualifiers: Migraine type: chronic without aura Status migrainosus presence: with status migrainosus Intractability: not intractable Qualified Code(s): G43.701 - Chronic migraine without aura, not intractable, with status migrainosus Is this a current diagnosis for this admission?: Yes (5) Poorly-controlled hypertension Is this a current diagnosis for this admission?: Yes (6) Asthma Qualifiers: Asthma severity: moderate Asthma complication type: uncomplicated Is this a current diagnosis for this admission?: Yes (7) Chronic back pain Qualifiers: Back pain location: low back pain Is this a current diagnosis for this admission?: Yes (8) Chronic kidney disease Qualifiers: Chronic kidney disease stage: stage 2 (mild) Qualified Code(s): N18.2 - Chronic kidney disease, stage 2 (mild) Is this a current diagnosis for this admission?: Yes (9) Chronic pain syndrome Is this a current diagnosis for this admission?: Yes (10) Paroxysmal atrial fibrillation Is this a current diagnosis for this admission?: Yes (11) Pulmonary embolism Qualifiers: Chronicity: chronic Acute cor pulmonale presence: without acute cor pulmonale Is this a current diagnosis for this admission?: Yes (12) Sleep apnea Qualifiers: Sleep apnea type: unspecified type Qualified Code(s): G47.30 - Sleep apnea, unspecified Is this a current diagnosis for this admission?: Yes (13) Pneumonia Qualifiers: Laterality: right Lung location: unspecified part of lung Is this a current diagnosis for this admission?: Yes - Time Time Spent with patient: 15-24 minutes Medications reviewed and adjusted accordingly: Yes Anticipated discharge: Home Within: within 48 hours - Plan Summary Plan Summary: Continues to current medications Unfortunately patient does not have anybody at home and hopefully by Wednesday patients can discharge
[2019-03-31] MEDS: QUETIAPINE FUMARATE 25 MG TABLET PO PRN (17:56)
[2019-03-31] MEDS: MONTELUKAST SODIUM 10 MG TABLET PO SCH (21:05)
[2019-03-31] MEDS: ATORVASTATIN CALCIUM 20 MG TABLET PO SCH (21:06)
[2019-03-31] MEDS: PHARMACY COMMUNICATION ORDER MC SCH (21:23)
[2019-04-01] MEDS: LEVALBUTEROL HCL NEB 1.25 MG/3 ML AMPUL NEB SCH ×6 (00:35→20:29)
[2019-04-01] MEDS: OXYCODONE-ACETAMINOPHEN 5-325 MG TABLET PO PRN ×3 (04:53→18:05)
[2019-04-01] MEDS: HYDRALAZINE HCL 25 MG TABLET PO SCH ×4 (05:59→23:09)
[2019-04-01] MEDS: PANTOPRAZOLE SODIUM 40 MG TABLET.DR PO SCH ×2 (05:59→17:08)
[2019-04-01] MEDS: QUETIAPINE FUMARATE 25 MG TABLET PO PRN (06:31)
[2019-04-01] MEDS: SILDENAFIL CITRATE 20 MG TABLET PO SCH ×3 (08:33→17:08)
[2019-04-01] MEDS: PATIROMER 8.4 GM SUSP PACKET PO SCH ×2 (08:34→15:05)
[2019-04-01] MEDS: DILTIAZEM HCL 180 MG CAPSULE.CR PO SCH ×2 (09:58→21:19)
[2019-04-01] MEDS: FUROSEMIDE 40 MG TABLET PO SCH (09:58)
[2019-04-01] MEDS: CALCITRIOL 0.25 MCG CAPSULE PO SCH (09:58)
[2019-04-01] MEDS: DOCUSATE SODIUM 100 MG CAPSULE PO SCH ×2 (09:58→17:07)
[2019-04-01] MEDS: MORPHINE SULFATE SR 15 MG TABLET PO SCH ×2 (09:58→21:19)
[2019-04-01] MEDS: APIXABAN 2.5 MG TABLET PO SCH ×2 (09:59→17:08)
[2019-04-01] MEDS: MINOXIDIL 2.5 MG TABLET PO SCH ×2 (09:59→21:21)
[2019-04-01] MEDS: SILVER SULFADIAZINE 1% CREAM 50 GM TOP SCH ×4 (09:59→21:21)
[2019-04-01] MEDS: FLUTICASONE NASAL SPRAY 50 MCG/SPRY 120 SPRAY/16 GM NASL SCH ×2 (09:59→21:20)
[2019-04-01] MEDS: CITALOPRAM HYDROBROMIDE 20 MG TABLET PO SCH (09:59)
[2019-04-01] MEDS: FLUTICASONE/VILANTEROL 200-25 MCG/DOSE IH SCH (09:59)
[2019-04-01] MEDS: LIDOCAINE 5% (700 MG) TRANSDERMAL ADH..PATCH EXT SCH (09:59)
--- NOTE | 2019-04-01 14:07 | PDOC PROGRESS REPORT ---
Subjective Progress Note for:: 04/01/19 Subjective:: Patient seen by the bedside she has no new complaints Reason For Visit: SOB Physical Exam Vital Signs: Temp Pulse Resp BP Pulse Ox 98.0 F 90 18 105/30 L 98 04/01/19 11:33 04/01/19 11:45 04/01/19 11:45 04/01/19 11:33 04/01/19 11:45 Intake & Output 03/31/19 04/01/19 04/02/19 06:59 06:59 06:59 Intake Total 1477 1128 Output Total 1775 1160 Balance -298 -32 Weight 143.3 kg 144.3 kg General appearance: PRESENT: no acute distress Eye exam: PRESENT: PERRLA Respiratory exam: PRESENT: clear to auscultation lashanda Cardiovascular exam: PRESENT: +S1, +S2 GI/Abdominal exam: PRESENT: soft Results Laboratory Results: 03/30/19 05:00 03/30/19 06:02 03/21/19 03/21/19 03/21/19 18:07 18:07 23:20 Creatine Kinase 94 96 CK-MB (CK-2) 1.35 Troponin I 0.029 NT-Pro-B Natriuret Pep 5040 H 03/21/19 03/22/19 03/22/19 23:20 05:40 05:40 Creatine Kinase 103 CK-MB (CK-2) 1.70 2.31 Troponin I 0.036 0.038 NT-Pro-B Natriuret Pep 4430 H 03/22/19 03/22/19 03/28/19 13:08 13:08 13:02 Creatine Kinase 125 46 CK-MB (CK-2) 2.34 Troponin I 0.024 NT-Pro-B Natriuret Pep 03/28/19 03/28/19 03/28/19 13:02 19:30 19:30 Creatine Kinase 45 CK-MB (CK-2) 2.37 2.21 Troponin I 0.062 0.078 NT-Pro-B Natriuret Pep 03/29/19 03/29/19 02:45 02:45 Creatine Kinase 41 CK-MB (CK-2) 1.98 Troponin I 0.077 NT-Pro-B Natriuret Pep Impressions: Chest CT 03/22/19 00:00 IMPRESSION: 1. Mild bilateral pleural effusions, right greater than left. Associated consolidation and minimal ground-glass opacities, likely atelectasis although infection is not entirely excluded. 2. Grossly stable 1.0 cm right thyroid lobe nodule. Consider ultrasound evaluation if it would alter patient management. Renal Ultrasound 03/23/19 00:00 IMPRESSION: The left kidney and bladder are poorly evaluated. Findings as described. Lung Scan-VQ NM 03/23/19 06:00 IMPRESSION: Limited negative study Chest X-Ray 03/29/19 00:00 IMPRESSION: Stable large cardiac silhouette with central vascular congestion and without overt edema. Mild left retrocardiac opacity possibly atelectasis, or infection. Assessment & Plan - Diagnosis (1) Bilateral pleural effusion Is this a current diagnosis for this admission?: Yes (2) Congestive heart failure Qualifiers: Heart failure type: diastolic Is this a current diagnosis for this admission?: Yes (3) Sleep apnea Qualifiers: Sleep apnea type: unspecified type Qualified Code(s): G47.30 - Sleep apnea, unspecified Is this a current diagnosis for this admission?: Yes (4) OUMAR (acute kidney injury) Is this a current diagnosis for this admission?: Yes
--- NOTE | 2019-04-01 17:05 | Progress Note ---
Provider Note Provider Note: CARDIOLOGY PROGRESS NOTE by Dr. Shasha Lovett on 04/01/2019. SUBJECTIVE: The patient states that with the starting of sildenafil she feels her shortness of breath is improved. There is still orthopnea. There is no PND. There is no recurrence of atrial fibrillation. There is no PND. Her leg edema is trace to mild. She has no chest pain or discomfort. There is no cough or sputum production there is no wheezing. There is no bleeding on Eliquis. There is no TIA CVA symptoms. PHYSICAL EXAMINATION: The patient is morbidly obese. At present no acute distress. She is well-groomed. Selected Entries 04/01/19 07:18 Temperature 98.2 F Temperature Oral Source Pulse Rate 96 Respiratory 19 Rate Blood Pressure 140/56 H Blood Pressure 84 Mean BP Location Left Arm BP Position Sitting O2 Sat by Pulse 100 Oximetry Oxygen Flow 2.00 Rate Oxygen Delivery Nasal Cannula Method HEAD: Is atraumatic normocephalic. EYES: Pupils equal round regular reactive to light accommodation. Extraocular movements are normal. There is no conjunctival pallor there is no scleral icterus. ENT is negative. Neck is supple there is no JVD. Carotids are equal there is no bruit. There is no lymphadenopathy. There is no accessory muscle respiration use. Trachea central. LUNGS: Shows a few dry crackles in the left lower lobe. The rest of the lungs are clear without any rhonchi wheezing. HEART: S1-S2 is heard S1 is of variable intensity. There is no S3 gallop. There is no S4 gallop. There is systolic murmur left sternal border and the apex there is no rub. ABDOMEN: Is obese. Nontender. There is no hepatospleno megaly. Bowel sounds well heard. There is no tender areas masses. EXTREMITIES femorals are deep. Femorals are diminished. There is no femoral bruits. Leg pulses are diminished. There is trace to mild pedal edema with chronic venous stasis dermatitis changes. There is no DVT or cellulitis. There is no calf tenderness. There is no cyanosis or clubbing. [employer]: The patient is conscious awake alert oriented x3 with no focal deficit. PSYCHIATRIC the patient judgment insight are intact her affect is normal. The patient's total 24-hour intake is 1126 ml, and and total 24-hour output was 1160 mL. IMPRESSION/RECOMMENDATION: 1. Paroxysmal atrial fibrillation. At present patient in sinus rhythm. Continue current dose of Cardizem, and continue Eliquis. 2. Shortness of breath and orthopnea most likely combination of left ventricular diastolic heart failure, volume overload due to acute on chronic kidney disease and possibly pulmonary hypertension causing right heart failure also the patient has a element of left lower lobe pneumonia. Note the patient's wheezing is improved with the discontinuation of metoprolol. 3. Acute on chronic diastolic heart failure. 4. Left lower lobe pneumonia. Continue antibiotics. Today's x-ray shows no evidence of pneumonia, hence this is rsolved. 5. Acute on chronic kidney disease. Renal output has improved, but the patient still stage IV kidney disease. 6. Hypertension: Blood pressure is well controlled, but still not optimal. Will not increase the patient's Cardizem, since the patient is on Xarelto. Will increase the patient's hydralazine to 25 mg p.o. every 6 hours. 7. History of paroxysmal atrial fibrillation: Patient with now with recurrence of atrial fibrillation with rapid ventricular response.. 8. SEVERE PULMONARY HYPERTENSION: I have started the patient on sildenafil. The patient seems to have less shortness of shortness of breath with this. The patient has been cautioned not to take or allow anybody to give her nitrates due to the fact that she is on sildenafil. We will try to get the patient an outpatient appointment in the pulmonary hypertension clinic [facility] in [place]. 9.Right heart failure: secondary pulmonary hypertension. Echocardiogram shows severe pulmonary hypertension. 10. History of pulmonary embolism: No recurrence. Continue Eliquis. 11. Obstructive sleep apnea: Continue BiPAP. 12. History of asthma/COPD. 13. Morbid obesity: This needs to be addressed later on. Note the patient already had a bariatric surgery done in the past. 14. Severe pulmonary hypertension: Most likely secondary to combination of asthma/COPD, diastolic heart failure, and uncontrolled hypertension in the past, and obstructive sleep apnea. Later we will refer the patient as an outpatient to the pulmonary hypertension clinic and [facility]. Later we will try sildenafil. 15. Mild aortic stenosis and mild aortic regurgitation. Hemodynamically not significant. Medications reviewed. Management plan discussed with attending physician on the case. Medical decision making is now of moderate complexity. 40 minutes spent on this patient with more than 50% of time spent in direct patient care. Will sign off. The patient desires to be followed up as an outpatient.
[2019-04-01] MEDS: PHARMACY COMMUNICATION ORDER MC SCH (21:19)
[2019-04-01] MEDS: MONTELUKAST SODIUM 10 MG TABLET PO SCH (21:19)
[2019-04-01] MEDS: ATORVASTATIN CALCIUM 20 MG TABLET PO SCH (21:19)
[2019-04-02] MEDS: LEVALBUTEROL HCL NEB 1.25 MG/3 ML AMPUL NEB SCH ×6 (00:26→20:43)
[2019-04-02] MEDS: OXYCODONE-ACETAMINOPHEN 5-325 MG TABLET PO PRN ×3 (00:58→14:16)
[2019-04-02] MEDS: HYDRALAZINE HCL 25 MG TABLET PO SCH ×2 (06:00→13:02)
[2019-04-02] MEDS: PANTOPRAZOLE SODIUM 40 MG TABLET.DR PO SCH ×2 (06:00→18:14)
[2019-04-02] MEDS: SILDENAFIL CITRATE 20 MG TABLET PO SCH ×3 (07:33→18:14)
[2019-04-02] MEDS: DILTIAZEM HCL 180 MG CAPSULE.CR PO SCH ×2 (10:46→21:08)
[2019-04-02] MEDS: FUROSEMIDE 40 MG TABLET PO SCH (10:46)
[2019-04-02] MEDS: MINOXIDIL 2.5 MG TABLET PO SCH ×2 (10:46→21:09)
[2019-04-02] MEDS: CALCITRIOL 0.25 MCG CAPSULE PO SCH (10:46)
[2019-04-02] MEDS: MORPHINE SULFATE SR 15 MG TABLET PO SCH ×2 (10:46→21:09)
[2019-04-02] MEDS: DOCUSATE SODIUM 100 MG CAPSULE PO SCH ×2 (10:46→18:14)
[2019-04-02] MEDS: APIXABAN 2.5 MG TABLET PO SCH ×2 (10:47→18:15)
[2019-04-02] MEDS: CITALOPRAM HYDROBROMIDE 20 MG TABLET PO SCH (10:47)
[2019-04-02] MEDS: FLUTICASONE NASAL SPRAY 50 MCG/SPRY 120 SPRAY/16 GM NASL SCH ×2 (10:47→21:08)
[2019-04-02] MEDS: LIDOCAINE 5% (700 MG) TRANSDERMAL ADH..PATCH EXT SCH (10:47)
[2019-04-02] MEDS: FLUTICASONE/VILANTEROL 200-25 MCG/DOSE IH SCH (10:47)
[2019-04-02] MEDS: SILVER SULFADIAZINE 1% CREAM 50 GM TOP SCH ×4 (10:48→21:10)
[2019-04-02] MEDS: PATIROMER 8.4 GM SUSP PACKET PO SCH (13:04)
--- NOTE | 2019-04-02 18:37 | PDOC PROGRESS REPORT ---
Subjective Progress Note for:: 04/02/19 Subjective:: Patient seen by the bedside she has no new complaints Reason For Visit: SOB Physical Exam Vital Signs: Temp Pulse Resp BP Pulse Ox 97.9 F 88 16 128/54 H 98 04/02/19 15:28 04/02/19 15:40 04/02/19 15:40 04/02/19 15:28 04/02/19 15:40 Intake & Output 04/01/19 04/02/19 04/03/19 06:59 06:59 06:59 Intake Total 1128 1121 1321 Output Total 1160 1715 450 Balance -32 -594 871 Weight 144.3 kg 148 kg General appearance: PRESENT: no acute distress Eye exam: PRESENT: PERRLA Respiratory exam: PRESENT: clear to auscultation lashanda Cardiovascular exam: PRESENT: +S1, +S2 GI/Abdominal exam: PRESENT: soft Neurological exam: PRESENT: alert Results Laboratory Results: 03/30/19 05:00 03/30/19 06:02 03/21/19 03/21/19 03/21/19 18:07 18:07 23:20 Creatine Kinase 94 96 CK-MB (CK-2) 1.35 Troponin I 0.029 NT-Pro-B Natriuret Pep 5040 H 03/21/19 03/22/19 03/22/19 23:20 05:40 05:40 Creatine Kinase 103 CK-MB (CK-2) 1.70 2.31 Troponin I 0.036 0.038 NT-Pro-B Natriuret Pep 4430 H 03/22/19 03/22/19 03/28/19 13:08 13:08 13:02 Creatine Kinase 125 46 CK-MB (CK-2) 2.34 Troponin I 0.024 NT-Pro-B Natriuret Pep 03/28/19 03/28/19 03/28/19 13:02 19:30 19:30 Creatine Kinase 45 CK-MB (CK-2) 2.37 2.21 Troponin I 0.062 0.078 NT-Pro-B Natriuret Pep 03/29/19 03/29/19 02:45 02:45 Creatine Kinase 41 CK-MB (CK-2) 1.98 Troponin I 0.077 NT-Pro-B Natriuret Pep Impressions: Chest CT 03/22/19 00:00 IMPRESSION: 1. Mild bilateral pleural effusions, right greater than left. Associated consolidation and minimal ground-glass opacities, likely atelectasis although infection is not entirely excluded. 2. Grossly stable 1.0 cm right thyroid lobe nodule. Consider ultrasound evaluation if it would alter patient management. Renal Ultrasound 03/23/19 00:00 IMPRESSION: The left kidney and bladder are poorly evaluated. Findings as described. Lung Scan-VQ NM 03/23/19 06:00 IMPRESSION: Limited negative study Chest X-Ray 03/29/19 00:00 IMPRESSION: Stable large cardiac silhouette with central vascular congestion and without overt edema. Mild left retrocardiac opacity possibly atelectasis, or infection. Assessment & Plan - Diagnosis (1) Bilateral pleural effusion Is this a current diagnosis for this admission?: Yes (2) Congestive heart failure Qualifiers: Heart failure type: diastolic Is this a current diagnosis for this admission?: Yes (3) Sleep apnea Qualifiers: Sleep apnea type: unspecified type Qualified Code(s): G47.30 - Sleep apnea, unspecified Is this a current diagnosis for this admission?: Yes (4) OUMAR (acute kidney injury) Is this a current diagnosis for this admission?: Yes
[2019-04-02] MEDS: MONTELUKAST SODIUM 10 MG TABLET PO SCH (21:08)
[2019-04-02] MEDS: ATORVASTATIN CALCIUM 20 MG TABLET PO SCH (21:09)
[2019-04-02] MEDS: ZOLPIDEM TARTRATE 5 MG TABLET PO SCH (21:09)
[2019-04-02] MEDS: PHARMACY COMMUNICATION ORDER MC SCH (21:10)
[2019-04-03] MEDS: LEVALBUTEROL HCL NEB 1.25 MG/3 ML AMPUL NEB SCH ×6 (00:33→20:49)
[2019-04-03] MEDS: PANTOPRAZOLE SODIUM 40 MG TABLET.DR PO SCH ×2 (05:17→17:19)
--- NOTE | 2019-04-03 08:25 | PDOC PROGRESS REPORT ---
Subjective Progress Note for:: 04/03/19 Subjective:: Patient is complaining some leg swelling There was some short of breath Patients feel like her leg is swelling and come out Patient is denied any chest pain Reason For Visit: SOB Physical Exam Vital Signs: Temp Pulse Resp BP Pulse Ox 97.9 F 84 16 162/54 H 99 04/03/19 08:00 04/03/19 08:00 04/03/19 08:00 04/03/19 08:00 04/03/19 08:00 Intake & Output 04/02/19 04/03/19 04/04/19 06:59 06:59 06:59 Intake Total 1121 1321 Output Total 1715 850 Balance -594 471 Weight 148 kg 143.9 kg General appearance: PRESENT: no acute distress, well-developed, well-nourished Head exam: PRESENT: atraumatic, normocephalic Eye exam: PRESENT: conjunctiva pink, EOMI, PERRLA. ABSENT: scleral icterus Ear exam: PRESENT: normal external ear exam Mouth exam: PRESENT: moist, tongue midline Neck exam: PRESENT: full ROM. ABSENT: carotid bruit, JVD, lymphadenopathy, thyromegaly Respiratory exam: PRESENT: clear to auscultation lashanda Cardiovascular exam: PRESENT: RRR. ABSENT: diastolic murmur, rubs, systolic murmur Vascular exam: PRESENT: normal capillary refill GI/Abdominal exam: PRESENT: normal bowel sounds, soft. ABSENT: distended, guarding, mass, organolmegaly, rebound, tenderness Rectal exam: PRESENT: deferred Extremities exam: PRESENT: pedal edema Musculoskeletal exam: PRESENT: ambulatory Neurological exam: PRESENT: alert, awake, oriented to person, oriented to place, oriented to time, oriented to situation, CN II-XII grossly intact. ABSENT: motor sensory deficit Psychiatric exam: PRESENT: appropriate affect, normal mood. ABSENT: homicidal ideation, suicidal ideation Skin exam: PRESENT: dry, intact, warm. ABSENT: cyanosis, rash Results Laboratory Results: 03/30/19 05:00 03/30/19 06:02 03/21/19 03/21/19 03/21/19 18:07 18:07 23:20 Creatine Kinase 94 96 CK-MB (CK-2) 1.35 Troponin I 0.029 NT-Pro-B Natriuret Pep 5040 H 03/21/19 03/22/19 03/22/19 23:20 05:40 05:40 Creatine Kinase 103 CK-MB (CK-2) 1.70 2.31 Troponin I 0.036 0.038 NT-Pro-B Natriuret Pep 4430 H 03/22/19 03/22/19 03/28/19 13:08 13:08 13:02 Creatine Kinase 125 46 CK-MB (CK-2) 2.34 Troponin I 0.024 NT-Pro-B Natriuret Pep 03/28/19 03/28/19 03/28/19 13:02 19:30 19:30 Creatine Kinase 45 CK-MB (CK-2) 2.37 2.21 Troponin I 0.062 0.078 NT-Pro-B Natriuret Pep 03/29/19 03/29/19 02:45 02:45 Creatine Kinase 41 CK-MB (CK-2) 1.98 Troponin I 0.077 NT-Pro-B Natriuret Pep Impressions: Chest CT 03/22/19 00:00 IMPRESSION: 1. Mild bilateral pleural effusions, right greater than left. Associated consolidation and minimal ground-glass opacities, likely atelectasis although infection is not entirely excluded. 2. Grossly stable 1.0 cm right thyroid lobe nodule. Consider ultrasound evaluation if it would alter patient management. Renal Ultrasound 03/23/19 00:00 IMPRESSION: The left kidney and bladder are poorly evaluated. Findings as described. Lung Scan-VQ NM 03/23/19 06:00 IMPRESSION: Limited negative study Chest X-Ray 03/29/19 00:00 IMPRESSION: Stable large cardiac silhouette with central vascular congestion and without overt edema. Mild left retrocardiac opacity possibly atelectasis, or infection. Assessment & Plan - Diagnosis (1) Congestive heart failure Qualifiers: Heart failure type: diastolic Is this a current diagnosis for this admission?: Yes Plan: Increase the Lasix 40 mg twice a day (2) Bilateral pleural effusion Is this a current diagnosis for this admission?: Yes Plan: Repeat chest x-ray (3) Dyspnea Qualifiers: Dyspnea type: dyspnea on exertion Qualified Code(s): R06.09 - Other forms of dyspnea Is this a current diagnosis for this admission?: Yes Plan: The multifactorial (4) Migraine headache Qualifiers: Migraine type: chronic without aura Status migrainosus presence: with status migrainosus Intractability: not intractable Qualified Code(s): G43.701 - Chronic migraine without aura, not intractable, with status migrainosus Is this a current diagnosis for this admission?: Yes (5) Poorly-controlled hypertension Is this a current diagnosis for this admission?: Yes Plan: [place] all improving (6) Asthma Qualifiers: Asthma severity: moderate Asthma complication type: uncomplicated Is this a current diagnosis for this admission?: Yes Plan: Start the patient on IV Solu-Medrol and nebulizer treatments (7) Chronic back pain Qualifiers: Back pain location: low back pain Is this a current diagnosis for this admission?: Yes (8) Chronic kidney disease Qualifiers: Chronic kidney disease stage: stage 2 (mild) Qualified Code(s): N18.2 - Chronic kidney disease, stage 2 (mild) Is this a current diagnosis for this admission?: Yes Plan: Follow with the nephrology (9) Chronic pain syndrome Is this a current diagnosis for this admission?: Yes (10) Paroxysmal atrial fibrillation Is this a current diagnosis for this admission?: Yes Plan: Currently on Xarelto and a beta-julio c (11) Pulmonary embolism Qualifiers: Chronicity: chronic Acute cor pulmonale presence: without acute cor pulmonale Is this a current diagnosis for this admission?: Yes Plan: Due to the recent clot and a nosebleed according to the hematology she reduce the dose to 10 mg (12) Sleep apnea Qualifiers: Sleep apnea type: unspecified type Qualified Code(s): G47.30 - Sleep apnea, unspecified Is this a current diagnosis for this admission?: Yes (13) Pneumonia Qualifiers: Laterality: right Lung location: unspecified part of lung Is this a current diagnosis for this admission?: Yes Plan: Continues to IV Levaquin - Time Time Spent with patient: 15-24 minutes Medications reviewed and adjusted accordingly: Yes Anticipated discharge: Home Within: Other - Plan Summary Plan Summary: Increase the Lasix 40 mg twice a day Check the blood work check the chest x-ray
[2019-04-03] MEDS ORDERED: FUROSEMIDE INJ/PF 20 MG/2 ML SDV IV ONE (09:00)
[2019-04-03] MEDS: MORPHINE SULFATE SR 15 MG TABLET PO SCH ×2 (09:05→22:00)
[2019-04-03] MEDS: CALCITRIOL 0.25 MCG CAPSULE PO SCH (09:05)
[2019-04-03] MEDS: MINOXIDIL 2.5 MG TABLET PO SCH ×2 (09:06→22:01)
[2019-04-03] MEDS: DILTIAZEM HCL 180 MG CAPSULE.CR PO SCH ×2 (09:06→22:00)
[2019-04-03] MEDS: APIXABAN 2.5 MG TABLET PO SCH ×2 (09:06→17:20)
[2019-04-03] MEDS: FLUTICASONE NASAL SPRAY 50 MCG/SPRY 120 SPRAY/16 GM NASL SCH ×2 (09:06→21:59)
[2019-04-03] MEDS: FLUTICASONE/VILANTEROL 200-25 MCG/DOSE IH SCH (09:06)
[2019-04-03] MEDS: DOCUSATE SODIUM 100 MG CAPSULE PO SCH ×2 (09:06→17:19)
[2019-04-03] MEDS: CITALOPRAM HYDROBROMIDE 20 MG TABLET PO SCH (09:07)
[2019-04-03] MEDS: LIDOCAINE 5% (700 MG) TRANSDERMAL ADH..PATCH EXT SCH (09:07)
[2019-04-03] MEDS: SILVER SULFADIAZINE 1% CREAM 50 GM TOP SCH ×4 (09:07→22:02)
[2019-04-03] MEDS: FUROSEMIDE 40 MG TABLET PO SCH ×2 (09:07→17:20)
[2019-04-03] MEDS: SILDENAFIL CITRATE 20 MG TABLET PO SCH ×3 (09:07→17:20)
[2019-04-03 10:05] LABS: HEMATOCRIT 30.4 % (36.0-47.0); HEMOGLOBIN 9.4 g/dL (12.0-15.5); MEAN CORPUSCULAR HEMOGLOBIN 23.4 pg (27.0-33.4); MEAN CORPUSCULAR HGB CONC 30.8 g/dL (32.0-36.0); MEAN CORPUSCULAR VOLUME 76 fl (80-97); PLATELET COUNT 154 10^3/uL (150-450); RED CELL DISTRIBUTION WIDTH 16.1 % (11.5-14.0); WHITE BLOOD COUNT 11.1 10^3/uL (4.0-10.5)
--- NOTE | 2019-04-03 11:00 | RADIOLOGY REPORT (SQ) ---
EXAM DESCRIPTION: CHEST 2 VIEWS COMPLETED DATE/TIME: 04/03/2019 10:47 am REASON FOR STUDY: sob COMPARISON: 03/29/2019. EXAM PARAMETERS: NUMBER OF VIEWS: two views TECHNIQUE: Digital Frontal and Lateral radiographic views of the chest acquired. RADIATION DOSE: NA LIMITATIONS: none FINDINGS: LUNGS AND PLEURA: No opacities, masses or pneumothorax. No pleural effusion. MEDIASTINUM AND HILAR STRUCTURES: No masses or contour abnormalities. HEART AND VASCULAR STRUCTURES: Stable cardiomegaly. Mild vascular prominence. BONES: No acute findings. Degenerative changes in the spine and shoulders. HARDWARE: Vascular access port. OTHER: No other significant finding. IMPRESSION: STABLE CARDIOMEGALY AND MILD VASCULAR PROMINENCE. NO CHANGE. TECHNICAL DOCUMENTATION: JOB ID: [id number] [employer]- All Rights Reserved Reading location - IP/workstation name: [email or web address]
[2019-04-03 11:11] LABS: ANION GAP 8 (5-19); BLOOD UREA NITROGEN 60 mg/dL (7-20); CALCIUM 8.7 mg/dL (8.4-10.2); CARBON DIOXIDE 27 mmol/L (22-30); CHLORIDE 107 mmol/L (98-107); GLUCOSE 139 mg/dL (75-110); POTASSIUM 4.2 mmol/L (3.6-5.0); SODIUM 142.1 mmol/L (137-145)
[2019-04-03] MEDS: OXYCODONE-ACETAMINOPHEN 5-325 MG TABLET PO PRN ×2 (12:57→19:13)
[2019-04-03] MEDS: QUETIAPINE FUMARATE 25 MG TABLET PO PRN (12:57)
[2019-04-03] MEDS: PATIROMER 8.4 GM SUSP PACKET PO SCH (14:02)
[2019-04-03] MEDS: MONTELUKAST SODIUM 10 MG TABLET PO SCH (21:59)
[2019-04-03] MEDS: ATORVASTATIN CALCIUM 20 MG TABLET PO SCH (22:00)
[2019-04-03] MEDS: ZOLPIDEM TARTRATE 5 MG TABLET PO SCH (22:00)
[2019-04-03] MEDS: PHARMACY COMMUNICATION ORDER MC SCH (22:01)
[2019-04-04] MEDS: LEVALBUTEROL HCL NEB 1.25 MG/3 ML AMPUL NEB SCH ×6 (00:17→21:38)
[2019-04-04] MEDS: OXYCODONE-ACETAMINOPHEN 5-325 MG TABLET PO PRN ×3 (02:27→14:44)
[2019-04-04] MEDS: PANTOPRAZOLE SODIUM 40 MG TABLET.DR PO SCH ×2 (06:01→17:17)
[2019-04-04] MEDS: SILDENAFIL CITRATE 20 MG TABLET PO SCH ×3 (08:17→17:17)
--- NOTE | 2019-04-04 08:45 | PDOC PROGRESS REPORT ---
Subjective Progress Note for:: 04/04/19 Subjective:: Patient is complaining some leg swelling There was some short of breath Patients feel like her leg is swelling and come out Patient is denied any chest pain Reason For Visit: SOB Physical Exam Vital Signs: Temp Pulse Resp BP Pulse Ox 97.7 F 79 20 139/59 H 100 04/04/19 07:47 04/04/19 07:47 04/04/19 07:47 04/04/19 07:47 04/04/19 07:47 Intake & Output 04/03/19 04/04/19 04/05/19 06:59 06:59 06:59 Intake Total 1321 620 Output Total 850 1650 Balance 471 -1030 Weight 143.9 kg 143.9 kg General appearance: PRESENT: no acute distress, well-developed, well-nourished Head exam: PRESENT: atraumatic, normocephalic Eye exam: PRESENT: conjunctiva pink, EOMI, PERRLA. ABSENT: scleral icterus Ear exam: PRESENT: normal external ear exam Mouth exam: PRESENT: moist, tongue midline Neck exam: PRESENT: full ROM. ABSENT: carotid bruit, JVD, lymphadenopathy, thyromegaly Respiratory exam: PRESENT: clear to auscultation lashanda Cardiovascular exam: PRESENT: RRR. ABSENT: diastolic murmur, rubs, systolic murmur Vascular exam: PRESENT: normal capillary refill GI/Abdominal exam: PRESENT: normal bowel sounds, soft. ABSENT: distended, guarding, mass, organolmegaly, rebound, tenderness Rectal exam: PRESENT: deferred Extremities exam: PRESENT: pedal edema Neurological exam: PRESENT: alert, awake, oriented to person, oriented to place, oriented to time, oriented to situation, CN II-XII grossly intact. ABSENT: motor sensory deficit Psychiatric exam: PRESENT: appropriate affect, normal mood. ABSENT: homicidal ideation, suicidal ideation Skin exam: PRESENT: dry, intact, warm. ABSENT: cyanosis, rash Results Laboratory Results: 04/03/19 09:50 04/03/19 04/03/19 09:50 09:50 WBC 11.1 H RBC 4.00 Hgb 9.4 L Hct 30.4 L MCV 76 L MCH 23.4 L MCHC 30.8 L RDW 16.1 H Plt Count 154 Sodium 142.1 Potassium 4.2 Chloride 107 Carbon Dioxide 27 Anion Gap 8 BUN 60 H Creatinine 2.26 H Est GFR ( Amer) 26 L Est GFR (Non-Af Amer) 21 L Glucose 139 H Calcium 8.7 03/21/19 03/21/19 03/21/19 18:07 18:07 23:20 Creatine Kinase 94 96 CK-MB (CK-2) 1.35 Troponin I 0.029 NT-Pro-B Natriuret Pep 5040 H 03/21/19 03/22/19 03/22/19 23:20 05:40 05:40 Creatine Kinase 103 CK-MB (CK-2) 1.70 2.31 Troponin I 0.036 0.038 NT-Pro-B Natriuret Pep 4430 H 03/22/19 03/22/19 03/28/19 13:08 13:08 13:02 Creatine Kinase 125 46 CK-MB (CK-2) 2.34 Troponin I 0.024 NT-Pro-B Natriuret Pep 03/28/19 03/28/19 03/28/19 13:02 19:30 19:30 Creatine Kinase 45 CK-MB (CK-2) 2.37 2.21 Troponin I 0.062 0.078 NT-Pro-B Natriuret Pep 03/29/19 03/29/19 02:45 02:45 Creatine Kinase 41 CK-MB (CK-2) 1.98 Troponin I 0.077 NT-Pro-B Natriuret Pep Impressions: Chest CT 03/22/19 00:00 IMPRESSION: 1. Mild bilateral pleural effusions, right greater than left. Associated consolidation and minimal ground-glass opacities, likely atelectasis although infection is not entirely excluded. 2. Grossly stable 1.0 cm right thyroid lobe nodule. Consider ultrasound evaluation if it would alter patient management. Renal Ultrasound 03/23/19 00:00 IMPRESSION: The left kidney and bladder are poorly evaluated. Findings as described. Lung Scan-VQ NM 03/23/19 06:00 IMPRESSION: Limited negative study Chest X-Ray 04/03/19 00:00 IMPRESSION: STABLE CARDIOMEGALY AND MILD VASCULAR PROMINENCE. NO CHANGE. Assessment & Plan - Diagnosis (1) Congestive heart failure Qualifiers: Heart failure type: diastolic Is this a current diagnosis for this admission?: Yes Plan: Continues to Lasix twice a day (2) Bilateral pleural effusion Is this a current diagnosis for this admission?: Yes Plan: Repeat chest x-ray (3) Dyspnea Qualifiers: Dyspnea type: dyspnea on exertion Qualified Code(s): R06.09 - Other forms of dyspnea Is this a current diagnosis for this admission?: Yes Plan: The multifactorial (4) Migraine headache Qualifiers: Migraine type: chronic without aura Status migrainosus presence: with status migrainosus Intractability: not intractable Qualified Code(s): G43.701 - Chronic migraine without aura, not intractable, with status migrainosus Is this a current diagnosis for this admission?: Yes (5) Poorly-controlled hypertension Is this a current diagnosis for this admission?: Yes (6) Asthma Qualifiers: Asthma severity: moderate Asthma complication type: uncomplicated Is this a current diagnosis for this admission?: Yes (7) Chronic back pain Qualifiers: Back pain location: low back pain Is this a current diagnosis for this admission?: Yes (8) Chronic kidney disease Qualifiers: Chronic kidney disease stage: stage 2 (mild) Qualified Code(s): N18.2 - Chronic kidney disease, stage 2 (mild) Is this a current diagnosis for this admission?: Yes (9) Chronic pain syndrome Is this a current diagnosis for this admission?: Yes (10) Paroxysmal atrial fibrillation Is this a current diagnosis for this admission?: Yes (11) Pulmonary embolism Qualifiers: Chronicity: chronic Acute cor pulmonale presence: without acute cor pulmonale Is this a current diagnosis for this admission?: Yes (12) Sleep apnea Qualifiers: Sleep apnea type: unspecified type Qualified Code(s): G47.30 - Sleep apnea, unspecified Is this a current diagnosis for this admission?: Yes (13) Pneumonia Qualifiers: Laterality: right Lung location: unspecified part of lung Is this a current diagnosis for this admission?: Yes - Time Time Spent with patient: 15-24 minutes Medications reviewed and adjusted accordingly: Yes Anticipated discharge: Home with Homehealth Within: within 24 hours - Plan Summary Plan Summary: Continues to Lasix twice a day
[2019-04-04 09:05] LABS: ANION GAP 9 (5-19); BLOOD UREA NITROGEN 57 mg/dL (7-20); CALCIUM 8.9 mg/dL (8.4-10.2); CARBON DIOXIDE 28 mmol/L (22-30); CHLORIDE 106 mmol/L (98-107); GLUCOSE 113 mg/dL (75-110); POTASSIUM 4.4 mmol/L (3.6-5.0); SODIUM 143.1 mmol/L (137-145)
[2019-04-04] MEDS: DILTIAZEM HCL 180 MG CAPSULE.CR PO SCH ×2 (09:32→21:53)
[2019-04-04] MEDS: DOCUSATE SODIUM 100 MG CAPSULE PO SCH ×2 (09:32→17:17)
[2019-04-04] MEDS: CALCITRIOL 0.25 MCG CAPSULE PO SCH (09:33)
[2019-04-04] MEDS: FUROSEMIDE 40 MG TABLET PO SCH ×2 (09:33→17:17)
[2019-04-04] MEDS: MORPHINE SULFATE SR 15 MG TABLET PO SCH ×2 (09:33→21:53)
[2019-04-04] MEDS: APIXABAN 2.5 MG TABLET PO SCH ×2 (09:34→17:17)
[2019-04-04] MEDS: FLUTICASONE NASAL SPRAY 50 MCG/SPRY 120 SPRAY/16 GM NASL SCH ×2 (09:34→21:54)
[2019-04-04] MEDS: FLUTICASONE/VILANTEROL 200-25 MCG/DOSE IH SCH (09:34)
[2019-04-04] MEDS: CITALOPRAM HYDROBROMIDE 20 MG TABLET PO SCH (09:34)
[2019-04-04] MEDS: SILVER SULFADIAZINE 1% CREAM 50 GM TOP SCH ×4 (09:35→21:54)
[2019-04-04] MEDS: MINOXIDIL 2.5 MG TABLET PO SCH (09:35)
[2019-04-04] MEDS: LIDOCAINE 5% (700 MG) TRANSDERMAL ADH..PATCH EXT SCH (09:35)
--- NOTE | 2019-04-04 12:09 | PDOC PROGRESS REPORT ---
Subjective Progress Note for:: 04/04/19 Reason For Visit: Patient seen today in hospital. She is seemingly comfortable with 2 L of nasal cannula. However you could see that she decompensates when she tries to exert. Edema she thinks is somewhat better. No complaints of any chest pain, fever or chills. Previous histories and labs were reviewed. Today's labs and medications were reviewed with the patient. Current BUN/creatinine 57/2.4 as compared to baseline of 1.1 on 03/22/2019. She has been treated vigorously now for pulmonary hypertension and plan is to refer her to pulmonary hypertension clinic [facility] post discharge. She says she has been compliant with her CPAP at home. Physical Exam Vital Signs: Temp Pulse Resp BP Pulse Ox 97.7 F 85 18 139/59 H 97 04/04/19 07:47 04/04/19 11:48 04/04/19 11:48 04/04/19 07:47 04/04/19 11:48 Intake & Output 04/03/19 04/04/19 04/05/19 06:59 06:59 06:59 Intake Total 1321 620 Output Total 850 1650 Balance 471 -1030 Weight 143.9 kg 143.9 kg General appearance: PRESENT: mild distress, morbidly obese Respiratory exam: PRESENT: clear to auscultation lashanda, decreased breath sounds. ABSENT: crackles Cardiovascular exam: PRESENT: RRR, +S1, +S2 GI/Abdominal exam: PRESENT: soft. ABSENT: tenderness Extremities exam: PRESENT: +2 edema Neurological exam: PRESENT: alert, awake, oriented to person, oriented to place, oriented to time Psychiatric exam: PRESENT: appropriate affect Skin exam: PRESENT: mottled - Venous stasis changes of both lower extremities.. ABSENT: cyanosis, erythema, urticaria, vesicles Results Laboratory Results: 04/03/19 09:50 04/04/19 08:27 04/04/19 08:27 Sodium 143.1 Potassium 4.4 Chloride 106 Carbon Dioxide 28 Anion Gap 9 BUN 57 H Creatinine 2.43 H Est GFR ( Amer) 24 L Est GFR (Non-Af Amer) 20 L Glucose 113 H Calcium 8.9 03/21/19 03/21/19 03/21/19 18:07 18:07 23:20 Creatine Kinase 94 96 CK-MB (CK-2) 1.35 Troponin I 0.029 NT-Pro-B Natriuret Pep 5040 H 03/21/19 03/22/19 03/22/19 23:20 05:40 05:40 Creatine Kinase 103 CK-MB (CK-2) 1.70 2.31 Troponin I 0.036 0.038 NT-Pro-B Natriuret Pep 4430 H 03/22/19 03/22/19 03/28/19 13:08 13:08 13:02 Creatine Kinase 125 46 CK-MB (CK-2) 2.34 Troponin I 0.024 NT-Pro-B Natriuret Pep 03/28/19 03/28/19 03/28/19 13:02 19:30 19:30 Creatine Kinase 45 CK-MB (CK-2) 2.37 2.21 Troponin I 0.062 0.078 NT-Pro-B Natriuret Pep 03/29/19 03/29/19 02:45 02:45 Creatine Kinase 41 CK-MB (CK-2) 1.98 Troponin I 0.077 NT-Pro-B Natriuret Pep Impressions: Chest CT 03/22/19 00:00 IMPRESSION: 1. Mild bilateral pleural effusions, right greater than left. Associated consolidation and minimal ground-glass opacities, likely atelectasis although infection is not entirely excluded. 2. Grossly stable 1.0 cm right thyroid lobe nodule. Consider ultrasound evaluation if it would alter patient management. Renal Ultrasound 03/23/19 00:00 IMPRESSION: The left kidney and bladder are poorly evaluated. Findings as described. Lung Scan-VQ NM 03/23/19 06:00 IMPRESSION: Limited negative study Chest X-Ray 04/03/19 00:00 IMPRESSION: STABLE CARDIOMEGALY AND MILD VASCULAR PROMINENCE. NO CHANGE. Assessment & Plan - Diagnosis (1) OUMAR (acute kidney injury) Is this a current diagnosis for this admission?: Yes Plan: In the face of severe pulmonary hypertension/cor pulmonale. Obviously she is got a lot of fluid retention and she is currently on Lasix. However I also note that the patient has been on minoxidil as an outpatient and currently is on a low dose of minoxidil as well. Given her present status I do not think m inoxidil would be a good drug of choice to be used in this patient. I will substitute this with hydralazine as otherwise it could contribute to worsening heart failure and more fluid retention which would be detrimental to this patient with cor pulmonale. Advised physical measures as well. Monitor as outpatient once she is discharged. No acute indications for renal replacements currently exists. (2) Pulmonary hypertension Is this a current diagnosis for this admission?: Yes Plan: Most likely secondary to combination of sleep apnea/pickwickian syndrome. She has just been started on sildenafil. She thinks she is better since then. Dr. Garces is on board. (3) Sleep apnea Qualifiers: Sleep apnea type: unspecified type Qualified Code(s): G47.30 - Sleep apnea, unspecified Is this a current diagnosis for this admission?: Yes (4) Hypertension Qualifiers: Hypertension type: essential hypertension Qualified Code(s): I10 - Essential (primary) hypertension Is this a current diagnosis for this admission?: Yes Plan: Controlled. I think that the minoxidil might be a double edged sword. It might be better that be better that it is substituted for obvious reasons.See my notes from earlier. (5) Paroxysmal atrial fibrillation Is this a current diagnosis for this admission?: Yes Plan: Rate controlled on Cardizem. As per Dr. Garces. (6) Cor pulmonale Plan: As mentioned earlier in my notes are probably hypertension.
[2019-04-04] MEDS: HYDRALAZINE HCL 25 MG TABLET PO SCH ×2 (14:44→21:53)
[2019-04-04] MEDS: PATIROMER 8.4 GM SUSP PACKET PO SCH (14:45)
[2019-04-04] MEDS: ZOLPIDEM TARTRATE 5 MG TABLET PO SCH (21:53)
[2019-04-04] MEDS: MONTELUKAST SODIUM 10 MG TABLET PO SCH (21:53)
[2019-04-04] MEDS: ATORVASTATIN CALCIUM 20 MG TABLET PO SCH (21:53)
[2019-04-04] MEDS: PHARMACY COMMUNICATION ORDER MC SCH (21:54)
[2019-04-05] MEDS: LEVALBUTEROL HCL NEB 1.25 MG/3 ML AMPUL NEB SCH ×5 (01:15→16:47)
[2019-04-05] MEDS: HYDRALAZINE HCL 25 MG TABLET PO SCH ×2 (05:17→13:14)
[2019-04-05] MEDS: PANTOPRAZOLE SODIUM 40 MG TABLET.DR PO SCH ×2 (05:18→17:05)
[2019-04-05] MEDS: OXYCODONE-ACETAMINOPHEN 5-325 MG TABLET PO PRN (06:16)
[2019-04-05] MEDS: FUROSEMIDE 40 MG TABLET PO SCH ×2 (10:01→17:04)
[2019-04-05] MEDS: CITALOPRAM HYDROBROMIDE 20 MG TABLET PO SCH (10:01)
[2019-04-05] MEDS: CALCITRIOL 0.25 MCG CAPSULE PO SCH (10:01)
[2019-04-05] MEDS: LIDOCAINE 5% (700 MG) TRANSDERMAL ADH..PATCH EXT SCH (10:02)
[2019-04-05] MEDS: SILDENAFIL CITRATE 20 MG TABLET PO SCH ×3 (10:02→17:04)
[2019-04-05] MEDS: DILTIAZEM HCL 180 MG CAPSULE.CR PO SCH (10:02)
[2019-04-05] MEDS: MORPHINE SULFATE SR 15 MG TABLET PO SCH (10:02)
[2019-04-05] MEDS: DOCUSATE SODIUM 100 MG CAPSULE PO SCH ×2 (10:02→17:05)
[2019-04-05] MEDS: FLUTICASONE NASAL SPRAY 50 MCG/SPRY 120 SPRAY/16 GM NASL SCH (10:03)
[2019-04-05] MEDS: APIXABAN 2.5 MG TABLET PO SCH ×2 (10:03→17:04)
[2019-04-05] MEDS: FLUTICASONE/VILANTEROL 200-25 MCG/DOSE IH SCH (10:03)
[2019-04-05] MEDS: SILVER SULFADIAZINE 1% CREAM 50 GM TOP SCH ×3 (10:09→17:11)
--- NOTE | 2019-04-05 12:24 | PDOC DISCHARGE SUMMARY ---
General - Admit/Disc Date/PCP Admission Date/Primary Care Provider: 03/21/19 21:29 MICHEL COHEN MD Discharge Date: 04/05/19 - Discharge Diagnosis (1) Congestive heart failure Is this a current diagnosis for this admission?: Yes Summary: Currently all stable continues to Lasix (2) Bilateral pleural effusion Is this a current diagnosis for this admission?: Yes Summary: Currently all resolved (3) Dyspnea Is this a current diagnosis for this admission?: Yes Summary: This oxygen (4) Migraine headache Is this a current diagnosis for this admission?: Yes Summary: Follow the [place] [facility] (5) Poorly-controlled hypertension Is this a current diagnosis for this admission?: Yes Summary: all stable (6) Asthma Is this a current diagnosis for this admission?: Yes Summary: Outpatients pulmonary (7) Chronic back pain Is this a current diagnosis for this admission?: Yes Summary: Follow with the pain management (8) Chronic kidney disease Is this a current diagnosis for this admission?: Yes Summary: Dr. Gomez (9) Chronic pain syndrome Is this a current diagnosis for this admission?: Yes (10) Paroxysmal atrial fibrillation Is this a current diagnosis for this admission?: Yes Summary: Start Eliquis 2.5 mg twice a day and follow with the Dr. Garces (11) Pulmonary embolism Is this a current diagnosis for this admission?: Yes Summary: Follow with the hematology and suggest to continues to Eliquis (12) Sleep apnea Is this a current diagnosis for this admission?: Yes Summary: CPAP (13) Pneumonia Is this a current diagnosis for this admission?: Yes Summary: Currently all resolved - Additional Information Resuscitation Status: Full Code Discharge Diet: Cardiac Discharge Activity: Activity As Tolerated, Balance Activity w/Rest, Weigh Daily Prescriptions: Apixaban [Eliquis 2.5 mg Tablet] 2.5 mg PO BID #60 tablet Diltiazem HCl [Cardizem Cd 180 mg Capsule] 180 mg PO Q12 #60 capsule.cr Furosemide [Lasix 40 mg Tablet] 40 mg PO DAILY #30 tablet Furosemide [Lasix 40 mg Tablet] 40 mg PO BID #60 tablet Hydralazine HCl [Apresoline 25 mg Tablet] 25 mg PO Q6 #120 tablet Home Medications: Albuterol Sulfate [Albuterol Sulfate 2.5mg/3 mL] 1 vial [facility] RTQ6HP PRN 03/14/17 Fluticasone/Salmeterol [Advair 500-50 Diskus 28 Dose] 1 puff IH Q12 03/14/17 Lidocaine [Lidoderm 5% (700 mg) Transdermal Patch] 1 patch TD DAILY MDD BACK 03/14/17 Montelukast Sodium [Singulair 10 mg Tablet] 10 mg PO QHS 03/14/17 Omeprazole 40 mg PO DAILY 03/14/17 Albuterol Sulfate [Proair HFA Inhalation Aerosol 8.5 gm MDI] 2 puff IH Q4HP PRN 03/22/19 Atorvastatin Calcium [Lipitor 20 mg Tablet] 20 mg PO QHS 03/22/19 Calcitriol [Rocaltrol 0.25 mcg Capsule] 0.5 mcg PO DAILY 03/22/19 Dihydroergotamine 1mg/Ml Amp 1 ml IM .HEADACHE PRN 03/22/19 Fluticasone Propionate [Flonase Nasal [place] 50 Mcg/[place] 16 gm] 1 spray NAREB Q12 03/22/19 Minoxidil [Loniten 2.5 mg Tablet] 2.5 mg PO Q12 03/22/19 Morphine Sulfate/Naltrexone [Embeda ER 50-2 mg Capsule] 1 cap PO Q12 03/22/19 Ondansetron [Zofran Odt 4 mg Tablet] 4 mg PO Q8HP PRN 03/22/19 Oxycodone HCl/Acetaminophen [Percocet 5-325 mg Tablet] 1 tab PO Q6HP PRN 03/22/19 Quetiapine Fumarate [Seroquel] 50 mg PO Q8HP PRN MDD 6 TABS 03/22/19 Silver Sulfadiazine [Ssd] 1 applic TOP QID MDD CREASES 03/22/19 Spironolactone [Aldactone 25 mg Tablet] 25 mg PO DAILY 03/22/19 Zolpidem Tartrate [Ambien 5 mg Tablet] 10 mg PO QHS 03/22/19 Apixaban [Eliquis 2.5 mg Tablet] 2.5 mg PO BID #60 tablet 03/31/19 Diltiazem HCl [Cardizem Cd 180 mg Capsule] 180 mg PO Q12 #60 capsule.cr 03/31/19 Furosemide [Lasix 40 mg Tablet] 40 mg PO DAILY #30 tablet 03/31/19 Hydralazine HCl [Apresoline 25 mg Tablet] 25 mg PO Q6 #120 tablet 03/31/19 Furosemide [Lasix 40 mg Tablet] 40 mg PO BID #60 tablet 04/05/19 History of Present Illness History of Present Illness: GLENDA PENA is a 73 year old female This is a 73-year-old female with a history of chronic thrombolic embolism and his Xarelto also history of the diastolic congestive heart failure history of the paroxysmal atrial fibrillation's history of the chronic back pain and a chronic migraine headache and also history of the COPD sleep apnea and the multiple medical problems and currently went to the see franco brownlee roller stainer office and patient was complaining more difficulty in breathing and complaining some nose bleed with some clot coming from that and sent to the emergency department In the emergency department initial work-up with a chest x-ray showed a right- sided pneumonia versus edema Patient's currently see the pulmonary Dr. Hernandez outpatient The patient's unable to get the CT of the chest yesterday because unable to lay down flat Patient also see a pain management and also see the neurosurgery for ongoing back problems Patient also see a cardiology Patient also see at [place] [facility] Patient is on chronic pain medications and chronic psych medications for the anxiety and depression and currently see a psych and a pain management When I saw the patient in the emergency department patient was given nebulizer treatment and feeling better Patient denied any chest pain Patient still feels tight in the chest Patient NT BNP is elevated Patient have a chronic kidney disease and currently see but patient creatinine is all stable At this point decided to admit in the hospital for the COPD asthma acute exacerbations and acute congestive heart failure Hospital Course Hospital Course: This is a 73-year-old female's with the multiple medical problem as above admitting in the hospital for the shortness of the breath and asthma pneumonia and suggest heart failure Patient seen by the cardiology pulmonary and hematology and nephrology Patient's was giving IV Lasix IV antibiotic and a steroid Patient's response very well with that Patient's put on the p.o. Lasix Patient was seen by the pulmonary and suggest all no need for any further antibiotics and a steroid continues to current inhaler Patient's baseline creatinine back to the 2.5 Patient seen by the Dr. Gomez and suggest follow outpatient Patient have a congestive heart failure and pulmonary hypertension's and according to the radio repairer Dr. Garces patients will refer by his office to the pulmonary clinic in [place] for further evaluations for pulmonary hypertension's Patient is otherwise doing well back to the baseline's Patient is required 2 L nasal cannula oxygen at home all the times Patients walk with the physical therapy Patient's Xarelto was switched to the Eliquis due to the kidney disease Patients also follow the [place] [facility] and pain medications and follow with the pain management also Patient's otherwise remained stable The patient is a maximum benefit from the hospital Discussed with the library consultant and suggest patient's discharge will follow outpatients The regarding the patient's current conditions Physical Exam Vital Signs: Temp Pulse Resp BP Pulse Ox 98.2 F 92 18 140/54 H 95 04/05/19 07:27 04/05/19 09:16 04/05/19 09:16 04/05/19 07:27 04/05/19 09:16 Intake & Output 04/04/19 04/05/19 04/06/19 06:59 06:59 06:59 Intake Total 620 557 Output Total 1650 1205 Balance -1030 -648 Weight 143.9 kg 148 kg General appearance: PRESENT: no acute distress, well-developed, well-nourished Head exam: PRESENT: atraumatic, normocephalic Eye exam: PRESENT: conjunctiva pink, EOMI, PERRLA. ABSENT: scleral icterus Ear exam: PRESENT: normal external ear exam Mouth exam: PRESENT: moist, tongue midline Neck exam: PRESENT: full ROM. ABSENT: carotid bruit, JVD, lymphadenopathy, thyromegaly Respiratory exam: PRESENT: clear to auscultation lashanda Cardiovascular exam: PRESENT: RRR. ABSENT: diastolic murmur, rubs, systolic murmur Pulses: PRESENT: normal dorsalis pedis pul, +2 pedal pulses bilateral Vascular exam: PRESENT: normal capillary refill GI/Abdominal exam: PRESENT: normal bowel sounds, soft. ABSENT: distended, guarding, mass, organolmegaly, rebound, tenderness Rectal exam: PRESENT: deferred Extremities exam: PRESENT: pedal edema Musculoskeletal exam: PRESENT: ambulatory Neurological exam: PRESENT: alert, awake, oriented to person, oriented to place, oriented to time, oriented to situation, CN II-XII grossly intact. ABSENT: motor sensory deficit Psychiatric exam: PRESENT: appropriate affect, normal mood. ABSENT: homicidal ideation, suicidal ideation Skin exam: PRESENT: dry, intact, warm. ABSENT: cyanosis, rash Results Laboratory Results: 04/03/19 09:50 04/04/19 08:27 03/21/19 03/21/19 03/21/19 18:07 18:07 23:20 Creatine Kinase 94 96 CK-MB (CK-2) 1.35 Troponin I 0.029 NT-Pro-B Natriuret Pep 5040 H 03/21/19 03/22/19 03/22/19 23:20 05:40 05:40 Creatine Kinase 103 CK-MB (CK-2) 1.70 2.31 Troponin I 0.036 0.038 NT-Pro-B Natriuret Pep 4430 H 03/22/19 03/22/19 03/28/19 13:08 13:08 13:02 Creatine Kinase 125 46 CK-MB (CK-2) 2.34 Troponin I 0.024 NT-Pro-B Natriuret Pep 03/28/19 03/28/19 03/28/19 13:02 19:30 19:30 Creatine Kinase 45 CK-MB (CK-2) 2.37 2.21 Troponin I 0.062 0.078 NT-Pro-B Natriuret Pep 03/29/19 03/29/19 02:45 02:45 Creatine Kinase 41 CK-MB (CK-2) 1.98 Troponin I 0.077 NT-Pro-B Natriuret Pep Impressions: Chest CT 03/22/19 00:00 IMPRESSION: 1. Mild bilateral pleural effusions, right greater than left. Associated consolidation and minimal ground-glass opacities, likely atelectasis although infection is not entirely excluded. 2. Grossly stable 1.0 cm right thyroid lobe nodule. Consider ultrasound evaluation if it would alter patient management. Renal Ultrasound 03/23/19 00:00 IMPRESSION: The left kidney and bladder are poorly evaluated. Findings as described. Lung Scan-VQ NM 03/23/19 06:00 IMPRESSION: Limited negative study Chest X-Ray 04/03/19 00:00 IMPRESSION: STABLE CARDIOMEGALY AND MILD VASCULAR PROMINENCE. NO CHANGE. Qualifiers - * PATIENT BEING DISCHARGED WITH ANY OF THE FOLLOWING DIAGNOSIS: No VTE patient discharged on overlapping Therapy?: Yes Acute Heart Failure Is this a Heart Failure Patient?: Yes Documentation of LVEF assessment?: Yes a) Discharged on ACEI?: N/A Discharged on ARB Reason(s) not discharge on ACEI: Impaied/worsening renal function b) Discharges on ARB?: N/A-Discharged on ARNI Reason(s) not discharged on ARB: Impaired/worsening renal functions Reason(s) not discharged on ARNI: Hyperkalemia, Impaired/worsening renal functions d) Discharged on evidence-based Beta julio c(carvedilol, sustained release metoprolol succinate, or bisoprolol)?: Yes e) For LVEF <35%, discharged on Aldosterone antagonist?: N/A (LVEF > or = 35%) 3. Anticoagulant therapy for permanect/persistent/paraoxysmal Afib or Aflutter: Yes
[2019-04-05] MEDS: PATIROMER 8.4 GM SUSP PACKET PO SCH (16:09)
[2019-04-05 18:37] VITALS: BP 134/60
== END 2019-04-05 19:59 | disposition home health service (06) | DRG 291 ==
LOC: ER 15:15 → EH 21:29 → 3S 23:57
PROVIDERS: ADMIT Family Medicine; ATTEND Family Medicine
PROC: 3E0F3GC Introduction of Other Therapeutic Substance into Respiratory Tract, Percutaneous Approach (ICD-10-PCS; principal; 2019-03-21)
DX: I13.0 Hypertensive heart and chronic kidney disease with heart failure and stage 1 through stage 4 chronic kidney disease, or unspecified chronic kidney disease (principal); I26.99 Other pulmonary embolism without acute cor pulmonale; I50.33 Acute on chronic diastolic (congestive) heart failure; J18.1 Lobar pneumonia, unspecified organism; N17.9 Acute kidney failure, unspecified; J91.8 Pleural effusion in other conditions classified elsewhere; J44.0 Chronic obstructive pulmonary disease with (acute) lower respiratory infection; L03.818 Cellulitis of other sites; Z68.42 Body mass index [BMI] 45.0-49.9, adult; J44.1 Chronic obstructive pulmonary disease with (acute) exacerbation; I27.20 Pulmonary hypertension, unspecified; E87.5 Hyperkalemia; I27.81 Cor pulmonale (chronic); Z99.81 Dependence on supplemental oxygen; E66.01 Morbid (severe) obesity due to excess calories; I48.0 Paroxysmal atrial fibrillation; D63.1 Anemia in chronic kidney disease; I45.4 Nonspecific intraventricular block; Z79.01 Long term (current) use of anticoagulants; I35.0 Nonrheumatic aortic (valve) stenosis; I35.1 Nonrheumatic aortic (valve) insufficiency; M54.9 Dorsalgia, unspecified; G89.4 Chronic pain syndrome; G47.30 Sleep apnea, unspecified; F32.9 Major depressive disorder, single episode, unspecified; I25.10 Atherosclerotic heart disease of native coronary artery without angina pectoris; M19.90 Unspecified osteoarthritis, unspecified site; F41.1 Generalized anxiety disorder; R33.9 Retention of urine, unspecified; K44.9 Diaphragmatic hernia without obstruction or gangrene; N18.2 Chronic kidney disease, stage 2 (mild); I87.2 Venous insufficiency (chronic) (peripheral); G43.701 Chronic migraine without aura, not intractable, with status migrainosus; Z86.718 Personal history of other venous thrombosis and embolism; Z87.01 Personal history of pneumonia (recurrent); Z88.0 Allergy status to penicillin; Z88.8 Allergy status to other drugs, medicaments and biological substances; Z88.6 Allergy status to analgesic agent; Z91.040 Latex allergy status; Z91.018 Allergy to other foods; Z91.048 Other nonmedicinal substance allergy status; Z98.84 Bariatric surgery status; Z91.041 Radiographic dye allergy status
CPT/HCPCS: 36415; 36591; 71045; 71046; 71250; 76775; 78582; 80048; 80053; 81001; 82550; 82553; 82962; 83735; 83880; 84484; 85025; 85027; 87040; 87086; 93005; 93010; 93306; 94660; 96374; 96375; 99285; A9540; A9567; J0360; J1110; J1642; J1940; J1956; J2060; J2270; J2405; J2920; J3490; Q9969; S0119

== ENCOUNTER → 2019-11-29 | Outpatient (CLI) | payer MEDICARE, OTHER ==
--- NOTE | 2019-11-29 14:50 | WOMENS IMAGING REPORT ---
EXAM DESCRIPTION: BILAT DIAGNOSTIC MAMMO W/CAD COMPLETED DATE/TIME: 11/29/2019 2:34 pm REASON FOR STUDY: N61.0 MASTITIS WITHOUT ABSCESS N61.0 MASTITIS WITHOUT ABSCESS COMPARISON: 05/20/2018 and 11/30/2013. EXAM PARAMETERS: Standard craniocaudal and mediolateral oblique views of each breast recorded using digital acquisition. Additional exaggerated CCL image of the right breast acquired. Read with the assistance of CAD: .[facility] - [employer] Record Clerk Version 9.2 LIMITATIONS: None. FINDINGS: RIGHT BREAST MASSES: No suspicious masses. CALCIFICATIONS: No new or suspicious calcifications. ARCHITECTURAL DISTORTION: None. ASYMMETRY: Diffuse asymmetry in the upper-outer breast. OTHER: Marked skin thickening throughout the breast, measuring up to 7 mm. LEFT BREAST MASSES: No suspicious masses. CALCIFICATIONS: No new or suspicious calcifications. ARCHITECTURAL DISTORTION: None. ASYMMETRY: None noted. OTHER: No other significant finding. IMPRESSION: Asymmetric density in the right breast with marked diffuse skin thickening. The patient has had an ultrasound through another facility. The findings could be due to mastitis secondary to acute infection. However, the patient reports that her symptoms have been present for some time and this raises the possibility of inflammatory carcinoma. Recommend skin biopsy. Stable mammographic appearance of the left breast. BREAST DENSITY: a. The breasts are almost entirely fatty. BIRAD: ASSESSMENT: 4 Suspicious. Biopsy should be performed in the absence of clinical contra-indic ation. RECOMMENDATION: RECOMMENDED FOLLOW UP: Birads 4: Biopsy should be performed in the absence of clinic al contraindication. SPECIFIC INTERVENTION/IMAGING/CONSULTATION RECOMMENDED:Recommend skin biopsy of the right breast. COMMUNICATION:The imaging findings were not discussed with the patient. Her referring provider has be en notified of the findings. COMMENT: The patient has been notified of the results by letter per [place] requirements. Additional no tification policies are in place for contacting patient with suspicious or incomplete findings. Quality ID #[id number]: The [employer] recommends an annual screening mammogram for women aged 40 years or over. This facility utilizes a reminder system to ensure that all patients receive reminder letters, and/or direct phone calls for appointments. This includes reminders for routine scr eening mammograms, diagnostic mammograms, or other Breast Imaging Interventions when appropriate. Th is patient will be placed in the appropriate reminder system. TECHNICAL DOCUMENTATION: FINDING NUMBER: (1) ASSESSMENT: (1) JOB ID: [id number] [employer]- All Rights Reserved Reading location - IP/workstation name: [email or web address]
== END ==
LOC: WI 14:27
PROVIDERS: ATTEND Internal Medicine
DX: N61.0 Mastitis without abscess (principal)
CPT/HCPCS: 77066